=== PATIENT | male | born 1955 | race Caucasian/White ===

== ENCOUNTER 2016-04-23 16:37 | Emergency (ER) | payer OTHER ==
[~2016-04-23] VITALS: Ht 190.5 cm; Wt 95.0 kg
[~2016-04-23 16:37] MED LIST: ADVAI500I PO; ALPR0.5T3 PO; PRED5TAB PO
--- NOTE | 2016-04-23 17:34 | PD ---
HPI Chief Complaint: EtOH intoxication/Rodriguez act Time Seen by Provider: 17:34 Travel History International Travel<30 days: No Contact w/Intl Traveler<30days: No Traveled to known affect area: No History of Present Illness HPI 60-year-old male brought in under the Rodriguez with alcohol intoxication. Patient brought in via EMS. Patient states he drank a bottle of vodka today. Patient has no complaints of pain but is complaining that he is "having a panic attack". He has no known drug allergies. PFSH Past Medical History Medical History: Unable to Obtain Hx Anticoagulant Therapy: No Arthritis: No Asthma: Yes Autoimmune Disease: No Blood Disorders: No Anxiety: Yes Depression: No Heart Rhythm Problems: No Cancer: No Cardiovascular Problems: No High Cholesterol: No Chemotherapy: No Chest Pain: No Congestive Heart Failure: No COPD: No Cerebrovascular Accident: No Diabetes: No Diminished Hearing: No Endocrine: No Gastrointestinal Disorders: Yes (POSSIBLE HERNIA) GERD: No Glaucoma: No Genitourinary: Yes (ENLARGED PROSTATE CAUSING DELAYED BLADDER EMPTYING) Headaches: No Hepatitis: No Hiatal Hernia: Yes Hypertension: No Immune Disorder: No Implanted Vascular Access Dvce: Yes Kidney Stones: No Musculoskeletal: No Neurologic: No Psychiatric: Yes Reproductive: No Respiratory: Yes Immunizations Current: Yes Migraines: No Myocardial Infarction: No Radiation Therapy: No Renal Failure: No Seizures: No Sickle Cell Disease: No Sleep Apnea: No Thyroid Disease: No Past Surgical History Abdominal Surgery: Yes (HERNIA REPAIR) AICD: No Arteriovenous Shunt: No Body Medical Devices: DENTAL IMPLANT Cardiac Surgery: No Cholecystectomy: No Ear Surgery: No Endocrine Surgery: No Eye Surgery: No Genitourinary Surgery: Yes (TURP secondary to BPH) Gynecologic Surgery: No Insulin Pump: No Joint Replacement: No Oral Surgery: Yes (TOOTH PULLED UNDER ANESTHESIA) Pacemaker: No Thoracic Surgery: No Other Surgery: Yes Social History Alcohol Use: Yes (BINGE DRINKING DAILY) Tobacco Use: No Substance Use: Yes (ALCOHOL, BENZOS.) Allergies-Medications (Allergen,Severity, Reaction): Coded Allergies: No Known Allergies (Verified , 04/23/16) Reported Meds & Prescriptions Reported Meds & Active Scripts Active Reported Alprazolam 0.5 Mg Tab 0.5 Mg PO DAILY PRN Advair Diskus Inh (Fluticasone-Salmeterol Inh) 500-50 Mcg/Blist Aer 1 Puff INH DAILY Rinse mouth after use. Review of Systems ROS Limitations: Intoxication Except as stated in HPI: all other systems reviewed are Neg General / Constitutional: No: Fever Eyes: No: Visual changes HENT: No: Headaches Cardiovascular: No: Chest Pain or Discomfort Respiratory: No: Shortness of Breath Gastrointestinal: No: Abdominal Pain Genitourinary: No: Dysuria Musculoskeletal: No: Pain Skin: No Rash Neurologic: No: Weakness Psychiatric: No: Depression Endocrine: No: Polydipsia Hematologic/Lymphatic: No: Easy Bruising Physical Exam Exam Limitations: Intoxication Narrative GENERAL: Patient is intoxicated but in no acute distress. Airway is patent. SKIN: Warm and dry. Normal color. Normal turgor. HEAD: Atraumatic. Normocephalic. EYES: Pupils equal and round. No scleral icterus. No injection or drainage. ENT: No nasal bleeding or discharge. Mucous membranes pink and moist. Pharynx is clear. NECK: Trachea midline. No JVD. CARDIOVASCULAR: Regular rate and rhythm. RESPIRATORY: No accessory muscle use. Clear to auscultation. Breath sounds equal bilaterally. MUSCULOSKELETAL: Extremities without clubbing, cyanosis, or edema. No obvious deformities. NEUROLOGICAL: Intoxicated but arousable. No obvious cranial nerve deficits. Motor grossly within normal limits. Five out of 5 muscle strength in the arms and legs. Normal speech. PSYCHIATRIC: Patient is intoxicated but denies suicidal or homicidal ideation. He states he is having a panic attack. Data Data Last Documented VS Vital Signs Date Time Temp Pulse Resp B/P Pulse Ox O2 Delivery O2 Flow Rate FiO2 04/23/16 20:09 88 18 133/78 96 Room Air 04/23/16 18:32 98.9 Orders Complete Blood Count With Diff (04/23/16 17:11) Comprehensive Metabolic Panel (04/23/16 17:11) Drug Screen, Random Urine (04/23/16 17:11) Alcohol (Ethanol) (04/23/16 17:11) Lorazepam Inj (Ativan Inj) (04/23/16 18:00) Chlordiazepoxide (Librium) (04/23/16 18:00) Sodium Chlor 0.9% 1000 Ml Inj (Ns 1000 M (04/23/16 18:00) Calcium Gluconate Inj (Calcium Gluconate (04/23/16 19:45) Thiamine Inj (Thiamine Inj) (04/23/16 19:45) Labs Laboratory Tests Test 04/23/16 04/23/16 18:20 20:15 White Blood Count 13.5 TH/MM3 Red Blood Count 4.77 MIL/MM3 Hemoglobin 14.0 GM/DL Hematocrit 42.2 % Mean Corpuscular Volume 88.6 FL Mean Corpuscular Hemoglobin 29.4 PG Mean Corpuscular Hemoglobin 33.2 % Concent Red Cell Distribution Width 15.3 % Platelet Count 388 TH/MM3 Mean Platelet Volume 8.5 FL Neutrophils (%) (Auto) 87.8 % Lymphocytes (%) (Auto) 6.9 % Monocytes (%) (Auto) 5.1 % Eosinophils (%) (Auto) 0.0 % Basophils (%) (Auto) 0.2 % Neutrophils # (Auto) 11.8 TH/MM3 Lymphocytes # (Auto) 0.9 TH/MM3 Monocytes # (Auto) 0.7 TH/MM3 Eosinophils # (Auto) 0.0 TH/MM3 Basophils # (Auto) 0.0 TH/MM3 CBC Comment DIFF FINAL Differential Comment Sodium Level 139 MEQ/L Potassium Level 4.1 MEQ/L Chloride Level 100 MEQ/L Carbon Dioxide Level 21.4 MEQ/L Anion Gap 18 MEQ/L Blood Urea Nitrogen 18 MG/DL Creatinine 1.91 MG/DL Estimat Glomerular Filtration 36 ML/MIN Rate Random Glucose 226 MG/DL Calcium Level 7.4 MG/DL Protein Corrected Calcium 7.4 MG/DL Total Bilirubin 0.5 MG/DL Aspartate Amino Transf 47 U/L (AST/SGOT) Alanine Aminotransferase 43 U/L (ALT/SGPT) Alkaline Phosphatase 117 U/L Total Protein 7.3 GM/DL Albumin 2.9 GM/DL Ethyl Alcohol Level 327 MG/DL Urine Opiates Screen NEG Urine Barbiturates Screen NEG Urine Amphetamines Screen NEG Urine Benzodiazepines Screen NEG Urine Cocaine Screen NEG Urine Cannabinoids Screen NEG MDM Medical Decision Making Medical Screen Exam Complete: Yes Emergency Medical Condition: Yes Differential Diagnosis EtOH intoxication. Ramon's act. Polysubstance abuse. Mood disorder. Narrative Course Patient is medically stable at time of exam. CBC, CMP, serum alcohol, and urine tox screen is ordered. IV access is obtained patient is given 1 mg lorazepam IV, as well as 25 mg Librium by mouth. Patient is started on normal saline bolus of 1000 mL's normal saline. CBC is unremarkable. CMP shows a low calcium of 7.4 corrected. Serum alcohol is 374. Urine tox screen is pending. Patient is given 100 mg thiamine IV, as well as 1 g calcium gluconate IV. Patient is awaiting medical bed placement. Patient is medically stable. He is moved to [facility]. He is stable for discharge once sober. Patient is referred [facility]. Diagnosis Primary Impression: ETOH abuse Additional Impression: Hypocalcemia Referrals: [facility] Patient Instructions: General Instructions Additional Instructions: Patient is medically stable. Patient is referred to [facility] for [facility] detox. Med/Other Pt SpecificInfo: No Meds Exist/No RX given Disposition: DISCHARGE HOME Condition: Stable Philippe Garcia Apr 23, 2016 17:34
[2016-04-23] MEDS ORDERED: chlordiazePOXIDE 25 MG CAP PO PRN ×2 (18:00→23:00)
[2016-04-23] MEDS ORDERED: SODIUM CHLOR 0.9% 1000 ML INJ 1,000 ML IV ONE (18:00)
[2016-04-23] MEDS ORDERED: LORazepam 2 MG/ML VIAL IV PUSH ONE ×2 (18:00→23:00)
[2016-04-23 18:32] VITALS: BP 125/77; PULSE 91; RESP 16; TEMP 98.9; O2SAT 95
[2016-04-23 18:55] LABS: AUTOMATED NEUTROPHIL # 11.8 TH/MM3 (1.8-7.7); BASOPHIL % 0.2 % (0.0-2.0); HEMATOCRIT 42.2 % (39.0-51.0); HEMO FLAGS DIFF FINAL; LYMPH % 6.9 % (9.0-44.0); LYMPHOCYTE # 0.9 TH/MM3 (1.0-4.8); MEAN CELL VOLUME 88.6 FL (80.0-100.0); MEAN CORPUSCULAR HEMOGLOBIN 29.4 PG (27.0-34.0); MEAN CORPUSCULAR HGB CONC 33.2 % (32.0-36.0); MONO % 5.1 % (0.0-8.0); NEUT % 87.8 % (16.0-70.0); PLATELET COUNT 388 TH/MM3 (150-450); RED BLOOD COUNT 4.77 MIL/MM3 (4.50-5.90); RED CELL DISTRIBUTION WIDTH 15.3 % (11.6-17.2); WHITE BLOOD COUNT 13.5 TH/MM3 (4.0-11.0)
[2016-04-23 19:10] LABS: BICARBONATE 21.4 MEQ/L (21.0-32.0); POTASSIUM 4.1 MEQ/L (3.5-5.1); TOTAL BILIRUBIN ADULT 0.5 MG/DL (0.2-1.0)
[2016-04-23 19:23] LABS: CALCIUM-PROTEIN CORRECTED 7.4 MG/DL (8.5-10.1)
[2016-04-23] MEDS ORDERED: CALCIUM GLUCONATE INJ 1 GM in DEXTROSE 5% IN WATER 100ML INJ 100 ML IV ONE ×2 (19:45)
[2016-04-23] MEDS ORDERED: THIAMINE INJ 100 MG in SODIUM CHLORIDE 0.9% INJ 100 ML IV ONE (19:45)
[2016-04-23 20:09] VITALS: BP 133/78; PULSE 88; RESP 18; O2SAT 96
[2016-04-23] MEDS ORDERED: ALPR0.5T3 PO (20:11)
[2016-04-23] MEDS ORDERED: ADVA500A INH (20:11)
[2016-04-23 20:53] LABS: AMPHETAMINE, URINE NEG (NEG); BARBITURATES, URINE NEG (NEG); COCAINE, URINE NEG (NEG)
--- NOTE | 2016-04-23 21:03 | PD ---
Physical Exam Narrative Patient was seen and examined with my social services assistant. Data Data Last Documented VS Vital Signs Date Time Temp Pulse Resp B/P Pulse Ox O2 Delivery O2 Flow Rate FiO2 04/23/16 20:09 88 18 133/78 96 Room Air 04/23/16 18:32 98.9 Orders Complete Blood Count With Diff (04/23/16 17:11) Comprehensive Metabolic Panel (04/23/16 17:11) Drug Screen, Random Urine (04/23/16 17:11) Alcohol (Ethanol) (04/23/16 17:11) Lorazepam Inj (Ativan Inj) (04/23/16 18:00) Chlordiazepoxide (Librium) (04/23/16 18:00) Sodium Chlor 0.9% 1000 Ml Inj (Ns 1000 M (04/23/16 18:00) Calcium Gluconate Inj (Calcium Gluconate (04/23/16 19:45) Thiamine Inj (Thiamine Inj) (04/23/16 19:45) Labs Laboratory Tests Test 04/23/16 04/23/16 18:20 20:15 White Blood Count 13.5 TH/MM3 Red Blood Count 4.77 MIL/MM3 Hemoglobin 14.0 GM/DL Hematocrit 42.2 % Mean Corpuscular Volume 88.6 FL Mean Corpuscular Hemoglobin 29.4 PG Mean Corpuscular Hemoglobin 33.2 % Concent Red Cell Distribution Width 15.3 % Platelet Count 388 TH/MM3 Mean Platelet Volume 8.5 FL Neutrophils (%) (Auto) 87.8 % Lymphocytes (%) (Auto) 6.9 % Monocytes (%) (Auto) 5.1 % Eosinophils (%) (Auto) 0.0 % Basophils (%) (Auto) 0.2 % Neutrophils # (Auto) 11.8 TH/MM3 Lymphocytes # (Auto) 0.9 TH/MM3 Monocytes # (Auto) 0.7 TH/MM3 Eosinophils # (Auto) 0.0 TH/MM3 Basophils # (Auto) 0.0 TH/MM3 CBC Comment DIFF FINAL Differential Comment Sodium Level 139 MEQ/L Potassium Level 4.1 MEQ/L Chloride Level 100 MEQ/L Carbon Dioxide Level 21.4 MEQ/L Anion Gap 18 MEQ/L Blood Urea Nitrogen 18 MG/DL Creatinine 1.91 MG/DL Estimat Glomerular Filtration 36 ML/MIN Rate Random Glucose 226 MG/DL Calcium Level 7.4 MG/DL Protein Corrected Calcium 7.4 MG/DL Total Bilirubin 0.5 MG/DL Aspartate Amino Transf 47 U/L (AST/SGOT) Alanine Aminotransferase 43 U/L (ALT/SGPT) Alkaline Phosphatase 117 U/L Total Protein 7.3 GM/DL Albumin 2.9 GM/DL Ethyl Alcohol Level 327 MG/DL Urine Opiates Screen NEG Urine Barbiturates Screen NEG Urine Amphetamines Screen NEG Urine Benzodiazepines Screen NEG Urine Cocaine Screen NEG Urine Cannabinoids Screen NEG MDM Supervised Visit with MARLIN: Yes Condition: Stable Tucker Barillas MD Apr 23, 2016 21:03
[2016-04-23 22:00] VITALS: BP 121/74; PULSE 86; RESP 18; O2SAT 97
[2016-04-24 01:00] VITALS: BP 125/78; PULSE 84; RESP 18; O2SAT 97
[2016-04-24] MEDS ORDERED: PRED5TAB PO (03:43)
[2016-04-24 04:45] VITALS: BP 139/84; PULSE 102; RESP 22; O2SAT 97
--- NOTE | 2016-04-24 04:55 | PD ---
Physical Exam Time Seen by Provider: 04:48 Data Data Last Documented VS Vital Signs Date Time Temp Pulse Resp B/P Pulse Ox O2 Delivery O2 Flow Rate FiO2 04/24/16 05:49 97 Nasal Cannula 4.00 04/24/16 04:45 102 22 139/84 04/23/16 18:32 98.9 Orders Complete Blood Count With Diff (04/23/16 17:11) Comprehensive Metabolic Panel (04/23/16 17:11) Drug Screen, Random Urine (04/23/16 17:11) Alcohol (Ethanol) (04/23/16 17:11) Lorazepam Inj (Ativan Inj) (04/23/16 18:00) Chlordiazepoxide (Librium) (04/23/16 18:00) Sodium Chlor 0.9% 1000 Ml Inj (Ns 1000 M (04/23/16 18:00) Calcium Gluconate Inj (Calcium Gluconate (04/23/16 19:45) Thiamine Inj (Thiamine Inj) (04/23/16 19:45) Lorazepam Inj (Ativan Inj) (04/23/16 23:00) Chlordiazepoxide (Librium) (04/23/16 23:00) Chest, Single Ap (04/24/16 04:53) Methylprednisolone So Succ Inj (Solumedr (04/24/16 05:00) Albuterol-Ipratropium Neb (Duoneb Neb) (04/24/16 05:00) Labs Laboratory Tests Test 04/23/16 04/23/16 18:20 20:15 White Blood Count 13.5 TH/MM3 Red Blood Count 4.77 MIL/MM3 Hemoglobin 14.0 GM/DL Hematocrit 42.2 % Mean Corpuscular Volume 88.6 FL Mean Corpuscular Hemoglobin 29.4 PG Mean Corpuscular Hemoglobin 33.2 % Concent Red Cell Distribution Width 15.3 % Platelet Count 388 TH/MM3 Mean Platelet Volume 8.5 FL Neutrophils (%) (Auto) 87.8 % Lymphocytes (%) (Auto) 6.9 % Monocytes (%) (Auto) 5.1 % Eosinophils (%) (Auto) 0.0 % Basophils (%) (Auto) 0.2 % Neutrophils # (Auto) 11.8 TH/MM3 Lymphocytes # (Auto) 0.9 TH/MM3 Monocytes # (Auto) 0.7 TH/MM3 Eosinophils # (Auto) 0.0 TH/MM3 Basophils # (Auto) 0.0 TH/MM3 CBC Comment DIFF FINAL Differential Comment Sodium Level 139 MEQ/L Potassium Level 4.1 MEQ/L Chloride Level 100 MEQ/L Carbon Dioxide Level 21.4 MEQ/L Anion Gap 18 MEQ/L Blood Urea Nitrogen 18 MG/DL Creatinine 1.91 MG/DL Estimat Glomerular Filtration 36 ML/MIN Rate Random Glucose 226 MG/DL Calcium Level 7.4 MG/DL Protein Corrected Calcium 7.4 MG/DL Total Bilirubin 0.5 MG/DL Aspartate Amino Transf 47 U/L (AST/SGOT) Alanine Aminotransferase 43 U/L (ALT/SGPT) Alkaline Phosphatase 117 U/L Total Protein 7.3 GM/DL Albumin 2.9 GM/DL Ethyl Alcohol Level 327 MG/DL Urine Opiates Screen NEG Urine Barbiturates Screen NEG Urine Amphetamines Screen NEG Urine Benzodiazepines Screen NEG Urine Cocaine Screen NEG Urine Cannabinoids Screen NEG MDM Medical Record Reviewed: Yes Supervised Visit with MARLIN: No Narrative Course 0448: I have been asked to evaluate this patient by the nurse. The patient is complaining of wheezing and cough. This patient was previously seen by previous providers for evaluation of alcohol intoxication. He has been in this facility for over 12 hours. He recently began complaining of wheezing. He has a history of asthma. Uses prednisone 15 mg daily basis, Advair Diskus. He does endorse a cough which has been going on for a few days as well. The cough is productive with sputum production. On examination he has inspiratory wheezing, mild, bilaterally, as well as mild tachypnea. The patient be given DuoNeb therapy and Solu-Medrol. A chest x-ray has been ordered. 0605: Chest x-ray reveals no acute abnormalities. Upon recheck the patient feels significantly improved. He is medically cleared. I have been told that his mother is picking him up. Diagnosis Primary Impression: ETOH abuse Additional Impression: Hypocalcemia [facility]: [facility] Patient Instructions: General Instructions Additional Instruction: Patient is medically stable. [facility] is [facility]. Disposition: 01 DISCHARGE HOME Condition: Stable Bird Arnold Apr 24, 2016 04:55
[2016-04-24] MEDS ORDERED: methylPREDNISolone SOD SUCC 125 MG/2 ML VIAL IVP ONE (05:00)
[2016-04-24] MEDS: RESP: ALBUTEROL 2.5 MG/IPRATROPIUM 0.5 MG NEB (SCH) INH ×2 (05:48→05:49)
[2016-04-24 05:49] VITALS: O2SAT 97
--- NOTE | 2016-04-24 05:50 | RADRPT ---
EXAM DATE/TIME: 04/24/2016 04:53 [facility] COMPARISON: CHEST SINGLE AP, November 12, 2015, 22:00. INDICATIONS : Shortness of breath. MEDICAL HISTORY : Chronic obstructive pulmonary disease. SURGICAL HISTORY : None. ENCOUNTER: Initial ACUITY: 1 day PAIN SCORE: 110 LOCATION: Bilateral chest FINDINGS: A single view of the chest demonstrates the lungs to be symmetrically aerated without evidence of mas s, infiltrate or effusion. The cardiomediastinal contours are unremarkable. Osseous structures are intact. CONCLUSION: The lungs are clear. Joss Brand MD on April 24, 2016 at 5:48 Board Certified Radiologist. This report was verified electronically.
== END 2016-04-24 06:58 | disposition home or self-care (01) ==
LOC: NEPA 16:37
DX: F41.0 Panic disorder [episodic paroxysmal anxiety] (principal); F10.229 Alcohol dependence with intoxication, unspecified; Y90.8 Blood alcohol level of 240 mg/100 ml or more; F19.10 Other psychoactive substance abuse, uncomplicated
CPT/HCPCS: 71010; 80053; 80307; 80320; 85025; 94640; 94664; 96361; 96365; 96368; 96375; 96376; 99284; J0610; J2060; J2930; J3411; J7030

== ENCOUNTER 2016-06-11 05:12 | Inpatient (IN) | payer OTHER ==
[2016-06-11] VITALS (9 sets, daily range): BP systolic 133–166; BP diastolic 83–93; PULSE 94–115; RESP 15–22; TEMP 98.4–98.7; O2SAT 93–98
[~2016-06-11] VITALS: Ht 266.7 cm; Wt 96.0 kg
[~2016-06-11 05:12] MED LIST changes: +ADVA500A INH; -ADVAI500I PO
[2016-06-11] MEDS ORDERED: methylPREDNISolone SOD SUCC 125 MG/2 ML VIAL IVP ONE (05:30)
[2016-06-11] MEDS ORDERED: SODIUM CHLORIDE 0.9% FLUSH 5 ML FLUSH IVF PRN (05:30)
[2016-06-11] MEDS ORDERED: LORazepam 2 MG/ML VIAL IV PUSH ONE (05:30)
[2016-06-11] MEDS ORDERED: SODIUM CHLOR 0.9% 1000 ML INJ 1,000 ML IV ONE ×3 (05:30→06:30)
--- NOTE | 2016-06-11 05:30 | PD ---
HPI Chief Complaint: Alcohol/Drug Intoxication Time Seen by Provider: 05:17 Travel History International Travel<30 days: No Contact w/Intl Traveler<30days: No Traveled to known affect area: No History of Present Illness HPI 60-year-old male with history of asthma, alcohol abuse, brought in by ambulance stating that he feels anxious and he wants help to calm down. The patient reports that he has been drinking alcohol, and his strength about a pint of liquor in the past day. He has dried blood on his face and reports falling a couple of days ago. No chest pain or dyspnea. No abdominal pain. He denies illicit drug use. PFSH Past Medical History Hx Anticoagulant Therapy: No Arthritis: No Asthma: Yes Autoimmune Disease: No Blood Disorders: No Anxiety: Yes Depression: No Heart Rhythm Problems: No Cancer: No Cardiovascular Problems: No High Cholesterol: No Chemotherapy: No Chest Pain: No Congestive Heart Failure: No COPD: No Cerebrovascular Accident: No Diabetes: No Diminished Hearing: No Endocrine: No Gastrointestinal Disorders: Yes (POSSIBLE HERNIA) GERD: No Glaucoma: No Genitourinary: Yes (ENLARGED PROSTATE CAUSING DELAYED BLADDER EMPTYING) Headaches: No Hepatitis: No Hiatal Hernia: Yes Hypertension: No Immune Disorder: No Implanted Vascular Access Dvce: Yes Kidney Stones: No Medical other: Yes (INGUINAL HERNIA, VASCULITIS) Musculoskeletal: No Neurologic: No Psychiatric: Yes Reproductive: No Respiratory: Yes Immunizations Current: Yes Migraines: No Myocardial Infarction: No Radiation Therapy: No Renal Failure: No Seizures: No Sickle Cell Disease: No Sleep Apnea: No Thyroid Disease: No Tetanus Vaccination: Unknown Past Surgical History Abdominal Surgery: Yes (HERNIA REPAIR) AICD: No Arteriovenous Shunt: No Body Medical Devices: DENTAL IMPLANT Cardiac Surgery: No Cholecystectomy: No Ear Surgery: No Endocrine Surgery: No Eye Surgery: No Genitourinary Surgery: Yes (TURP secondary to BPH) Gynecologic Surgery: No Insulin Pump: No Joint Replacement: No Oral Surgery: Yes (TOOTH PULLED UNDER ANESTHESIA) Pacemaker: No Thoracic Surgery: No Other Surgery: Yes Social History Alcohol Use: Yes (BINGE DRINKING DAILY) Tobacco Use: No Substance Use: Yes (ALCOHOL, BENZOS.) Allergies-Medications (Allergen,Severity, Reaction): Coded Allergies: No Known Allergies (Verified , 04/23/16) Reported Meds & Prescriptions Reported Meds & Active Scripts Active Review of Systems Except as stated in HPI: all other systems reviewed are Neg Physical Exam Narrative GENERAL: Well-developed, well-nourished, appears anxious, awake, alert SKIN: Warm and dry. Dry blood on right anterior face. No obvious laceration. HEAD: Skin exam as above. Normocephalic. EYES: Pupils equal, round, 3 mm, reactive to light. No scleral icterus. No injection or drainage. ENT: No nasal bleeding or discharge. No nasal septal hematoma. Mucous membranes pink and dry. Ketotic odor on breath. NECK: Trachea midline. No JVD. CARDIOVASCULAR: Tachycardic, regular. RESPIRATORY: No accessory muscle use. Clear to auscultation. Breath sounds equal bilaterally. GASTROINTESTINAL: Abdomen soft, non-tender, nondistended. MUSCULOSKELETAL: No obvious deformities. No clubbing. No cyanosis. No edema. NEUROLOGICAL: Awake and alert. No obvious cranial nerve deficits. Motor grossly within normal limits. Normal speech. PSYCHIATRIC: Appropriate mood and affect; insight and judgment normal. Data Data Last Documented VS Vital Signs Date Time Temp Pulse Resp B/P Pulse Ox O2 Delivery O2 Flow Rate FiO2 06/11/16 05:54 94 Nasal Cannula 2.00 06/11/16 05:17 22 06/11/16 05:17 120 06/11/16 05:14 98.4 153/89 Orders Complete Blood Count With Diff (06/11/16 05:19) Comprehensive Metabolic Panel (06/11/16 05:19) Act Partial Throm Time (Ptt) (06/11/16 05:19) Prothrombin Time / Inr (Pt) (06/11/16 05:19) Ckmb (Isoenzyme) Profile (06/11/16 05:19) Troponin I (06/11/16 05:19) Influenzae A/B Antigen (06/11/16 05:19) Blood Culture (06/11/16 05:19) Iv Access Insert/Monitor (06/11/16 05:19) Electrocardiogram (06/11/16 05:19) Ecg Monitoring (06/11/16 05:19) Oximetry (06/11/16 05:19) Oxygen Administration (06/11/16 05:19) Chest, Single Ap (06/11/16 05:19) Sodium Chloride 0.9% Flush (Ns Flush) (06/11/16 05:30) Methylprednisolone So Succ Inj (Solumedr (06/11/16 05:30) Albuterol-Ipratropium Neb (Duoneb Neb) (06/11/16 05:30) Lactic Acid (06/11/16 05:19) Beta Hydroxybutyrate (Acetone) (06/11/16 05:19) Sodium Chlor 0.9% 1000 Ml Inj (Ns 1000 M (06/11/16 05:30) Blood Gas Venous (Vbg) (06/11/16 05:22) Lorazepam Inj (Ativan Inj) (06/11/16 05:30) Sodium Chlor 0.9% 1000 Ml Inj (Ns 1000 M (06/11/16 05:30) Ct Brain W/O Iv Contrast(Rout) (06/11/16 ) Ct Facial Bones W/O Iv Cont (06/11/16 ) Ct Cerv Spine W/O Contrast (06/11/16 ) CKMB (06/11/16 05:32) CKMB% (06/11/16 05:32) Sodium Chlor 0.9% 1000 Ml Inj (Ns 1000 M (06/11/16 06:30) Alcohol (Ethanol) (06/11/16 06:33) Ceftriaxone Inj (Rocephin Inj) (06/11/16 06:45) Azithromycin Inj (Zithromax Inj) (06/11/16 06:45) Admit Order (Ed Use Only) (06/11/16 06:46) Labs Laboratory Tests Test 06/11/16 05:32 White Blood Count 15.5 TH/MM3 Red Blood Count 4.72 MIL/MM3 Hemoglobin 14.1 GM/DL Hematocrit 41.6 % Mean Corpuscular Volume 88.2 FL Mean Corpuscular Hemoglobin 30.0 PG Mean Corpuscular Hemoglobin 34.0 % Concent Red Cell Distribution Width 15.7 % Platelet Count 241 TH/MM3 Mean Platelet Volume 8.9 FL Neutrophils (%) (Auto) 86.3 % Lymphocytes (%) (Auto) 7.1 % Monocytes (%) (Auto) 6.2 % Eosinophils (%) (Auto) 0.1 % Basophils (%) (Auto) 0.3 % Neutrophils # (Auto) 13.4 TH/MM3 Lymphocytes # (Auto) 1.1 TH/MM3 Monocytes # (Auto) 1.0 TH/MM3 Eosinophils # (Auto) 0.0 TH/MM3 Basophils # (Auto) 0.1 TH/MM3 CBC Comment DIFF FINAL Differential Comment Prothrombin Time 10.7 SEC Prothromb Time International 1.0 RATIO Ratio Activated Partial 26.6 SEC Thromboplast Time Sodium Level 139 MEQ/L Potassium Level 4.1 MEQ/L Chloride Level 96 MEQ/L Carbon Dioxide Level 22.3 MEQ/L Anion Gap 21 MEQ/L Blood Urea Nitrogen 34 MG/DL Creatinine 2.25 MG/DL Estimat Glomerular Filtration 30 ML/MIN Rate Random Glucose 181 MG/DL Lactic Acid Level 6.6 mmol/L Calcium Level 8.6 MG/DL Total Bilirubin 0.8 MG/DL Aspartate Amino Transf 225 U/L (AST/SGOT) Alanine Aminotransferase 69 U/L (ALT/SGPT) Alkaline Phosphatase 96 U/L Total Creatine Kinase 4597 U/L Creatine Kinase MB 32.7 NG/ML Creatine Kinase MB % 0.7 % Troponin I 0.05 NG/ML Total Protein 7.2 GM/DL Albumin 3.2 GM/DL B-Hydroxybutyrate 1.25 MMOL/L [facility] Medical Decision Making Medical Screen Exam Complete: Yes Emergency Medical Condition: Yes Interpretation(s) EKG: Sinus tachycardia, rate 101, normal axis, normal intervals, nonspecific T- wave abnormality, no acute ischemic abnormality Differential Diagnosis Alcohol intoxication, dehydration, anxiety, alcoholic ketoacidosis, asthma exacerbation, pneumonia, metabolic abnormality Narrative Course Initial vital signs show heart rate 115, blood pressure 153/89, pulse ox 93% on room air, temp of 98.4F. CBC is remarkable for WBC 15.5 with 86% neutrophils. CMP is remarkable for BUN 34, creatinine 2.25, GFR 30 which is slightly worse than his baseline renal function, random glucose 181, AST 225. Total CK is 4597. Troponin is 0.05. Lactic acid is 6.6. Beta hydroxybutyrate is 1.25. CT head: No acute findings. CT facial bones: No evidence of facial bone fracture. Pansinus disease. CT cervical spine: At the T1, there is a compression of the anterior superior endplate and approximately 20% loss of height. There is a lucency anteriorly between the compression and vertebral body suggesting this is an acute injury. 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 Patient was made aware of CT cervical spine. He is complaining of only mild pain in the area of T1. There is mild tenderness midline in this area. He has no upper extremity motor deficits. The patient was given 2 L of normal saline IV and is still tachycardic. Given lactic acidosis and rhabdomyolysis, he will be admitted for further treatment and evaluation. Chest x-ray: Nonconsolidated infiltrate in the medial right lower lung The patient was started on Rocephin and azithromycin. Blood cultures sent prior to antibiotic administration. Case discussed with hospitalist Dr. Hayes who will admit the patient to her service. Diagnosis Primary Impression: Pneumonia Qualified Code: J18.1 - Pneumonia of right lower lobe due to infectious organism Additional Impressions: Rhabdomyolysis Qualified Code: M62.82 - Non-traumatic rhabdomyolysis Lactic acidosis Renal insufficiency Sinus tachycardia Alcohol intoxication Qualified Code: F10.120 - Alcohol intoxication, uncomplicated T1 vertebral fracture Qualified Code: S22.010A - Closed wedge compression fracture of first thoracic vertebra, initial encounter Admitting Information Admitting Physician Requests: Admit Scripts No Active Prescriptions or Reported Meds Cristian Worley MD Jun 11, 2016 05:30
[2016-06-11 05:42] LABS: AUTOMATED NEUTROPHIL # 13.4 TH/MM3 (1.8-7.7); BASOPHIL # 0.1 TH/MM3 (0-0.2); BASOPHIL % 0.3 % (0.0-2.0); EOSINOPHIL % 0.1 % (0.0-4.0); HEMATOCRIT 41.6 % (39.0-51.0); HEMO FLAGS DIFF FINAL; LYMPH % 7.1 % (9.0-44.0); LYMPHOCYTE # 1.1 TH/MM3 (1.0-4.8); MEAN CELL VOLUME 88.2 FL (80.0-100.0); MONO % 6.2 % (0.0-8.0); NEUT % 86.3 % (16.0-70.0); PLATELET COUNT 241 TH/MM3 (150-450); RED BLOOD COUNT 4.72 MIL/MM3 (4.50-5.90); RED CELL DISTRIBUTION WIDTH 15.7 % (11.6-17.2); WHITE BLOOD COUNT 15.5 TH/MM3 (4.0-11.0)
[2016-06-11] MEDS: RESP: ALBUTEROL 2.5 MG/IPRATROPIUM 0.5 MG NEB (SCH) INH ×2 (05:47→05:48)
[2016-06-11 05:54] LABS: APTT (PATIENT) 26.6 SEC (24.3-30.1); PROTHROMBIN TIME - PATIENT 10.7 SEC (9.8-11.6)
[2016-06-11 06:13] LABS: ANION GAP 21 MEQ/L (5-15); AST (GOT) 225 U/L (15-37); BICARBONATE 22.3 MEQ/L (21.0-32.0); BLOOD UREA NITROGEN 34 MG/DL (7-18); CHLORIDE 96 MEQ/L (98-107); GLOMERULAR FILTRATION RATE 30 ML/MIN (>89); POTASSIUM 4.1 MEQ/L (3.5-5.1); SODIUM (NA) 139 MEQ/L (136-145)
--- NOTE | 2016-06-11 06:23 | RADRPT ---
EXAM DATE/TIME: 06/11/2016 05:27 [facility] COMPARISON: CT BRAIN W/O CONTRAST, November 09, 2015, 0:30. INDICATIONS : Trauma, unknown injury. RADIATION DOSE: 56.35 CTDIvol (mGy) MEDICAL HISTORY : None SURGICAL HISTORY : None. ENCOUNTER: Initial ACUITY: 1 day PAIN SCALE: Non-responsive LOCATION: cranial TECHNIQUE: Multiple contiguous axial images were obtained of the head. Using automated exposure control and adj ustment of the mA and/or kV according to patient size, radiation dose was kept as low as reasonably a chievable to obtain optimal diagnostic quality images. FINDINGS: CEREBRUM: The ventricles are normal for age. No evidence of midline shift, mass lesion, hemorrhage or acute in farction. No extra-axial fluid collections are seen. POSTERIOR FOSSA: The cerebellum and brainstem are intact. The 4th ventricle is midline. The cerebellopontine angle i s unremarkable. EXTRACRANIAL: The visualized portion of the orbits is intact. Bilateral maxillary and ethmoid sinus disease is les s severe than November 2015. SKULL: The calvaria is intact. No evidence of skull fracture. CONCLUSION: No acute findings. Joss Brand MD on June 11, 2016 at 6:20 Board Certified Radiologist. This report was verified electronically.
[2016-06-11 06:27] LABS: ALKALINE PHOSPHATASE 96 U/L (45-117); ALT (GPT) 69 U/L (12-78); BETA-HYDROXYBUTYRATE 1.25 MMOL/L (0.00-0.39); CREATINE KINASE 4597 U/L (39-308); TOTAL BILIRUBIN ADULT 0.8 MG/DL (0.2-1.0)
--- NOTE | 2016-06-11 06:29 | RADRPT ---
EXAM DATE/TIME: 06/11/2016 05:29 [facility] COMPARISON: No previous studies available for comparison. INDICATIONS : Trauma, unknown injury. RADIATION DOSE: 24.64 CTDIvol (mGy) MEDICAL HISTORY : None SURGICAL HISTORY : None. ENCOUNTER: Initial ACUITY: 1 day PAIN SCALE: Non-responsive LOCATION: neck TECHNIQUE: Volumetric scanning of the cervical spine was performed. Multiplanar reconstructions in the sagittal, coronal and oblique axial planes were performed. Using automated exposure control and adjustment o f the mA and/or kV according to patient size, radiation dose was kept as low as reasonably achievable to obtain optimal diagnostic quality images. FINDINGS: There is normal alignment of the vertebral bodies of the cervical spine and preservation of vertebral body height. The atlantoaxial articulation is intact. The facet joints are in normal alignment wit hout evidence of locked or perched facets. Moderate facet joint hypertrophy is present bilaterally a t C3-4. At the T1, there is a compression of the anterior superior endplate and approximately 20% loss of hei ght. There is a lucency anteriorly between the compression and vertebral body suggesting this is an acute injury. 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 C2-C3: No fracture seen C3-C4: No fracture seen C4-C5: No fracture seen C5-C6: Mild bilateral bony neural foraminal stenosis. No fracture seen. C6-C7: Mild bilateral bony neural foraminal stenosis. No fracture seen. C7-T1: No fracture seen CONCLUSION: 20% compression fracture anterior superior T1 vertebral body. No evidence of compression deformity i n the cervical vertebral bodies. Joss Brand MD on June 11, 2016 at 6:22 Board Certified Radiologist. This report was verified electronically.
--- NOTE | 2016-06-11 06:31 | RADRPT ---
EXAM DATE/TIME: 06/11/2016 05:29 [facility] COMPARISON: No previous studies available for comparison. INDICATIONS : Trauma, unknown injury. RADIATION DOSE: 21.96 CTDIvol (mGy) MEDICAL HISTORY : None SURGICAL HISTORY : None. ENCOUNTER: Initial ACUITY: 1 day PAIN SCORE: Non-responsive LOCATION: facial TECHNIQUE: Volumetric scanning of the facial bones was performed. Using automated exposure control and adjustme nt of the mA and/or kV according to patient size, radiation dose was kept as low as reasonably achiev able to obtain optimal diagnostic quality images. FINDINGS: The nasal bone, zygomatic arches, bony orbit, maxilla, and mandible are grossly intact without eviden ce of fracture. There is mucosal thickening in both maxillary sinuses, left greater than right and o pacified ethmoid air cells and presumed surgical resection of the middle turbinates bilaterally. The re is also mucosal thickening seen in the anterior/inferior frontal sinuses and in the left sphenoid sinus. CONCLUSION: 1. No evidence of facial bone fracture. 2. Pansinus disease. Joss Brand MD on June 11, 2016 at 6:27 Board Certified Radiologist. This report was verified electronically.
[2016-06-11 06:39] LABS: CKMB 32.7 NG/ML (0.5-3.6)
--- NOTE | 2016-06-11 06:39 | RADRPT ---
EXAM DATE/TIME: 06/11/2016 05:40 [facility] COMPARISON: CHEST SINGLE AP, April 24, 2016, 4:53. INDICATIONS : Shortness of breath. MEDICAL HISTORY : Asthma. SURGICAL HISTORY : None. ENCOUNTER: Initial ACUITY: 1 day PAIN SCORE: 0/10 LOCATION: Bilateral chest FINDINGS: There is a new opacity in the medial right lower lung causing indistinctness of the bronchopulmonary markings in infrahilar region. No focal consolidation however. The left lung is clear. Both hemidi aphragms are well delineated. The heart is normal size. CONCLUSION: Non-consolidative infiltrate in the medial right lower lung. Joss Brand MD on June 11, 2016 at 6:36 Board Certified Radiologist. This report was verified electronically.
[2016-06-11] MEDS ORDERED: LORazepam 2 MG/ML VIAL IV PUSH PRN ×3 (06:45)
[2016-06-11] MEDS ORDERED: AZITHROMYCIN INJ 500 MG in SODIUM CHLOR 0.9% 250 ML INJ 250 ML IV ONE (06:45)
[2016-06-11] MEDS ORDERED: cefTRIAXone INJ 1,000 MG in SODIUM CHLORIDE 0.9% INJ 100 ML IV ONE (06:45)
[2016-06-11] MEDS ORDERED: SODIUM CHLORIDE 0.9% FLUSH 5 ML FLUSH FLUSH PRN (06:45)
[2016-06-11] MEDS ORDERED: ACETAMINOPHEN 325 MG TAB PO PRN (06:45)
[2016-06-11] MEDS ORDERED: FLUMAZENIL 0.5 MG/5 ML VIAL IV PUSH PRN (06:45)
[2016-06-11] MEDS ORDERED: BISACODYL 10 MG SUPP PR PRN (06:45)
[2016-06-11] MEDS ORDERED: LORazepam 2 MG TAB PO PRN (06:45)
[2016-06-11] MEDS ORDERED: RESP: ALBUTEROL 2.5 MG/IPRATROPIUM 0.5 MG NEB (PRN) NEB (06:45)
[2016-06-11] MEDS ORDERED: HALOPERIDOL LACTATE 5 MG/ML AMP IM PRN (06:45)
[2016-06-11] MEDS: LORazepam 2 MG/ML VIAL IV PUSH PRN ×2 (07:35→10:36)
[2016-06-11] MEDS: SODIUM CHLORIDE 0.9% FLUSH 5 ML FLUSH FLUSH SCH ×2 (09:00→21:00)
--- NOTE | 2016-06-11 09:17 | HHI.HP ---
[facility] Barry Mccabe MD Admission Diagnosis pneumonia, rhabdomyolysis, lactic acidosis, renal insufficiency Diagnoses: Chief Complaint: anxiety and excessive alcohol use Travel History International Travel<30 Days: No Contact w/Intl Traveler <30 Da: No Traveled to Known Affected Are: No History of Present Illness This is a 60-year-old male with history of alcohol abuse who stated that he presented to the hospital due to drinking too much alcohol. Patient stated that since the age of 51 he started to drink a lot more alcohol due to his anxiety. Patient stated that he has been on Xanax for anxiety by his primary care physician but the past month he was not getting any more Xanax. Patient stated that his primary care about the medication was not good for him because his mom complain about it and through it in the toilet. He stated because of this he started to supplement with alcohol use. He said the past week he spent drinking a lot about 2 pints of vodka a day for the past week. Patient does admit blacking out at times, having tremors when he is not drinking. He denied any history of DTs. Patient stated that yesterday he was drinking excessively and fell down but did not lose any consciousness so went to the emergency department. He denies any headache, visual changes, focal neurological deficit , nausea vomiting or any pain. Patient stated that the Ambien is helping him a lot. Patient stated that yesterday that he did have suicidal ideations but he did not have a plan at all. He stated that he felt suicidal because of his anxiety but that went away quickly. At the moment he denies any suicidal ideations or homicidal ideation. He denies any depression. Patient stated that he felt that way for second because of anxiety but he never actually had a plan and does not feel that way anymore. Patient denies any cough, shortness of breathing, fevers or chills. Patient said that his only complaints anxiety and he feels a lot better. Review of Systems Constitutional: DENIES: Diaphoretic episodes, Fatigue, Fever, Weight gain, Weight loss, Chills, Dizziness, Change in appetite, Night Sweats Endocrine: DENIES: Heat/cold intolerance, Polydipsia, Polyuria, Polyphagia Eyes: DENIES: Blurred vision, Diplopia, Eye inflammation, Eye pain, Vision loss , Photosensitivity, Double Vision Respiratory: DENIES: Apneas, Cough, Snoring, Wheezing, Hemoptysis, Sputum production, Shortness of breath Cardiovascular: DENIES: Chest pain, Palpitations, Syncope, Dyspnea on Exertion , PND, Lower Extremity Edema, Orthopnea, Claudication Gastrointestinal: DENIES: Abdominal pain, Black stools, Bloody stools, Constipation, Diarrhea, Nausea, Vomiting, Difficulty Swallowing, Anorexia Genitourinary: DENIES: Sexual dysfunction, Urinary frequency, Urinary incontinence, Urgency, Hematuria, Dysuria, Nocturia, Penile Discharge, Testicular Pain, Testicular Swelling Musculoskeletal: DENIES: Joint pain, Muscle aches, Stiffness, Joint Swelling, Back pain, Neck pain Integumentary: DENIES: Abnormal pigmentation, Nail changes, Pruritus, Rash Hematologic/lymphatic: DENIES: Bruising, Lymphadenopathy Immunologic/allergic: DENIES: Eczema, Urticaria Neurologic: DENIES: Abnormal gait, Headache, Localized weakness, Paresthesias, Seizures, Speech Problems, Tremor, Poor Balance Psychiatric: COMPLAINS OF: Anxiety, DENIES: Confusion, Mood changes, Depression, Hallucinations, Agitation, Suicidal Ideation, Homicidal Ideation, Delusions Past Family Social History Past Medical History Alcohol abuse Anxiety Asthma Past Surgical History Hernia repair one year ago Reported Medications Patient is not on any home medication. He was on Xanax prior but his primary care physician discontinued that. Allergies: Coded Allergies: No Known Allergies (Verified , 04/23/16) Active Ordered Medications Current Medications IV Flush (NS Flush) 2 ml UNSCH PRN IVF FLUSH AFTER USING IV ACCESS; Start 06/11 at 05:30; Stop 06/11/16 at 07:10; Status DC Methylprednisolone Sodium Succinate (SoluMEDROL INJ) 125 mg ONCE ONCE IVP Last administered on 06/11/16 05:45; Start 06/11/16 at 05:30; Stop 06/11/16 at 05:31; Status DC Albuterol/ Ipratropium 1 ampule 1 ampule Q15M INH Last administered on 05:48; Start 06/11/16 at 05:30; Stop 06/11/16 at 06:01; Status DC Sodium Chloride (NS 1000 ml Inj) 1,000 ml @ 999 mls/hr BOLUS ONCE IV Last administered on 06/11/16 05:44; Start 06/11/16 at 05:30; Stop 06/11/16 at 06:30 ; Status DC Lorazepam 1 mg 1 mg ONCE ONCE IV PUSH Last administered on 06/11/16 05:45; Start 06/11/16 at 05:30; Stop 06/11/16 at 05:31; Status DC Sodium Chloride 1,000 ml @ 999 mls/hr BOLUS ONCE IV Last administered on 06/11 05:44; Start 06/11/16 at 05:30; Stop 06/11/16 at 06:30; Status DC Sodium Chloride 1,000 ml @ 999 mls/hr BOLUS ONCE IV Last administered on 06/11 07:08; Start 06/11/16 at 06:30; Stop 06/11/16 at 07:30; Status DC Ceftriaxone Sodium 1000 mg/ Sodium Chloride 100 ml @ 200 mls/hr ONCE ONCE IV Last administered on 06/11/16 07:08; Start 06/11/16 at 06:45; Stop 06/11/16 at 07:14; Status DC Azithromycin 500 mg/Sodium Chloride 250 ml @ 250 mls/hr ONCE ONCE IV Last administered on 06/11/16 07:34; Start 06/11/16 at 06:45; Stop 06/11/16 at 07:44 ; Status DC Multivitamins 10 ml/Folic Acid 1 mg/Sodium Chloride 510.2 ml @ 125 mls/hr Q24H IV ; Start 06/11/16 at 09:00; Stop 06/16/16 at 08:59 Thiamine HCl/ Sodium Chloride (Thiamine Inj/NS Inj) 101 ml @ 100 mls/hr Q24H IV ; Start 06/11/16 at 09:00; Stop 06/14/16 at 08:59 Thiamine HCl (Vitamin B1) 100 mg DAILY PO ; Start 06/14/16 at 09:00 Flumazenil (Romazicon Inj) 0.2 mg Q1M PRN IV PUSH SEE LABEL COMMENTS; Start 01/18 at 06:45 Lorazepam (Ativan) 1 mg Q4H PRN PO CIWA 8 - 10; Start 06/11/16 at 06:45 Lorazepam (Ativan Inj) 1 mg Q4H PRN IV PUSH CIWA 8 - 10 Last administered on t 07:35; Start 06/11/16 at 06:45 Lorazepam (Ativan) 2 mg Q2H PRN PO CIWA 11-14; Start 06/11/16 at 06:45 Lorazepam (Ativan Inj) 2 mg Q2H PRN IV PUSH CIWA 11-14; Start 06/11/16 at 06:45 Lorazepam (Ativan Inj) 2 mg Q1H PRN IV PUSH CIWA 15-20; Start 06/11/16 at 06:45 Lorazepam (Ativan Inj) 2 mg Q15M PRN IV PUSH CIWA > 20; Start 06/11/16 at 06:45 Haloperidol Lactate 2 mg 2 mg Q15M PRN IM SEE LABEL COMMENTS; Start 06/11/16 at 06:45 Ceftriaxone Sodium 1000 mg/ Sodium Chloride 100 ml @ 200 mls/hr Q24H IV ; Start 06/12/16 at 09:00 Azithromycin/ Sodium Chloride (Zithromax Inj/ NS 250 ml Inj) 250 ml @ 250 mls/ hr Q24H IV ; Start 06/12/16 at 08:00 Albuterol/ Ipratropium (Duoneb Neb) 1 ampule Q4HR NEB PRN NEB SOB/WHEEZING; Start 06/11/16 at 06:45 Guaifenesin (Mucinex Er) 600 mg BID PO ; Start 06/11/16 at 09:00 Budesonide/ Formoterol Fumarate (Symbicort 160-4.5 Inh) 2 puff Q12HR INH ; Start 06/11/16 at 09:00 Methylprednisolone Sodium Succinate (SoluMEDROL INJ) 40 mg Q6HR IV PUSH ; Start 06/11/16 at 12:00 IV Flush (NS Flush) 2 ml UNSCH PRN FLUSH FLUSH AFTER USING IV ACCESS; Start 01/18 at 06:45 IV Flush (NS Flush) 2 ml BID FLUSH ; Start 06/11/16 at 09:00 Ondansetron HCl (Zofran Inj) 4 mg Q6H PRN IVP NAUSEA OR VOMITING; Start at 06:45 Bisacodyl (Dulcolax Supp) 10 mg DAILY PRN OK CONSTIPATION; Start 06/11/16 at 06 :45 Acetaminophen (Tylenol) 650 mg Q6H PRN PO FEVER/PAIN SCALE 1 TO 2; Start at 06:45 Oxycodone HCl (Roxicodone) 10 mg Q4H PRN PO PAIN SCALE 6 TO 10; Start 06/11/16 at 06:45 Oxycodone HCl (Roxicodone) 5 mg Q4H PRN PO PAIN SCALE 3 TO 5; Start 06/11/16 at 06:45 Family History Patient stated that brother has history of alcohol abuse but otherwise family very healthy. Social History Patient was at home by himself in an apartment. Denies any recreational drug use or tobacco use. Positive for alcohol use as above. Physical Exam Vital Signs Vital Signs Date Time Temp Pulse Resp B/P Pulse Ox O2 Delivery O2 Flow Rate FiO2 06/11/16 07:00 105 15 147/85 96 Room Air 06/11/16 05:54 94 Nasal Cannula 2.00 06/11/16 05:21 95 Nasal Cannula 2 06/11/16 05:21 95 Nasal Cannula 2 06/11/16 05:17 22 93 Room Air 06/11/16 05:17 120 22 06/11/16 05:14 98.4 115 22 153/89 93 Physical Exam GENERAL: This is a well-nourished, well-developed patient, in no apparent distress. SKIN: No rashes, ecchymoses or lesions. Cool and dry. HEAD: Atraumatic. Normocephalic. Patient has an abrasion on the right frontal area. No area erythema or warmth noted. EYES: Pupils equal round and reactive. Extraocular motions intact. No scleral icterus. No injection or drainage. ENT: Nose without bleeding, purulent drainage or septal hematoma. Throat without erythema, tonsillar hypertrophy or exudate. Uvula midline. Airway patent. NECK: Trachea midline. No JVD or lymphadenopathy. Supple, nontender, no meningeal signs. CARDIOVASCULAR: Regular rate and rhythm without murmurs, gallops, or rubs. RESPIRATORY: Clear to auscultation. Breath sounds equal bilaterally. No wheezes , rales, or rhonchi. GASTROINTESTINAL: Abdomen soft, non-tender, nondistended. No hepato-splenomegaly , or palpable masses. No guarding. MUSCULOSKELETAL: Extremities without clubbing, cyanosis, or edema. No joint tenderness, effusion, or edema noted. No calf tenderness. Negative Homans sign bilaterally. NEUROLOGICAL: Awake and alert. Cranial nerves II through XII intact. Motor and sensory grossly within normal limits. Five out of 5 muscle strength in all muscle groups. Normal speech. Laboratory Laboratory Tests Test 06/11/16 05:32 White Blood Count 15.5 Red Blood Count 4.72 Hemoglobin 14.1 Hematocrit 41.6 Mean Corpuscular Volume 88.2 Mean Corpuscular Hemoglobin 30.0 Mean Corpuscular Hemoglobin 34.0 Concent Red Cell Distribution Width 15.7 Platelet Count 241 Mean Platelet Volume 8.9 Neutrophils (%) (Auto) 86.3 Lymphocytes (%) (Auto) 7.1 Monocytes (%) (Auto) 6.2 Eosinophils (%) (Auto) 0.1 Basophils (%) (Auto) 0.3 Neutrophils # (Auto) 13.4 Lymphocytes # (Auto) 1.1 Monocytes # (Auto) 1.0 Eosinophils # (Auto) 0.0 Basophils # (Auto) 0.1 CBC Comment DIFF FINAL Differential Comment Prothrombin Time 10.7 Prothromb Time International 1.0 Ratio Activated Partial 26.6 Thromboplast Time Sodium Level 139 Potassium Level 4.1 Chloride Level 96 Carbon Dioxide Level 22.3 Anion Gap 21 Blood Urea Nitrogen 34 Creatinine 2.25 Estimat Glomerular Filtration 30 Rate Random Glucose 181 Lactic Acid Level 6.6 Calcium Level 8.6 Total Bilirubin 0.8 Aspartate Amino Transf 225 (AST/SGOT) Alanine Aminotransferase 69 (ALT/SGPT) Alkaline Phosphatase 96 Total Creatine Kinase 4597 Creatine Kinase MB 32.7 Creatine Kinase MB % 0.7 Troponin I 0.05 Total Protein 7.2 Albumin 3.2 Ethyl Alcohol Level 242 B-Hydroxybutyrate 1.25 Date/Time Procedure Status Source Growth 06/11/16 05:30 Aerobic Blood Culture Received Blood Peripheral Pending 06/11/16 05:30 Anaerobic Blood Culture Received Blood Peripheral Pending Result Diagram: 06/11/1632 06/11/1632 Imaging Last Impressions Chest X-Ray 06/11/1619 Signed Impressions: Service Date/Time: Saturday, June 11, 2016 05:40 - CONCLUSION: Non-consolidative infiltrate in the medial right lower lung. Joss Brand MD Maxillofacial CT 06/11/16 Signed Impressions: Service Date/Time: Saturday, June 11, 2016 05:29 - CONCLUSION: 1. No evidence of facial bone fracture. 2. Pansinus disease. Joss Brand MD Head CT 06/11/16 Signed Impressions: Service Date/Time: Saturday, June 11, 2016 05:27 - CONCLUSION: No acute findings. Joss Brand MD Cervical Spine CT 06/11/16 Signed Impressions: Service Date/Time: Saturday, June 11, 2016 05:29 - CONCLUSION: 20%% compression fracture anterior superior T1 vertebral body. No evidence of compression deformity in the cervical vertebral bodies. Joss Brand MD Assessment and Plan Assessment and Plan 60-year-old male with alcohol abuse Acute on chronic renal failure -Compared to prior creatinine creatinine is mildly elevated. Baseline has been around 1.9. At the moment creatinine is 2.25. -Most likely due to combination of dehydration from excessive alcohol use and rhabdomyolysis. -Patient a radial receive multiple boluses while in the emergency department. -We'll continue with aggressive hydration with IV fluids and supportive care. Strict ins and outs. Continue to monitor creatinine and avoid nephrotoxins. Pneumonia -Right middle lobe, chest x-ray. -Asymptomatic. May be secondary to aspiration. -Patient was put on Rocephin and azithromycin. -Will discontinue these antibiotics and cover with Augmentin and Flagyl to cover for community acquired pneumonia an aspiration. -Continued to monitor clinically. Alcohol abuse -No signs of alcohol withdrawal at the moment. -Continue with CIWA protocol. -Continue with IV fluids along with supplemental multivitamin, folate, and thiamine. Rhabdomyolysis -Most likely secondary to his fall from his alcohol use. -Continue with aggressive hydration as above. -Will can take to monitor. Right frontal abrasion -Secondary to fall. -No signs of infection. -Continue monitor. Anxiety -Will consult psychiatry since patient also had a questionable suicidal ideation. Although he denies any suicidal ideations or homicidal ideations at the moment. At the moment suicidal precautions are necessary. -She need a follow-up with a psychiatrist or her primary care physician as outpatient. DVT prophylaxis Code Status Full code Discussed Condition With Patient Physician Certification 2 Midnight Certification Type: Admission for Inpatient Services Order for Inpatient Services The services are ordered in accordance with Medicare regulations or non- Medicare payer requirements, as applicable. In the case of services not specified as inpatient-only, they are appropriately provided as inpatient services in accordance with the 2-midnight benchmark. Estimated LOS (days): 2 2 days is the estimated time the patient will need to remain in the hospital, assuming treatment plan goals are met and no additional complications. Post-Hospital Plan: Mis Reyes MD Jun 11, 2016 09:17
[2016-06-11] MEDS: MULTIVITAMIN INJ 10 ML, FOLIC ACID INJ 1 MG in SODIUM CHLORID 0.9% 500 ML INJ 500 ML IV SCH (09:54)
[2016-06-11] MEDS: guaiFENesin E.R. 600 MG TAB PO SCH ×2 (10:03→21:59)
[2016-06-11] MEDS: BUDESONIDE-FORMOTEROL 160/4.5 MCG INHALER INH SCH ×2 (10:03→21:59)
[2016-06-11] MEDS: THIAMINE INJ 100 MG in SODIUM CHLORIDE 0.9% INJ 100 ML IV SCH (10:35)
[2016-06-11] MEDS: metroNIDAZOLE 500 MG TAB PO SCH ×3 (10:36→21:59)
[2016-06-11] MEDS: SODIUM CHLOR 0.9% 1000 ML INJ 1,000 ML IV SCH ×3 (10:36→22:19)
[2016-06-11] MEDS: AMOXICILLIN/CLAVULANATE K 875 MG TAB PO SCH ×2 (10:36→21:59)
--- NOTE | 2016-06-11 12:39 | PD.CONS ---
Provisional Diagnosis Admission Date Jun 11, 2016 at 06:47 [place] I. Alcohol-induced mood disorder, alcohol use disorder [place] II. Deferred [place] III. Asthma [place] IV. Long history of alcohol use disorder [place] V. 55 History of Present Illness Service Psychiatry Consult Requested By Primary Care Physician Barry Mccabe MD HPI The patient is a 60-year-old man, domiciled alone, single, unemployed , with psychiatric history of of alcohol abuse, alcohol related problems, alcohol-induced mood disorder, frequent ER visits sometimes with SI in the context of alcohol intoxication, medical history of asthma, who stated that he presented to the hospital due to drinking too much alcohol. Patient was consulted to psychiatry to assess suicidal ideation and depression. On psychiatric evaluation patient was calm and cooperative, he explains that he feels much better now that he was giving Ativan for his withdrawal symptoms. Patient stated that since the age of 51 he started to drink a lot more alcohol due to his anxiety, he says that he stopped taking alcohol about a month ago and he was sober for about 3 weeks, but due to his anxiety and the fat that is not doctor prescribing him Xanax he had relapsed in alcohol and since then, for a week now, he has been taking 2 pints of vodka per day. Patient stated that he has been on Xanax for anxiety by his primary care physician but the past month he was not getting any more Xanax. He denies the use of other illicit drug as marijuana, cocaine, heroine, PCP or pills. At this moment the patient denies depressive symptoms, he denies anxiety, he denies psychosis, he denies marilyn, he denies suicidal and homicidal ideation. Patient says that he is motivated to be discharged to a rehabilitation program, once his detox of alcohol. Patient is now oriented 3, no gross cognitive impairment observed. Review of Systems Constitutional: DENIES: Diaphoretic episodes, Fatigue, Fever, Weight gain, Weight loss, Chills, Dizziness, Change in appetite, Night Sweats Endocrine: DENIES: Heat/cold intolerance, Polydipsia, Polyuria, Polyphagia Ears, nose, mouth, throat: DENIES: Tinnitus, Hearing loss, Vertigo, Nasal discharge, Oral lesions, Throat pain, Hoarseness, Ear Pain, Running Nose, Epistaxis, Sinus Pain, Toothache, Odynophagia Cardiovascular: DENIES: Chest pain, Palpitations, Syncope, Dyspnea on Exertion , PND, Lower Extremity Edema, Orthopnea, Claudication Gastrointestinal: DENIES: Abdominal pain, Black stools, Bloody stools, Constipation, Diarrhea, Nausea, Vomiting, Difficulty Swallowing, Anorexia Genitourinary: DENIES: Sexual dysfunction, Urinary frequency, Urinary incontinence, Urgency, Hematuria, Dysuria, Nocturia, Penile Discharge, Testicular Pain, Testicular Swelling Musculoskeletal: DENIES: Joint pain, Muscle aches, Stiffness, Joint Swelling, Back pain, Neck pain Hematologic/lymphatic: DENIES: Bruising, Lymphadenopathy Neurologic: DENIES: Abnormal gait, Headache, Localized weakness, Paresthesias, Seizures, Speech Problems, Tremor, Poor Balance Psychiatric: DENIES: Anxiety, Confusion, Mood changes, Depression, Hallucinations, Agitation, Suicidal Ideation, Homicidal Ideation, Delusions Past Family Social History Coded Allergies: No Known Allergies (Verified , 04/23/16) Discontinued Reported Medications Prednisone 5 Mg Tab15 Mg PO DAILY Ref 0 04/24/16 Alprazolam 0.5 Mg Tab0.5 Mg PO DAILY PRN (ANXIETY) Ref 0 04/23/16 Fluticasone-Salmeterol Inh (Advair Diskus Inh)500-50 Mcg/Blist Aer1 Puff INH DAILY #1 INHALER Ref 0 Rinse mouth after use. 04/23/16 Current Medications Medications (Trade) Dose Ordered Sig/Mesha Route Start Time Stop Time Status Last Admin Multivitamins 10 ml/Folic Acid 1 mg/Sodium Chloride 510.2 ml @ 125 mls/hr Q24H IV 06/11/16 09:00 06/16/16 08:59 06/11/16 09:54 (Thiamine Inj/NS Inj) 101 ml @ 100 mls/hr Q24H IV 06/11/16 09:00 06/14/16 08:59 06/11/16 10:35 (Vitamin B1) 100 mg DAILY PO 06/14/16 09:00 (Romazicon Inj) 0.2 mg Q1M PRN IV PUSH 06/11/16 06:45 (Ativan) 1 mg Q4H PRN PO 06/11/16 06:45 (Ativan Inj) 1 mg Q4H PRN IV PUSH 06/11/16 06:45 06/11/16 10:36 (Ativan) 2 mg Q2H PRN PO 06/11/16 06:45 (Ativan Inj) 2 mg Q2H PRN IV PUSH 06/11/16 06:45 (Ativan Inj) 2 mg Q1H PRN IV PUSH 06/11/16 06:45 (Ativan Inj) 2 mg Q15M PRN IV PUSH 06/11/16 06:45 (Haldol Inj) 2 mg Q15M PRN IM 06/11/16 06:45 (Mucinex Er) 600 mg BID PO 06/11/16 09:00 06/11/16 10:03 (Symbicort 160-4.5 Inh) 2 puff Q12HR INH 06/11/16 09:00 06/11/16 10:03 (SoluMEDROL INJ) 40 mg Q6HR IV PUSH 06/11/16 12:00 (NS Flush) 2 ml UNSCH PRN FLUSH 06/11/16 06:45 (NS Flush) 2 ml BID FLUSH 06/11/16 09:00 (Zofran Inj) 4 mg Q6H PRN IVP 06/11/16 06:45 (Dulcolax Supp) 10 mg DAILY PRN HI 06/11/16 06:45 (Tylenol) 650 mg Q6H PRN PO 06/11/16 06:45 (Roxicodone) 10 mg Q4H PRN PO 06/11/16 06:45 Oxycodone HCl 5 mg 5 mg Q4H PRN PO 06/11/16 06:45 (NS 1000 ml Inj) 1,000 ml @ 150 mls/hr Q6H40M IV 06/11/16 09:45 06/11/16 10:36 (Augmentin) 875 mg Q12HR PO 06/11/16 10:00 06/11/16 10:36 (Flagyl) 500 mg Q8HR PO 06/11/16 10:00 06/11/16 10:36 (Pneumovax-23 Inj) 25 mcg ONCE ONCE IM 06/12/16 10:00 06/12/16 10:01 Family History Denies Social History Patient was born and raised in [facility], he is alone in [place], his divorce, unemployed, highest level of education is high school Physical Exam Vital Signs Vital Signs Date Time Temp Pulse Resp B/P Pulse Ox O2 Delivery O2 Flow Rate FiO2 06/11/16 10:00 108 15 144/91 97 Room Air 06/11/16 05:54 2.00 06/11/16 05:14 98.4 Mental Status Examination Appearance man, disheveled, malodorous, poor hygiene, he is calm and cooperative Speech: Unremarkable Orientation: x3 Memory: Unremarkable Thought Process: Logical Thought Content: Unremarkable Hallucination Type: None Suicidal Ideation: No Homicidal Ideation: No Previous Homicide Attempts: No Insight: Good Judgement: WNL Affect: Good Affect if Inappropriate: Flat Mood: Appropriate Motor Activity: Normal gait Assessment & Plan Problem List: (1) Alcohol abuse with alcohol-induced mood disorder Assessment & Plan: At the moment of this evaluation the patient does not present any acute, significant or concerning objective or subjective symptomatology of depression, anxiety, marilyn, psychosis. He denies suicidal or homicidal ideation. He denies visual and auditory hallucinations. Patient endorses his motivation to be discharged to detox/rehabilitation program. He does not benefit of a psychiatric admission at this moment. Continue CIWA protocol. Extensive support, motivation, psycho education provided. ICD Code: F10.14 Assessment & Plan Estimated LOS: Zechariah Gomez MD Jun 11, 2016 12:39
[2016-06-11] MEDS: methylPREDNISolone SOD SUCC 40 MG/1 ML VIAL IV PUSH SCH ×3 (13:09→23:09)
--- NOTE | 2016-06-11 14:31 | RADRPT ---
EXAM DATE/TIME: 06/11/2016 14:23 [facility] COMPARISON: No previous studies available for comparison. INDICATIONS : Patient fell two days ago. MEDICAL HISTORY : Chronic obstructive pulmonary disease. SURGICAL HISTORY : None. ENCOUNTER: Initial ACUITY: 2 days PAIN SCORE: 5/10 LOCATION: Right Posterior aspect of wrist. FINDINGS: Three view examination of the right wrist demonstrates no soft tissue swelling, dislocation, or fract ure. The carpal bones are in normal alignment. The joint spaces are maintained. Bony mineralizatio n is normal. CONCLUSION: No fracture or subluxation of the right wrist. Arian Vicente MD on June 11, 2016 at 14:29 Board Certified Radiologist. This report was verified electronically.
[2016-06-11] MEDS: LORazepam 1 MG TAB PO PRN ×2 (14:34→23:09)
--- NOTE | 2016-06-11 19:13 | EKG ---
Date Performed: 06/11/2016 Time Performed: 06:45:35 PTAGE: 60 years EKG: PROBABLY SINUS TACHYCARDIA NONSPECIFIC T-WAVE ABNORMALITY ABNORMAL RHYTHM ECG PREVIOUS TRACING : 11/12/2015 21.52 Compared to prior tracing no significant change DOCTOR: Uri Carrasquillo Interpretating Date/Time 06/11/2016 19:11:49
[2016-06-11 23:08] LABS: CKMB 12.6 NG/ML (0.5-3.6)
[2016-06-12] VITALS (9 sets, daily range): BP systolic 126–138; BP diastolic 74–81; PULSE 70–89; RESP 18–20; TEMP 97.3–98.8; O2SAT 94–97
[2016-06-12] MEDS ORDERED: ALUMINUM/MAGNESIUM/SIMETH 30 ML CUP PO ONE (01:30)
[2016-06-12] MEDS: metroNIDAZOLE 500 MG TAB PO SCH ×3 (05:09→20:21)
[2016-06-12] MEDS: methylPREDNISolone SOD SUCC 40 MG/1 ML VIAL IV PUSH SCH ×3 (05:10→16:35)
[2016-06-12] MEDS: SODIUM CHLOR 0.9% 1000 ML INJ 1,000 ML IV SCH ×3 (05:11→16:36)
[2016-06-12] MEDS: LORazepam 1 MG TAB PO PRN ×4 (06:57→20:48)
[2016-06-12 07:03] LABS: AUTOMATED NEUTROPHIL # 14.2 TH/MM3 (1.8-7.7); HEMATOCRIT 32.1 % (39.0-51.0); HEMO FLAGS DIFF FINAL; LYMPH % 1.4 % (9.0-44.0); LYMPHOCYTE # 0.2 TH/MM3 (1.0-4.8); MEAN CELL VOLUME 89.3 FL (80.0-100.0); MEAN CORPUSCULAR HEMOGLOBIN 29.4 PG (27.0-34.0); MEAN CORPUSCULAR HGB CONC 32.9 % (32.0-36.0); MONO % 3.1 % (0.0-8.0); NEUT % 95.5 % (16.0-70.0); PLATELET COUNT 146 TH/MM3 (150-450); RED BLOOD COUNT 3.59 MIL/MM3 (4.50-5.90); RED CELL DISTRIBUTION WIDTH 15.5 % (11.6-17.2); WHITE BLOOD COUNT 14.9 TH/MM3 (4.0-11.0)
[2016-06-12 07:42] LABS: ALKALINE PHOSPHATASE 68 U/L (45-117); ALT (GPT) 50 U/L (12-78); ANION GAP 8 MEQ/L (5-15); AST (GOT) 153 U/L (15-37); BICARBONATE 28.9 MEQ/L (21.0-32.0); BLOOD UREA NITROGEN 23 MG/DL (7-18); CHLORIDE 105 MEQ/L (98-107); CREATINE KINASE 2625 U/L (39-308); GLOMERULAR FILTRATION RATE 47 ML/MIN (>89); SODIUM (NA) 142 MEQ/L (136-145); TOTAL BILIRUBIN ADULT 1.1 MG/DL (0.2-1.0)
[2016-06-12] MEDS: AMOXICILLIN/CLAVULANATE K 875 MG TAB PO SCH ×2 (08:00→20:21)
[2016-06-12] MEDS ORDERED: AZITHROMYCIN INJ 500 MG in SODIUM CHLOR 0.9% 250 ML INJ 250 ML IV SCH (08:00)
[2016-06-12] MEDS: guaiFENesin E.R. 600 MG TAB PO SCH ×2 (08:00→20:21)
[2016-06-12] MEDS: SODIUM CHLORIDE 0.9% FLUSH 5 ML FLUSH FLUSH SCH ×2 (08:01→20:22)
[2016-06-12] MEDS: MULTIVITAMIN INJ 10 ML, FOLIC ACID INJ 1 MG in SODIUM CHLORID 0.9% 500 ML INJ 500 ML IV SCH (08:01)
[2016-06-12] MEDS: THIAMINE INJ 100 MG in SODIUM CHLORIDE 0.9% INJ 100 ML IV SCH (08:01)
[2016-06-12] MEDS: BUDESONIDE-FORMOTEROL 160/4.5 MCG INHALER INH SCH ×2 (08:02→20:22)
[2016-06-12] MEDS: ONDANSETRON HCL 4 MG/2 ML VIAL IVP PRN (08:03)
[2016-06-12 08:16] LABS: CKMB 6.8 NG/ML (0.5-3.6)
[2016-06-12] MEDS ORDERED: cefTRIAXone INJ 1,000 MG in SODIUM CHLORIDE 0.9% INJ 100 ML IV SCH (09:00)
[2016-06-12] MEDS ORDERED: PNEUMOCOCCAL POLYVALENT INJ 25 MCG/0.5 ML SYR IM ONE (10:00)
--- NOTE | 2016-06-12 14:27 | HHI.PR ---
Subjective Remarks f/u for alcoholism, renal failure, and rhabdomyolysis patient denied any N/V. He was asking more ativan. Tolerating PO intake. denied any pain. No other complaints. Objective Vitals Vital Signs Date Time Temp Pulse Resp B/P Pulse Ox O2 Delivery O2 Flow Rate FiO2 06/12/16 10:04 97 Nasal Cannula 2.00 06/12/16 08:00 98.3 75 20 135/79 96 06/12/16 04:00 98.8 73 20 138/74 96 06/12/16 01:34 89 06/12/16 00:17 98.7 84 20 131/81 94 06/11/16 22:19 98 Nasal Cannula 2.00 06/11/16 20:45 98.7 94 20 148/83 95 06/11/16 17:06 104 20 166/88 94 Nasal Cannula 2 I/O 06/11/16 06/11/16 06/11/16 06/12/16 06/12/16 06/12/16 07:00 15:00 23:00 07:00 15:00 23:00 Intake Total 240 ml Balance 240 ml Intake Oral 240 ml Result Diagram: 06/12/1663506/12/1636 Objective Remarks GENERAL: in NAD CARDIOVASCULAR: Regular rate and rhythm without murmurs, gallops, or rubs. RESPIRATORY: Breath sounds equal bilaterally. No accessory muscle use. GASTROINTESTINAL: Abdomen soft, non-tender, nondistended. Medications and IVs Current Medications IV Flush (NS Flush) 2 ml UNSCH PRN IVF FLUSH AFTER USING IV ACCESS; Start 06/11 at 05:30; Stop 06/11/16 at 07:10; Status DC Methylprednisolone Sodium Succinate (SoluMEDROL INJ) 125 mg ONCE ONCE IVP Last administered on 06/11/16 05:45; Start 06/11/16 at 05:30; Stop 06/11/16 at 05:31; Status DC Albuterol/ Ipratropium 1 ampule 1 ampule Q15M INH Last administered on 05:48; Start 06/11/16 at 05:30; Stop 06/11/16 at 06:01; Status DC Sodium Chloride (NS 1000 ml Inj) 1,000 ml @ 999 mls/hr BOLUS ONCE IV Last administered on 06/11/16 05:44; Start 06/11/16 at 05:30; Stop 06/11/16 at 06:30 ; Status DC Lorazepam 1 mg 1 mg ONCE ONCE IV PUSH Last administered on 06/11/16 05:45; Start 06/11/16 at 05:30; Stop 06/11/16 at 05:31; Status DC Sodium Chloride 1,000 ml @ 999 mls/hr BOLUS ONCE IV Last administered on 06/11 05:44; Start 06/11/16 at 05:30; Stop 06/11/16 at 06:30; Status DC Sodium Chloride 1,000 ml @ 999 mls/hr BOLUS ONCE IV Last administered on 06/11 07:08; Start 06/11/16 at 06:30; Stop 06/11/16 at 07:30; Status DC Ceftriaxone Sodium 1000 mg/ Sodium Chloride 100 ml @ 200 mls/hr ONCE ONCE IV Last administered on 06/11/16 07:08; Start 06/11/16 at 06:45; Stop 06/11/16 at 07:14; Status DC Azithromycin 500 mg/Sodium Chloride 250 ml @ 250 mls/hr ONCE ONCE IV Last administered on 06/11/16 07:34; Start 06/11/16 at 06:45; Stop 06/11/16 at 07:44 ; Status DC Multivitamins 10 ml/Folic Acid 1 mg/Sodium Chloride 510.2 ml @ 125 mls/hr Q24H IV Last administered on 06/12/16 08:01; Start 06/11/16 at 09:00; Stop at 08:59 Thiamine HCl/ Sodium Chloride (Thiamine Inj/NS Inj) 101 ml @ 100 mls/hr Q24H IV Last administered on 06/12/16 08:01; Start 06/11/16 at 09:00; Stop at 08:59 Thiamine HCl (Vitamin B1) 100 mg DAILY PO ; Start 06/14/16 at 09:00 Flumazenil (Romazicon Inj) 0.2 mg Q1M PRN IV PUSH SEE LABEL COMMENTS; Start 01/18 at 06:45 Lorazepam (Ativan) 1 mg Q4H PRN PO CIWA 8 - 10 Last administered on 06/12/16 12:57; Start 06/11/16 at 06:45 Lorazepam (Ativan Inj) 1 mg Q4H PRN IV PUSH CIWA 8 - 10 Last administered on 10:36; Start 06/11/16 at 06:45 Lorazepam (Ativan) 2 mg Q2H PRN PO CIWA 11-14 Last administered on 06/11/16 18 :27; Start 06/11/16 at 06:45 Lorazepam (Ativan Inj) 2 mg Q2H PRN IV PUSH CIWA 11-14; Start 06/11/16 at 06:45 Lorazepam (Ativan Inj) 2 mg Q1H PRN IV PUSH CIWA 15-20; Start 06/11/16 at 06:45 Lorazepam (Ativan Inj) 2 mg Q15M PRN IV PUSH CIWA > 20; Start 06/11/16 at 06:45 Haloperidol Lactate 2 mg 2 mg Q15M PRN IM SEE LABEL COMMENTS; Start 06/11/16 at 06:45 Ceftriaxone Sodium 1000 mg/ Sodium Chloride 100 ml @ 200 mls/hr Q24H IV ; Start 06/12/16 at 09:00; Stop 06/12/16 at 09:00; Status DC Azithromycin/ Sodium Chloride (Zithromax Inj/ NS 250 ml Inj) 250 ml @ 250 mls/ hr Q24H IV ; Start 06/12/16 at 08:00; Stop 06/12/16 at 08:00; Status DC Albuterol/ Ipratropium (Duoneb Neb) 1 ampule Q4HR NEB PRN NEB SOB/WHEEZING Last administered on 06/11/16 22:15; Start 06/11/16 at 06:45 Guaifenesin (Mucinex Er) 600 mg BID PO Last administered on 06/12/16 08:00; Start 06/11/16 at 09:00 Budesonide/ Formoterol Fumarate (Symbicort 160-4.5 Inh) 2 puff Q12HR INH Last administered on 06/12/16 08:02; Start 06/11/16 at 09:00 Methylprednisolone Sodium Succinate (SoluMEDROL INJ) 40 mg Q6HR IV PUSH Last administered on 06/12/16 11:08; Start 06/11/16 at 12:00 IV Flush (NS Flush) 2 ml UNSCH PRN FLUSH FLUSH AFTER USING IV ACCESS; Start 01/18 at 06:45 IV Flush (NS Flush) 2 ml BID FLUSH Last administered on 06/12/16 08:01; Start 06/11/16 at 09:00 Ondansetron HCl (Zofran Inj) 4 mg Q6H PRN IVP NAUSEA OR VOMITING Last administered on 06/12/16 08:03; Start 06/11/16 at 06:45 Bisacodyl (Dulcolax Supp) 10 mg DAILY PRN [place] CONSTIPATION; Start 06/11/16 at 06 :45 Acetaminophen (Tylenol) 650 mg Q6H PRN PO FEVER/PAIN SCALE 1 TO 2; Start at 06:45 Oxycodone HCl (Roxicodone) 10 mg Q4H PRN PO PAIN SCALE 6 TO 10 Last administered on 06/12/16 08:10; Start 06/11/16 at 06:45; Stop 06/12/16 at 13:33 ; Status DC Oxycodone HCl 5 mg 5 mg Q4H PRN PO PAIN SCALE 3 TO 5; Start 06/11/16 at 06:45; Stop 06/12/16 at 13:33; Status DC Sodium Chloride (NS 1000 ml Inj) 1,000 ml @ 150 mls/hr Q6H40M IV Last administered on 06/12/16 11:10; Start 06/11/16 at 09:45 Amoxicillin/ Clavulanate Potassium (Augmentin) 875 mg Q12HR PO Last administered on 06/12/16 08:00; Start 06/11/16 at 10:00 Metronidazole (Flagyl) 500 mg Q8HR PO Last administered on 06/12/16 12:57; Start 06/11/16 at 10:00 Pneumococcal Polyvalent Vaccine (Pneumovax-23 Inj) 25 mcg ONCE ONCE IM Last administered on 06/12/16 10:22; Start 06/12/16 at 10:00; Stop 06/12/16 at 10:01 ; Status DC Al Hydrox/Mg Hydrox/Simethicone (Mag-Al Plus Susp Liq) 30 ml ONCE ONCE PO Last administered on 06/12/16 01:29; Start 06/12/16 at 01:30; Stop 06/12/16 at 01:31; Status DC A/P Assessment and Plan 60-year-old male with alcohol abuse Acute on chronic renal failure -Compared to prior creatinine creatinine is mildly elevated. Baseline has been around 1.9. On admission creatinine is 2.25 now 1.45. -Most likely due to combination of dehydration from excessive alcohol use and rhabdomyolysis. -continue with IVFs and stircts I/O. - Continue to monitor creatinine and avoid nephrotoxins. Pneumonia -Right middle lobe, chest x-ray. -Asymptomatic. May be secondary to aspiration. -Patient was put on Rocephin and azithromycin d/c on 06/11. -on Augmentin and Flagyl to cover for community acquired pneumonia an aspiration and doing well. -Continued to monitor clinically. Alcohol abuse -No signs of alcohol withdrawal at the moment. -Continue with CIWA protocol. -Continue with IV fluids along with supplemental multivitamin, folate, and thiamine. Rhabdomyolysis -Most likely secondary to his fall from his alcohol use. -improving. -Continue with aggressive hydration as above. Right frontal abrasion -Secondary to fall. -No signs of infection. -Continue monitor. Anxiety -psychiatrist cleared patient and stated no active issues. DVT prophylaxis -lovenox Discharge Planning ARF is improving but will need to continues wit IVF and supportive care since patient has rhabdo. Mis Flanagan MD Jun 12, 2016 14:27
[2016-06-13] VITALS (9 sets, daily range): BP systolic 105–156; BP diastolic 68–86; PULSE 69–88; RESP 18–20; TEMP 97.5–98.8; O2SAT 94–99
[2016-06-13] MEDS: ONDANSETRON HCL 4 MG/2 ML VIAL IVP PRN (01:09)
[2016-06-13] MEDS: methylPREDNISolone SOD SUCC 40 MG/1 ML VIAL IV PUSH SCH ×3 (01:09→11:38)
[2016-06-13] MEDS: SODIUM CHLOR 0.9% 1000 ML INJ 1,000 ML IV SCH (01:09)
[2016-06-13] MEDS: LORazepam 1 MG TAB PO PRN ×3 (01:15→23:18)
[2016-06-13] MEDS: metroNIDAZOLE 500 MG TAB PO SCH ×3 (06:01→20:08)
[2016-06-13 08:24] LABS: HEMATOCRIT 31.5 % (39.0-51.0); MEAN CORPUSCULAR HEMOGLOBIN 29.8 PG (27.0-34.0); MEAN CORPUSCULAR HGB CONC 32.8 % (32.0-36.0); PLATELET COUNT 138 TH/MM3 (150-450); RED BLOOD COUNT 3.46 MIL/MM3 (4.50-5.90); RED CELL DISTRIBUTION WIDTH 15.6 % (11.6-17.2); REVIEW FLAG FINAL; WHITE BLOOD COUNT 13.7 TH/MM3 (4.0-11.0)
[2016-06-13] MEDS: guaiFENesin E.R. 600 MG TAB PO SCH ×2 (08:42→20:08)
[2016-06-13 08:54] LABS: BICARBONATE 27.2 MEQ/L (21.0-32.0); POTASSIUM 3.9 MEQ/L (3.5-5.1)
[2016-06-13] MEDS: AMOXICILLIN/CLAVULANATE K 875 MG TAB PO SCH ×2 (09:12→20:08)
[2016-06-13] MEDS: THIAMINE INJ 100 MG in SODIUM CHLORIDE 0.9% INJ 100 ML IV SCH (11:38)
[2016-06-13] MEDS: MULTIVITAMIN INJ 10 ML, FOLIC ACID INJ 1 MG in SODIUM CHLORID 0.9% 500 ML INJ 500 ML IV SCH (11:38)
[2016-06-13] MEDS: BUDESONIDE-FORMOTEROL 160/4.5 MCG INHALER INH SCH ×2 (14:14→20:08)
[2016-06-13] MEDS ORDERED: ALUMINUM/MAGNESIUM/SIMETH 30 ML CUP PO PRN (15:00)
[2016-06-13 15:31] LABS: CKMB 2.5 NG/ML (0.5-3.6)
--- NOTE | 2016-06-13 15:56 | HHI.PR ---
Subjective Remarks f/u for ARF, dehydration, and alcoholism patient asking for mylanta for upset stomach he was requesting that. denied any abdominal pain. Denied any N/V. Objective Vitals Vital Signs Date Time Temp Pulse Resp B/P Pulse Ox O2 Delivery O2 Flow Rate FiO2 06/13/16 12:39 88 06/13/16 12:30 98.8 77 20 136/80 95 06/13/16 09:35 94 Nasal Cannula 2.00 06/13/16 08:44 98.8 73 20 131/83 95 06/13/16 04:00 97.5 70 18 131/80 98 06/13/16 00:00 97.8 78 18 105/68 99 06/12/16 20:00 97.3 78 18 137/75 97 06/12/16 19:06 70 06/12/16 16:00 98.1 82 20 126/80 97 I/O 06/12/16 06/12/16 06/12/16 06/13/16 06/13/16 06/13/16 07:00 15:00 23:00 07:00 15:00 23:00 Intake Total 240 ml 480 ml 360 ml 1150 ml Balance 240 ml 480 ml 360 ml 1150 ml Intake Oral 240 ml 480 ml 360 ml IV Total 1150 ml # Voids 3 1 3 2 # Bowel Movements 1 1 Result Diagram: 06/13/1616 06/13/16 0716 Objective Remarks GENERAL: in NAD CARDIOVASCULAR: Regular rate and rhythm without murmurs, gallops, or rubs. RESPIRATORY: Breath sounds equal bilaterally. No accessory muscle use. GASTROINTESTINAL: Abdomen soft, non-tender, nondistended. Medications and IVs Current Medications IV Flush (NS Flush) 2 ml UNSCH PRN IVF FLUSH AFTER USING IV ACCESS; Start 06/11 at 05:30; Stop 06/11/16 at 07:10; Status DC Methylprednisolone Sodium Succinate (SoluMEDROL INJ) 125 mg ONCE ONCE IVP Last administered on 06/11/16 05:45; Start 06/11/16 at 05:30; Stop 06/11/16 at 05:31; Status DC Albuterol/ Ipratropium 1 ampule 1 ampule Q15M INH Last administered on 05:48; Start 06/11/16 at 05:30; Stop 06/11/16 at 06:01; Status DC Sodium Chloride (NS 1000 ml Inj) 1,000 ml @ 999 mls/hr BOLUS ONCE IV Last administered on 06/11/16 05:44; Start 06/11/16 at 05:30; Stop 06/11/16 at 06:30 ; Status DC Lorazepam 1 mg 1 mg ONCE ONCE IV PUSH Last administered on 06/11/16 05:45; Start 06/11/16 at 05:30; Stop 06/11/16 at 05:31; Status DC Sodium Chloride 1,000 ml @ 999 mls/hr BOLUS ONCE IV Last administered on 06/11 05:44; Start 06/11/16 at 05:30; Stop 06/11/16 at 06:30; Status DC Sodium Chloride 1,000 ml @ 999 mls/hr BOLUS ONCE IV Last administered on 06/11 07:08; Start 06/11/16 at 06:30; Stop 06/11/16 at 07:30; Status DC Ceftriaxone Sodium 1000 mg/ Sodium Chloride 100 ml @ 200 mls/hr ONCE ONCE IV Last administered on 06/11/16 07:08; Start 06/11/16 at 06:45; Stop 06/11/16 at 07:14; Status DC Azithromycin 500 mg/Sodium Chloride 250 ml @ 250 mls/hr ONCE ONCE IV Last administered on 06/11/16 07:34; Start 06/11/16 at 06:45; Stop 06/11/16 at 07:44 ; Status DC Multivitamins 10 ml/Folic Acid 1 mg/Sodium Chloride 510.2 ml @ 125 mls/hr Q24H IV Last administered on 06/13/16 11:38; Start 06/11/16 at 09:00; Stop at 08:59 Thiamine HCl/ Sodium Chloride (Thiamine Inj/NS Inj) 101 ml @ 100 mls/hr Q24H IV Last administered on 06/13/16 11:38; Start 06/11/16 at 09:00; Stop at 08:59 Thiamine HCl (Vitamin B1) 100 mg DAILY PO ; Start 06/14/16 at 09:00 Flumazenil (Romazicon Inj) 0.2 mg Q1M PRN IV PUSH SEE LABEL COMMENTS; Start 01/18 at 06:45 Lorazepam (Ativan) 1 mg Q4H PRN PO CIWA 8 - 10 Last administered on 06/13/16 11:52; Start 06/11/16 at 06:45; Stop 06/13/16 at 14:48; Status DC Lorazepam (Ativan Inj) 1 mg Q4H PRN IV PUSH CIWA 8 - 10 Last administered on 10:36; Start 06/11/16 at 06:45; Stop 06/13/16 at 14:48; Status DC Lorazepam (Ativan) 2 mg Q2H PRN PO CIWA 11-14 Last administered on 06/11/16 18 :27; Start 06/11/16 at 06:45; Stop 06/13/16 at 14:48; Status DC Lorazepam (Ativan Inj) 2 mg Q2H PRN IV PUSH CIWA 11-14; Start 06/11/16 at 06:45 ; Status Cancel Lorazepam (Ativan Inj) 2 mg Q1H PRN IV PUSH CIWA 15-20; Start 06/11/16 at 06:45 ; Status Cancel Lorazepam (Ativan Inj) 2 mg Q15M PRN IV PUSH CIWA > 20; Start 06/11/16 at 06:45 ; Status Cancel Haloperidol Lactate 2 mg 2 mg Q15M PRN IM SEE LABEL COMMENTS; Start 06/11/16 at 06:45 Ceftriaxone Sodium 1000 mg/ Sodium Chloride 100 ml @ 200 mls/hr Q24H IV ; Start 06/12/16 at 09:00; Stop 06/12/16 at 09:00; Status DC Azithromycin/ Sodium Chloride (Zithromax Inj/ NS 250 ml Inj) 250 ml @ 250 mls/ hr Q24H IV ; Start 06/12/16 at 08:00; Stop 06/12/16 at 08:00; Status DC Albuterol/ Ipratropium (Duoneb Neb) 1 ampule Q4HR NEB PRN NEB SOB/WHEEZING Last administered on 06/11/16 22:15; Start 06/11/16 at 06:45 Guaifenesin (Mucinex Er) 600 mg BID PO Last administered on 06/13/16 08:42; Start 06/11/16 at 09:00 Budesonide/ Formoterol Fumarate (Symbicort 160-4.5 Inh) 2 puff Q12HR INH Last administered on 06/13/16 14:14; Start 06/11/16 at 09:00 Methylprednisolone Sodium Succinate (SoluMEDROL INJ) 40 mg Q6HR IV PUSH Last administered on 06/13/16 11:38; Start 06/11/16 at 12:00; Stop 06/13/16 at 14:48 ; Status DC IV Flush (NS Flush) 2 ml UNSCH PRN FLUSH FLUSH AFTER USING IV ACCESS; Start 01/18 at 06:45 IV Flush (NS Flush) 2 ml BID FLUSH Last administered on 06/12/16 08:01; Start 06/11/16 at 09:00 Ondansetron HCl (Zofran Inj) 4 mg Q6H PRN IVP NAUSEA OR VOMITING Last administered on 06/13/16 01:09; Start 06/11/16 at 06:45 Bisacodyl (Dulcolax Supp) 10 mg DAILY PRN [place] CONSTIPATION; Start 06/11/16 at 06 :45 Acetaminophen (Tylenol) 650 mg Q6H PRN PO FEVER/PAIN SCALE 1 TO 2; Start at 06:45 Oxycodone HCl (Roxicodone) 10 mg Q4H PRN PO PAIN SCALE 6 TO 10 Last administered on 06/12/16 08:10; Start 06/11/16 at 06:45; Stop 06/12/16 at 13:33 ; Status DC Oxycodone HCl 5 mg 5 mg Q4H PRN PO PAIN SCALE 3 TO 5; Start 06/11/16 at 06:45; Stop 06/12/16 at 13:33; Status DC Sodium Chloride (NS 1000 ml Inj) 1,000 ml @ 150 mls/hr Q6H40M IV Last administered on 06/13/16 01:09; Start 06/11/16 at 09:45; Stop 06/13/16 at 14:48 ; Status DC Amoxicillin/ Clavulanate Potassium (Augmentin) 875 mg Q12HR PO Last administered on 06/13/16 09:12; Start 06/11/16 at 10:00 Metronidazole (Flagyl) 500 mg Q8HR PO Last administered on 3/12/17at 14:06; Start 06/11/16 at 10:00 Pneumococcal Polyvalent Vaccine (Pneumovax-23 Inj) 25 mcg ONCE ONCE IM Last administered on 06/12/16t 10:22; Start 06/12/16 at 10:00; Stop 06/12/16 at 10:01 ; Status DC Al Hydrox/Mg Hydrox/Simethicone (Mag-Al Plus Susp Liq) 30 ml ONCE ONCE PO Last administered on 06/12/16t 01:29; Start 06/12/16 at 01:30; Stop 06/12/16 at 01:31; Status DC Al Hydrox/Mg Hydrox/Simethicone (Mag-Al Plus Susp Liq) 30 ml Q6H PRN PO UPSET STOMACH; Start 06/13/16 at 15:00 Prednisone (Deltasone) 40 mg DAILY PO ; Start 06/13/16 at 15:00 Lorazepam (Ativan) 1 mg Q12H PRN PO agitation; Start 06/13/16 at 15:00 A/P Assessment and Plan 60-year-old male with alcohol abuse Acute on chronic renal failure -Compared to prior creatinine creatinine is mildly elevated. Baseline has been around 1.9. On admission creatinine is 2.25 now 1.45 and continues to improving. -Most likely due to combination of dehydration from excessive alcohol use and rhabdomyolysis. -continue with IVFs and stircts I/O. -Continue to monitor creatinine and avoid nephrotoxins. Pneumonia -Right middle lobe, chest x-ray. -Asymptomatic. May be secondary to aspiration. -Patient was put on Rocephin and azithromycin d/c on 06/11. -on Augmentin and Flagyl to cover for community acquired pneumonia an aspiration and doing well. -Continued to monitor clinically. Alcohol abuse -No signs of alcohol withdrawal at the moment. -d/c CIWA of protocol. -will put Ativan 1 mg PO BID PRN. Rhabdomyolysis -Most likely secondary to his fall from his alcohol use. -improving. -d//c IVFs since patient is tolerating PO. Right frontal abrasion -Secondary to fall. -No signs of infection. -Continue monitor. Anxiety -psychiatrist cleared patient and stated no active issues. DVT prophylaxis -lovenox Discharge Planning if patient continues to do well can be d/c to home. Mis Flanagan MD Jun 13, 2016 15:55
[2016-06-13] MEDS: predniSONE 20 MG TAB PO SCH (16:36)
[2016-06-13] MEDS: SODIUM CHLORIDE 0.9% FLUSH 5 ML FLUSH FLUSH SCH (20:08)
[2016-06-14] VITALS: BP 144/80; PULSE 80; RESP 18; TEMP 97; O2SAT 96
[2016-06-14 04:00] VITALS: BP 133/82; PULSE 70; RESP 16; TEMP 99; O2SAT 94
[2016-06-14] MEDS: metroNIDAZOLE 500 MG TAB PO SCH (05:59)
[2016-06-14 07:25] LABS: HEMATOCRIT 29.8 % (39.0-51.0); MEAN CELL VOLUME 89.6 FL (80.0-100.0); MEAN CORPUSCULAR HEMOGLOBIN 29.9 PG (27.0-34.0); MEAN CORPUSCULAR HGB CONC 33.3 % (32.0-36.0); PLATELET COUNT 134 TH/MM3 (150-450); RED BLOOD COUNT 3.32 MIL/MM3 (4.50-5.90); RED CELL DISTRIBUTION WIDTH 15.6 % (11.6-17.2); REVIEW FLAG FINAL; WHITE BLOOD COUNT 11.7 TH/MM3 (4.0-11.0)
[2016-06-14 07:50] LABS: POTASSIUM 4.1 MEQ/L (3.5-5.1)
[2016-06-14 08:00] VITALS: BP 141/91; PULSE 77; PULSE 87; RESP 18; TEMP 98.6; O2SAT 95
[2016-06-14] MEDS ORDERED: THIAMINE HCL 100 MG TAB PO SCH (09:00)
[2016-06-14] MEDS: guaiFENesin E.R. 600 MG TAB PO SCH (09:21)
[2016-06-14] MEDS: predniSONE 20 MG TAB PO SCH (09:21)
[2016-06-14] MEDS: AMOXICILLIN/CLAVULANATE K 875 MG TAB PO SCH (09:21)
[2016-06-14] MEDS: BUDESONIDE-FORMOTEROL 160/4.5 MCG INHALER INH SCH (09:22)
[2016-06-14] MEDS: SODIUM CHLORIDE 0.9% FLUSH 5 ML FLUSH FLUSH SCH (09:23)
[2016-06-14 12:00] VITALS: BP 172/89; PULSE 76; RESP 22; TEMP 98.2; O2SAT 95
[2016-06-14] MEDS: LORazepam 1 MG TAB PO PRN (12:06)
[2016-06-14] MEDS ORDERED: METR-1 PO (12:17)
[2016-06-14] MEDS ORDERED: PRED20 PO (12:17)
[2016-06-14] MEDS ORDERED: SYMB160A INH (12:17)
[2016-06-14] MEDS ORDERED: VENTAER INH (12:17)
[2016-06-14] MEDS ORDERED: AMOX875T2 PO (12:17)
--- NOTE | 2016-06-14 12:20 | HHI.DCPOC ---
Discharge Care Plan Diagnosis: (1) MOHSEN (acute kidney injury) (2) Alcohol intoxication (3) Renal insufficiency (4) Rhabdomyolysis (5) Pneumonia (6) Asthma (7) Anxiety Goals to Promote Your Health * To prevent worsening of your condition and complications * To maintain your health at the optimal level Directions to Meet Your Goals Take your medications as prescribed Follow your dietary instruction Follow activity as directed Keep your appointments as scheduled Take your immunizations and boosters as scheduled If your symptoms worsen call your PCP, if no PCP go to Urgent Care Center or Emergency Room Smoking is Dangerous to Your Health. Avoid second hand smoke Call the 24-hour hour crisis hotline for domestic abuse at Mis Flanagan MD Jun 14, 2016 12:20
--- NOTE | 2016-06-14 12:20 | HHI.DS ---
Discharge Summary Admission Date Jun 11, 2016 at 06:47 Discharge Date: Jun 14, 2016 Admitting Diagnosis pneumonia, rhabdomyolysis, lactic acidosis, renal insufficiency (1) Alcohol intoxication ICD Code: F10.129 Diagnosis: Principal (2) Anxiety ICD Code: F41.9 Diagnosis: Secondary (3) Rhabdomyolysis ICD Code: M62.82 Diagnosis: Principal (4) Acute on chronic kidney failure ICD Code: N17.9 Diagnosis: Principal Procedures none Brief History - From Admission This is a 60-year-old male with history of alcohol abuse who stated that he presented to the hospital due to drinking too much alcohol. Patient stated that since the age of 51 he started to drink a lot more alcohol due to his anxiety. Patient stated that he has been on Xanax for anxiety by his primary care physician but the past month he was not getting any more Xanax. Patient stated that his primary care about the medication was not good for him because his mom complain about it and through it in the toilet. He stated because of this he started to supplement with alcohol use. He said the past week he spent drinking a lot about 2 pints of vodka a day for the past week. Patient does admit blacking out at times, having tremors when he is not drinking. He denied any history of DTs. Patient stated that yesterday he was drinking excessively and fell down but did not lose any consciousness so went to the emergency department. He denies any headache, visual changes, focal neurological deficit , nausea vomiting or any pain. Patient stated that the Ambien is helping him a lot. Patient stated that yesterday that he did have suicidal ideations but he did not have a plan at all. He stated that he felt suicidal because of his anxiety but that went away quickly. At the moment he denies any suicidal ideations or homicidal ideation. He denies any depression. Patient stated that he felt that way for second because of anxiety but he never actually had a plan and does not feel that way anymore. Patient denies any cough, shortness of breathing, fevers or chills. Patient said that his only complaints anxiety and he feels a lot better. CBC/BMP: 06/14/16 0642 06/14/16 0642 Significant Findings Laboratory Tests Test 06/11/16 06/11/16 06/11/16 06/11/16 13:03 13:16 21:48 21:49 Total Creatine Kinase 3504 U/L 3418 U/L (39-308) (39-308) Creatine Kinase MB 20.0 NG/ML 12.6 NG/ML (0.5-3.6) (0.5-3.6) Lactic Acid Level 5.5 mmol/L 4.2 mmol/L (0.4-2.0) (0.4-2.0) Test 06/12/16 06/13/16 06/14/16 06:36 07:16 06:42 White Blood Count 14.9 TH/MM3 13.7 TH/MM3 11.7 TH/MM3 (4.0-11.0) (4.0-11.0) (4.0-11.0) Red Blood Count 3.59 MIL/MM3 3.46 MIL/MM3 3.32 MIL/MM3 (4.50-5.90) (4.50-5.90) (4.50-5.90) Hemoglobin 10.5 GM/DL 10.3 GM/DL 9.9 GM/DL (13.0-17.0) (13.0-17.0) (13.0-17.0) Hematocrit 32.1 % 31.5 % 29.8 % (39.0-51.0) (39.0-51.0) (39.0-51.0) Platelet Count 146 TH/MM3 138 TH/MM3 134 TH/MM3 (150-450) (150-450) (150-450) Neutrophils (%) (Auto) 95.5 % (16.0-70.0) Lymphocytes (%) (Auto) 1.4 % (9.0-44.0) Neutrophils # (Auto) 14.2 TH/MM3 (1.8-7.7) Lymphocytes # (Auto) 0.2 TH/MM3 (1.0-4.8) Blood Urea Nitrogen 23 MG/DL (7-18) 22 MG/DL (7-18) 31 MG/DL (7-18) Creatinine 1.52 MG/DL 1.36 MG/DL 1.39 MG/DL (0.60-1.30) (0.60-1.30) (0.60-1.30) Estimat Glomerular Filtration 47 ML/MIN (>89) 54 ML/MIN (>89) 52 ML/MIN (>89) Rate Random Glucose 126 MG/DL 157 MG/DL 113 MG/DL (74-106) (74-106) (74-106) Calcium Level 7.7 MG/DL 7.6 MG/DL (8.5-10.1) (8.5-10.1) Total Bilirubin 1.1 MG/DL (0.2-1.0) Aspartate Amino Transf 153 U/L (15-37) (AST/SGOT) Total Creatine Kinase 2625 U/L 1058 U/L (39-308) (39-308) Creatine Kinase MB 6.8 NG/ML (0.5-3.6) Total Protein 5.8 GM/DL (6.4-8.2) Albumin 2.5 GM/DL (3.4-5.0) Chloride Level 108 MEQ/L (98-107) Imaging Last Impressions Chest X-Ray 06/11/16518 Signed Impressions: Service Date/Time: Saturday, June 11, 2016 05:40 - CONCLUSION: Non-consolidative infiltrate in the medial right lower lung. Joss Brand MD Wrist X-Ray 06/11/16 Signed Impressions: Service Date/Time: Saturday, June 11, 2016 14:23 - CONCLUSION: No fracture or subluxation of the right wrist. Arian Vicente MD Maxillofacial CT 06/11/16 Signed Impressions: Service Date/Time: Saturday, June 11, 2016 05:29 - CONCLUSION: 1. No evidence of facial bone fracture. 2. Pansinus disease. Joss Brand MD Head CT 06/11/16 Signed Impressions: Service Date/Time: Saturday, June 11, 2016 05:27 - CONCLUSION: No acute findings. Joss Brand MD Cervical Spine CT 06/11/16 Signed Impressions: Service Date/Time: Saturday, June 11, 2016 05:29 - CONCLUSION: 20%% compression fracture anterior superior T1 vertebral body. No evidence of compression deformity in the cervical vertebral bodies. Joss Brand MD PE at Discharge GENERAL: in NAD CARDIOVASCULAR: Regular rate and rhythm without murmurs, gallops, or rubs. RESPIRATORY: Breath sounds equal bilaterally. No accessory muscle use. GASTROINTESTINAL: Abdomen soft, non-tender, nondistended. Pt update on day of discharge patient denied any N/V or abdominal pain. He does have anxiety and feels he needs benzos. no tremors and he is very comfortable in bed. Hospital Course 60-year-old male with alcohol abuse Acute on chronic renal failure -Compared to prior creatinine creatinine is mildly elevated. Baseline has been around 1.9. On admission creatinine is 2.25 now 1.45 and continues to improving. -Most likely due to combination of dehydration from excessive alcohol use and rhabdomyolysis. -he was given IVFs with improvement and continue to improve throughout hospital course and while off of IVFs. -Continue to monitor creatinine and avoid nephrotoxins. Pneumonia -Right middle lobe, chest x-ray. -Asymptomatic. May be secondary to aspiration. -Patient was put on Rocephin and azithromycin d/c on 06/11. -on Augmentin and Flagyl to cover for community acquired pneumonia an aspiration and doing well. Alcohol abuse -No signs of alcohol withdrawal. - But put on CIWA of protocol empirically. did well so that was d/c on 06/13 and he continued to do well. Most of his symptoms seemed to be more from anxiety. -patient stated he is marchman acted. -case management was involved and stated patient wants to go home. Rhabdomyolysis -Most likely secondary to his fall from his alcohol use. -patient put on IVFs. -improving with IVFs -d//c IVFs since patient is tolerating PO. Right frontal abrasion -Secondary to fall. -No signs of infection. -Continue monitor. Anxiety -psychiatrist cleared patient and stated no active issues. -most of his issue it seems to be due to his anxiety. -he stated he was on xanax but his PCP took him off of this because he was told "it was not good for him" -patient told to f/u with his PCP or outpatient psychiatrist. Pt Condition on Discharge: Stable Discharge Disposition: Discharge Home Discharge Time: <= 30 minutes Discharge Instructions DIET: Follow Instructions for: Heart Healthy Diet Activities you can perform: Regular-No Restrictions Follow up Referrals: PCP Follow-up - 3-5 Days New Medications: Albuterol 18 GM Inh (Ventolin Hfa 18 GM Inh) 90 Mcg/Act Aer 2 PUFF INH Q4-6H PRN SHORTNESS OF BREATH #1 Ref 0 INHALER Amoxicillin-Clavulanate (Amoxicillin-Clavulanate) 875-125 mg Tab 875 MG PO Q12HR pneumonia #20 Ref 0 TAB Budesonide-Formoterol Inh (Symbicort Inh) 160-4.5 Mcg/Act Aero 2 PUFF INH Q12HR COPD #1 Ref 0 INHALER Metronidazole (Flagyl) 500 Mg Tab 500 MG PO Q8HR pneumonia #30 Ref 0 TAB Prednisone (Prednisone) 20 Mg Tab 40 MG PO DAILY wheezing #4 Ref 0 TAB Mis Flanagan MD Jun 14, 2016 12:20
== END 2016-06-14 13:15 | disposition home or self-care (01) | DRG 178 ==
LOC: NEPE 05:12 → NEDA 06:47 → N04B 20:10
PROVIDERS: ADMIT Family Medicine; ATTEND Family Medicine
DX: J69.0 Pneumonitis due to inhalation of food and vomit (principal); N17.9 Acute kidney failure, unspecified; E87.2 Acidosis; M62.82 Rhabdomyolysis; F10.24 Alcohol dependence with alcohol-induced mood disorder; R00.0 Tachycardia, unspecified; N18.9 Chronic kidney disease, unspecified; J45.909 Unspecified asthma, uncomplicated; F41.9 Anxiety disorder, unspecified; N40.0 Benign prostatic hyperplasia without lower urinary tract symptoms; K44.9 Diaphragmatic hernia without obstruction or gangrene; E86.0 Dehydration; T14.8 Other injury of unspecified body region; W19.XXXA Unspecified fall, initial encounter; Y93.9 Activity, unspecified; Y92.9 Unspecified place or not applicable; Z23 Encounter for immunization
CPT/HCPCS: 70450; 70486; 71010; 72125; 73110; 80048; 80053; 80307; 82010; 82550; 82552; 83605; 84484; 85025; 85027; 85610; 85730; 87040; 90732; 93005; 94640; 94664; 96361; 96374; 96375; J0456; J0696; J2060; J2405; J2920; J2930; J3411; J7030; J7040; J7050; J7512

== ENCOUNTER 2016-08-23 15:03 | Emergency (ER) | payer OTHER ==
[~2016-08-23] VITALS: Ht 190.5 cm; Wt 85.0 kg
[~2016-08-23 15:03] MED LIST changes: -ADVA500A INH; -ALPR0.5T3 PO; +AMOX875T2 PO; +METR-1 PO; +PRED20 PO; -PRED5TAB PO; +SYMB160A INH; +VENTAER INH
[2016-08-23 15:05] VITALS: BP 122/86; PULSE 124; RESP 16; TEMP 98.2; O2SAT 98
[2016-08-23 16:18] VITALS: BP 136/93; PULSE 98; RESP 18; O2SAT 93
[2016-08-23] MEDS ORDERED: TAMS0.4C4 PO (16:18)
[2016-08-23] MEDS ORDERED: SODIUM CHLOR 0.9% 1000 ML INJ 1,000 ML IV SCH (16:22)
[2016-08-23] MEDS ORDERED: SODIUM CHLORIDE 0.9% FLUSH 10 ML FLUSH IV FLUSH PRN (16:30)
[2016-08-23 16:54] LABS: AUTOMATED NEUTROPHIL # 13.5 TH/MM3 (1.8-7.7); BASOPHIL # 0.1 TH/MM3 (0-0.2); BASOPHIL % 0.5 % (0.0-2.0); EOSINOPHIL # 0.2 TH/MM3 (0-0.4); EOSINOPHIL % 0.9 % (0.0-4.0); HEMATOCRIT 47.6 % (39.0-51.0); HEMO FLAGS DIFF FINAL; LYMPH % 9.1 % (9.0-44.0); LYMPHOCYTE # 1.5 TH/MM3 (1.0-4.8); MEAN CORPUSCULAR HEMOGLOBIN 29.3 PG (27.0-34.0); MEAN CORPUSCULAR HGB CONC 31.8 % (32.0-36.0); MONO % 7.9 % (0.0-8.0); NEUT % 81.6 % (16.0-70.0); PLATELET COUNT 289 TH/MM3 (150-450); RED BLOOD COUNT 5.17 MIL/MM3 (4.50-5.90); RED CELL DISTRIBUTION WIDTH 15.9 % (11.6-17.2); WHITE BLOOD COUNT 16.6 TH/MM3 (4.0-11.0)
--- NOTE | 2016-08-23 17:00 | PD ---
HPI Chief Complaint: GI Complaint Time Seen by Provider: 16:19 Travel History International Travel<30 days: No Contact w/Intl Traveler<30days: No Traveled to known affect area: No History of Present Illness HPI 60-year-old male came to the emergency room with history of abdominal bloating and tension since yesterday. Patient says that he has an indwelling Gasca catheter with a leg bag currently that was put in 3 days ago. This was done at his urologist's office. He went to see the nurse in the office and let them know that he has not been making too much urine. He thinks that he is obstructed. However they did a bladder scan and admit him know that there wasn' t much urine in the bladder. Upon asking he said that he was probably not drinking fluid too much. No history of abdominal pain. No history of vomiting or diarrhea. His last bowel movement was yesterday. Patient was tachycardic in triage but his heart rate in the room was within normal limits. Patient is a chronic alcoholic. Patient says he has drank alcohol last night. PFSH Past Medical History Narrative Medical List of his past medical, surgical, social and family history was reviewed from the nursing note. Hx Anticoagulant Therapy: No Arthritis: No Asthma: Yes Autoimmune Disease: No Blood Disorders: No Anxiety: Yes Depression: No Heart Rhythm Problems: No Cancer: No Cardiovascular Problems: No High Cholesterol: No Chemotherapy: No Chest Pain: No Congestive Heart Failure: No COPD: No Cerebrovascular Accident: No Diabetes: No Diminished Hearing: No Endocrine: No Gastrointestinal Disorders: Yes (POSSIBLE HERNIA) GERD: No Glaucoma: No Genitourinary: Yes (ENLARGED PROSTATE CAUSING DELAYED BLADDER EMPTYING) Headaches: No Hepatitis: No Hiatal Hernia: Yes Hypertension: No Immune Disorder: No Implanted Vascular Access Dvce: Yes Kidney Stones: No Medical other: Yes (INGUINAL HERNIA, VASCULITIS) Musculoskeletal: No Neurologic: No Psychiatric: Yes Reproductive: No Respiratory: Yes Immunizations Current: Yes Migraines: No Myocardial Infarction: No Radiation Therapy: No Renal Failure: No Seizures: No Sickle Cell Disease: No Sleep Apnea: No Thyroid Disease: No Tetanus Vaccination: Unknown Influenza Vaccination: No Past Surgical History Abdominal Surgery: Yes (HERNIA REPAIR) AICD: No Arteriovenous Shunt: No Body Medical Devices: DENTAL IMPLANT Cardiac Surgery: No Cholecystectomy: No Ear Surgery: No Endocrine Surgery: No Eye Surgery: No Genitourinary Surgery: Yes (TURP secondary to BPH) Gynecologic Surgery: No Insulin Pump: No Joint Replacement: No Oral Surgery: Yes (TOOTH PULLED UNDER ANESTHESIA) Pacemaker: No Thoracic Surgery: No Other Surgery: Yes Social History Alcohol Use: Yes (BINGE DRINKING DAILY) Tobacco Use: No Substance Use: Yes (ALCOHOL, BENZOS.) Allergies-Medications (Allergen,Severity, Reaction): Coded Allergies: No Known Allergies (Verified , 08/23/16) Comments No known drug allergies. Reported Meds & Prescriptions Reported Meds & Active Scripts Active Macrobid (Nitrofurantoin Monoh/Nitrofur Macro) 100 Mg Cap 100 Mg PO BID 10 Days Ventolin Hfa 18 GM Inh (Albuterol Sulfate) 90 Mcg/Act Aer 2 Puff INH Q4-6H PRN Prednisone 20 Mg Tab 40 Mg PO DAILY Symbicort Inh (Budesonide/Formoterol Fumarate) 160-4.5 Mcg/Act Aero 2 Puff INH Q12HR Reported Tamsulosin (Tamsulosin HCl) 0.4 Mg Cap 0.4 Mg PO HS Narrative Medication List of his home medications reviewed from the nursing note. Review of Systems Except as stated in HPI: all other systems reviewed are Neg Physical Exam Narrative GENERAL: Awake, alert, no obvious distress SKIN: Focused skin assessment warm/dry. HEAD: Atraumatic. Normocephalic. EYES: Pupils equal and round. No scleral icterus. No injection or drainage. ENT: No nasal bleeding or discharge. Mucous membranes pink and moist. NECK: Trachea midline. No JVD. CARDIOVASCULAR: Regular rate and rhythm. No murmur appreciated. RESPIRATORY: No accessory muscle use. Clear to auscultation. Breath sounds equal bilaterally. GASTROINTESTINAL: Abdomen soft, non-tender, distended but soft. Hepatic and splenic margins not palpable. MUSCULOSKELETAL: No obvious deformities. No clubbing. No cyanosis. No edema. NEUROLOGICAL: Awake and alert. No obvious cranial nerve deficits. Motor grossly within normal limits. Normal speech. PSYCHIATRIC: Appropriate mood and affect; insight and judgment normal. Data Data Last Documented VS Vital Signs Date Time Temp Pulse Resp B/P Pulse Ox O2 Delivery O2 Flow Rate FiO2 08/23/16 18:29 85 18 138/83 95 08/23/16 16:18 Room Air 08/23/16 15:05 98.2 Orders Complete Blood Count With Diff (08/23/16 16:22) Comprehensive Metabolic Panel (08/23/16 16:22) Urinalysis - C+S If Indicated (08/23/16 16:22) Ct Abd/Pel W/O Iv Contrast (08/23/16 16:22) Iv Access Insert/Monitor (08/23/16 16:22) Ecg Monitoring (08/23/16 16:22) Oximetry (08/23/16 16:22) Sodium Chlor 0.9% 1000 Ml Inj (Ns 1000 M (08/23/16 16:22) Sodium Chloride 0.9% Flush (Ns Flush) (08/23/16 16:30) Urine Culture (08/23/16 16:25) Sodium Chlor 0.9% 1000 Ml Inj (Ns 1000 M (08/23/16 17:15) Ceftriaxone Inj (Rocephin Inj) (08/23/16 17:15) Labs Laboratory Tests Test 08/23/16 16:25 Sodium Level 144 MEQ/L Potassium Level 4.1 MEQ/L Chloride Level 105 MEQ/L Carbon Dioxide Level 28.4 MEQ/L Anion Gap 11 MEQ/L Blood Urea Nitrogen 14 MG/DL Creatinine 2.12 MG/DL Estimat Glomerular Filtration 32 ML/MIN Rate Random Glucose 86 MG/DL Calcium Level 9.3 MG/DL Total Bilirubin 0.5 MG/DL Aspartate Amino Transf 20 U/L (AST/SGOT) Alanine Aminotransferase 26 U/L (ALT/SGPT) Alkaline Phosphatase 92 U/L Total Protein 7.7 GM/DL Albumin 3.3 GM/DL White Blood Count 16.6 TH/MM3 Red Blood Count 5.17 MIL/MM3 Hemoglobin 15.1 GM/DL Hematocrit 47.6 % Mean Corpuscular Volume 92.0 FL Mean Corpuscular Hemoglobin 29.3 PG Mean Corpuscular Hemoglobin 31.8 % Concent Red Cell Distribution Width 15.9 % Platelet Count 289 TH/MM3 Mean Platelet Volume 9.2 FL Neutrophils (%) (Auto) 81.6 % Lymphocytes (%) (Auto) 9.1 % Monocytes (%) (Auto) 7.9 % Eosinophils (%) (Auto) 0.9 % Basophils (%) (Auto) 0.5 % Neutrophils # (Auto) 13.5 TH/MM3 Lymphocytes # (Auto) 1.5 TH/MM3 Monocytes # (Auto) 1.3 TH/MM3 Eosinophils # (Auto) 0.2 TH/MM3 Basophils # (Auto) 0.1 TH/MM3 CBC Comment DIFF FINAL Differential Comment Urine Color RED Urine Turbidity CLOUDY Urine pH 6.5 Urine Specific [place] 1.020 Urine Protein 300 mg/dL Urine Glucose (UA) TRACE mg/dL Urine Ketones NEG mg/dL Urine Occult Blood LARGE Urine Nitrite NEG Urine Bilirubin NEG Urine Urobilinogen LESS THAN 2.0 MG/DL Urine Leukocyte Esterase TRACE Urine RBC /hpf Urine WBC /hpf Urine Bacteria FEW /hpf Urine Hyaline Casts 30 /lpf Microscopic Urinalysis Comment CULTURE INDICATED MDM Medical Decision Making Medical Screen Exam Complete: Yes Emergency Medical Condition: Yes Medical Record Reviewed: Yes Differential Diagnosis Dehydration, small bowel obstruction Narrative Course 4:58 PM awaiting for the blood test results. Patient is getting a liter IV fluid bolus. I have ordered a CAT scan of his abdomen. Awaiting for the report. CBC result came back with leukocytosis. 5:16 PM blood test results of back and patient has renal insufficiency. Compared to his previous creatinine this level is not new. I have ordered a second liter of IV fluid bolus. CAT scan report came back and does not show any significant anomaly. UA shows some rbc's and symptoms of UTI. I have ordered IV Rocephin 1 g. Patient will be discharged home after these IV treatments. Procedures EKG Prior to Arrival: No Diagnosis Primary Impression: Dehydration Additional Impression: Renal insufficiency Ruled Out: UTI (urinary tract infection) Referrals: Primary Care Physician 2 days Additional Instructions: Please follow-up with your PMD and your urologist Dr. New in couple days. Take the antibiotic as per the prescription direction. Drink lots of fluid to keep yourself hydrated. Return to the ER if the condition worsens or any other new concerns. Your primary care should repeat the blood test for your kidney function in 1-2 weeks. Med/Other Pt SpecificInfo: Prescription(s) given Scripts Nitrofurantoin Monohydrate Macrocrystals (Macrobid)100 Mg [id number] Mg PO BID 10 Days Ref 0 Prov:Andre Cobos MD 08/23/16 Disposition: 01 DISCHARGE HOME Condition: Stable Andre Cobos MD August 23, 2016 17:00
--- NOTE | 2016-08-23 17:00 | RADRPT ---
EXAM DATE/TIME: 08/23/2016 16:38 [facility] COMPARISON: No previous studies available for comparison. INDICATIONS : Abdominal distention/fullness. ORAL CONTRAST: No oral contrast ingested. RADIATION DOSE: 9.96 CTDIvol (mGy) MEDICAL HISTORY : Hernia, hiatal. Hernia, inguinal. SURGICAL HISTORY : None. ENCOUNTER: Initial ACUITY: 1 day PAIN SCALE: 0/10 LOCATION: abdomen TECHNIQUE: Volumetric scanning of the abdomen and pelvis was performed. Using automated exposure control and ad justment of the mA and/or kV according to patient size, radiation dose was kept as low as reasonably achievable to obtain optimal diagnostic quality images. FINDINGS: LOWER LUNGS: The visualized lower lungs are clear. LIVER: Homogeneous density without lesion. There is no dilation of the biliary tree. No calcified gallston es. The gallbladder is unremarkable. SPLEEN: Normal size without lesion. PANCREAS: Within normal limits. KIDNEYS: Normal in size and shape. There is no mass, stone, or hydronephrosis. ADRENAL GLANDS: Within normal limits. VASCULAR: There is no aortic aneurysm. BOWEL/MESENTERY: The stomach, small bowel, and colon demonstrate no acute abnormality. There is no free intraperitone al air or fluid. Scattered diverticuli are present greatest in the sigmoid colon. ABDOMINAL WALL: Within normal limits. RETROPERITONEUM: There is no lymphadenopathy. BLADDER: A Gasca catheter is in place in the bladder which is decompressed. REPRODUCTIVE: Within normal limits. INGUINAL: There is no lymphadenopathy or hernia. MUSCULOSKELETAL: Within normal limits for patient age. CONCLUSION: 1. Mild to moderate diverticulosis with no definite inflammatory change. There is a normal appendix. 2. Unremarkable gallbladder. 3. Gasca catheter in place. Luis Acosta MD on August 23, 2016 at 16:53 Board Certified Radiologist. This report was verified electronically.
[2016-08-23 17:06] LABS: BACTERIA, URINE FEW /hpf; BLOOD, URINE LARGE (NEG); COMMENT (UR) CULTURE INDICATED; CULTURE IF INDICATED CULTURE INDICATED; GLUCOSE,URINE TRACE mg/dL (NEG); HYALINE CAST, URINE 30 /lpf (RARE); KETONE, URINE NEG (NEG); NITRITE,URINE NEG (NEG); PH, URINE 6.5 (5.0-8.5)
[2016-08-23 17:10] LABS: URINE COLOR RED (YELLW/STRAW)
[2016-08-23 17:12] LABS: ALT (GPT) 26 U/L (12-78); ANION GAP 11 MEQ/L (5-15); AST (GOT) 20 U/L (15-37); BICARBONATE 28.4 MEQ/L (21.0-32.0); BLOOD UREA NITROGEN 14 MG/DL (7-18); CHLORIDE 105 MEQ/L (98-107); GLOMERULAR FILTRATION RATE 32 ML/MIN (>89); POTASSIUM 4.1 MEQ/L (3.5-5.1); SODIUM (NA) 144 MEQ/L (136-145)
[2016-08-23 17:14] LABS: ALKALINE PHOSPHATASE 92 U/L (45-117); TOTAL BILIRUBIN ADULT 0.5 MG/DL (0.2-1.0)
[2016-08-23] MEDS ORDERED: SODIUM CHLOR 0.9% 1000 ML INJ 1,000 ML IV ONE (17:15)
[2016-08-23] MEDS ORDERED: cefTRIAXone INJ 1,000 MG in SODIUM CHLORIDE 0.9% INJ 100 ML IV ONE (17:15)
[2016-08-23] MEDS ORDERED: MACR100C2 PO ×2 (17:18→18:51)
[2016-08-23 18:29] VITALS: BP 138/83
== END 2016-08-23 19:34 | disposition home or self-care (01) ==
LOC: NEPC 15:03
DX: E86.0 Dehydration (principal); N28.9 Disorder of kidney and ureter, unspecified
CPT/HCPCS: 74176; 80053; 81001; 85025; 86403; 87086; 96361; 96374; 99285; J0696; J7030

== ENCOUNTER 2016-08-27 09:32 | Emergency (ER) | payer OTHER ==
[~2016-08-27] VITALS: Ht 182.9 cm; Wt 87.0 kg
[~2016-08-27 09:32] MED LIST changes: -AMOX875T2 PO; +MACR100C2 PO; -METR-1 PO; +TAMS0.4C4 PO
[2016-08-27 09:34] VITALS: BP 143/93; PULSE 92; RESP 24; TEMP 98.6; O2SAT 96
[2016-08-27] MEDS ORDERED: PRED20 PO (09:45)
[2016-08-27] MEDS ORDERED: CIPR250T52 PO ×2 (09:46→09:47)
[2016-08-27] MEDS ORDERED: METR-1 PO (09:47)
[2016-08-27] MEDS ORDERED: ALPR.5 PO (09:52)
--- NOTE | 2016-08-27 10:12 | PD ---
HPI Chief Complaint: Abdominal Pain Time Seen by Provider: 10:03 Travel History International Travel<30 days: No Contact w/Intl Traveler<30days: No Traveled to known affect area: No History of Present Illness HPI 60 year-old gentleman with history of asthma, urinary retention, who presents here today with complaints of abdominal pain and swelling. The patient states he was also seen on Tuesday for the same thing and was told there was nothing wrong. He presents today after visiting the urologist to have his catheter removed. He states that they told him that there is something worse or different going on other than urinary retention. He denies any fevers, chills. He reports the pain is worse with deep breaths. He states it's worse in his middle abdominal area. There is no reported nausea vomiting diarrhea. There is no other reported symptoms at the time my examination. PFSH Past Medical History Hx Anticoagulant Therapy: No Arthritis: No Asthma: Yes Autoimmune Disease: No Blood Disorders: No Anxiety: Yes Depression: No Heart Rhythm Problems: No Cancer: No Cardiovascular Problems: No High Cholesterol: No Chemotherapy: No Chest Pain: No Congestive Heart Failure: No COPD: No Cerebrovascular Accident: No Diabetes: No Diminished Hearing: No Endocrine: No Gastrointestinal Disorders: Yes (POSSIBLE HERNIA) GERD: No Glaucoma: No Genitourinary: Yes (ENLARGED PROSTATE CAUSING DELAYED BLADDER EMPTYING/UTI) Headaches: No Hepatitis: No Hiatal Hernia: Yes Hypertension: No Immune Disorder: No Implanted Vascular Access Dvce: Yes Kidney Stones: No Medical other: Yes (INGUINAL HERNIA, VASCULITIS) Musculoskeletal: No Neurologic: No Psychiatric: Yes Reproductive: No Respiratory: Yes Immunizations Current: Yes Migraines: No Myocardial Infarction: No Radiation Therapy: No Renal Failure: No Seizures: No Sickle Cell Disease: No Sleep Apnea: No Thyroid Disease: No Tetanus Vaccination: > 5 Years Influenza Vaccination: No Past Surgical History Abdominal Surgery: Yes (HERNIA REPAIR) AICD: No Arteriovenous Shunt: No Body Medical Devices: DENTAL IMPLANT Cardiac Surgery: No Cholecystectomy: No Ear Surgery: No Endocrine Surgery: No Eye Surgery: No Genitourinary Surgery: Yes (TURP secondary to BPH) Gynecologic Surgery: No Insulin Pump: No Joint Replacement: No Oral Surgery: Yes (TOOTH PULLED UNDER ANESTHESIA) Pacemaker: No Thoracic Surgery: No Other Surgery: Yes Social History Alcohol Use: Yes (BINGE DRINKING DAILY) Tobacco Use: No Substance Use: Yes (ALCOHOL, BENZOS.) Allergies-Medications (Allergen,Severity, Reaction): Coded Allergies: No Known Allergies (Verified , 08/27/16) Reported Meds & Prescriptions Reported Meds & Active Scripts Active Ventolin Hfa 18 GM Inh (Albuterol Sulfate) 90 Mcg/Act Aer 2 Puff INH Q4-6H PRN Symbicort Inh (Budesonide/Formoterol Fumarate) 160-4.5 Mcg/Act Aero 2 Puff INH Q12HR Reported Xanax (Alprazolam) 0.5 Mg Tab 0.5 Mg PO DAILY PRN Flagyl (Metronidazole) 500 Mg Tab 500 Mg PO TID Cipro (Ciprofloxacin HCl) 250 Mg Tab 500 Mg PO BID Prednisone 20 Mg Tab 10 Mg PO BID Tamsulosin (Tamsulosin HCl) 0.4 Mg Cap 0.4 Mg PO DAILY Review of Systems Except as stated in HPI: all other systems reviewed are Neg General / Constitutional: No: Fever, Chills HENT: No: Headaches, Lightheadedness Cardiovascular: No: Chest Pain or Discomfort, Irregular Rhythm Respiratory: No: Cough, Shortness of Breath Gastrointestinal: Positive: Abdominal Pain, No: Nausea, Vomiting, Diarrhea Genitourinary: Positive: Decreased Urinary Output (had catheter removed today at urologists office.), No: Dysuria Musculoskeletal: No: Weakness, Pain Neurologic: No: Weakness, Dizziness Psychiatric: No: Anxiety (denies), Substance Abuse (denies) Physical Exam Narrative GENERAL: Well-developed well-nourished male in no acute respiratory distress. SKIN: Focused skin assessment warm/dry. HEAD: Atraumatic. Normocephalic. EYES: No scleral icterus. No injection or drainage. ENT: No nasal bleeding or discharge. Mucous membranes pink and moist. NECK: Trachea midline. No JVD. CARDIOVASCULAR: Regular rate and rhythm. No murmur appreciated. RESPIRATORY: No accessory muscle use. Clear to auscultation. Breath sounds equal bilaterally. GASTROINTESTINAL: Abdomen soft, nondistended. The patient appears to have a rotund abdomen. There is tenderness to palpation in the left periumbilical area. There is no rebound but mild guarding. MUSCULOSKELETAL: No obvious deformities. No clubbing. No cyanosis. No edema. NEUROLOGICAL: Awake and alert. No obvious cranial nerve deficits. Motor grossly within normal limits. Normal speech. Data Data Last Documented VS Vital Signs Date Time Temp Pulse Resp B/P Pulse Ox O2 Delivery O2 Flow Rate FiO2 08/27/16 14:00 70 16 156/96 98 Room Air 08/27/16 11:37 98.0 Orders Complete Blood Count With Diff (08/27/16 10:04) Comprehensive Metabolic Panel (08/27/16 10:04) Lipase (08/27/16 10:04) Urinalysis - C+S If Indicated (08/27/16 10:04) Iv Access Insert/Monitor (08/27/16 10:04) Ecg Monitoring (08/27/16 10:04) Oximetry (08/27/16 10:04) Sodium Chloride 0.9% Flush (Ns Flush) (08/27/16 10:15) Alprazolam (Xanax) (08/27/16 11:45) Ct Abd/Pel W/O Iv Contrast (08/27/16 12:12) Oral Contrast - Adult (08/27/16 12:17) Diatrizoate Liq ( Gastroview Liq) (08/27/16 12:55) Labs Laboratory Tests Test 08/27/16 08/27/16 10:05 14:10 White Blood Count 11.5 TH/MM3 Red Blood Count 4.94 MIL/MM3 Hemoglobin 15.3 GM/DL Hematocrit 44.8 % Mean Corpuscular Volume 90.9 FL Mean Corpuscular Hemoglobin 31.0 PG Mean Corpuscular Hemoglobin 34.1 % Concent Red Cell Distribution Width 15.5 % Platelet Count 308 TH/MM3 Mean Platelet Volume 9.2 FL Neutrophils (%) (Auto) 86.8 % Lymphocytes (%) (Auto) 5.0 % Monocytes (%) (Auto) 7.4 % Eosinophils (%) (Auto) 0.2 % Basophils (%) (Auto) 0.6 % Neutrophils # (Auto) 10.0 TH/MM3 Lymphocytes # (Auto) 0.6 TH/MM3 Monocytes # (Auto) 0.8 TH/MM3 Eosinophils # (Auto) 0.0 TH/MM3 Basophils # (Auto) 0.1 TH/MM3 CBC Comment AUTO DIFF Differential Total Cells 100 Counted Neutrophils % (Manual) 83 % Band Neutrophils % 2 % Lymphocytes % 3 % Monocytes % 10 % Basophils % 1 % Neutrophils # (Manual) 9.9 TH/MM3 Myelocytes 1 % Differential Comment FINAL DIFF MANUAL Platelet Estimate NORMAL Platelet Morphology Comment ENLARGED Sodium Level 139 MEQ/L Potassium Level 3.9 MEQ/L Chloride Level 104 MEQ/L Carbon Dioxide Level 25.5 MEQ/L Anion Gap 10 MEQ/L Blood Urea Nitrogen 12 MG/DL Creatinine 1.82 MG/DL Estimat Glomerular Filtration 38 ML/MIN Rate Random Glucose 95 MG/DL Calcium Level 8.7 MG/DL Total Bilirubin 0.6 MG/DL Aspartate Amino Transf 31 U/L (AST/SGOT) Alanine Aminotransferase 25 U/L (ALT/SGPT) Alkaline Phosphatase 74 U/L Total Protein 7.6 GM/DL Albumin 3.4 GM/DL Lipase 354 U/L Urine Color YELLOW Urine Turbidity CLEAR Urine pH 5.5 Urine Specific [place] 1.008 Urine Protein TRACE mg/dL Urine Glucose (UA) NEG mg/dL Urine Ketones 10 mg/dL Urine Occult Blood TRACE Urine Nitrite NEG Urine Bilirubin NEG Urine Urobilinogen LESS THAN 2.0 MG/DL Urine Leukocyte Esterase TRACE Urine RBC 5 /hpf Urine WBC 4 /hpf Urine Bacteria RARE /hpf Microscopic Urinalysis Comment CULT NOT INDICATED MDM Medical Decision Making Medical Screen Exam Complete: Yes Emergency Medical Condition: Yes Differential Diagnosis Diverticulitis versus obesity versus urinary retention versus cirrhosis Narrative Course 60-year-old male his chemistry urinary retention, renal sufficiency, and presents here with complaints of abdominal swelling and pain. The patient has a also a history of diverticulosis. His white count was slightly elevated 11 5. I did rescan him with oral contrast only as he has a creatinine of 1.8. CT scan shows urinary retention with bilateral hydronephrosis. The patient was urinating however he was not acting his bladder. We placed another catheter in his bladder immediately after he urinated. We get 500 cc of urine out. The catheter will be kept in place. He is focused on his abdominal swelling and stating that he thinks there is something else that swollen in his belly. Quite frankly, I feel as though he has a middle aged man's belly. There appears nothing else on CT scan that would account for anything else. He'll be discharged with his catheter in place. He'll be instructed to follow up with his urologist on Tuesday. He is instructed return of he develops any worsening pain, fevers chills, or any other reason. Diagnosis Primary Impression: Bladder outlet obstruction Additional Impressions: Abdominal distention Anxiety Renal insufficiency Additional Instructions: Keep catheter in until seen by urologist on Tuesday. Return if worse. I am placing a mandatory consult with a GI physician for your abdominal swelling. At this point, there is no obvious cause for your abdominal swelling. Disposition: 01 DISCHARGE HOME Condition: Stable Musa Cazares MD August 27, 2016 10:12
[2016-08-27 10:13] VITALS: RESP 18; O2SAT 98
[2016-08-27 10:15] LABS: BASOPHIL # 0.1 TH/MM3 (0-0.2); BASOPHIL % 0.6 % (0.0-2.0); EOSINOPHIL % 0.2 % (0.0-4.0); HEMATOCRIT 44.8 % (39.0-51.0); LYMPHOCYTE # 0.6 TH/MM3 (1.0-4.8); MEAN CELL VOLUME 90.9 FL (80.0-100.0); MEAN CORPUSCULAR HGB CONC 34.1 % (32.0-36.0); MONO % 7.4 % (0.0-8.0); NEUT % 86.8 % (16.0-70.0); PLATELET COUNT 308 TH/MM3 (150-450); RED BLOOD COUNT 4.94 MIL/MM3 (4.50-5.90); RED CELL DISTRIBUTION WIDTH 15.5 % (11.6-17.2); WHITE BLOOD COUNT 11.5 TH/MM3 (4.0-11.0)
[2016-08-27] MEDS ORDERED: SODIUM CHLORIDE 0.9% FLUSH 10 ML FLUSH IV FLUSH PRN (10:15)
[2016-08-27 10:16] LABS: HEMO FLAGS AUTO DIFF
[2016-08-27 10:38] LABS: ALKALINE PHOSPHATASE 74 U/L (45-117); TOTAL BILIRUBIN ADULT 0.6 MG/DL (0.2-1.0)
[2016-08-27 10:41] LABS: ALT (GPT) 25 U/L (12-78); ANION GAP 10 MEQ/L (5-15); AST (GOT) 31 U/L (15-37); BICARBONATE 25.5 MEQ/L (21.0-32.0); BLOOD UREA NITROGEN 12 MG/DL (7-18); CHLORIDE 104 MEQ/L (98-107); GLOMERULAR FILTRATION RATE 38 ML/MIN (>89); POTASSIUM 3.9 MEQ/L (3.5-5.1); SODIUM (NA) 139 MEQ/L (136-145)
[2016-08-27 10:52] LABS: BANDS 2 % (0-6); BASOPHILS 1 % (0-2); MYELOCYTES 1 % (0-0); NEUTROPHIL # MANUAL DIFF 9.9 TH/MM3 (1.8-7.7); POLYS (SEG NEUTROPHILS) 83 % (16-70); WBC DIFF SAMPLE 100
[2016-08-27 10:53] LABS: PLATELET ESTIMATE SMEAR NORMAL (NORMAL); PLATELET MORPHOLOGY ENLARGED (NORMAL); SCAN/DIFF FINAL DIFF MANUAL
[2016-08-27 11:37] VITALS: BP 130/78; PULSE 96; RESP 18; TEMP 98; O2SAT 98
[2016-08-27] MEDS ORDERED: ALPRAZolam 1 MG TAB PO ONE (11:45)
[2016-08-27] MEDS ORDERED: DIATRIZOATE MEGLUM/DIATRIZOATE SOD 9 ML CUP ONE (12:55)
[2016-08-27 13:00] VITALS: BP 164/99; PULSE 94; RESP 16; O2SAT 98
[2016-08-27 14:00] VITALS: BP 156/96; PULSE 70; RESP 16; O2SAT 98
--- NOTE | 2016-08-27 15:31 | RADRPT ---
EXAM DATE/TIME: 08/27/2016 14:47 [facility] COMPARISON: No previous studies available for comparison. INDICATIONS : Evaluate for diverticulitis. ORAL CONTRAST: Prescribed oral contrast ingested. RADIATION DOSE: 9.96 CTDIvol (mGy) MEDICAL HISTORY : None SURGICAL HISTORY : Inguinal hernia repair. ENCOUNTER: Subsequent ACUITY: 1 month PAIN SCALE: 5/10 LOCATION: Bilateral upper quadrant TECHNIQUE: Volumetric scanning of the abdomen and pelvis was performed. Using automated exposure control and ad justment of the mA and/or kV according to patient size, radiation dose was kept as low as reasonably achievable to obtain optimal diagnostic quality images. FINDINGS: LOWER LUNGS: The visualized lower lungs are clear. Minimal bronchiectasis. LIVER: Homogeneous density without lesion. There is no dilation of the biliary tree. No calcified gallston es. SPLEEN: Normal size without lesion. PANCREAS: Within normal limits. KIDNEYS: Normal in size and shape. There is no mass or calculus. Moderate bilateral hydronephrosis. Bilateral hydroureter. ADRENAL GLANDS: Within normal limits. VASCULAR: There is no aortic aneurysm. BOWEL/MESENTERY: The stomach, small bowel, and colon demonstrate no acute abnormality. Diverticulosis without divertic ulitis. There is no free intraperitoneal air or fluid. ABDOMINAL WALL: Within normal limits. RETROPERITONEUM: There is no lymphadenopathy. BLADDER: Mild wall thickening. Bladder wall distention. REPRODUCTIVE: Within normal limits. INGUINAL: There is no lymphadenopathy or hernia on the right. Fat containing left inguinal hernia. MUSCULOSKELETAL: Within normal limits for patient age. CONCLUSION: 1. Bladder distention with bilateral hydronephrosis and hydroureter, likely bladder outlet obstructio n. 2. Diverticulosis. 3. Mild bladder wall thickening. Raza Lugo MD on August 27, 2016 at 15:23 Board Certified Radiologist. This report was verified electronically.
[2016-08-27 16:27] LABS: BACTERIA, URINE RARE /hpf; BLOOD, URINE TRACE (NEG); GLUCOSE,URINE NEG (NEG); KETONE, URINE 10 mg/dL (NEG); NITRITE,URINE NEG (NEG); PH, URINE 5.5 (5.0-8.5); URINE COLOR YELLOW (YELLW/STRAW)
[2016-08-27 16:36] LABS: COMMENT (UR) CULT NOT INDICATED; CULTURE IF INDICATED CULT NOT INDICATED
[2016-08-27 17:55] VITALS: BP 145/95; PULSE 85; RESP 16; O2SAT 97
[2016-08-27] MEDS ORDERED: LORA-474 PO (17:56)
== END 2016-08-27 18:04 | disposition home or self-care (01) ==
LOC: NEPC 09:32
DX: N32.0 Bladder-neck obstruction (principal); R14.0 Abdominal distension (gaseous); F41.9 Anxiety disorder, unspecified; N28.9 Disorder of kidney and ureter, unspecified; J45.909 Unspecified asthma, uncomplicated; N40.0 Benign prostatic hyperplasia without lower urinary tract symptoms
CPT/HCPCS: 74176; 80053; 81001; 83690; 85007; 85027; 99284; Q9963

== ENCOUNTER 2016-08-29 20:42 | Inpatient (IN) | payer OTHER ==
[~2016-08-29] VITALS: Ht 180.3 cm; Wt 96.3 kg
[~2016-08-29 20:42] MED LIST changes: +ALPR.5 PO; +CIPR250T52 PO; +LORA-474 PO; -MACR100C2 PO; +METR-1 PO
[2016-08-29 20:45] VITALS: BP 132/74; PULSE 118; RESP 16; TEMP 98.5; O2SAT 92
[2016-08-29 22:14] LABS: AUTOMATED NEUTROPHIL # 7.2 TH/MM3 (1.8-7.7); BASOPHIL # 0.1 TH/MM3 (0-0.2); BASOPHIL % 0.9 % (0.0-2.0); EOSINOPHIL # 0.4 TH/MM3 (0-0.4); EOSINOPHIL % 4.2 % (0.0-4.0); HEMATOCRIT 41.8 % (39.0-51.0); HEMO FLAGS DIFF FINAL; LYMPH % 9.9 % (9.0-44.0); MEAN CELL VOLUME 91.1 FL (80.0-100.0); MEAN CORPUSCULAR HEMOGLOBIN 30.3 PG (27.0-34.0); MEAN CORPUSCULAR HGB CONC 33.3 % (32.0-36.0); MONO % 13.3 % (0.0-8.0); NEUT % 71.7 % (16.0-70.0); PLATELET COUNT 278 TH/MM3 (150-450); RED BLOOD COUNT 4.59 MIL/MM3 (4.50-5.90); RED CELL DISTRIBUTION WIDTH 15.4 % (11.6-17.2)
--- NOTE | 2016-08-29 22:41 | PD ---
HPI Chief Complaint: Abdominal Pain Time Seen by Provider: 21:44 Travel History International Travel<30 days: No Contact w/Intl Traveler<30days: No Traveled to known affect area: No History of Present Illness HPI The patient is a 60 year old male who presents to the [facility] emergency department with a history of abdominal pain and reported swelling that he reports has been much worse over the last month. The patient has been to the emergency department 2 times prior to this for evaluation. Initially, the patient had a CT scan of the abdomen and pelvis done that was unremarkable, however on repeat evaluation 2 days ago he had another CT scan of the abdomen and pelvis that revealed bilateral hydronephrosis with urinary bladder distention thought to be related to bladder out obstruction. The patient does have a history of prostate hypertrophy status post TURP. The patient had a Gasca catheter placed to gravity at that time and was noted to have urinary retention. The patient was placed to a leg bag and instructed to follow-up with his urologist. The patient reports that he has an appointment scheduled with his urologist for Tuesday. The patient reports that throughout the day his urine appears to be dark and he has decreased urine output in spite of drinking a significant amount of with, however at night he feels his back multiple times in his urine appears to be geriatric nurse. I review of systems, the patient denies any recent fevers, cough, congestion, neck pain, chest pain, vomiting, diarrhea, or neurologic symptoms. The patient reports that he has been experiencing shortness of breath. The abdominal distention seems to be pressing up on his diaphragm causing him to be short of breath. He reports that he does have a history of asthma and has been using his inhaler more frequently. PENDING SALE TO [facility] Past Medical History Narrative Medical The patient's past medical history is significant for anxiety, history of vasculitis, history of an inguinal hernia, history of prostate enlargement status post TURP, history of recurrent urinary retention, crit prior history of rhabdomyolysis on review of the electronic medical record. The patient has a history of renal insufficiency. He denies any prior history of ascites, hepatitis. Hx Anticoagulant Therapy: No Arthritis: No Asthma: Yes Autoimmune Disease: No Blood Disorders: No Anxiety: Yes Depression: No Heart Rhythm Problems: No Cancer: No Cardiovascular Problems: No High Cholesterol: No Chemotherapy: No Chest Pain: No Congestive Heart Failure: No COPD: No Cerebrovascular Accident: No Diabetes: No Diminished Hearing: No Endocrine: No Gastrointestinal Disorders: Yes (POSSIBLE HERNIA) GERD: No Glaucoma: No Genitourinary: Yes (ENLARGED PROSTATE CAUSING DELAYED BLADDER EMPTYING/UTI) Headaches: No Hepatitis: No Hiatal Hernia: Yes Hypertension: No Immune Disorder: No Implanted Vascular Access Dvce: Yes Kidney Stones: No Medical other: Yes (INGUINAL HERNIA, VASCULITIS) Musculoskeletal: No Neurologic: No Psychiatric: Yes Reproductive: No Respiratory: Yes Immunizations Current: Yes Migraines: No Myocardial Infarction: No Radiation Therapy: No Renal Failure: No Seizures: No Sickle Cell Disease: No Sleep Apnea: No Thyroid Disease: No Past Surgical History Narrative Surgical The patient's past surgical history is significant for hernia repair, dental extraction, TURP Abdominal Surgery: Yes (HERNIA REPAIR) AICD: No Arteriovenous Shunt: No Body Medical Devices: DENTAL IMPLANT Cardiac Surgery: No Cholecystectomy: No Ear Surgery: No Endocrine Surgery: No Eye Surgery: No Genitourinary Surgery: Yes (TURP secondary to BPH) Gynecologic Surgery: No Insulin Pump: No Joint Replacement: No Oral Surgery: Yes (TOOTH PULLED UNDER ANESTHESIA) Pacemaker: No Thoracic Surgery: No Other Surgery: Yes Social History Alcohol Use: Yes (BINGE DRINKING DAILY) Tobacco Use: No Substance Use: Yes (ALCOHOL, BENZOS.) Allergies-Medications (Allergen,Severity, Reaction): Coded Allergies: No Known Allergies (Verified , 08/29/16) Reported Meds & Prescriptions Reported Meds & Active Scripts Active Ventolin Hfa 18 GM Inh (Albuterol Sulfate) 90 Mcg/Act Aer 2 Puff INH Q4-6H PRN Reported Xanax (Alprazolam) 0.5 Mg Tab 0.5 Mg PO DAILY PRN Flagyl (Metronidazole) 500 Mg Tab 500 Mg PO TID Cipro (Ciprofloxacin HCl) 250 Mg Tab 500 Mg PO BID Prednisone 20 Mg Tab 10 Mg PO BID Tamsulosin (Tamsulosin HCl) 0.4 Mg Cap 0.4 Mg PO DAILY Review of Systems Except as stated in HPI: all other systems reviewed are Neg General / Constitutional: No: Fever Eyes: No: Visual changes HENT: No: Headaches Cardiovascular: Positive: Dyspnea on exertion, No: Chest Pain or Discomfort Respiratory: Positive: Cough, Shortness of Breath, Wheezing Gastrointestinal: Positive: Nausea, Abdominal Pain, Indigestion, No: Vomiting , Changes in Bowel Habits, Loss of Appetite Genitourinary: No: Dysuria Musculoskeletal: No: Pain Skin: No Rash Neurologic: No: Weakness, Change in Mentation, Slurred Speech, Sensory Disturbance Psychiatric: No: Depression Endocrine: No: Polydipsia Hematologic/Lymphatic: No: Easy Bruising Physical Exam Narrative General: The patient is a well-developed well-nourished male in no acute distress. Head and Neck exam: Head is normocephalic atraumatic. Eyes: EOMI, pupils are equal round and reactive to light. Nose: Midline septum with pink mucous membranes Mouth: Dentition unremarkable. Moist mucus membranes. Posterior oropharynx is not erythematous. No tonsillar hypertrophy. Uvula midline. Airway patent. Neck: No palpable lymphadenopathy. No nuchal rigidity. No thyromegaly. Cardiovascular: Regular rate and rhythm without murmurs, gallops, or rubs. Lungs: Soft expiratory wheezes audible bilaterally. No rhonchi, no crackles. No accessory muscle use. No paroxysmal abdominal breathing, tripoding, or conversational dyspnea. Abdomen: Soft, with palpable abdominal distention related to central obesity, no fluid wave noted. With minimal discomfort on palpation of the midepigastric area, no other tenderness on palpation of the other quadrants of the abdomen, except in the suprapubic area. No prominent suprapubic distention. No guarding, rebound , or rigidity. Negative Keller sign. I will bowel sounds are audible. No tenderness on palpation of McBurney's point. Extremities: No clubbing, cyanosis, or edema. 2+ pulses in all 4 extremities. No calf tenderness on palpation. Back: No spinous process tenderness to palpation. No costovertebral angle tenderness to palpation. Neurologic Exam: Grossly nonfocal. Skin Exam: No rash noted. Intact skin that is warm and dry. Data Data Last Documented VS Vital Signs Date Time Temp Pulse Resp B/P Pulse Ox O2 Delivery O2 Flow Rate FiO2 08/30/16 01:00 81 16 131/71 99 Room Air 08/29/16 20:45 98.5 Orders Complete Blood Count With Diff (08/29/16 21:48) Comprehensive Metabolic Panel (08/29/16 21:48) Lipase (08/29/16 21:48) Urinalysis - C+S If Indicated (08/29/16 21:48) Iv Access Insert/Monitor (08/29/16 21:48) Ecg Monitoring (08/29/16 21:48) Oximetry (08/29/16 21:48) Electrocardiogram (08/29/16 22:06) B-Type Natriuretic Peptide (08/29/16 22:06) Chest, Single Ap (08/29/16 22:41) Bladder/Catheter Irrigation (08/29/16 22:56) Ckmb (Isoenzyme) Profile (08/29/16 22:00) Troponin I (08/29/16 22:00) Methylprednisolone So Succ Inj (Solumedr (08/30/16 00:15) Albuterol-Ipratropium Neb (Duoneb Neb) (08/30/16 00:15) Urine Culture (08/29/16 23:40) Ceftriaxone Inj (Rocephin Inj) (08/30/16 01:15) Sodium Chlor 0.9% 1000 Ml Inj (Ns 1000 M (08/30/16 01:15) Alprazolam (Xanax) (08/30/16 01:45) Admit Order (Ed Use Only) (08/30/16 01:41) Labs Laboratory Tests Test 08/29/16 08/29/16 08/29/16 21:00 22:00 23:40 B-Type Natriuretic Peptide 47 PG/ML Sodium Level 143 MEQ/L Potassium Level 3.5 MEQ/L Chloride Level 105 MEQ/L Carbon Dioxide Level 29.2 MEQ/L Blood Urea Nitrogen 20 MG/DL Creatinine 2.14 MG/DL Random Glucose 77 MG/DL Calcium Level 8.7 MG/DL Total Bilirubin 0.3 MG/DL Aspartate Amino Transf 25 U/L (AST/SGOT) Alanine Aminotransferase 27 U/L (ALT/SGPT) Alkaline Phosphatase 58 U/L Total Protein 7.1 GM/DL Albumin 3.1 GM/DL White Blood Count 10.0 TH/MM3 Red Blood Count 4.59 MIL/MM3 Hemoglobin 13.9 GM/DL Hematocrit 41.8 % Mean Corpuscular Volume 91.1 FL Mean Corpuscular Hemoglobin 30.3 PG Mean Corpuscular Hemoglobin 33.3 % Concent Red Cell Distribution Width 15.4 % Platelet Count 278 TH/MM3 Mean Platelet Volume 8.8 FL Neutrophils (%) (Auto) 71.7 % Lymphocytes (%) (Auto) 9.9 % Monocytes (%) (Auto) 13.3 % Eosinophils (%) (Auto) 4.2 % Basophils (%) (Auto) 0.9 % Neutrophils # (Auto) 7.2 TH/MM3 Lymphocytes # (Auto) 1.0 TH/MM3 Monocytes # (Auto) 1.3 TH/MM3 Eosinophils # (Auto) 0.4 TH/MM3 Basophils # (Auto) 0.1 TH/MM3 CBC Comment DIFF FINAL Differential Comment Anion Gap 9 MEQ/L Estimat Glomerular Filtration 32 ML/MIN Rate Total Creatine Kinase 67 U/L Troponin I LESS THAN 0.02 NG/ML Lipase 457 U/L Urine Color YELLOW Urine Turbidity HAZY Urine pH 5.5 Urine Specific [place] 1.021 Urine Protein 30 mg/dL Urine Glucose (UA) NEG mg/dL Urine Ketones TRACE mg/dL Urine Occult Blood LARGE Urine Nitrite NEG Urine Bilirubin NEG Urine Urobilinogen LESS THAN 2.0 MG/DL Urine Leukocyte Esterase MOD Urine RBC /hpf Urine WBC 75 /hpf Urine Squamous Epithelial <1 /hpf Cells Urine Calcium Oxalate Crystals MOD /hpf Urine Bacteria OCC /hpf Urine Hyaline Casts 5 /lpf Urine Mucus FEW /lpf Microscopic Urinalysis Comment CULTURE INDICATED MDM Medical Decision Making Medical Screen Exam Complete: Yes Emergency Medical Condition: Yes Medical Record Reviewed: Yes Interpretation(s) Last Impressions Chest X-Ray 08/29/16 2241 Signed Impressions: Service Date/Time: Monday, August 29, 2016 22:58 - CONCLUSION: Mild patchy bronchitic changes. Arian Ramirez MD Differential Diagnosis Ascites, versus weight gain with central obesity, versus recurrent urinary retention with suprapubic distention, versus pancreatitis, versus rhabdomyolysis Narrative Course During the course of the patients emergency department visit, the patients history, examination, and differential diagnosis were reviewed with the patient. The patient had IV access obtained and blood work sent for analysis. An EKG was done on arrival. The patient's EKG shows a sinus rhythm heart rate of 78, no acute ST segment elevation or depression. The patient was initially provided a DuoNeb 1, Solu-Medrol 125 mg IV for COPD exacerbation. A normal saline 1 L IV fluid bolus when ketones were noted to be in the urine and kidney function was noted to be slightly worsened. The patient 's catheter was irrigated and seemed to be working well. The patients laboratory studies were reviewed and remarkable for a white count of 10, hemoglobin 13.9, platelets 278, with neutrophils 71.7, monocytes 13.3, CMP is remarkable for a BUN of 20, creatinine 2.14 which is slightly worse compared to previously, CPK 67, troponin I less than 0.02, BNP 47, lipase is elevated at 457, urinalysis shows moderate leukocyte esterase, innumerable rbc's , 75 WBCs, moderate calcium oxalate crystals, occasional bacteria. Culture indicated. The patient is currently on Cipro and Flagyl. Radiology studies were reviewed and remarkable for peribronchial cuffing, mild patchy bronchitic changes. The patient's results were discussed with him, his questions were answered. The patient is agreeable with the plan to proceed with observation, IV hydration , repeat lipase and kidney function in the morning. The patients results were discussed with the patient, including the plan of care. I explained that further testing and/ or monitoring is indicated based on the patients history, examination, and/ or laboratory findings. Therefore, I recommended admission for additional evaluation. The patient expressed understanding and was agreeable with this plan. The patient was admitted to the hospital in stable condition and sent to a bed under the care of the [facility]. Physician Communication Physician Communication The patient's case was discussed with Arian Oakley. He did agree to admit the patient to the [facility] service. Diagnosis Primary Impression: Dehydration Additional Impressions: Renal insufficiency Urinary retention Pancreatitis Qualified Code: K85.90 - Acute pancreatitis, unspecified complication status, unspecified pancreatitis type Admitting Information Admitting Physician Requests: Observation Keli Ding MD August 29, 2016 22:41
[2016-08-29 22:44] LABS: ANION GAP 9 MEQ/L (5-15); AST (GOT) 25 U/L (15-37); BICARBONATE 29.2 MEQ/L (21.0-32.0); BLOOD UREA NITROGEN 20 MG/DL (7-18); CHLORIDE 105 MEQ/L (98-107); GLOMERULAR FILTRATION RATE 32 ML/MIN (>89); POTASSIUM 3.5 MEQ/L (3.5-5.1); SODIUM (NA) 143 MEQ/L (136-145)
[2016-08-29 22:48] LABS: ALKALINE PHOSPHATASE 58 U/L (45-117); ALT (GPT) 27 U/L (12-78); TOTAL BILIRUBIN ADULT 0.3 MG/DL (0.2-1.0)
--- NOTE | 2016-08-29 23:21 | RADRPT ---
EXAM DATE/TIME: 08/29/2016 22:58 [facility] COMPARISON: CHEST SINGLE AP, April 24, 2016, 4:53. CHEST SINGLE AP, June 11, 2016, 5:40. INDICATIONS : Cough. MEDICAL HISTORY : None. SURGICAL HISTORY : Inguinal hernia repair. ENCOUNTER: Initial ACUITY: 1 day PAIN SCORE: 0/10 LOCATION: Bilateral chest FINDINGS: There is mild perihilar interstitial thickening and slight streaky perihilar parenchymal opacity in t he right, likely indicative of mild bronchitic changes. No evidence of alveolar consolidation or pleu ral effusion. Cardiomediastinal contours are satisfactory. CONCLUSION: Mild patchy bronchitic changes. Arian Ramirez MD on August 29, 2016 at 23:16 Board Certified Radiologist. This report was verified electronically.
[2016-08-30] VITALS (8 sets, daily range): BP systolic 119–144; BP diastolic 71–86; PULSE 64–81; RESP 16–20; TEMP 97.6–98.4; O2SAT 94–99
[2016-08-30 00:12] LABS: CREATINE KINASE 67 U/L (39-308)
[2016-08-30 00:15] LABS: BACTERIA, URINE OCC /hpf; BLOOD, URINE LARGE (NEG); CALCIUM OXALATE CRYSTALS,URINE MOD /hpf; COMMENT (UR) CULTURE INDICATED; CULTURE IF INDICATED CULTURE INDICATED; GLUCOSE,URINE NEG (NEG); HYALINE CAST, URINE 5 /lpf (RARE); KETONE, URINE TRACE mg/dL (NEG); MUCUS URINE FEW /lpf (OCC); NITRITE,URINE NEG (NEG); PH, URINE 5.5 (5.0-8.5); SQUAMOUS EPITHELIAL CELL URINE <1 /hpf (0-5); URINE COLOR YELLOW (YELLW/STRAW)
[2016-08-30] MEDS ORDERED: methylPREDNISolone SOD SUCC 125 MG/2 ML VIAL IV PUSH ONE (00:15)
[2016-08-30] MEDS ORDERED: RESP: ALBUTEROL 2.5 MG/IPRATROPIUM 0.5 MG NEB (SCH) NEB ONE (00:15)
[2016-08-30] MEDS ORDERED: cefTRIAXone INJ 1,000 MG in SODIUM CHLORIDE 0.9% INJ 100 ML IV ONE (01:15)
[2016-08-30] MEDS ORDERED: SODIUM CHLOR 0.9% 1000 ML INJ 1,000 ML IV ONE (01:15)
[2016-08-30] MEDS ORDERED: ALPRAZolam 1 MG TAB PO ONE (01:45)
[2016-08-30] MEDS ORDERED: SENNOSIDES 8.6 MG TAB PO PRN (02:15)
[2016-08-30] MEDS ORDERED: BISACODYL 10 MG SUPP RECTAL PRN (02:15)
[2016-08-30] MEDS ORDERED: RESP: ALBUTEROL 2.5 MG/IPRATROPIUM 0.5 MG NEB (PRN) NEB (02:15)
[2016-08-30] MEDS ORDERED: SODIUM CHLORIDE 0.9% FLUSH 10 ML FLUSH IV FLUSH PRN (02:15)
[2016-08-30] MEDS ORDERED: ACETAMINOPHEN 325 MG TAB PO PRN (02:15)
[2016-08-30] MEDS ORDERED: ONDANSETRON HCL 4 MG/2 ML VIAL IVP PRN (02:15)
[2016-08-30] MEDS ORDERED: NALOXONE HCL 0.4 MG/ML AMP IV PRN (02:15)
[2016-08-30] MEDS: SODIUM CHLOR 0.9% 1000 ML INJ 1,000 ML IV SCH ×3 (03:54→21:25)
[2016-08-30] MEDS: methylPREDNISolone SOD SUCC 40 MG/1 ML VIAL IV PUSH SCH ×4 (06:10→23:22)
[2016-08-30] MEDS: HEPARIN SODIUM - SQ 10,000 UNITS/ML VIAL SQ SCH ×2 (06:10→17:00)
--- NOTE | 2016-08-30 08:18 | EKG ---
Date Performed: 08/29/2016 Time Performed: 23:34:51 PTAGE: 60 years EKG: Baseline artifact is present. Sinus rhythm NORMAL ECG Unfortunately, prior EKG has marked artifact and I cannot accurately compare. PREVIOUS TRACING : 06/11/2016 06.45 DOCTOR: Sven Rangel Interpretating Date/Time 08/30/2016 08:17:39
[2016-08-30] MEDS: SODIUM CHLORIDE 0.9% FLUSH 10 ML FLUSH IV FLUSH SCH ×2 (08:56→21:00)
[2016-08-30] MEDS: ALPRAZolam 0.5 MG TAB PO PRN ×3 (10:32→23:22)
[2016-08-30] MEDS ORDERED: ACETAMINOPHEN/HYDROcodone 325 MG/5 MG TAB PO PRN (11:45)
[2016-08-30] MEDS ORDERED: ALPRAZolam 0.5 MG TAB PO PRN (11:45)
[2016-08-30] MEDS ORDERED: ALBUTEROL SULFATE 90 MCG/ACT HFA 18 GM INHALER INH PRN (11:45)
--- NOTE | 2016-08-30 12:14 | MH ---
cc: ARPIT ESTRADA MD DATE OF ADMISSION 08/30/2016 DATE OF ADMISSION 08/29/2016 CHIEF COMPLAINT Abdominal distension and pain. HISTORY OF PRESENT ILLNESS This 60-year-old male with a past medical-surgical history significant for enlarged prostate causing delayed bladder emptying, history of inguinal hernia, vasculitis, history of hernia repair, dental implants, transurethral resection of prostate, tooth extraction who has a history of binge drinking daily, came to the ER at [facility] complaining of abdominal pain and has abdominal distention and reports it has gotten much worse. Over the last month the patient has been in the emergency department . On this evaluation initially the patient had a CT scan of the abdomen and pelvis done which was unremarkable, however, report of evaluation two days ago, had another CT scan of the abdomen and pelvis that revealed bilateral hydronephrosis with urinary bladder distension thought to be related to bladder outlet obstruction. The patient does have a history of prostate hypertrophy, is status post transurethral resection of the prostate. The patient has a Gasca catheter placed to gravity at the time and was noted to have a urinary retention. The patient was placed to leg bag and instructed to follow up with his urologist. The patient said he had appointment scheduled with his urologist for Tuesday. The patient reports that throughout the day his urine appeared to be dark and has decreased urine output in spite of drinking a significant amount of water. However, at night time he feels that his urine appears chief digital officer. He denies any chest pain, any shortness of breath, any nausea, vomiting, any diarrhea, constipation, any fever or chills. He has abdominal distension seems to be pressing upon his diaphragm causing shortness of breath. He does have a history of asthma and uses inhaler more frequently. Other than that nothing significant. PAST MEDICAL AND SURGICAL HISTORY As dictated above. SOCIAL HISTORY Drinks alcohol, binge drinking. Denies any smoking, denies any drug abuse. Lives at home. FAMILY HISTORY Nothing significant. ALLERGIES NO KNOWN DRUG ALLERGIES. MEDICATIONS Include: 1. Xanax 0.5 mg p.o. daily. 2. Flagyl 500 mg p.o. daily. 3. Cipro 500 milligrams p.o. twice a day. 4. Prednisone 20 mg p.o. b.i.d. 5. Flomax 0.4 mg p.o. daily. REVIEW OF SYSTEMS Positive for abdominal distension. All other review of systems negative. PHYSICAL EXAMINATION GENERAL: This is a 60-year-old male laying on the bed not in acute distress. VITAL SIGNS: Temperature 97.8, heart rate 81, respiratory rate 20, blood pressure 144/85, O2 saturation 95% on room air. HEENT: Normocephalic, atraumatic. EOMI. Pupils equal, round, reactive to light and accommodation. Oral mucosa moist. NECK: Supple. No visible thyromegaly or neck mass. Trachea central. CARDIOVASCULAR: Regular rate and rhythm. LUNGS: Respirations clear to auscultation bilaterally. ABDOMEN: Soft, distended. Bowel sounds. EXTREMITIES: No cyanosis or clubbing. Full range of motion of all extremities. NEUROLOGIC: Awake, alert, oriented x4. No focal deficits. SKIN: Warm and dry. PSYCHIATRIC: The patient is cooperative. Mood and affect are normal. LABORATORY DATA Include CBC is totally unremarkable except for neutrophils 71.7% that is high. Monos 13.3% it is high. BMP totally unremarkable except for BUN 20 high. Creatinine 2.14 high. Troponin I less than 0.02 x1. Albumin 3.1 low. lipase is 457 high. Urine examination showed moderate leukocyte esterase, 75 wbc's in the urine, moderate, large occult blood and trace of ketones. Urine culture done, report still pending. IMAGING Chest x-ray was done shows mild patchy bronchiectatic changes. ASSESSMENT/PLAN 1. This is a 60-year-old male came to the emergency department diagnosed with abdominal pain and distension most likely secondary to acute pancreatitis. Keep the patient n.p.o. I will start the patient on pain medication, Lortab 5/325 n.p.o. q.6h p.r.n. pain. Consulted GI. Further recommendation per GI. 2. Urinary retention status post Gasca catheter placement. Consulted urology for further recommendations. 3. Renal failure. Consulted nephrology. Check renal ultrasound. 4. Urinary tract infection. The patient on Rocephin 1 gram IV daily. 5. History of COPD, asthma. Continue home medication / asthma continue home medications. 6. History of anxiety. Continue Xanax 0.5 mg p.o. q.6 h. 7. We are going to manage the patient on a daily basis and make recommendations on a daily basis. DVT prophylaxis with heparin 5000 units twice a day. And GI prophylaxis with Protonix 40 mg p.o. daily. Arpit Estrada MD EA/LUCRETIA /11:33 AM /11:47 AM
[2016-08-30] MEDS: TAMSULOSIN HCL 0.4 MG CAP PO SCH (12:30)
[2016-08-30] MEDS: metroNIDAZOLE 500 MG TAB PO SCH ×2 (12:30→17:00)
[2016-08-30] MEDS: PANTOPRAZOLE SOD 40 MG DELAYED RELEASE TAB PO SCH (12:30)
[2016-08-30] MEDS: predniSONE 10 MG TAB PO SCH ×2 (12:30→21:25)
[2016-08-30] MEDS: CIPROFLOXACIN 250 MG TAB PO SCH ×2 (12:43→21:25)
--- NOTE | 2016-08-30 14:03 | PD.CONS ---
HPI Service Urology Consult Requested By Reason for Consult Urinary retention Primary Care Physician Arpit Peterson MD Diagnosis: History of Present Illness 60-year-old gentleman with history of chronic urinary retention who recently presented to the emergency room with complaints of abdominal pain and distention and is presently being worked up to rule out acute pancreatitis. Patient actually presented to the emergency room 3 days ago in urinary retention and had a Gasca catheter placed. A CT scan study was performed at that time which demonstrated mild bilateral hydronephrosis as well as diverticulosis. Patient is status post a TURP procedure back in 2014 and despite this form of management has had ongoing problems with urinary retention. Cystoscopic evaluation was performed in 2016 that failed to demonstrate any significant bladder outlet obstruction with a patent prostatic urethra consistent with the TURP. Patient's insurance had changed and he is presently under the care of Dr. Jet New with a follow up appointment scheduled for tomorrow. Patient reports that since the Gasca catheter was placed urine has been draining clear yellow without hematuria or clots. Patient also reports low urinary volumes during the day but increased urine production at night. Review of Systems Constitutional: DENIES: Fever, Night Sweats Respiratory: COMPLAINS OF: Shortness of breath Gastrointestinal: COMPLAINS OF: Abdominal pain Genitourinary: DENIES: Hematuria Except as stated in HPI: all other systems reviewed are Neg Past Family Social History Past Medical History BPH Voiding dysfunction Asthma Vasculitis Past Surgical History TURP 2015 Herniorrhaphy Reported Medications Refer to EMR Allergies: Coded Allergies: No Known Allergies (Verified , 08/29/16) Active Ordered Medications Refer to EMR Family History Reviewed and noncontributory Social History History binge drinking, denies tobacco or intravenous drug abuse Physical Exam Vital Signs Date Time Temp Pulse Resp B/P Pulse Ox O2 Delivery O2 Flow Rate FiO2 08/30/16 12:38 98.2 65 20 137/84 96 08/30/16 08:14 81 20 144/85 95 08/30/16 05:08 97.8 64 18 129/86 94 08/30/16 02:46 96 08/30/16 01:00 81 16 131/71 99 Room Air 08/29/16 20:45 98.5 118 16 132/74 92 Room Air Physical Exam GENERAL: This is a well-nourished, well-developed patient, in no apparent distress. SKIN: No rashes, ecchymoses or lesions. Cool and dry. HEAD: Atraumatic. Normocephalic. No temporal or scalp tenderness. EYES: Pupils equal round and reactive. Extraocular motions intact. No scleral icterus. No injection or drainage. ENT: Nose without bleeding, purulent drainage or septal hematoma. Throat without erythema, tonsillar hypertrophy or exudate. Uvula midline. Airway patent. NECK: Trachea midline. No JVD or lymphadenopathy. Supple, nontender, no meningeal signs. CARDIOVASCULAR: Regular rate and rhythm without murmurs, gallops, or rubs. RESPIRATORY: Clear to auscultation. Breath sounds equal bilaterally. No wheezes , rales, or rhonchi. GASTROINTESTINAL: Abdomen distended No guarding or rebound tenderness. GENITOURINARY: Gasca catheter in place draining clear yellow urine MUSCULOSKELETAL: Extremities without clubbing, cyanosis, or edema. No joint tenderness, effusion, or edema noted. No calf tenderness. Negative Homans sign bilaterally. NEUROLOGICAL: Awake and alert. Cranial nerves II through XII intact. Motor and sensory grossly within normal limits. Five out of 5 muscle strength in all muscle groups. Normal speech. Laboratory Tests Test 08/29/16 08/29/16 08/29/16 21:00 22:00 23:40 B-Type Natriuretic Peptide 47 Sodium Level 143 Potassium Level 3.5 Chloride Level 105 Carbon Dioxide Level 29.2 Blood Urea Nitrogen 20 Creatinine 2.14 Random Glucose 77 Calcium Level 8.7 Total Bilirubin 0.3 Aspartate Amino Transf 25 (AST/SGOT) Alanine Aminotransferase 27 (ALT/SGPT) Alkaline Phosphatase 58 Total Protein 7.1 Albumin 3.1 White Blood Count 10.0 Red Blood Count 4.59 Hemoglobin 13.9 Hematocrit 41.8 Mean Corpuscular Volume 91.1 Mean Corpuscular Hemoglobin 30.3 Mean Corpuscular Hemoglobin 33.3 Concent Red Cell Distribution Width 15.4 Platelet Count 278 Mean Platelet Volume 8.8 Neutrophils (%) (Auto) 71.7 Lymphocytes (%) (Auto) 9.9 Monocytes (%) (Auto) 13.3 Eosinophils (%) (Auto) 4.2 Basophils (%) (Auto) 0.9 Neutrophils # (Auto) 7.2 Lymphocytes # (Auto) 1.0 Monocytes # (Auto) 1.3 Eosinophils # (Auto) 0.4 Basophils # (Auto) 0.1 CBC Comment DIFF FINAL Differential Comment Anion Gap 9 Estimat Glomerular Filtration 32 Rate Total Creatine Kinase 67 Troponin I LESS THAN 0.02 Lipase 457 Urine Color YELLOW Urine Turbidity HAZY Urine pH 5.5 Urine Specific [place] 1.021 Urine Protein 30 Urine Glucose (UA) NEG Urine Ketones TRACE Urine Occult Blood LARGE Urine Nitrite NEG Urine Bilirubin NEG Urine Urobilinogen LESS THAN 2.0 Urine Leukocyte Esterase MOD Urine RBC Urine WBC 75 Urine Squamous Epithelial <1 Cells Urine Calcium Oxalate Crystals MOD Urine Bacteria OCC Urine Hyaline Casts 5 Urine Mucus FEW Microscopic Urinalysis Comment CULTURE INDICATED Date/Time Procedure Status Source Growth 08/29/16 23:40 Urine Culture Received Urine Random Urine Pending Result Diagram: 08/29/16219908/29/162199 Imaging Last Impressions Chest X-Ray 08/29/162240 Signed Impressions: Service Date/Time: Monday, August 29, 2016 22:58 - CONCLUSION: Mild patchy bronchitic changes. Arian Ramirez MD Recent CT scan of the abdomen and pelvis with findings as outlined above. Assessment and Plan Assessment and Plan Urologic impression: #1 history obstructing BPH treated with TURP in 2014 #2 urinary retention related to bladder dysfunction Recommendations: #1 maintain Gasca catheter to gravity drainage #2 patient to follow up with his established urologist after hospital discharge. Luis Fernando Roberts MD August 30, 2016 14:03
--- NOTE | 2016-08-30 16:01 | PD.CONS ---
HPI History of Present Illness This is a 60 year old [gentleman] presented to the ER last night for abdominal bloating. He first noticed this a year ago, it comes and goes and is worse when he eats. He says it does cause some SOB. It has gotten worse in the last month. He was here twice in the last week and a half for the same problem and nothing was found on imaging other than stone in left kidney. His PCP gave him flagyl and cipro, He says he is having some diarrhea and dark stool since he started taking the antibiotics. Last colonoscopy was 5-4 years ago, polyps were found, EGD at that time as well, he cant' recall findings but says he was told he might get Stewart's. NO hx pancreatitis, n/v, blood in stool, black tarry stool. (Brooke Russell) PFSH Past Medical History asthma anxiety diverticulosis vasculitis Past Surgical History hernia repair TURP (Brooke Russell) Coded Allergies: No Known Allergies (Verified , 08/29/16) Family History father - kidney failure Social History ETOH - none in 1 week , prior intermittently heavy drinker tobacco - none illicit drugs- none (Brooke Russell) Review of Systems Constitutional: DENIES: Fever Eyes: DENIES: Blurred vision Ears, nose, mouth, throat: DENIES: Hearing loss Respiratory: COMPLAINS OF: Cough (asthma) Cardiovascular: DENIES: Chest pain Gastrointestinal: COMPLAINS OF: Diarrhea, Swelling of Abdomen, DENIES: Abdominal pain, Black stools, Bloody stools, Nausea, Vomiting Genitourinary: DENIES: Hematuria Musculoskeletal: DENIES: Muscle aches Integumentary: DENIES: Jaundice Hematologic/lymphatic: DENIES: Bruising Neurologic: COMPLAINS OF: Paresthesias (tingling in feet) Psychiatric: DENIES: Confusion (Brooke Russell) GI Exam Vitals I&O Vital Signs Date Time Temp Pulse Resp B/P Pulse Ox O2 Delivery O2 Flow Rate FiO2 08/30/16 15:32 97.6 69 16 128/78 95 08/30/16 12:38 98.2 65 20 137/84 96 08/30/16 08:14 81 20 144/85 95 08/30/16 05:08 97.8 64 18 129/86 94 08/30/16 02:46 96 08/30/16 01:00 81 16 131/71 99 Room Air 08/29/16 20:45 98.5 118 16 132/74 92 Room Air Imaging Last Impressions Chest X-Ray 08/29/16 2241 Signed Impressions: Service Date/Time: Monday, August 29, 2016 22:58 - CONCLUSION: Mild patchy bronchitic changes. Arian Ramirez MD Laboratory Test 08/29/16 08/29/16 08/29/16 21:00 22:00 23:40 B-Type Natriuretic Peptide 47 PG/ML Sodium Level 143 MEQ/L Potassium Level 3.5 MEQ/L Chloride Level 105 MEQ/L Carbon Dioxide Level 29.2 MEQ/L Blood Urea Nitrogen 20 MG/DL Creatinine 2.14 MG/DL Random Glucose 77 MG/DL Calcium Level 8.7 MG/DL Total Bilirubin 0.3 MG/DL Aspartate Amino Transf 25 U/L (AST/SGOT) Alanine Aminotransferase 27 U/L (ALT/SGPT) Alkaline Phosphatase 58 U/L Total Protein 7.1 GM/DL Albumin 3.1 GM/DL White Blood Count 10.0 TH/MM3 Red Blood Count 4.59 MIL/MM3 Hemoglobin 13.9 GM/DL Hematocrit 41.8 % Mean Corpuscular Volume 91.1 FL Mean Corpuscular Hemoglobin 30.3 PG Mean Corpuscular Hemoglobin 33.3 % Concent Red Cell Distribution Width 15.4 % Platelet Count 278 TH/MM3 Mean Platelet Volume 8.8 FL Neutrophils (%) (Auto) 71.7 % Lymphocytes (%) (Auto) 9.9 % Monocytes (%) (Auto) 13.3 % Eosinophils (%) (Auto) 4.2 % Basophils (%) (Auto) 0.9 % Neutrophils # (Auto) 7.2 TH/MM3 Lymphocytes # (Auto) 1.0 TH/MM3 Monocytes # (Auto) 1.3 TH/MM3 Eosinophils # (Auto) 0.4 TH/MM3 Basophils # (Auto) 0.1 TH/MM3 CBC Comment DIFF FINAL Differential Comment Anion Gap 9 MEQ/L Estimat Glomerular Filtration 32 ML/MIN Rate Total Creatine Kinase 67 U/L Troponin I LESS THAN 0.02 NG/ML Lipase 457 U/L Urine Color YELLOW Urine Turbidity HAZY Urine pH 5.5 Urine Specific [place] 1.021 Urine Protein 30 mg/dL Urine Glucose (UA) NEG mg/dL Urine Ketones TRACE mg/dL Urine Occult Blood LARGE Urine Nitrite NEG Urine Bilirubin NEG Urine Urobilinogen LESS THAN 2.0 MG/DL Urine Leukocyte Esterase MOD Urine RBC /hpf Urine WBC 75 /hpf Urine Squamous Epithelial <1 /hpf Cells Urine Calcium Oxalate Crystals MOD /hpf Urine Bacteria OCC /hpf Urine Hyaline Casts 5 /lpf Urine Mucus FEW /lpf Microscopic Urinalysis Comment CULTURE INDICATED Date/Time Procedure Status Source Growth 08/29/16 23:40 Urine Culture - Preliminary Resulted Urine Random Urine RESULTS PENDING Physical Examination HEENT: EOMI; normocephalic; atraumatic; no jaundice. CHEST: CTA CARDIAC: RRR ABDOMEN: Soft, distended, dull, diffuse tenderness on deep palpation; no hepatosplenomegaly; bowel sounds are present in all four quadrants. EXTREMITIES: No clubbing, cyanosis, or edema. SKIN: Normal; no rash; no jaundice. PEOPLESOFT: No focal deficits; alert and oriented times three. (Brooke Russell) Assessment and Plan Plan ASSESSMENT - abdominal bloating, discomfort - onset 1 year ago, intermittent, worse after eating, worse in last month. Seen here last week for same. Has been on cipro, flagyl given by PCP and says his bloating is still worsening. CT 08-17 --> bladder distention w/ bilat hydronephrosis and hydroureteer, likely bladder outlet obstruction, diverticulosis, mild bladder wall thickening. Had colonoscopy/EGD 4-5 y ago and says polyps were found, and he was told he might get Stewart's. Will do repeat CT. Consider EGD. - elevated lipase - 457 no hx pancreatitis. pt denies ETOH in the last week but indicated that he drinks heavily at times. Elevation could be r/t ETOH, metronidazole PLAN - CT abd - NPO - further recommendatiosn based on results above. This pt seen by myself and DR Fisher and this note is written on his behalf ( Brooke Russell) Physician Comments Seen and examined, agree with the assessment and plan as above. Further recommendations to follow. (Kassandra Fisher MD) Brooke Russell August 30, 2016 16:01 Kassandra Fisher MD August 30, 2016 23:16
--- NOTE | 2016-08-30 16:36 | MB ---
cc: XIOMY RAMOS MD DATE OF CONSULTATION: 08/30/2016. REASON FOR CONSULTATION: Elevated BUN and creatinine for evaluation. HISTORY OF PRESENT ILLNESS: This is a 60-year-old male with past medical history of chronic kidney disease, history of benign prostatic hypertrophy with urinary retention and recent history of urinary tract infection who has been on ciprofloxacin at home who came with abdominal distension and pain. I was called to see the patient because of elevated BUN and creatinine. The patient has a known history of chronic kidney disease and on looking back, it seems like his creatinine has been in the range of 1.3 to 1.5. He had acute kidney injury in January of 2015 and again in June of this year. Both times the creatinine was around 2.2 to 2.5. Now he came with a creatinine of 2.1. The patient has a Gasca catheter which was done by his urologist three or four days ago and he had urinary retention at that time. He was given ciprofloxacin which he was taking twice a day. He noticed that he has more abdominal distension for the last two or three days associated with abdominal pain. He denies any nausea or vomiting. His appetite is slightly decreased. There is no history of frequent diarrhea. He denies taking any nonsteroidal anti-inflammatory drugs. PAST MEDICAL HISTORY: 1. Chronic kidney disease. 2. Benign prostatic hypertrophy. 3. Bronchial asthma. 4. Anxiety. PAST SURGICAL HISTORY: 1. Inguinal hernia surgery. 2. Dental implant. 3. TURP. REVIEW OF SYSTEMS: Denies any history of fever. No sore throat. He has generalized weakness. No shortness of breath. No chest pain. No palpitations. He does have nausea but there is no vomiting. His appetite is slightly decreased. He has abdominal distension and pain. He has had loose bowel movements a few times. There is no history of hematuria. He currently has a Gasca catheter and has been following with urology. SOCIAL HISTORY: The patient is single. He has no history of smoking and occasionally has alcoholic beverages. FAMILY HISTORY: Family history is noncontributory. ALLERGIES: He has NO KNOWN DRUG ALLERGIES. MEDICATIONS: Currently he is on the following medications: 1. Normal saline 100 mL/hour. 2. Ciprofloxacin 500 milligrams twice a day. 3. Prednisone 10 milligrams twice a day. 4. Protonix 40 milligrams once a day. 5. Flomax 0.4 milligrams daily. 6. Ceftriaxone 1 gram q. 24 hours. 7. Methylprednisolone 40 milligrams q. 6 hours. 8. Zofran as needed. 9. Tylenol as needed. 10. Xanax as needed. PHYSICAL EXAMINATION: GENERAL: On examination, the patient is awake and alert and he is not in acute distress. VITAL SIGNS: His last blood pressure was 137/84, temperature 98.2, oxygen saturation is 95% to 96% on room air. There is no significant hypotensive episode during this admission. HEAD, EYES, EARS, NOSE, THROAT: The pupils are equal and reacting to light. Nonicteric sclerae. Conjunctivae are normal. NECK: The neck is supple. JVD is not elevated. LUNGS: The patient has bilateral good air entry with occasional wheezing. HEART: S1 and S2 regular rhythm. ABDOMEN: Abdomen is distended, soft and lax. There is mild tenderness around the epigastric area. There is no rebound. Bowel sounds positive. EXTREMITIES: There is no pedal edema. INVESTIGATIONS: White blood cell count is 10.0, hemoglobin 13.9, platelet count 278,000. Eosinophils 4.2%, neutrophils 71.7%. Sodium 143, potassium 3.5, chloride 105, bicarbonate 29.2, BUN 20, creatinine 2.1. Troponin I is less than 0.02. Total protein is 7.1. Albumin of 3.1. Urinalysis showing large ketones, large occult blood, WBCs 75, RBCs innumerable. IMAGING STUDIES: The patient had a chest x-ray done which shows mild patchy bronchiectatic changes. CT scan of the abdomen and pelvis was done without IV contrast and showed that the patient has normal sized kidneys, moderate bilateral hydronephrosis and hydroureter, bladder wall thickening with bladder distension and diverticulosis. ASSESSMENT AND PLAN: 1. Chronic kidney disease with acute kidney injury 2. Urinary tract infection. 3. Urinary retention and obstructive uropathy. 4. Abdominal distension. 5. History of anxiety. 6. Bronchial asthma. The patient has some increasing creatinine from his baseline and he has a urinary tract infection. He is on ciprofloxacin and ceftriaxone. the cultures are pending. Most likely he has acute kidney injury because of either urinary tract infection or the possibility of prerenal azotemia. Blood pressure is stable. The patient is nonoliguric. Continue the IV fluids and the antibiotics. Awaiting urology evaluation for the hydronephrosis. Avoid any nephrotoxins. Thank you for the consultation, and I will follow the patient while he is in the hospital MD LEIGH ANN Sanchez/CARRIE /1:25 PM /4:27 PM
[2016-08-30] MEDS ORDERED: DIATRIZOATE MEGLUM/DIATRIZOATE SOD 9 ML CUP PO ONE (17:00)
--- NOTE | 2016-08-30 23:23 | RADRPT ---
EXAM DATE/TIME: 08/30/2016 23:05 [facility] COMPARISON: CT ABDOMEN & PELVIS W/O CONTRAST, August 27, 2016, 14:47. INDICATIONS : Abdomen pain distention. ORAL CONTRAST: Prescribed oral contrast ingested. RADIATION DOSE: 9.96 CTDIvol (mGy) MEDICAL HISTORY : None SURGICAL HISTORY : Hernia repair. ENCOUNTER: Subsequent ACUITY: 3 days PAIN SCALE: 4/10 LOCATION: Bilateral abdomen TECHNIQUE: Volumetric scanning of the abdomen and pelvis was performed. Using automated exposure control and ad justment of the mA and/or kV according to patient size, radiation dose was kept as low as reasonably achievable to obtain optimal diagnostic quality images. FINDINGS: LOWER LUNGS: The visualized lower lungs are clear. LIVER: Homogeneous density without lesion. There is no dilation of the biliary tree. No calcified gallston es. SPLEEN: Normal size without lesion. PANCREAS: Within normal limits. KIDNEYS: Interval decrease in collecting system dilatation. No evidence of renal mass or kidney stones. ADRENAL GLANDS: Within normal limits. VASCULAR: There is no aortic aneurysm. BOWEL/MESENTERY: Distal colonic diverticula. No evidence of abnormal dilatation, wall thickening or focal inflammatory change. ABDOMINAL WALL: Within normal limits. RETROPERITONEUM: There is no lymphadenopathy. BLADDER: Decompressed with Gasca catheter present. REPRODUCTIVE: Within normal limits. INGUINAL: There is no lymphadenopathy or hernia. MUSCULOSKELETAL: Within normal limits for patient age. CONCLUSION: Interval decrease in collecting system dilatation following Gasca catheter placement. No new acute no ncontrast CT findings in the abdomen or pelvis. Arian Ramirez MD on August 30, 2016 at 23:18 Board Certified Radiologist. This report was verified electronically.
[2016-08-31] VITALS (8 sets, daily range): BP systolic 112–122; BP diastolic 69–78; PULSE 65–73; RESP 18–20; TEMP 97.7–98.2; O2SAT 93–96
[2016-08-31] MEDS ORDERED: TEMAZEPAM 15 MG CAP PO PRN (00:15)
[2016-08-31] MEDS: cefTRIAXone INJ 1,000 MG in SODIUM CHLORIDE 0.9% INJ 100 ML IV SCH (01:23)
[2016-08-31] MEDS: methylPREDNISolone SOD SUCC 40 MG/1 ML VIAL IV PUSH SCH ×3 (05:11→18:20)
[2016-08-31] MEDS: HEPARIN SODIUM - SQ 10,000 UNITS/ML VIAL SQ SCH ×2 (05:12→18:20)
[2016-08-31 05:48] LABS: AUTOMATED NEUTROPHIL # 10.1 TH/MM3 (1.8-7.7); BASOPHIL % 0.1 % (0.0-2.0); HEMATOCRIT 38.5 % (39.0-51.0); HEMO FLAGS DIFF FINAL; LYMPH % 2.3 % (9.0-44.0); LYMPHOCYTE # 0.3 TH/MM3 (1.0-4.8); MEAN CELL VOLUME 92.1 FL (80.0-100.0); MEAN CORPUSCULAR HEMOGLOBIN 30.2 PG (27.0-34.0); MEAN CORPUSCULAR HGB CONC 32.8 % (32.0-36.0); NEUT % 93.6 % (16.0-70.0); PLATELET COUNT 242 TH/MM3 (150-450); RED BLOOD COUNT 4.18 MIL/MM3 (4.50-5.90); RED CELL DISTRIBUTION WIDTH 15.4 % (11.6-17.2); WHITE BLOOD COUNT 10.8 TH/MM3 (4.0-11.0)
[2016-08-31 06:05] LABS: POTASSIUM 3.7 MEQ/L (3.5-5.1)
[2016-08-31] MEDS: ALPRAZolam 0.5 MG TAB PO PRN ×3 (06:31→18:20)
[2016-08-31] MEDS: predniSONE 10 MG TAB PO SCH ×2 (08:09→21:38)
[2016-08-31] MEDS: metroNIDAZOLE 500 MG TAB PO SCH ×3 (08:09→18:19)
[2016-08-31] MEDS: PANTOPRAZOLE SOD 40 MG DELAYED RELEASE TAB PO SCH (08:09)
[2016-08-31] MEDS: TAMSULOSIN HCL 0.4 MG CAP PO SCH (08:09)
[2016-08-31] MEDS: CIPROFLOXACIN 250 MG TAB PO SCH ×2 (08:09→21:38)
[2016-08-31] MEDS: SODIUM CHLORIDE 0.9% FLUSH 10 ML FLUSH IV FLUSH SCH ×2 (08:10→21:38)
[2016-08-31] MEDS: SODIUM CHLOR 0.9% 1000 ML INJ 1,000 ML IV SCH ×2 (08:11→18:20)
--- NOTE | 2016-08-31 08:28 | HHI.PR ---
Subjective History of Present Illness Patient still c/o abdominal distension have lipase normal today d/w BAYRON Phan at bed side no acute issue. Creatinine improved Nephrology/ Urology/ GI Input noted. started on clear liquid diet. Review of Systems Constitutional Constitutional: Fatigue, Weakness GI/Abdomen GI/Abdomen Remarks Abdominal distension. Vitals/Results Intake & Output 08/30/16 08/30/16 08/31/16 15:00 23:00 07:00 Intake Total 360 ml Output Total 375 ml 1650 ml Balance -15 ml -1650 ml Intake Oral 360 ml Output Urine Total 375 ml 1650 ml Vital Signs Vital Signs Date Time Temp Pulse Resp B/P Pulse Ox O2 Delivery O2 Flow Rate FiO2 08/31/16 07:11 97.9 65 18 122/73 95 08/31/16 07:04 95 21 08/31/16 05:21 98.2 72 20 112/69 94 08/30/16 23:26 98.4 78 20 122/74 94 08/30/16 19:47 98.1 72 20 119/79 96 08/30/16 15:32 97.6 69 16 128/78 95 08/30/16 12:38 98.2 65 20 137/84 96 CBC/BMP: 08/31/16 0518 08/31/16 0518 Lab Results Laboratory Tests Test 08/31/16 05:18 White Blood Count 10.8 TH/MM3 Red Blood Count 4.18 MIL/MM3 Hemoglobin 12.6 GM/DL Hematocrit 38.5 % Mean Corpuscular Volume 92.1 FL Mean Corpuscular Hemoglobin 30.2 PG Mean Corpuscular Hemoglobin 32.8 % Concent Red Cell Distribution Width 15.4 % Platelet Count 242 TH/MM3 Mean Platelet Volume 8.7 FL Neutrophils (%) (Auto) 93.6 % Lymphocytes (%) (Auto) 2.3 % Monocytes (%) (Auto) 4.0 % Eosinophils (%) (Auto) 0.0 % Basophils (%) (Auto) 0.1 % Neutrophils # (Auto) 10.1 TH/MM3 Lymphocytes # (Auto) 0.3 TH/MM3 Monocytes # (Auto) 0.4 TH/MM3 Eosinophils # (Auto) 0.0 TH/MM3 Basophils # (Auto) 0.0 TH/MM3 CBC Comment DIFF FINAL Differential Comment Sodium Level 142 MEQ/L Potassium Level 3.7 MEQ/L Chloride Level 108 MEQ/L Carbon Dioxide Level 25.0 MEQ/L Anion Gap 9 MEQ/L Blood Urea Nitrogen 16 MG/DL Creatinine 1.39 MG/DL Estimat Glomerular Filtration 52 ML/MIN Rate Random Glucose 120 MG/DL Calcium Level 8.0 MG/DL Lipase 265 U/L Physical Exam General General Appearance: Well Developed, Well Nourished, No Acute Distress, Comfortable Eyes Eye Exam: Pupils Equal, Pupils Reactive, Sclera White, Extraocular Movement Intact Throat Throat Exam: Oral Mucosa [place] & Moist, Oral Pharynx Normal Neck Neck Exam: Neck Supple, Trachea Midline Pulmonary Resp Exam: Clear Bilaterally, Breath Sounds Equal, No Distress Cardiology CV Exam: Regular, Normal Sinus Rhythm Gastrointestinal/Abdomen GI Exam: Soft, Non-Tender, Bowel Sounds Present, Distended Musculoskeletal MS Exam: Normal Tone Integumentary Skin Exam: Clear, Warm, Dry, Intact Extremeties Extremities Exam: No Edema Neurologic Neuro Exam: Alert, Awake, Oriented, Speech Clear, Moving All Extremities, No Focal Deficits Psychiatric Psych Exam: Appropriate Responses VTE Prophylaxis VTE Prophylaxis Meds: Heparin PUD Prophylasis PUD Prophylaxis: Protonix Assessment/Plan Assessment/Plan ASSESSMENT/PLAN This is a 60-year-old male came to the emergency department diagnosed with 1. Abdominal pain and distension most likely secondary to acute pancreatitis. started on clear liquid diet patient on pain medication, Lortab 5/325 n.p.o. q.6h p.r.n. pain. GI. Input noted for Further recommendation. 2. Urinary retention status post Gasca catheter placement. urology input noted for further recommendations. 3. Renal failure. nephrology input noted . renal function improving. 4. Urinary tract infection. The patient on Rocephin 1 gram IV daily. 5. History of COPD, asthma. Continue home medication / asthma continue home medications. 6. History of anxiety. Continue Xanax 0.5 mg p.o. q.6 h. 7. DVT prophylaxis with heparin 5000 units twice a day. And 8. GI prophylaxis with Protonix 40 mg p.o. daily. Check CBC with diff CMP in AM. We are going to manage the patient on a daily basis and make recommendations on a daily basis. Discussed Condition with: Patient Arpit Peterson MD August 31, 2016 08:28
[2016-08-31] MEDS ORDERED: PNEUMOCOCCAL POLYVALENT INJ 25 MCG/0.5 ML SYR IM ONE (09:00)
--- NOTE | 2016-08-31 13:49 | HHI.GIFU ---
Subjective Remarks Pt sitting up in bed, eating lunch. Says he still has bloating but it is somewhat better. No abdominal pain, n/v, diarrhea, blood in stool. (Brooke Russell) Objective Vitals I&O Vital Signs Date Time Temp Pulse Resp B/P Pulse Ox O2 Delivery O2 Flow Rate FiO2 08/31/16 12:09 97.7 73 18 117/76 95 08/31/16 11:20 97.7 73 18 117/76 95 08/31/16 08:00 97.9 65 18 122/73 95 08/31/16 07:11 97.9 65 18 122/73 95 08/31/16 07:04 95 21 08/31/16 05:21 98.2 72 20 112/69 94 08/30/16 23:26 98.4 78 20 122/74 94 08/30/16 19:47 98.1 72 20 119/79 96 08/30/16 15:32 97.6 69 16 128/78 95 I/O 08/30/16 08/30/16 08/30/16 08/31/16 08/31/16 08/31/16 07:00 15:00 23:00 07:00 15:00 23:00 Intake Total 360 ml Output Total 375 ml 1650 ml 850 ml Balance -15 ml -1650 ml -850 ml Intake Oral 360 ml Output Urine Total 375 ml 1650 ml 850 ml Laboratory Laboratory Tests Test 08/31/16 05:18 White Blood Count 10.8 Red Blood Count 4.18 Hemoglobin 12.6 Hematocrit 38.5 Mean Corpuscular Volume 92.1 Mean Corpuscular Hemoglobin 30.2 Mean Corpuscular Hemoglobin 32.8 Concent Red Cell Distribution Width 15.4 Platelet Count 242 Mean Platelet Volume 8.7 Neutrophils (%) (Auto) 93.6 Lymphocytes (%) (Auto) 2.3 Monocytes (%) (Auto) 4.0 Eosinophils (%) (Auto) 0.0 Basophils (%) (Auto) 0.1 Neutrophils # (Auto) 10.1 Lymphocytes # (Auto) 0.3 Monocytes # (Auto) 0.4 Eosinophils # (Auto) 0.0 Basophils # (Auto) 0.0 CBC Comment DIFF FINAL Differential Comment Sodium Level 142 Potassium Level 3.7 Chloride Level 108 Carbon Dioxide Level 25.0 Anion Gap 9 Blood Urea Nitrogen 16 Creatinine 1.39 Estimat Glomerular Filtration 52 Rate Random Glucose 120 Calcium Level 8.0 Lipase 265 Date/Time Procedure Status Source Growth 08/29/16 23:40 Urine Culture - Preliminary Resulted Urine Random Urine <10,000 CFU/ML GRAM POSITIVE CARLOS Imaging Last Impressions Abdomen/Pelvis CT 08/30/16 0000 Signed Impressions: Service Date/Time: Tuesday, August 30, 2016 23:05 - CONCLUSION: Interval decrease in collecting system dilatation following Gasca catheter placement. No new acute noncontrast CT findings in the abdomen or pelvis. Arian Ramirez MD Chest X-Ray 08/29/16 2241 Signed Impressions: Service Date/Time: Monday, August 29, 2016 22:58 - CONCLUSION: Mild patchy bronchitic changes. Arian Ramirez MD Physical Exam HEENT: EOMI; normocephalic; atraumatic; no jaundice. CHEST: CTA CARDIAC: RRR ABDOMEN: Soft, distended, nontender; no hepatosplenomegaly; bowel sounds are present in all four quadrants. EXTREMITIES: No clubbing, cyanosis, or edema. SKIN: Normal; no rash; no jaundice. AIR VALVE MECHANIC: No focal deficits; alert and oriented times three. (Brooke Russell [facility]) Assessment and Plan Plan ASSESSMENT - abdominal bloating, discomfort - onset 1 year ago, intermittent, worse after eating, worse in last month. Seen here last week for same. Has been on cipro, flagyl given by PCP and says his bloating is still worsening. CT 08-30 --> CONCLUSION: Interval decrease in collecting system dilatation following Gasca catheter placement. No new acute noncontrast CT findings in the abdomen or pelvis. CT 08-17-16 --> bladder distention w/ bilat hydronephrosis and hydroureteer, likely bladder outlet obstruction, diverticulosis, mild bladder wall thickening. Had colonoscopy/EGD 4-5 y ago and says polyps were found, and he was told he might get Brar's. Consider EGD/colonoscopy as outpatient. - elevated lipase - 265 today down from 457, pt tolerating clears no hx pancreatitis. pt denies ETOH in the last week but indicated that he drinks heavily at times. Elevation could be r/t ETOH, metronidazole PLAN - rck lipase in am - consider EGD/colonoscopy as outpatient to further evaluate bloating - ok to advance diet if tolerating clears This pt seen by myself and DR Fisher and this note is written on his behalf ( Brooke Russell) Physician Comments Seen and examined, plan as above. Further recommendations to follow. (Kassandra Fisher MD) Brooke Russell August 31, 2016 13:49 Kassandra Fisher MD August 31, 2016 14:14
--- NOTE | 2016-08-31 17:09 | HHI.NPPN ---
Subjective History of Present Illness 60-year-old male with past medical history of chronic kidney disease, history of benign prostatic hypertrophy with urinary retention and recent history of urinary tract infection who has been on ciprofloxacin at home who came with abdominal distension and pain. I was called to see the patient because of elevated BUN and creatinine. The patient has a known history of chronic kidney disease and on looking back, it seems like his creatinine has been in the range of 1.3 to 1.5. Additional Remarks Patient is alert, no SOB, still has abd. distension and nausea. Review of Systems General Constitutional: Fatigue Gastrointestinal Gastrointestinal: Abdominal Pain, Constipation Objective Data Data 08/30/16 08/31/16 18:59 06:59 Intake Total 360 ml Output Total 375 ml 1650 ml Balance -15 ml -1650 ml Intake Oral 360 ml Output Urine Total 375 ml 1650 ml Vital Signs Date Time Temp Pulse Resp B/P Pulse Ox O2 Delivery O2 Flow Rate FiO2 08/31/16 15:45 98.0 70 19 112/78 96 08/31/16 12:09 97.7 73 18 117/76 95 08/31/16 11:20 97.7 73 18 117/76 95 08/31/16 08:00 97.9 65 18 122/73 95 08/31/16 07:11 97.9 65 18 122/73 95 08/31/16 07:04 95 21 08/31/16 05:21 98.2 72 20 112/69 94 08/30/16 23:26 98.4 78 20 122/74 94 08/30/16 19:47 98.1 72 20 119/79 96 -: 08/31/16 0518 08/31/16 0518 Physical Exam General Appearance: Well Nourished, No Acute Distress, Comfortable Eyes Eye Exam: Pupils Equal, Pupils Reactive, Sclera White, Extraocular Movement Intact Throat Throat Exam: Oral Mucosa [place] & Moist, Oral Pharynx Normal Neck Neck Exam: Neck Supple, Trachea Midline Pulmonary Resp Exam: Clear Bilaterally, Breath Sounds Equal, No Distress Cardiology CV Exam: Regular, Normal Sinus Rhythm Gastrointestinal/Abdomen GI Exam: Soft, Non-Tender, Bowel Sounds Present, Distended Musculoskeletal MS Exam: Normal Tone Integumentary Skin Exam: Clear, Warm, Dry, Intact Extremeties Extremities Exam: No Edema Neurologic Neuro Exam: Alert, Awake, Oriented, Speech Clear Psychiatric Psych Exam: Appropriate Responses PUD Prophylasis PUD Prophylaxis: Protonix Assessment/Plan Assessment Summary: MOHSEN/Acute Renal Failure, CKD Stage III Problem List: (1) Dehydration (2) Pancreatitis (3) Abdominal distention (4) UTI (urinary tract infection) (5) MOHSEN (acute kidney injury) (6) Acute on chronic kidney failure Plan Patient has improvement in the Creatinine. Urology follow up noted, to keep Gasca's catheter. Creatinine is close to his baseline. GI consulted, Lipase is better. Continue IVF and Ceftriaxone. Problem Qualifiers (1) Pancreatitis: Qualified Code: K85.90 - Acute pancreatitis, unspecified complication status, unspecified pancreatitis type Romulo Gaffney MD August 31, 2016 17:09
[2016-09-01] VITALS (10 sets, daily range): BP systolic 118–158; BP diastolic 76–83; PULSE 53–79; RESP 16–19; TEMP 97.9–98.8; O2SAT 92–99
[2016-09-01] MEDS: ALPRAZolam 0.5 MG TAB PO PRN ×4 (01:03→20:57)
[2016-09-01] MEDS: methylPREDNISolone SOD SUCC 40 MG/1 ML VIAL IV PUSH SCH ×5 (01:03→23:52)
[2016-09-01] MEDS: cefTRIAXone INJ 1,000 MG in SODIUM CHLORIDE 0.9% INJ 100 ML IV SCH (03:39)
[2016-09-01] MEDS: HEPARIN SODIUM - SQ 10,000 UNITS/ML VIAL SQ SCH ×2 (05:45→17:31)
[2016-09-01] MEDS: SODIUM CHLOR 0.9% 1000 ML INJ 1,000 ML IV SCH ×3 (05:46→23:52)
--- NOTE | 2016-09-01 08:33 | HHI.PR ---
Subjective History of Present Illness Patient abdominal distension getting better d/w BAYRON Phan no acute issue. Creatinine improved Nephrology/ Urology/ GI Input noted. started on healthy heart diet. recheck UA. Review of Systems Constitutional Constitutional: Fatigue, Weakness GI/Abdomen GI/Abdomen Remarks Abdominal distension. Vitals/Results Intake & Output 08/31/16 08/31/16 09/01/16 15:00 23:00 07:00 Intake Total 800 ml 450 ml Output Total 850 ml 350 ml Balance -50 ml -350 ml 450 ml Intake Oral 450 ml IV Total 800 ml Output Urine Total 850 ml 350 ml Vital Signs Vital Signs Date Time Temp Pulse Resp B/P Pulse Ox O2 Delivery O2 Flow Rate FiO2 09/01/16 08:19 98.0 75 19 133/77 92 09/01/16 08:05 09/01/16 07:18 98.0 75 19 133/77 92 09/01/16 04:30 98.6 64 18 118/79 94 09/01/16 00:50 98.0 53 18 123/76 94 09/01/16 00:11 93 08/31/16 19:50 98.0 70 18 113/70 93 08/31/16 15:45 98.0 70 19 112/78 96 08/31/16 12:09 97.7 73 18 117/76 95 08/31/16 11:20 97.7 73 18 117/76 95 CBC/BMP: 08/31/16 0518 08/31/16 0518 Lab Results Laboratory Tests Test 09/01/16 05:58 Lipase 239 U/L Physical Exam General General Appearance: Well Developed, Well Nourished, No Acute Distress, Comfortable Eyes Eye Exam: Pupils Equal, Pupils Reactive, Sclera White, Extraocular Movement Intact Throat Throat Exam: Oral Mucosa [place] & Moist, Oral Pharynx Normal Neck Neck Exam: Neck Supple, Trachea Midline Pulmonary Resp Exam: Clear Bilaterally, Breath Sounds Equal, No Distress Cardiology CV Exam: Regular, Normal Sinus Rhythm Gastrointestinal/Abdomen GI Exam: Soft, Non-Tender, Bowel Sounds Present, Distended Musculoskeletal MS Exam: Normal Tone Integumentary Skin Exam: Clear, Warm, Dry, Intact Extremeties Extremities Exam: No Edema Neurologic Neuro Exam: Alert, Awake, Oriented, Speech Clear, Moving All Extremities, No Focal Deficits Psychiatric Psych Exam: Appropriate Responses VTE Prophylaxis VTE Prophylaxis Meds: Heparin PUD Prophylasis PUD Prophylaxis: Protonix Assessment/Plan Assessment/Plan ASSESSMENT/PLAN This is a 60-year-old male came to the emergency department diagnosed with 1. Abdominal pain and distension most likely secondary to acute pancreatitis. started on clear liquid diet patient on pain medication, Lortab 5/325 n.p.o. q.6h p.r.n. pain. GI. Input noted for Further recommendation. need endoscopy as out patient. 2. Urinary retention status post Gasca catheter placement. urology input noted for further recommendations. 3. Renal failure. nephrology input noted . renal function improving. 4. Urinary tract infection. The patient on Rocephin 1 gram IV daily.recheck UA. 5. History of COPD, asthma. Continue home medication / asthma continue home medications. 6. History of anxiety. Continue Xanax 0.5 mg p.o. q.6 h. 7. DVT prophylaxis with heparin 5000 units twice a day. And 8. GI prophylaxis with Protonix 40 mg p.o. daily. Check CBC with diff CMP in AM. We are going to manage the patient on a daily basis and make recommendations on a daily basis. Discussed Condition with: Patient Arpit Peterson MD September 01, 2016 08:33
[2016-09-01] MEDS: TAMSULOSIN HCL 0.4 MG CAP PO SCH (08:41)
[2016-09-01] MEDS: PANTOPRAZOLE SOD 40 MG DELAYED RELEASE TAB PO SCH (08:41)
[2016-09-01] MEDS: metroNIDAZOLE 500 MG TAB PO SCH ×3 (08:41→17:30)
[2016-09-01] MEDS: predniSONE 10 MG TAB PO SCH ×2 (08:41→20:56)
[2016-09-01] MEDS: SODIUM CHLORIDE 0.9% FLUSH 10 ML FLUSH IV FLUSH SCH ×2 (08:42→20:56)
[2016-09-01] MEDS: CIPROFLOXACIN 250 MG TAB PO SCH ×2 (08:42→20:56)
--- NOTE | 2016-09-01 11:44 | HHI.NPPN ---
Subjective History of Present Illness 60-year-old male with past medical history of chronic kidney disease, history of benign prostatic hypertrophy with urinary retention and recent history of urinary tract infection who has been on ciprofloxacin at home who came with abdominal distension and pain. I was called to see the patient because of elevated BUN and creatinine. The patient has a known history of chronic kidney disease and on looking back, it seems like his creatinine has been in the range of 1.3 to 1.5. Additional Remarks Patient is alert, no SOB, abd. distension is better and had BM. Review of Systems General Constitutional: Fatigue Gastrointestinal Gastrointestinal: Abdominal Pain, Constipation Objective Data Data 08/31/16 09/01/16 19:00 07:00 Intake Total 800 ml 450 ml Output Total 1200 ml Balance -400 ml 450 ml Intake Oral 450 ml IV Total 800 ml Output Urine Total 1200 ml Vital Signs Date Time Temp Pulse Resp B/P Pulse Ox O2 Delivery O2 Flow Rate FiO2 09/01/16 08:19 98.0 75 19 133/77 92 09/01/16 08:05 09/01/16 07:18 98.0 75 19 133/77 92 09/01/16 04:30 98.6 64 18 118/79 94 09/01/16 00:50 98.0 53 18 123/76 94 09/01/16 00:11 93 08/31/16 19:50 98.0 70 18 113/70 93 08/31/16 15:45 98.0 70 19 112/78 96 08/31/16 12:09 97.7 73 18 117/76 95 -: 08/31/16 0518 08/31/16 0518 Physical Exam General Appearance: Well Nourished, No Acute Distress, Comfortable Eyes Eye Exam: Pupils Equal, Pupils Reactive, Sclera White, Extraocular Movement Intact Throat Throat Exam: Oral Mucosa [place] & Moist, Oral Pharynx Normal Neck Neck Exam: Neck Supple, Trachea Midline Pulmonary Resp Exam: Clear Bilaterally, Breath Sounds Equal, No Distress Cardiology CV Exam: Regular, Normal Sinus Rhythm Gastrointestinal/Abdomen GI Exam: Soft, Non-Tender, Bowel Sounds Present, Distended Musculoskeletal MS Exam: Normal Tone Integumentary Skin Exam: Clear, Warm, Dry, Intact Extremeties Extremities Exam: No Edema Neurologic Neuro Exam: Alert, Awake, Oriented, Speech Clear Psychiatric Psych Exam: Appropriate Responses PUD Prophylasis PUD Prophylaxis: Protonix Assessment/Plan Assessment Summary: MOHSEN/Acute Renal Failure, CKD Stage III Problem List: (1) Dehydration (2) Pancreatitis (3) Abdominal distention (4) UTI (urinary tract infection) (5) MOHSEN (acute kidney injury) (6) Acute on chronic kidney failure Plan Patient has improvement in the Creatinine yesterday, now new BMP today. Urology follow up noted, to keep Gasca's catheter. Creatinine is close to his baseline. GI consulted, Lipase is better. Continue IVF and Ceftriaxone. Possible EGD/Colonoscopy. Problem Qualifiers (1) Pancreatitis: Qualified Code: K85.90 - Acute pancreatitis, unspecified complication status, unspecified pancreatitis type Romulo Gaffney MD September 01, 2016 11:44
[2016-09-01 13:56] LABS: BACTERIA, URINE RARE /hpf; BLOOD, URINE MOD (NEG); COMMENT (UR) CULTURE INDICATED; CULTURE IF INDICATED CULTURE INDICATED; GLUCOSE,URINE 300 mg/dL (NEG); KETONE, URINE NEG (NEG); MUCUS URINE FEW /lpf (OCC); NITRITE,URINE NEG (NEG); TRANSITIONAL EPI CELLS, URINE 5 /hpf; URINE COLOR YELLOW (YELLW/STRAW)
--- NOTE | 2016-09-01 16:14 | HHI.GIFU ---
Subjective Remarks Pt resting comfortably in bed. Still has diarrhea which he has had since starting antibiotics. Still has bloating but is tolerating solid food. (Brooke Russell) Objective Vitals I&O Vital Signs Date Time Temp Pulse Resp B/P Pulse Ox O2 Delivery O2 Flow Rate FiO2 09/01/16 15:34 97.9 58 18 131/79 95 09/01/16 12:00 98.2 79 18 158/83 99 09/01/16 11:39 98.2 79 18 158/83 99 09/01/16 08:19 98.0 75 19 133/77 92 09/01/16 08:05 09/01/16 07:18 98.0 75 19 133/77 92 09/01/16 04:30 98.6 64 18 118/79 94 09/01/16 00:50 98.0 53 18 123/76 94 09/01/16 00:11 93 08/31/16 19:50 98.0 70 18 113/70 93 I/O 08/31/16 08/31/16 08/31/16 09/01/16 09/01/16 09/01/16 07:00 15:00 23:00 07:00 15:00 23:00 Intake Total 800 ml 450 ml 800 ml Output Total 1650 ml 850 ml 350 ml Balance -1650 ml -50 ml -350 ml 450 ml 800 ml Intake Oral 450 ml IV Total 800 ml 800 ml Output Urine Total 1650 ml 850 ml 350 ml Laboratory Laboratory Tests Test 09/01/16 09/01/16 05:58 13:40 Lipase 239 Urine Color YELLOW Urine Turbidity HAZY Urine pH 6.0 Urine Specific [place] 1.019 Urine Protein 30 Urine Glucose (UA) 300 Urine Ketones NEG Urine Occult Blood MOD Urine Nitrite NEG Urine Bilirubin NEG Urine Urobilinogen LESS THAN 2.0 Urine Leukocyte Esterase MOD Urine RBC Urine WBC Urine Transitional Epithelial 5 Cells Urine Bacteria RARE Urine Mucus FEW Microscopic Urinalysis Comment CULTURE INDICATED Date/Time Procedure Status Source Growth 09/01/16 13:40 Urine Culture Received Urine Clean Catch Pending 08/29/16 23:40 Urine Culture - Final Complete Urine Random Urine <10,000 CFU/ML GRAM POSITIVE CARLOS Imaging Last Impressions Abdomen/Pelvis CT 08/30/16 0000 Signed Impressions: Service Date/Time: Tuesday, August 30, 2016 23:05 - CONCLUSION: Interval decrease in collecting system dilatation following Gasca catheter placement. No new acute noncontrast CT findings in the abdomen or pelvis. Arian Ramirez MD Chest X-Ray 08/29/16 3344 Signed Impressions: Service Date/Time: Monday, August 29, 2016 22:58 - CONCLUSION: Mild patchy bronchitic changes. Arian Ramirez MD Physical Exam HEENT: EOMI; normocephalic; atraumatic; no jaundice. CHEST: CTA CARDIAC: RRR ABDOMEN: Soft, distended, mild TTP; no hepatosplenomegaly; bowel sounds are present in all four quadrants. EXTREMITIES: No clubbing, cyanosis, or edema. SKIN: Normal; no rash; no jaundice. GEOPHYSICAL ENGINEER: No focal deficits; alert and oriented times three. (Brooke Russell) Assessment and Plan Plan ASSESSMENT - abdominal bloating, discomfort - onset 1 year ago, intermittent, worse after eating, worse in last month. Seen here last week for same. Has been on cipro, flagyl given by PCP and says his bloating is still worsening. CT 08-30 --> CONCLUSION: Interval decrease in collecting system dilatation following Gasca catheter placement. No new acute noncontrast CT findings in the abdomen or pelvis. CT 08-17-16 --> bladder distention w/ bilat hydronephrosis and hydroureteer, likely bladder outlet obstruction, diverticulosis, mild bladder wall thickening. Had colonoscopy/EGD 4-5 y ago and says polyps were found, and he was told he might get Brar's. Consider EGD/colonoscopy as outpatient. - diarrhea since starting cipro and flagyl given by PCP - elevated lipase - 265 today down from 457, pt tolerating clears no hx pancreatitis. pt denies ETOH in the last week but indicated that he drinks heavily at times. Elevation could be r/t ETOH, metronidazole PLAN - consider EGD/colonoscopy as outpatient to further evaluate bloating - LAQUITA This pt seen by myself and DR Fisher and this note is written on his behalf ( Brooke Russell) Physician Comments Seen with Brooke, plan as above, further recommendations to follow. (Kassandra Fisher MD) Brooke Russell September 01, 2016 16:14 Kassandra Fisher MD Sep 02, 2016 06:59
[2016-09-02] MEDS: cefTRIAXone INJ 1,000 MG in SODIUM CHLORIDE 0.9% INJ 100 ML IV SCH (01:15)
[2016-09-02 05:04] VITALS: BP 132/86; PULSE 54; RESP 18; TEMP 98.8; O2SAT 97
[2016-09-02] MEDS: HEPARIN SODIUM - SQ 10,000 UNITS/ML VIAL SQ SCH ×2 (05:19→17:34)
[2016-09-02] MEDS: methylPREDNISolone SOD SUCC 40 MG/1 ML VIAL IV PUSH SCH ×4 (05:19→23:49)
[2016-09-02] MEDS: ALPRAZolam 0.5 MG TAB PO PRN ×4 (05:22→23:49)
[2016-09-02 07:39] LABS: AUTOMATED NEUTROPHIL # 7.5 TH/MM3 (1.8-7.7); BASOPHIL % 0.4 % (0.0-2.0); HEMATOCRIT 37.2 % (39.0-51.0); HEMO FLAGS DIFF FINAL; LYMPH % 2.8 % (9.0-44.0); LYMPHOCYTE # 0.2 TH/MM3 (1.0-4.8); MEAN CELL VOLUME 91.7 FL (80.0-100.0); MEAN CORPUSCULAR HEMOGLOBIN 30.4 PG (27.0-34.0); MEAN CORPUSCULAR HGB CONC 33.1 % (32.0-36.0); MONO % 3.6 % (0.0-8.0); NEUT % 93.2 % (16.0-70.0); PLATELET COUNT 260 TH/MM3 (150-450); RED BLOOD COUNT 4.06 MIL/MM3 (4.50-5.90); RED CELL DISTRIBUTION WIDTH 15.2 % (11.6-17.2)
[2016-09-02 08:28] VITALS: BP 152/87; PULSE 63; RESP 20; TEMP 98; O2SAT 95
[2016-09-02 08:40] LABS: ALKALINE PHOSPHATASE 36 U/L (45-117); ALT (GPT) 17 U/L (12-78); ANION GAP 9 MEQ/L (5-15); AST (GOT) 12 U/L (15-37); BLOOD UREA NITROGEN 26 MG/DL (7-18); CHLORIDE 109 MEQ/L (98-107); GLOMERULAR FILTRATION RATE 53 ML/MIN (>89); POTASSIUM 4.2 MEQ/L (3.5-5.1); SODIUM (NA) 143 MEQ/L (136-145); TOTAL BILIRUBIN ADULT 0.2 MG/DL (0.2-1.0)
[2016-09-02] MEDS: CIPROFLOXACIN 250 MG TAB PO SCH ×2 (08:59→20:44)
[2016-09-02] MEDS: metroNIDAZOLE 500 MG TAB PO SCH ×3 (08:59→17:33)
[2016-09-02] MEDS: predniSONE 10 MG TAB PO SCH ×2 (08:59→20:45)
[2016-09-02] MEDS: PANTOPRAZOLE SOD 40 MG DELAYED RELEASE TAB PO SCH (08:59)
[2016-09-02] MEDS: TAMSULOSIN HCL 0.4 MG CAP PO SCH (08:59)
[2016-09-02] MEDS: SODIUM CHLORIDE 0.9% FLUSH 10 ML FLUSH IV FLUSH SCH ×2 (09:00→20:45)
--- NOTE | 2016-09-02 09:01 | HHI.PR ---
Subjective History of Present Illness Patient abdominal distension getting better d/w RN and director of casework department, no acute issue. Creatinine at base line Nephrology/ Urology/ GI Input noted. tolerating healthy heart diet. recheck UA. still shows UTI. Consult ID. DC Plan when ok with all. Review of Systems Constitutional Constitutional: Fatigue, Weakness GI/Abdomen GI/Abdomen Remarks Abdominal distension. Vitals/Results Intake & Output 09/01/16 09/01/16 09/02/16 14:59 22:59 06:59 Intake Total 800 ml Output Total 900 ml 450 ml Balance 800 ml -900 ml -450 ml IV Total 800 ml Output Urine Total 900 ml 450 ml Vital Signs Vital Signs Date Time Temp Pulse Resp B/P Pulse Ox O2 Delivery O2 Flow Rate FiO2 09/02/16 08:28 98.0 63 20 152/87 95 09/02/16 05:04 98.8 54 18 132/86 97 09/01/16 23:44 98.8 58 18 123/76 96 09/01/16 19:43 98.6 64 16 137/79 94 09/01/16 15:34 97.9 58 18 131/79 95 09/01/16 12:00 98.2 79 18 158/83 99 09/01/16 11:39 98.2 79 18 158/83 99 CBC/BMP: 09/02/16 0650 09/02/16 0650 Lab Results Laboratory Tests Test 09/01/16 09/02/16 13:40 06:50 Urine Color YELLOW Urine Turbidity HAZY Urine pH 6.0 Urine Specific [place] 1.019 Urine Protein 30 mg/dL Urine Glucose (UA) 300 mg/dL Urine Ketones NEG mg/dL Urine Occult Blood MOD Urine Nitrite NEG Urine Bilirubin NEG Urine Urobilinogen LESS THAN 2.0 MG/DL Urine Leukocyte Esterase MOD Urine RBC /hpf Urine WBC /hpf Urine Transitional Epithelial 5 /hpf Cells Urine Bacteria RARE /hpf Urine Mucus FEW /lpf Microscopic Urinalysis Comment CULTURE INDICATED White Blood Count 8.0 TH/MM3 Red Blood Count 4.06 MIL/MM3 Hemoglobin 12.3 GM/DL Hematocrit 37.2 % Mean Corpuscular Volume 91.7 FL Mean Corpuscular Hemoglobin 30.4 PG Mean Corpuscular Hemoglobin 33.1 % Concent Red Cell Distribution Width 15.2 % Platelet Count 260 TH/MM3 Mean Platelet Volume 9.4 FL Neutrophils (%) (Auto) 93.2 % Lymphocytes (%) (Auto) 2.8 % Monocytes (%) (Auto) 3.6 % Eosinophils (%) (Auto) 0.0 % Basophils (%) (Auto) 0.4 % Neutrophils # (Auto) 7.5 TH/MM3 Lymphocytes # (Auto) 0.2 TH/MM3 Monocytes # (Auto) 0.3 TH/MM3 Eosinophils # (Auto) 0.0 TH/MM3 Basophils # (Auto) 0.0 TH/MM3 CBC Comment DIFF FINAL Differential Comment Sodium Level 143 MEQ/L Potassium Level 4.2 MEQ/L Chloride Level 109 MEQ/L Carbon Dioxide Level 25.0 MEQ/L Anion Gap 9 MEQ/L Blood Urea Nitrogen 26 MG/DL Creatinine 1.37 MG/DL Estimat Glomerular Filtration 53 ML/MIN Rate Random Glucose 119 MG/DL Calcium Level 7.6 MG/DL Total Bilirubin 0.2 MG/DL Aspartate Amino Transf 12 U/L (AST/SGOT) Alanine Aminotransferase 17 U/L (ALT/SGPT) Alkaline Phosphatase 36 U/L Total Protein 5.6 GM/DL Albumin 2.3 GM/DL Microbiology Microbiology 09/01/16 Urine Culture, Received Pending Physical Exam General General Appearance: Well Nourished, No Acute Distress, Comfortable Eyes Eye Exam: Pupils Equal, Pupils Reactive, Sclera White, Extraocular Movement Intact Throat Throat Exam: Oral Mucosa [place] & Moist, Oral Pharynx Normal Neck Neck Exam: Neck Supple, Trachea Midline Pulmonary Resp Exam: Clear Bilaterally, Breath Sounds Equal, No Distress Cardiology CV Exam: Regular, Normal Sinus Rhythm Gastrointestinal/Abdomen GI Exam: Soft, Non-Tender, Bowel Sounds Present, Distended Musculoskeletal MS Exam: Normal Tone Integumentary Skin Exam: Clear, Warm, Dry, Intact Extremeties Extremities Exam: No Edema Neurologic Neuro Exam: Alert, Awake, Oriented, Speech Clear Psychiatric Psych Exam: Appropriate Responses VTE Prophylaxis VTE Prophylaxis Meds: Heparin PUD Prophylasis PUD Prophylaxis: Protonix Assessment/Plan Assessment/Plan ASSESSMENT/PLAN This is a 60-year-old male came to the emergency department diagnosed with 1. Abdominal pain and distension most likely secondary to acute pancreatitis. started on clear liquid diet patient on pain medication, Lortab 5/325 n.p.o. q.6h p.r.n. pain. GI. Input noted for Further recommendation. need endoscopy as out patient. 2. Urinary retention status post Gasca catheter placement. urology input noted for further recommendations. 3. Renal failure. nephrology input noted . renal function at base line. 4. Urinary tract infection. The patient on Rocephin 1 gram IV daily.recheck UA... still shows UTI.. Consult ID. 5. History of COPD, asthma. Continue home medication / asthma continue home medications. 6. History of anxiety. Continue Xanax 0.5 mg p.o. q.6 h. 7. DVT prophylaxis with heparin 5000 units twice a day. And 8. GI prophylaxis with Protonix 40 mg p.o. daily. Check CBC with diff CMP in AM. We are going to manage the patient on a daily basis and make recommendations on a daily basis. Discussed Condition with: Patient Arpit Peterson MD Sep 02, 2016 09:01
[2016-09-02 11:48] VITALS: BP 131/86; PULSE 66; RESP 20; TEMP 97.7; O2SAT 95
--- NOTE | 2016-09-02 12:19 | HHI.NPPN ---
Subjective History of Present Illness 60-year-old male with past medical history of chronic kidney disease, history of benign prostatic hypertrophy with urinary retention and recent history of urinary tract infection who has been on ciprofloxacin at home who came with abdominal distension and pain. I was called to see the patient because of elevated BUN and creatinine. The patient has a known history of chronic kidney disease and on looking back, it seems like his creatinine has been in the range of 1.3 to 1.5. Additional Remarks Patient is alert, no SOB, still has abd. distension, no nausea, no SOB. Review of Systems General Constitutional: Fatigue Gastrointestinal Gastrointestinal: Abdominal Pain, Constipation Objective Data Data 09/01/16 09/02/16 19:00 07:00 Intake Total 800 ml Output Total 1350 ml Balance 800 ml -1350 ml IV Total 800 ml Output Urine Total 1350 ml Vital Signs Date Time Temp Pulse Resp B/P Pulse Ox O2 Delivery O2 Flow Rate FiO2 09/02/16 11:48 97.7 66 20 131/86 95 09/02/16 08:28 98.0 63 20 152/87 95 09/02/16 05:04 98.8 54 18 132/86 97 09/01/16 23:44 98.8 58 18 123/76 96 09/01/16 19:43 98.6 64 16 137/79 94 09/01/16 15:34 97.9 58 18 131/79 95 -: 09/02/16 0650 09/02/16 0650 Microbiology 09/01/16 Urine Culture, Received Pending Physical Exam General Appearance: Well Nourished, No Acute Distress, Comfortable Eyes Eye Exam: Pupils Equal, Pupils Reactive, Sclera White, Extraocular Movement Intact Throat Throat Exam: Oral Mucosa [place] & Moist, Oral Pharynx Normal Neck Neck Exam: Neck Supple, Trachea Midline Pulmonary Resp Exam: Clear Bilaterally, Breath Sounds Equal, No Distress Cardiology CV Exam: Regular, Normal Sinus Rhythm Gastrointestinal/Abdomen GI Exam: Soft, Non-Tender, Bowel Sounds Present, Distended Musculoskeletal MS Exam: Normal Tone Integumentary Skin Exam: Clear, Warm, Dry, Intact Extremeties Extremities Exam: No Edema Neurologic Neuro Exam: Alert, Awake, Oriented, Speech Clear Psychiatric Psych Exam: Appropriate Responses PUD Prophylasis PUD Prophylaxis: Protonix Assessment/Plan Assessment Summary: MOHSEN/Acute Renal Failure, CKD Stage III Problem List: (1) Dehydration (2) Pancreatitis (3) Abdominal distention (4) UTI (urinary tract infection) (5) MOHSEN (acute kidney injury) (6) Acute on chronic kidney failure Plan Patient has improvement in the Creatinine yesterday, now new BMP today. Urology follow up noted, to keep Gasca's catheter. Creatinine is close to his baseline. GI consulted, Lipase is better. Continue Ceftriaxone. Avoid Nephrotoxins. Problem Qualifiers (1) Pancreatitis: Qualified Code: K85.90 - Acute pancreatitis, unspecified complication status, unspecified pancreatitis type Romulo Gaffney MD Sep 02, 2016 12:19
[2016-09-02 15:26] VITALS: BP 143/83; PULSE 62; RESP 18; TEMP 97.6; O2SAT 97
--- NOTE | 2016-09-02 16:37 | HHI.GIFU ---
Subjective Remarks Pt resting in bed. Says bloating and distension a bit better. + BM. (Brooke Russell) Objective Vitals I&O Vital Signs Date Time Temp Pulse Resp B/P Pulse Ox O2 Delivery O2 Flow Rate FiO2 09/02/16 15:26 97.6 62 18 143/83 97 09/02/16 11:48 97.7 66 20 131/86 95 09/02/16 08:28 98.0 63 20 152/87 95 09/02/16 05:04 98.8 54 18 132/86 97 09/01/16 23:44 98.8 58 18 123/76 96 09/01/16 19:43 98.6 64 16 137/79 94 I/O 09/01/16 09/01/16 09/01/16 09/02/16 09/02/16 09/02/16 07:00 15:00 23:00 07:00 15:00 23:00 Intake Total 450 ml 800 ml 500 ml Output Total 900 ml 450 ml 750 ml Balance 450 ml 800 ml -900 ml -450 ml -250 ml Intake Oral 450 ml 500 ml IV Total 800 ml Output Urine Total 900 ml 450 ml 750 ml Laboratory Laboratory Tests Test 09/02/16 06:50 White Blood Count 8.0 Red Blood Count 4.06 Hemoglobin 12.3 Hematocrit 37.2 Mean Corpuscular Volume 91.7 Mean Corpuscular Hemoglobin 30.4 Mean Corpuscular Hemoglobin 33.1 Concent Red Cell Distribution Width 15.2 Platelet Count 260 Mean Platelet Volume 9.4 Neutrophils (%) (Auto) 93.2 Lymphocytes (%) (Auto) 2.8 Monocytes (%) (Auto) 3.6 Eosinophils (%) (Auto) 0.0 Basophils (%) (Auto) 0.4 Neutrophils # (Auto) 7.5 Lymphocytes # (Auto) 0.2 Monocytes # (Auto) 0.3 Eosinophils # (Auto) 0.0 Basophils # (Auto) 0.0 CBC Comment DIFF FINAL Differential Comment Sodium Level 143 Potassium Level 4.2 Chloride Level 109 Carbon Dioxide Level 25.0 Anion Gap 9 Blood Urea Nitrogen 26 Creatinine 1.37 Estimat Glomerular Filtration 53 Rate Random Glucose 119 Calcium Level 7.6 Total Bilirubin 0.2 Aspartate Amino Transf 12 (AST/SGOT) Alanine Aminotransferase 17 (ALT/SGPT) Alkaline Phosphatase 36 Total Protein 5.6 Albumin 2.3 Date/Time Procedure Status Source Growth 09/01/16 13:40 Urine Culture - Preliminary Resulted Urine Clean Catch NO GROWTH IN 24 HOURS. 08/29/16 23:40 Urine Culture - Final Complete Urine Random Urine <10,000 CFU/ML GRAM POSITIVE CARLOS Imaging Last Impressions Abdomen/Pelvis CT 08/30/16 0000 Signed Impressions: Service Date/Time: Tuesday, August 30, 2016 23:05 - CONCLUSION: Interval decrease in collecting system dilatation following Gasca catheter placement. No new acute noncontrast CT findings in the abdomen or pelvis. Arian Ramirez MD Chest X-Ray 08/29/16 2241 Signed Impressions: Service Date/Time: Monday, August 29, 2016 22:58 - CONCLUSION: Mild patchy bronchitic changes. Arian Ramirez MD Physical Exam HEENT: EOMI; normocephalic; atraumatic; no jaundice. CHEST: CTA CARDIAC: RRR ABDOMEN: Soft, distended, nontender; no hepatosplenomegaly; bowel sounds are present in all four quadrants. EXTREMITIES: No clubbing, cyanosis, or edema. SKIN: Normal; no rash; no jaundice. KNITTER HELPER: No focal deficits; alert and oriented times three. (Brooke Russell [facility]) Assessment and Plan Plan ASSESSMENT - abdominal bloating, discomfort - improving. onset 1 year ago, intermittent, worse after eating, worse in last month. Seen here last week for same. Has been on cipro, flagyl given by PCP and says his bloating is still worsening. CT 08-30 --> CONCLUSION: Interval decrease in collecting system dilatation following Gasca catheter placement. No new acute noncontrast CT findings in the abdomen or pelvis. CT 08-17-16 --> bladder distention w/ bilat hydronephrosis and hydroureteer, likely bladder outlet obstruction, diverticulosis, mild bladder wall thickening. Had colonoscopy/EGD 4-5 y ago and says polyps were found, and he was told he might get Brar's. Consider EGD/colonoscopy as outpatient. - diarrhea since starting cipro and flagyl given by PCP - elevated lipase - 265 today down from 457, pt tolerating clears no hx pancreatitis. pt denies ETOH in the last week but indicated that he drinks heavily at times. Elevation could be r/t ETOH, metronidazole PLAN - f/u with GI in 2 weeks for EGD/colonoscopy if bloating persists - [facility] - GI will sign off. please reconsult if needed This pt seen by myself and DR Fisher and this note is written on his behalf ( Brooke Russell) Physician Comments Stable from GI point of view for the time being, please notify us if needed. ( Kassandra Fisher MD) Brooke Russell Sep 02, 2016 16:37 Kassandra Fisher MD Sep 02, 2016 22:44
[2016-09-02 21:04] VITALS: BP 149/75; PULSE 58; RESP 18; TEMP 98.9; O2SAT 94
[2016-09-03 00:50] VITALS: BP 142/84; PULSE 52; RESP 18; TEMP 98.1; O2SAT 94
[2016-09-03] MEDS: cefTRIAXone INJ 1,000 MG in SODIUM CHLORIDE 0.9% INJ 100 ML IV SCH (02:13)
[2016-09-03 04:16] VITALS: BP 120/70; PULSE 53; RESP 18; TEMP 97.4; O2SAT 97
[2016-09-03] MEDS: ALPRAZolam 0.5 MG TAB PO PRN ×4 (05:49→23:31)
[2016-09-03] MEDS: HEPARIN SODIUM - SQ 10,000 UNITS/ML VIAL SQ SCH ×2 (05:49→17:15)
[2016-09-03] MEDS: methylPREDNISolone SOD SUCC 40 MG/1 ML VIAL IV PUSH SCH ×4 (05:49→23:32)
--- NOTE | 2016-09-03 07:11 | HHI.PR ---
Subjective History of Present Illness Patient abdominal distension still present no acute issue. Creatinine at base line Nephrology/ Urology/ GI Input noted. Tolerating healthy heart diet. recheck UA. still shows UTI. Consult ID. DC Plan when ok with all. Review of Systems Constitutional Constitutional: Fatigue, Weakness GI/Abdomen GI/Abdomen Remarks Abdominal distension. Vitals/Results Intake & Output 09/02/16 09/02/16 09/03/16 15:00 23:00 07:00 Intake Total 500 ml 120 ml Output Total 750 ml 900 ml 700 ml Balance -250 ml -900 ml -580 ml Intake Oral 500 ml 120 ml Output Urine Total 750 ml 900 ml 700 ml # Bowel Movements 0 Vital Signs Vital Signs Date Time Temp Pulse Resp B/P Pulse Ox O2 Delivery O2 Flow Rate FiO2 09/03/16 04:16 97.4 53 18 120/70 97 09/03/16 00:50 98.1 52 18 142/84 94 09/02/16 21:04 98.9 58 18 149/75 94 09/02/16 15:26 97.6 62 18 143/83 97 09/02/16 11:48 97.7 66 20 131/86 95 09/02/16 08:28 98.0 63 20 152/87 95 CBC/BMP: 09/02/16 0650 09/02/16 0650 Physical Exam General General Appearance: Well Nourished, No Acute Distress, Comfortable Eyes Eye Exam: Pupils Equal, Pupils Reactive, Sclera White, Extraocular Movement Intact Throat Throat Exam: Oral Mucosa [place] & Moist, Oral Pharynx Normal Neck Neck Exam: Neck Supple, Trachea Midline Pulmonary Resp Exam: Clear Bilaterally, Breath Sounds Equal, No Distress Cardiology CV Exam: Regular, Normal Sinus Rhythm Gastrointestinal/Abdomen GI Exam: Soft, Non-Tender, Bowel Sounds Present, Distended Musculoskeletal MS Exam: Normal Tone Integumentary Skin Exam: Clear, Warm, Dry, Intact Extremeties Extremities Exam: No Edema Neurologic Neuro Exam: Alert, Awake, Oriented, Speech Clear Psychiatric Psych Exam: Appropriate Responses VTE Prophylaxis VTE Prophylaxis Meds: Heparin PUD Prophylasis PUD Prophylaxis: Protonix Assessment/Plan Assessment/Plan ASSESSMENT/PLAN This is a 60-year-old male came to the emergency department diagnosed with 1. Abdominal pain and distension most likely secondary to acute pancreatitis. started on clear liquid diet patient on pain medication, Lortab 5/325 n.p.o. q.6h p.r.n. pain. GI. Input noted for Further recommendation. need endoscopy as out patient. 2. Urinary retention status post Gasca catheter placement. urology input noted for further recommendations. 3. Renal failure. nephrology input noted . renal function at base line. 4. Urinary tract infection. The patient on Rocephin 1 gram IV daily.recheck UA... still shows UTI.. Consult ID. 5. History of COPD, asthma. Continue home medication / asthma continue home medications. 6. History of anxiety. Continue Xanax 0.5 mg p.o. q.6 h. 7. DVT prophylaxis with heparin 5000 units twice a day. And 8. GI prophylaxis with Protonix 40 mg p.o. daily. Check CBC with diff CMP in AM. We are going to manage the patient on a daily basis and make recommendations on a daily basis. Discussed Condition with: Patient Arpit Peterson MD Sep 03, 2016 07:11
[2016-09-03 07:17] LABS: AUTOMATED NEUTROPHIL # 9.7 TH/MM3 (1.8-7.7); BASOPHIL % 0.1 % (0.0-2.0); HEMATOCRIT 38.7 % (39.0-51.0); HEMO FLAGS DIFF FINAL; LYMPH % 2.1 % (9.0-44.0); LYMPHOCYTE # 0.2 TH/MM3 (1.0-4.8); MEAN CELL VOLUME 91.1 FL (80.0-100.0); MEAN CORPUSCULAR HEMOGLOBIN 29.6 PG (27.0-34.0); MEAN CORPUSCULAR HGB CONC 32.5 % (32.0-36.0); MONO % 5.4 % (0.0-8.0); NEUT % 92.4 % (16.0-70.0); PLATELET COUNT 253 TH/MM3 (150-450); RED BLOOD COUNT 4.24 MIL/MM3 (4.50-5.90); RED CELL DISTRIBUTION WIDTH 15.1 % (11.6-17.2); WHITE BLOOD COUNT 10.5 TH/MM3 (4.0-11.0)
[2016-09-03 08:00] VITALS: BP 161/97; PULSE 69; RESP 18; TEMP 98; O2SAT 92
[2016-09-03 08:10] LABS: ALKALINE PHOSPHATASE 41 U/L (45-117); ALT (GPT) 19 U/L (12-78); ANION GAP 8 MEQ/L (5-15); AST (GOT) 15 U/L (15-37); BICARBONATE 26.5 MEQ/L (21.0-32.0); BLOOD UREA NITROGEN 27 MG/DL (7-18); CHLORIDE 106 MEQ/L (98-107); GLOMERULAR FILTRATION RATE 53 ML/MIN (>89); POTASSIUM 3.8 MEQ/L (3.5-5.1); SODIUM (NA) 140 MEQ/L (136-145); TOTAL BILIRUBIN ADULT 0.1 MG/DL (0.2-1.0)
[2016-09-03] MEDS: metroNIDAZOLE 500 MG TAB PO SCH ×3 (11:21→17:14)
[2016-09-03] MEDS: TAMSULOSIN HCL 0.4 MG CAP PO SCH (11:21)
[2016-09-03] MEDS: CIPROFLOXACIN 250 MG TAB PO SCH ×2 (11:22→21:47)
[2016-09-03] MEDS: predniSONE 10 MG TAB PO SCH ×2 (11:22→21:47)
[2016-09-03] MEDS: PANTOPRAZOLE SOD 40 MG DELAYED RELEASE TAB PO SCH (11:22)
[2016-09-03] MEDS: SODIUM CHLORIDE 0.9% FLUSH 10 ML FLUSH IV FLUSH SCH ×2 (11:23→21:51)
[2016-09-03 12:00] VITALS: BP 154/88; PULSE 55; RESP 18; TEMP 97.3; O2SAT 93
--- NOTE | 2016-09-03 14:39 | PD.ID.CON ---
History of Present Illness Service ID Consult Requested By Reason for Consult Evaluation and Mment of possible UTI in patient with retention of urine. Primary Care Physician Arpit Peterson MD Diagnoses: History of Present Illness is a 60 y/o CM with PMHx of chronic urinary retention, BPH s/p TURP. Patient presents to the hospital for complaints of abdominal pain and distention and is presently being worked up to rule out acute pancreatitis. Patient actually presented to the emergency room 3 days ago in urinary retention and had a Vázquez catheter placed. A CT scan study was performed at that time which demonstrated mild bilateral hydronephrosis as well as diverticulosis. Patient is status post a TURP procedure back in 2014 and despite this form of management has had ongoing problems with urinary retention. Cystoscopic evaluation was performed in 2015 that failed to demonstrate any significant bladder outlet obstruction with a patent prostatic urethra consistent with the TURP. Patient's insurance had changed and he is presently under the care of Dr. Jet New with a follow up appointment scheduled for tomorrow. Patient reports that since the Vázquez catheter was placed urine has been draining clear yellow without hematuria or clots. Patient also reports low urinary volumes during the day but increased urine production at night. 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 He complains of abdominal discomfort mostly bloating. He says since vázquez was placed urine clearer, and abdomen feels better. Denies any N/V/Diarrhea. ID consulted for possible UTI/cystitis in pt with retention of urine. Review of Systems ROS Limitations: Poor Historian Past Family Social History Allergies: Coded Allergies: No Known Allergies (Verified , 08/29/16) Past Medical History BPH Voiding dysfunction Asthma Vasculitis Past Surgical History TURP 2015 Herniorrhaphy Reported Medications Reported Meds & Active Scripts Active Ventolin Hfa 18 GM Inh (Albuterol Sulfate) 90 Mcg/Act Aer 2 Puff INH Q4-6H PRN Reported Xanax (Alprazolam) 0.5 Mg Tab 0.5 Mg PO DAILY PRN Flagyl (Metronidazole) 500 Mg Tab 500 Mg PO TID Cipro (Ciprofloxacin HCl) 250 Mg Tab 500 Mg PO BID Prednisone 20 Mg Tab 10 Mg PO BID Tamsulosin (Tamsulosin HCl) 0.4 Mg Cap 0.4 Mg PO DAILY Active Ordered Medications Current Medications Medications (Trade) Dose Ordered Sig/Mesha Route Start Time Stop Time Status Last Admin (NS Flush) 2 ml UNSCH PRN IV FLUSH 08/30/16 02:15 08/30/16 06:10 (NS Flush) 2 ml BID IV FLUSH 08/30/16 09:00 09/03/16 11:23 (Tylenol) 650 mg Q4H PRN PO 08/30/16 02:15 (Zofran Inj) 4 mg Q6H PRN IVP 08/30/16 02:15 (Heparin Inj) 5,000 units Q12H SQ 08/30/16 06:00 09/03/16 05:49 (Narcan Inj) 0.4 mg UNSCH PRN IV 08/30/16 02:15 (Senokot) 17.2 mg Q12H PRN PO 08/30/16 02:15 09/03/16 06:00 Bisacodyl 10 mg 10 mg DAILY PRN RECTAL 08/30/16 02:15 (Rocephin Inj/NS Inj) 100 ml @ 200 mls/hr Q24H IV 08/31/16 02:00 09/03/16 02:13 (Xanax) 0.5 mg Q6H PRN PO 08/30/16 02:15 09/03/16 11:22 (SoluMEDROL INJ) 40 mg Q6HR IV PUSH 08/30/16 06:00 09/03/16 11:22 (Protonix) 40 mg DAILY PO 08/30/16 11:45 09/03/16 11:22 ([place] 5-325 Mg) 1 tab Q6H PRN PO 08/30/16 11:45 (Ventolin Hfa Inh) 2 puff Q6HR PRN INH 08/30/16 11:45 (Xanax) 0.5 mg DAILY PRN PO 08/30/16 11:45 (Cipro) 500 mg BID PO 08/30/16 11:45 09/03/16 11:22 (Flagyl) 500 mg TID PO 08/30/16 13:00 09/03/16 13:20 (Deltasone) 10 mg BID PO 08/30/16 11:45 09/03/16 11:22 (Flomax) 0.4 mg DAILY PO 08/30/16 11:45 09/03/16 11:21 Family History Non contributory. Social History History binge drinking, denies tobacco or intravenous drug abuse Physical Exam Vital Signs Vital Signs Date Time Temp Pulse Resp B/P Pulse Ox O2 Delivery O2 Flow Rate FiO2 09/03/16 04:16 97.4 53 18 120/70 97 09/03/16 00:50 98.1 52 18 142/84 94 09/02/16 21:04 98.9 58 18 149/75 94 09/02/16 15:26 97.6 62 18 143/83 97 Physical Exam GENERAL: Obese, well-developed patient, in no apparent distress. SKIN: No rashes, ecchymoses or lesions. Cool and dry. HEAD: Atraumatic. Normocephalic. No temporal or scalp tenderness. EYES: Pupils equal round and reactive. Extraocular motions intact. No scleral icterus. No injection or drainage. ENT: Nose without bleeding, purulent drainage or septal hematoma. Throat without erythema, tonsillar hypertrophy or exudate. Uvula midline. Airway patent. NECK: Trachea midline. No JVD or lymphadenopathy. Supple, nontender, no meningeal signs. CARDIOVASCULAR: Regular rate and rhythm without murmurs, gallops, or rubs. RESPIRATORY: Clear to auscultation. Breath sounds equal bilaterally. No wheezes , rales, or rhonchi. GASTROINTESTINAL: Abdomen soft, non-tender, nondistended. MUSCULOSKELETAL: Extremities without clubbing, cyanosis, or edema. No joint tenderness, effusion, or edema noted. No calf tenderness. Negative Homans sign bilaterally. NEUROLOGICAL: Awake and alert. Grossly non focal Psych: cooperative IV line sites with no e/o infection. Laboratory Laboratory Tests Test 09/03/16 09/03/16 06:40 06:52 White Blood Count 10.5 Red Blood Count 4.24 Hemoglobin 12.6 Hematocrit 38.7 Mean Corpuscular Volume 91.1 Mean Corpuscular Hemoglobin 29.6 Mean Corpuscular Hemoglobin 32.5 Concent Red Cell Distribution Width 15.1 Platelet Count 253 Mean Platelet Volume 9.4 Neutrophils (%) (Auto) 92.4 Lymphocytes (%) (Auto) 2.1 Monocytes (%) (Auto) 5.4 Eosinophils (%) (Auto) 0.0 Basophils (%) (Auto) 0.1 Neutrophils # (Auto) 9.7 Lymphocytes # (Auto) 0.2 Monocytes # (Auto) 0.6 Eosinophils # (Auto) 0.0 Basophils # (Auto) 0.0 CBC Comment DIFF FINAL Differential Comment Sodium Level 140 Potassium Level 3.8 Chloride Level 106 Carbon Dioxide Level 26.5 Anion Gap 8 Blood Urea Nitrogen 27 Creatinine 1.37 Estimat Glomerular Filtration 53 Rate Random Glucose 126 Calcium Level 7.7 Total Bilirubin 0.1 Aspartate Amino Transf 15 (AST/SGOT) Alanine Aminotransferase 19 (ALT/SGPT) Alkaline Phosphatase 41 Total Protein 5.5 Albumin 2.3 Date/Time Procedure Status Source Growth 09/01/16 13:40 Urine Culture - Final Complete Urine Clean Catch NO GROWTH IN 48 HOURS. Result Diagram: 09/03/16 0640 09/03/16 0652 Imaging Last Impressions Abdomen/Pelvis CT 08/30/16 0000 Signed Impressions: Service Date/Time: Tuesday, August 30, 2016 23:05 - CONCLUSION: Interval decrease in collecting system dilatation following Vázquez catheter placement. No new acute noncontrast CT findings in the abdomen or pelvis. Arian Ramirez MD Chest X-Ray 08/29/16 2241 Signed Impressions: Service Date/Time: Monday, August 29, 2016 22:58 - CONCLUSION: Mild patchy bronchitic changes. Arian Ramirez MD Assessment and Plan Assessment and Plan Possible UTI/cystitis in pt with retention of urine. Diverticulitis BPH Recs DC Ceftriaxone IV Recommend continuing Cipro and Flagyl for additional 10 days which covers for both UTI and Diverticulitis. Will sign off please call back if any change in clinical condition or questions. Myriam Hernandez MD Sep 03, 2016 14:39
[2016-09-03 16:00] VITALS: BP 146/90; PULSE 53; RESP 18; TEMP 97.6; O2SAT 92
--- NOTE | 2016-09-03 16:26 | HHI.NPPN ---
Subjective History of Present Illness 60-year-old male with past medical history of chronic kidney disease, history of benign prostatic hypertrophy with urinary retention and recent history of urinary tract infection who has been on ciprofloxacin at home who came with abdominal distension and pain. I was called to see the patient because of elevated BUN and creatinine. The patient has a known history of chronic kidney disease and on looking back, it seems like his creatinine has been in the range of 1.3 to 1.5. Additional Remarks Patient is alert, no SOB, still has abd. distension is improving, eating better. Review of Systems General Constitutional: Fatigue Gastrointestinal Gastrointestinal: Abdominal Pain, Constipation Objective Data Data 09/02/16 09/03/16 19:00 07:00 Intake Total 500 ml 120 ml Output Total 750 ml 1600 ml Balance -250 ml -1480 ml Intake Oral 500 ml 120 ml Output Urine Total 750 ml 1600 ml # Bowel Movements 0 Vital Signs Date Time Temp Pulse Resp B/P Pulse Ox O2 Delivery O2 Flow Rate FiO2 09/03/16 12:00 97.3 55 18 154/88 93 09/03/16 08:00 98.0 69 18 161/97 92 09/03/16 04:16 97.4 53 18 120/70 97 09/03/16 00:50 98.1 52 18 142/84 94 09/02/16 21:04 98.9 58 18 149/75 94 -: 09/03/16 0640 09/03/16 0652 Physical Exam General Appearance: Well Nourished, No Acute Distress, Comfortable Eyes Eye Exam: Pupils Equal, Pupils Reactive, Sclera White, Extraocular Movement Intact Throat Throat Exam: Oral Mucosa [place] & Moist, Oral Pharynx Normal Neck Neck Exam: Neck Supple, Trachea Midline Pulmonary Resp Exam: Clear Bilaterally, Breath Sounds Equal, No Distress Cardiology CV Exam: Regular, Normal Sinus Rhythm Gastrointestinal/Abdomen GI Exam: Soft, Non-Tender, Bowel Sounds Present, Distended Musculoskeletal MS Exam: Normal Tone Integumentary Skin Exam: Clear, Warm, Dry, Intact Extremeties Extremities Exam: No Edema Neurologic Neuro Exam: Alert, Awake, Oriented, Speech Clear Psychiatric Psych Exam: Appropriate Responses PUD Prophylasis PUD Prophylaxis: Protonix Assessment/Plan Assessment Summary: MOHSEN/Acute Renal Failure, CKD Stage III Problem List: (1) Dehydration (2) Pancreatitis (3) Abdominal distention (4) UTI (urinary tract infection) (5) MOHSEN (acute kidney injury) (6) Acute on chronic kidney failure Plan Urology follow up noted, to keep Gasca's catheter. Creatinine is stable at 1.37, close to his baseline. GI consulted, Lipase is better. Continue Ceftriaxone. Avoid Nephrotoxins. Follow the urine out put and BMP. Problem Qualifiers (1) Pancreatitis: Qualified Code: K85.90 - Acute pancreatitis, unspecified complication status, unspecified pancreatitis type Romulo Gaffney MD Sep 03, 2016 16:26
[2016-09-03 20:25] VITALS: BP 152/90; PULSE 53; RESP 18; TEMP 98; O2SAT 96
[2016-09-04 00:25] VITALS: BP 137/89; PULSE 58; RESP 18; TEMP 96.9; O2SAT 95
[2016-09-04] MEDS: cefTRIAXone INJ 1,000 MG in SODIUM CHLORIDE 0.9% INJ 100 ML IV SCH (02:23)
[2016-09-04 04:26] VITALS: BP 131/81; PULSE 59; RESP 17; TEMP 97.9; O2SAT 95
[2016-09-04] MEDS: methylPREDNISolone SOD SUCC 40 MG/1 ML VIAL IV PUSH SCH ×4 (05:32→23:17)
[2016-09-04] MEDS: HEPARIN SODIUM - SQ 10,000 UNITS/ML VIAL SQ SCH ×2 (05:33→17:33)
[2016-09-04] MEDS: ALPRAZolam 0.5 MG TAB PO PRN ×3 (05:39→17:33)
[2016-09-04 06:40] LABS: AUTOMATED NEUTROPHIL # 11.5 TH/MM3 (1.8-7.7); BASOPHIL % 0.1 % (0.0-2.0); EOSINOPHIL % 0.1 % (0.0-4.0); HEMATOCRIT 40.9 % (39.0-51.0); LYMPH % 2.9 % (9.0-44.0); LYMPHOCYTE # 0.4 TH/MM3 (1.0-4.8); MEAN CORPUSCULAR HEMOGLOBIN 30.5 PG (27.0-34.0); MEAN CORPUSCULAR HGB CONC 33.1 % (32.0-36.0); MONO % 4.5 % (0.0-8.0); NEUT % 92.4 % (16.0-70.0); PLATELET COUNT 260 TH/MM3 (150-450); RED BLOOD COUNT 4.45 MIL/MM3 (4.50-5.90); RED CELL DISTRIBUTION WIDTH 15.3 % (11.6-17.2); WHITE BLOOD COUNT 12.4 TH/MM3 (4.0-11.0)
[2016-09-04 06:42] LABS: HEMO FLAGS AUTO DIFF
[2016-09-04 07:02] LABS: ANION GAP 10 MEQ/L (5-15); AST (GOT) 18 U/L (15-37); BICARBONATE 25.1 MEQ/L (21.0-32.0); BLOOD UREA NITROGEN 28 MG/DL (7-18); CHLORIDE 104 MEQ/L (98-107); GLOMERULAR FILTRATION RATE 48 ML/MIN (>89); POTASSIUM 3.8 MEQ/L (3.5-5.1); SODIUM (NA) 139 MEQ/L (136-145)
[2016-09-04 07:07] LABS: ALKALINE PHOSPHATASE 40 U/L (45-117); ALT (GPT) 23 U/L (12-78); TOTAL BILIRUBIN ADULT 0.2 MG/DL (0.2-1.0)
[2016-09-04 08:00] VITALS: BP 147/90; PULSE 67; RESP 17; TEMP 97.2; O2SAT 95
[2016-09-04 08:22] LABS: BANDS 4 % (0-6); NEUTROPHIL # MANUAL DIFF 11.5 TH/MM3 (1.8-7.7); POLYS (SEG NEUTROPHILS) 89 % (16-70); WBC DIFF SAMPLE 100
[2016-09-04 08:23] LABS: PLATELET ESTIMATE SMEAR NORMAL (NORMAL); PLATELET MORPHOLOGY NORMAL (NORMAL); SCAN/DIFF FINAL DIFF MANUAL
[2016-09-04] MEDS: SODIUM CHLORIDE 0.9% FLUSH 10 ML FLUSH IV FLUSH SCH ×2 (09:00→23:18)
[2016-09-04] MEDS: metroNIDAZOLE 500 MG TAB PO SCH ×3 (09:16→17:33)
[2016-09-04] MEDS: CIPROFLOXACIN 250 MG TAB PO SCH ×2 (09:16→23:18)
[2016-09-04] MEDS: PANTOPRAZOLE SOD 40 MG DELAYED RELEASE TAB PO SCH (09:16)
[2016-09-04] MEDS: TAMSULOSIN HCL 0.4 MG CAP PO SCH (09:16)
[2016-09-04] MEDS: predniSONE 10 MG TAB PO SCH ×2 (09:17→23:18)
--- NOTE | 2016-09-04 09:21 | HHI.NPPN ---
Subjective History of Present Illness 60-year-old male with past medical history of chronic kidney disease, history of benign prostatic hypertrophy with urinary retention and recent history of urinary tract infection who has been on ciprofloxacin at home who came with abdominal distension and pain. I was called to see the patient because of elevated BUN and creatinine. The patient has a known history of chronic kidney disease and on looking back, it seems like his creatinine has been in the range of 1.3 to 1.5. Additional Remarks Tolerating oral intake. Creatinine is slightly worse. ID note reviewed. On Cipro and Flagyl. Review of Systems General Constitutional: Fatigue Gastrointestinal Gastrointestinal: Abdominal Pain, Constipation Objective Data Data 09/03/16 09/04/16 19:00 07:00 Intake Total 600 ml 480 ml Output Total 1450 ml 1500 ml Balance -850 ml -1020 ml Intake Oral 600 ml 480 ml Output Urine Total 1450 ml 1500 ml # Bowel Movements 0 1 Vital Signs Date Time Temp Pulse Resp B/P Pulse Ox O2 Delivery O2 Flow Rate FiO2 09/04/16 04:26 97.9 59 17 131/81 95 09/04/16 00:25 96.9 58 18 137/89 95 09/03/16 20:25 98.0 53 18 152/90 96 09/03/16 16:00 97.6 53 18 146/90 92 09/03/16 12:00 97.3 55 18 154/88 93 -: 09/04/16 0539 09/04/16 0539 Physical Exam General Appearance: Well Nourished, No Acute Distress, Comfortable Eyes Eye Exam: Pupils Equal, Pupils Reactive, Sclera White, Extraocular Movement Intact Throat Throat Exam: Oral Mucosa [place] & Moist, Oral Pharynx Normal Neck Neck Exam: Neck Supple, Trachea Midline Pulmonary Resp Exam: Clear Bilaterally, Breath Sounds Equal, No Distress Cardiology CV Exam: Regular, Normal Sinus Rhythm Gastrointestinal/Abdomen GI Exam: Soft, Non-Tender, Bowel Sounds Present, Distended Musculoskeletal MS Exam: Normal Tone Integumentary Skin Exam: Clear, Warm, Dry, Intact Extremeties Extremities Exam: No Edema Neurologic Neuro Exam: Alert, Awake, Oriented, Speech Clear Psychiatric Psych Exam: Appropriate Responses PUD Prophylasis PUD Prophylaxis: Protonix Assessment/Plan Assessment Summary: MOHSEN/Acute Renal Failure, CKD Stage III Problem List: (1) Dehydration (2) Pancreatitis (3) Abdominal distention (4) UTI (urinary tract infection) (5) MOHSEN (acute kidney injury) (6) Acute on chronic kidney failure Plan Urology follow up noted, to keep Gasca's catheter. Overall stable renal function. close to his baseline. Pancreatitis appears to have resolved. On Cipro and Flagyl. Patient can be discharged from renal standpoint. Problem Qualifiers (1) Pancreatitis: Qualified Code: K85.90 - Acute pancreatitis, unspecified complication status, unspecified pancreatitis type Lalo Curiel MD Sep 04, 2016 09:21
--- NOTE | 2016-09-04 10:16 | HHI.PR ---
Subjective History of Present Illness Patient abdominal distension still present no acute issue. have leukocytosis Creatinine at base line Nephrology/ Urology/ GI Input noted. Tolerating healthy heart diet. recheck UA. still shows UTI. ID. input noted Rocephin discontinued. Patient refused discharge wants to go after weekend. Review of Systems Constitutional Constitutional: Fatigue, Weakness GI/Abdomen GI/Abdomen Remarks Abdominal distension. Vitals/Results Intake & Output 09/03/16 09/03/16 09/04/16 15:00 23:00 07:00 Intake Total 600 ml 240 ml 240 ml Output Total 1450 ml 600 ml 900 ml Balance -850 ml -360 ml -660 ml Intake Oral 600 ml 240 ml 240 ml Output Urine Total 1450 ml 600 ml 900 ml # Bowel Movements 0 0 1 Vital Signs Vital Signs Date Time Temp Pulse Resp B/P Pulse Ox O2 Delivery O2 Flow Rate FiO2 09/04/16 08:00 97.2 67 17 147/90 95 09/04/16 04:26 97.9 59 17 131/81 95 09/04/16 00:25 96.9 58 18 137/89 95 09/03/16 20:25 98.0 53 18 152/90 96 09/03/16 16:00 97.6 53 18 146/90 92 09/03/16 12:00 97.3 55 18 154/88 93 CBC/BMP: 09/04/16 0539 09/04/16 0539 Lab Results Laboratory Tests Test 09/04/16 05:39 White Blood Count 12.4 TH/MM3 Red Blood Count 4.45 MIL/MM3 Hemoglobin 13.5 GM/DL Hematocrit 40.9 % Mean Corpuscular Volume 92.0 FL Mean Corpuscular Hemoglobin 30.5 PG Mean Corpuscular Hemoglobin 33.1 % Concent Red Cell Distribution Width 15.3 % Platelet Count 260 TH/MM3 Mean Platelet Volume 9.4 FL Neutrophils (%) (Auto) 92.4 % Lymphocytes (%) (Auto) 2.9 % Monocytes (%) (Auto) 4.5 % Eosinophils (%) (Auto) 0.1 % Basophils (%) (Auto) 0.1 % Neutrophils # (Auto) 11.5 TH/MM3 Lymphocytes # (Auto) 0.4 TH/MM3 Monocytes # (Auto) 0.6 TH/MM3 Eosinophils # (Auto) 0.0 TH/MM3 Basophils # (Auto) 0.0 TH/MM3 CBC Comment AUTO DIFF Differential Total Cells 100 Counted Neutrophils % (Manual) 89 % Band Neutrophils % 4 % Lymphocytes % 7 % Neutrophils # (Manual) 11.5 TH/MM3 Differential Comment FINAL DIFF MANUAL Platelet Estimate NORMAL Platelet Morphology Comment NORMAL Red Cell Morphology Comment NORMAL Sodium Level 139 MEQ/L Potassium Level 3.8 MEQ/L Chloride Level 104 MEQ/L Carbon Dioxide Level 25.1 MEQ/L Anion Gap 10 MEQ/L Blood Urea Nitrogen 28 MG/DL Creatinine 1.49 MG/DL Estimat Glomerular Filtration 48 ML/MIN Rate Random Glucose 140 MG/DL Calcium Level 7.8 MG/DL Total Bilirubin 0.2 MG/DL Aspartate Amino Transf 18 U/L (AST/SGOT) Alanine Aminotransferase 23 U/L (ALT/SGPT) Alkaline Phosphatase 40 U/L Total Protein 5.8 GM/DL Albumin 2.4 GM/DL Physical Exam General General Appearance: Well Nourished, No Acute Distress, Comfortable Eyes Eye Exam: Pupils Equal, Pupils Reactive, Sclera White, Extraocular Movement Intact Throat Throat Exam: Oral Mucosa [place] & Moist, Oral Pharynx Normal Neck Neck Exam: Neck Supple, Trachea Midline Pulmonary Resp Exam: Clear Bilaterally, Breath Sounds Equal, No Distress Cardiology CV Exam: Regular, Normal Sinus Rhythm Gastrointestinal/Abdomen GI Exam: Soft, Non-Tender, Bowel Sounds Present, Distended Musculoskeletal MS Exam: Normal Tone Integumentary Skin Exam: Clear, Warm, Dry, Intact Extremeties Extremities Exam: No Edema Neurologic Neuro Exam: Alert, Awake, Oriented, Speech Clear Psychiatric Psych Exam: Appropriate Responses VTE Prophylaxis VTE Prophylaxis Meds: Heparin PUD Prophylasis PUD Prophylaxis: Protonix Assessment/Plan Assessment/Plan ASSESSMENT/PLAN This is a 60-year-old male came to the emergency department diagnosed with 1. Abdominal pain and distension most likely secondary to acute pancreatitis. started on clear liquid diet patient on pain medication, Lortab 5/325 n.p.o. q.6h p.r.n. pain. GI. Input noted for Further recommendation. need endoscopy as out patient. 2. Urinary retention status post Gasca catheter placement. urology input noted for further recommendations. 3. Renal failure. nephrology input noted . renal function at base line. 4. Urinary tract infection. The patient on Rocephin 1 gram IV daily.recheck UA... still shows UTI.. ID. input noted Rocephin discontinued. 5. History of COPD, asthma. Continue home medication / asthma continue home medications. 6. History of anxiety. Continue Xanax 0.5 mg p.o. q.6 h. 7. DVT prophylaxis with heparin 5000 units twice a day. And 8. GI prophylaxis with Protonix 40 mg p.o. daily. Check CBC with diff CMP in AM. We are going to manage the patient on a daily basis and make recommendations on a daily basis. Patient refused discharge wants to go after weekend. Discussed Condition with: Patient Arpit Peterson MD Sep 04, 2016 10:16
[2016-09-04] MEDS ORDERED: ALPR.5 PO (10:25)
[2016-09-04] MEDS ORDERED: HYDR-3516 PO (10:25)
[2016-09-04] MEDS ORDERED: CIPR250T52 PO (10:25)
[2016-09-04] MEDS ORDERED: METR-1 PO (10:25)
[2016-09-04 12:00] VITALS: BP 141/86; PULSE 58; RESP 17; TEMP 97.3; O2SAT 93
[2016-09-04 16:00] VITALS: BP 140/85; PULSE 51; RESP 17; TEMP 97.6; O2SAT 95
[2016-09-04 20:50] VITALS: BP 142/79; PULSE 54; RESP 18; TEMP 97.1; O2SAT 95
[2016-09-05] VITALS: BP 146/80; PULSE 52; RESP 17; TEMP 97; O2SAT 94
[2016-09-05] MEDS: metroNIDAZOLE 500 MG TAB PO SCH ×3 (01:00→17:42)
[2016-09-05] MEDS: ALPRAZolam 0.5 MG TAB PO PRN ×4 (02:10→20:14)
[2016-09-05 03:50] VITALS: BP 127/81; PULSE 61; RESP 17; TEMP 97.6; O2SAT 94
[2016-09-05 07:21] LABS: AUTOMATED NEUTROPHIL # 12.1 TH/MM3 (1.8-7.7); BASOPHIL # 0.1 TH/MM3 (0-0.2); BASOPHIL % 0.7 % (0.0-2.0); HEMATOCRIT 40.5 % (39.0-51.0); HEMO FLAGS DIFF FINAL; LYMPH % 2.4 % (9.0-44.0); LYMPHOCYTE # 0.3 TH/MM3 (1.0-4.8); MEAN CELL VOLUME 90.6 FL (80.0-100.0); MEAN CORPUSCULAR HEMOGLOBIN 29.4 PG (27.0-34.0); MEAN CORPUSCULAR HGB CONC 32.5 % (32.0-36.0); MONO % 6.7 % (0.0-8.0); NEUT % 90.2 % (16.0-70.0); PLATELET COUNT 270 TH/MM3 (150-450); RED BLOOD COUNT 4.47 MIL/MM3 (4.50-5.90); RED CELL DISTRIBUTION WIDTH 15.2 % (11.6-17.2); WHITE BLOOD COUNT 13.5 TH/MM3 (4.0-11.0)
[2016-09-05 07:46] LABS: ALT (GPT) 22 U/L (12-78); ANION GAP 7 MEQ/L (5-15); AST (GOT) 15 U/L (15-37); BICARBONATE 29.2 MEQ/L (21.0-32.0); BLOOD UREA NITROGEN 27 MG/DL (7-18); CHLORIDE 104 MEQ/L (98-107); GLOMERULAR FILTRATION RATE 60 ML/MIN (>89); POTASSIUM 3.3 MEQ/L (3.5-5.1); SODIUM (NA) 140 MEQ/L (136-145)
[2016-09-05 07:48] LABS: ALKALINE PHOSPHATASE 38 U/L (45-117); TOTAL BILIRUBIN ADULT 0.2 MG/DL (0.2-1.0)
[2016-09-05 08:00] VITALS: BP 139/82; PULSE 51; RESP 18; TEMP 96.5; O2SAT 94
[2016-09-05] MEDS: TAMSULOSIN HCL 0.4 MG CAP PO SCH (08:06)
[2016-09-05] MEDS: CIPROFLOXACIN 250 MG TAB PO SCH ×2 (08:07→20:14)
[2016-09-05] MEDS: PANTOPRAZOLE SOD 40 MG DELAYED RELEASE TAB PO SCH (08:07)
[2016-09-05] MEDS: predniSONE 10 MG TAB PO SCH ×2 (08:07→20:14)
[2016-09-05] MEDS: SODIUM CHLORIDE 0.9% FLUSH 10 ML FLUSH IV FLUSH SCH ×2 (08:07→20:15)
[2016-09-05] MEDS: HEPARIN SODIUM - SQ 10,000 UNITS/ML VIAL SQ SCH ×2 (08:18→17:43)
[2016-09-05] MEDS: methylPREDNISolone SOD SUCC 40 MG/1 ML VIAL IV PUSH SCH ×3 (08:18→17:43)
--- NOTE | 2016-09-05 10:59 | HHI.PR ---
Subjective History of Present Illness Patient abdominal distension still present no acute issue. have leukocytosis Creatinine at base line Nephrology/ Urology/ GI Input noted. Tolerating healthy heart diet. recheck UA. still shows UTI. ID. input noted Rocephin discontinued. Patient refused discharge wants to go after weekend. Review of Systems Constitutional Constitutional: Fatigue, Weakness GI/Abdomen GI/Abdomen Remarks Abdominal distension. Vitals/Results Intake & Output 09/04/16 09/04/16 09/05/16 15:00 23:00 07:00 Intake Total 960 ml 600 ml 480 ml Output Total 1450 ml 500 ml 1675 ml Balance -490 ml 100 ml -1195 ml Intake Oral 960 ml 600 ml 480 ml Output Urine Total 1450 ml 500 ml 1675 ml # Bowel Movements 2 0 0 Vital Signs Vital Signs Date Time Temp Pulse Resp B/P Pulse Ox O2 Delivery O2 Flow Rate FiO2 09/05/16 08:00 96.5 51 18 139/82 94 09/05/16 03:50 97.6 61 17 127/81 94 09/05/16 00:00 97.0 52 17 146/80 94 09/04/16 20:50 97.1 54 18 142/79 95 09/04/16 16:00 97.6 51 17 140/85 95 09/04/16 12:00 97.3 58 17 141/86 93 CBC/BMP: 09/05/16 0615 09/05/16 0605 Lab Results Laboratory Tests Test 09/05/16 09/05/16 06:05 06:15 Sodium Level 140 MEQ/L Potassium Level 3.3 MEQ/L Chloride Level 104 MEQ/L Carbon Dioxide Level 29.2 MEQ/L Anion Gap 7 MEQ/L Blood Urea Nitrogen 27 MG/DL Creatinine 1.23 MG/DL Estimat Glomerular Filtration 60 ML/MIN Rate Random Glucose 101 MG/DL Calcium Level 7.8 MG/DL Total Bilirubin 0.2 MG/DL Aspartate Amino Transf 15 U/L (AST/SGOT) Alanine Aminotransferase 22 U/L (ALT/SGPT) Alkaline Phosphatase 38 U/L Total Protein 5.3 GM/DL Albumin 2.1 GM/DL White Blood Count 13.5 TH/MM3 Red Blood Count 4.47 MIL/MM3 Hemoglobin 13.1 GM/DL Hematocrit 40.5 % Mean Corpuscular Volume 90.6 FL Mean Corpuscular Hemoglobin 29.4 PG Mean Corpuscular Hemoglobin 32.5 % Concent Red Cell Distribution Width 15.2 % Platelet Count 270 TH/MM3 Mean Platelet Volume 9.6 FL Neutrophils (%) (Auto) 90.2 % Lymphocytes (%) (Auto) 2.4 % Monocytes (%) (Auto) 6.7 % Eosinophils (%) (Auto) 0.0 % Basophils (%) (Auto) 0.7 % Neutrophils # (Auto) 12.1 TH/MM3 Lymphocytes # (Auto) 0.3 TH/MM3 Monocytes # (Auto) 0.9 TH/MM3 Eosinophils # (Auto) 0.0 TH/MM3 Basophils # (Auto) 0.1 TH/MM3 CBC Comment DIFF FINAL Differential Comment Physical Exam General General Appearance: Well Nourished, No Acute Distress, Comfortable Eyes Eye Exam: Pupils Equal, Pupils Reactive, Sclera White, Extraocular Movement Intact Throat Throat Exam: Oral Mucosa [place] & Moist, Oral Pharynx Normal Neck Neck Exam: Neck Supple, Trachea Midline Pulmonary Resp Exam: Clear Bilaterally, Breath Sounds Equal, No Distress Cardiology CV Exam: Regular, Normal Sinus Rhythm Gastrointestinal/Abdomen GI Exam: Soft, Non-Tender, Bowel Sounds Present, Distended Musculoskeletal MS Exam: Normal Tone Integumentary Skin Exam: Clear, Warm, Dry, Intact Extremeties Extremities Exam: No Edema Neurologic Neuro Exam: Alert, Awake, Oriented, Speech Clear Psychiatric Psych Exam: Appropriate Responses VTE Prophylaxis VTE Prophylaxis Meds: Heparin PUD Prophylasis PUD Prophylaxis: Protonix Assessment/Plan Assessment/Plan ASSESSMENT/PLAN This is a 60-year-old male came to the emergency department diagnosed with 1. Abdominal pain and distension most likely secondary to acute pancreatitis. started on clear liquid diet patient on pain medication, Lortab 5/325 n.p.o. q.6h p.r.n. pain. GI. Input noted for Further recommendation. need endoscopy as out patient. 2. Urinary retention status post Gasca catheter placement. urology input noted for further recommendations. 3. Renal failure. nephrology input noted . renal function at base line. 4. Urinary tract infection. The patient on Rocephin 1 gram IV daily.recheck UA... still shows UTI.. ID. input noted Rocephin discontinued. 5. History of COPD, asthma. Continue home medication / asthma continue home medications. 6. History of anxiety. Continue Xanax 0.5 mg p.o. q.6 h. 7. DVT prophylaxis with heparin 5000 units twice a day. And 8. GI prophylaxis with Protonix 40 mg p.o. daily. Check CBC with diff CMP in AM. We are going to manage the patient on a daily basis and make recommendations on a daily basis. Patient refused discharge wants to go after weekend. Arpit Peterson MD Sep 05, 2016 10:59
[2016-09-05 12:03] VITALS: BP 130/81; PULSE 76; RESP 18; TEMP 96.9; O2SAT 95
[2016-09-05 16:00] VITALS: BP 138/87; PULSE 57; RESP 18; TEMP 97.7; O2SAT 94
[2016-09-05 19:30] VITALS: BP 156/88; PULSE 60; RESP 17; TEMP 97.7; O2SAT 95
[2016-09-06 01:10] VITALS: BP 147/83; PULSE 60; RESP 17; TEMP 97.2; O2SAT 94
[2016-09-06] MEDS: metroNIDAZOLE 500 MG TAB PO SCH ×2 (01:30→09:53)
[2016-09-06] MEDS: ALPRAZolam 0.5 MG TAB PO PRN ×2 (02:20→09:53)
[2016-09-06] MEDS: methylPREDNISolone SOD SUCC 40 MG/1 ML VIAL IV PUSH SCH ×2 (06:00)
[2016-09-06] MEDS: HEPARIN SODIUM - SQ 10,000 UNITS/ML VIAL SQ SCH (06:00)
[2016-09-06 06:09] LABS: BASOPHIL % 0.2 % (0.0-2.0); HEMATOCRIT 40.6 % (39.0-51.0); LYMPH % 2.4 % (9.0-44.0); LYMPHOCYTE # 0.3 TH/MM3 (1.0-4.8); MEAN CELL VOLUME 89.7 FL (80.0-100.0); MEAN CORPUSCULAR HEMOGLOBIN 30.2 PG (27.0-34.0); MEAN CORPUSCULAR HGB CONC 33.6 % (32.0-36.0); MONO % 6.7 % (0.0-8.0); NEUT % 90.7 % (16.0-70.0); PLATELET COUNT 292 TH/MM3 (150-450); RED BLOOD COUNT 4.52 MIL/MM3 (4.50-5.90); RED CELL DISTRIBUTION WIDTH 15.1 % (11.6-17.2); WHITE BLOOD COUNT 13.2 TH/MM3 (4.0-11.0)
[2016-09-06 06:14] LABS: HEMO FLAGS AUTO DIFF
[2016-09-06 06:39] LABS: ANION GAP 9 MEQ/L (5-15); AST (GOT) 14 U/L (15-37); BICARBONATE 29.2 MEQ/L (21.0-32.0); BLOOD UREA NITROGEN 27 MG/DL (7-18); CHLORIDE 102 MEQ/L (98-107); GLOMERULAR FILTRATION RATE 47 ML/MIN (>89); POTASSIUM 3.6 MEQ/L (3.5-5.1); SODIUM (NA) 140 MEQ/L (136-145)
[2016-09-06 06:40] LABS: ALT (GPT) 27 U/L (12-78)
[2016-09-06 06:42] LABS: ALKALINE PHOSPHATASE 39 U/L (45-117); TOTAL BILIRUBIN ADULT 0.2 MG/DL (0.2-1.0)
[2016-09-06 07:24] VITALS: BP 164/89; PULSE 65; RESP 17; TEMP 96.9; O2SAT 94
[2016-09-06 08:27] LABS: BANDS 4 % (0-6); MYELOCYTES 2 % (0-0); NEUTROPHIL # MANUAL DIFF 11.6 TH/MM3 (1.8-7.7); PLATELET ESTIMATE SMEAR NORMAL (NORMAL); PLATELET MORPHOLOGY NORMAL (NORMAL); POLYS (SEG NEUTROPHILS) 82 % (16-70); SCAN/DIFF FINAL DIFF MANUAL; WBC DIFF SAMPLE 100
[2016-09-06] MEDS: PANTOPRAZOLE SOD 40 MG DELAYED RELEASE TAB PO SCH (09:53)
[2016-09-06] MEDS: TAMSULOSIN HCL 0.4 MG CAP PO SCH (09:53)
[2016-09-06] MEDS: SODIUM CHLORIDE 0.9% FLUSH 10 ML FLUSH IV FLUSH SCH (09:53)
[2016-09-06] MEDS: CIPROFLOXACIN 250 MG TAB PO SCH (09:54)
[2016-09-06] MEDS: predniSONE 10 MG TAB PO SCH (09:54)
--- NOTE | 2016-09-06 10:36 | HHI.PR ---
Subjective History of Present Illness Patient abdominal distension still present no acute issue. have leukocytosis Creatinine at base line Nephrology/ Urology/ GI Input noted. Tolerating healthy heart diet. recheck UA. still shows UTI. ID. input noted Rocephin discontinued. ok to dc home today. Review of Systems Constitutional Constitutional: Fatigue, Weakness GI/Abdomen GI/Abdomen Remarks Abdominal distension. Vitals/Results Intake & Output 09/05/16 09/05/16 09/06/16 15:00 23:00 07:00 Intake Total 960 ml 600 ml 720 ml Output Total 775 ml 350 ml 950 ml Balance 185 ml 250 ml -230 ml Intake Oral 960 ml 600 ml 720 ml Output Urine Total 775 ml 350 ml 950 ml # Bowel Movements 2 0 0 Vital Signs Vital Signs Date Time Temp Pulse Resp B/P Pulse Ox O2 Delivery O2 Flow Rate FiO2 09/06/16 07:24 96.9 65 17 164/89 94 09/06/16 01:10 97.2 60 17 147/83 94 09/05/16 19:30 97.7 60 17 156/88 95 09/05/16 16:00 97.7 57 18 138/87 94 09/05/16 12:03 96.9 76 18 130/81 95 CBC/BMP: 09/06/16 0520 09/06/16 0520 Lab Results Laboratory Tests Test 09/06/16 05:20 White Blood Count 13.2 TH/MM3 Red Blood Count 4.52 MIL/MM3 Hemoglobin 13.6 GM/DL Hematocrit 40.6 % Mean Corpuscular Volume 89.7 FL Mean Corpuscular Hemoglobin 30.2 PG Mean Corpuscular Hemoglobin 33.6 % Concent Red Cell Distribution Width 15.1 % Platelet Count 292 TH/MM3 Mean Platelet Volume 9.4 FL Neutrophils (%) (Auto) 90.7 % Lymphocytes (%) (Auto) 2.4 % Monocytes (%) (Auto) 6.7 % Eosinophils (%) (Auto) 0.0 % Basophils (%) (Auto) 0.2 % Neutrophils # (Auto) 12.0 TH/MM3 Lymphocytes # (Auto) 0.3 TH/MM3 Monocytes # (Auto) 0.9 TH/MM3 Eosinophils # (Auto) 0.0 TH/MM3 Basophils # (Auto) 0.0 TH/MM3 CBC Comment AUTO DIFF Differential Total Cells 100 Counted Neutrophils % (Manual) 82 % Band Neutrophils % 4 % Lymphocytes % 4 % Monocytes % 8 % Neutrophils # (Manual) 11.6 TH/MM3 Myelocytes 2 % Differential Comment FINAL DIFF MANUAL Platelet Estimate NORMAL Platelet Morphology Comment NORMAL Red Cell Morphology Comment NORMAL Sodium Level 140 MEQ/L Potassium Level 3.6 MEQ/L Chloride Level 102 MEQ/L Carbon Dioxide Level 29.2 MEQ/L Anion Gap 9 MEQ/L Blood Urea Nitrogen 27 MG/DL Creatinine 1.52 MG/DL Estimat Glomerular Filtration 47 ML/MIN Rate Random Glucose 151 MG/DL Calcium Level 7.5 MG/DL Total Bilirubin 0.2 MG/DL Aspartate Amino Transf 14 U/L (AST/SGOT) Alanine Aminotransferase 27 U/L (ALT/SGPT) Alkaline Phosphatase 39 U/L Total Protein 5.3 GM/DL Albumin 2.1 GM/DL Physical Exam General General Appearance: Well Nourished, No Acute Distress, Comfortable Eyes Eye Exam: Pupils Equal, Pupils Reactive, Sclera White, Extraocular Movement Intact Throat Throat Exam: Oral Mucosa [place] & Moist, Oral Pharynx Normal Neck Neck Exam: Neck Supple, Trachea Midline Pulmonary Resp Exam: Clear Bilaterally, Breath Sounds Equal, No Distress Cardiology CV Exam: Regular, Normal Sinus Rhythm Gastrointestinal/Abdomen GI Exam: Soft, Non-Tender, Bowel Sounds Present, Distended Musculoskeletal MS Exam: Normal Tone Integumentary Skin Exam: Clear, Warm, Dry, Intact Extremeties Extremities Exam: No Edema Neurologic Neuro Exam: Alert, Awake, Oriented, Speech Clear Psychiatric Psych Exam: Appropriate Responses VTE Prophylaxis VTE Prophylaxis Meds: Heparin PUD Prophylasis PUD Prophylaxis: Protonix Assessment/Plan Assessment/Plan ASSESSMENT/PLAN This is a 60-year-old male came to the emergency department diagnosed with 1. Abdominal pain and distension most likely secondary to acute pancreatitis. started on clear liquid diet patient on pain medication, Lortab 5/325 n.p.o. q.6h p.r.n. pain. GI. Input noted for Further recommendation. need endoscopy as out patient. 2. Urinary retention status post Gasca catheter placement. urology input noted for further recommendations. 3. Renal failure. nephrology input noted . renal function at base line. 4. Urinary tract infection. The patient on Rocephin 1 gram IV daily.recheck UA... still shows UTI.. ID. input noted Rocephin discontinued. 5. History of COPD, asthma. Continue home medication / asthma continue home medications. 6. History of anxiety. Continue Xanax 0.5 mg p.o. q.6 h. 7. DVT prophylaxis with heparin 5000 units twice a day. And 8. GI prophylaxis with Protonix 40 mg p.o. daily. ok to dc home today. f/u with pcp/ urology/ nephrology/ GI 1 week. Discussed Condition with: Patient Arpit Peterson MD Sep 06, 2016 10:36
--- NOTE | 2016-09-10 14:58 | MD ---
cc: KEATON ESTRADA MD ADMISSION DATE: 09/02/2016 DISCHARGE DATE: 09/06/2016 okay to discharge patient, condition at the time of discharge satisfactory activity as tolerated. Diet cardiac diet ALLERGIES NO KNOWN DRUG ALLERGIES. DISCHARGE MEDICATIONS Include 1. Xanax 0.5 mg p.o. q. 6-hour. 2. Ciprofloxacin 250 mg twice a day. 3. Hydrocodone/Acetaminophen one p.o. q.6 h p.r.n. pain 4. Metronidazole 500 mg t.i.d. 5. Albuterol inhaler 2 puffs inhalation q. 4-hour. 6. Prednisone 10 mg p.o. daily. 7. Flomax 0.4 mg p.o. daily, DISCHARGE INSTRUCTIONS: The patient was advised to follow with [facility] and primary care doctor in 1 week. ADMISSION DIAGNOSIS 1. Abdominal pain and distension, likely distended due to acute pancreatitis. The patient was given regular diet and tolerating a regular diet and needs an endoscopy as outpatient per GI and the patient needs to follow up with gastrointestinal. The patient was advised, the patient verbalized understanding. 2. Urinary retention; status post Gasca catheter placement. Neurology has seen the patient, wants to see the patient as an outpatient. The patient advised to see Urology as an outpatient. Renal failure, stage 3. 3. Nephrology has seen the patient. The patients renal function came back to baseline and needs to see follow up with the nephrology as an outpatient. 4. Urinary tract infection. The patient was given Rocephin and infectious disease is seeing the patient, wants to continue with Cipro and the patient advised to continue Cipro for next ten days. 5. History of chronic obstructive pulmonary disease and asthma. 6. Chronic obstructive pulmonary disease and asthma. 7. History of anxiety. HOSPITAL COURSE This is a 60-year male admitted with abdominal distension diagnosed with acute pancreatitis and most likely colitis. The patient was seen by GI and also had urinary retention seen by urology and also had renal failure which is he has acute on chronic renal failure with 18, came back to the baseline. The patient had a urinary tract infection was given Rocephin and Cipro and discontinued the Rocephin and continued on Cipro at home for 10 more days per infectious disease recommendations. The patient remains stable. The patient was discharged in satisfactory condition. The patient had leukocytosis which is improved. The patient had hypokalemia during hospital stay which resolved. The patient creatinine was 1.52 at the time of discharge. The patients repeat urinalysis was normal. The patients urine cultures grew nothing on 09/01/2016 and on 08/29 shows less than 10,000 CFU ML gram-positive darío. The patients CT abdomen and pelvis was done shows interval decrease in collecting system dilatation following Gasca catheter placement. No acute finding. The patient remained stable. Discharged in satisfactory condition. Further details in the medical record. Keaton Estrada MD EA/daniel /10:41 AM /2:53 PM
== END 2016-09-06 12:25 | disposition home or self-care (01) | DRG 439 ==
LOC: NEPE 20:42 → NEDA 08-30 01:43 → NEPGCP 08-30 04:02 → OBSVTOIN 09-02 09:04 → N06B 09-02 22:28
PROVIDERS: ADMIT Family Medicine; ATTEND Family Medicine
DX: K85.90 Acute pancreatitis without necrosis or infection, unspecified (principal); N39.0 Urinary tract infection, site not specified; N17.9 Acute kidney failure, unspecified; N13.30 Unspecified hydronephrosis; N18.3 Chronic kidney disease, stage 3 (moderate); R33.9 Retention of urine, unspecified; N40.1 Benign prostatic hyperplasia with lower urinary tract symptoms; N31.9 Neuromuscular dysfunction of bladder, unspecified; Z72.89 Other problems related to lifestyle; E86.0 Dehydration; F41.9 Anxiety disorder, unspecified; J44.9 Chronic obstructive pulmonary disease, unspecified; J45.909 Unspecified asthma, uncomplicated
CPT/HCPCS: 51700; 71010; 74176; 80048; 80053; 81001; 82550; 83690; 83880; 84484; 85007; 85025; 85027; 87086; 93005; 94664; 96374; 96375; G0378; J0696; J1644; J2920; J2930; J7030; J7512; Q9963

== ENCOUNTER 2016-10-24 07:13 | Emergency (ER) | payer OTHER ==
[~2016-10-24] VITALS: Ht 190.5 cm; Wt 81.0 kg
[~2016-10-24 07:13] MED LIST changes: +HYDR-3516 PO; -LORA-474 PO; -SYMB160A INH
[2016-10-24 07:24] VITALS: BP 127/84; PULSE 92; RESP 16; TEMP 98.6; O2SAT 92
[2016-10-24] MEDS ORDERED: LORazepam 2 MG/ML VIAL IV ONE (07:45)
[2016-10-24] MEDS ORDERED: methylPREDNISolone SOD SUCC 125 MG/2 ML VIAL IVP ONE (07:45)
[2016-10-24] MEDS: RESP: ALBUTEROL 2.5 MG/IPRATROPIUM 0.5 MG NEB (SCH) INH (07:48)
[2016-10-24 07:49] VITALS: O2SAT 93
[2016-10-24 07:53] VITALS: BP 127/84; PULSE 83; RESP 18; O2SAT 94
--- NOTE | 2016-10-24 07:59 | PD ---
HPI Chief Complaint: Psychiatric Symptoms Time Seen by Provider: 07:31 Travel History International Travel<30 days: No Contact w/Intl Traveler<30days: No Traveled to known affect area: No History of Present Illness HPI Patient is a 61 year old male who is brought in by police under a [place] Act after stating he wanted to kill himself because he lost his Xanax. He says that he has not had Xanax for 4 days and he feels like he's "losing it." He cannot describe to me what he is feeling. He admits to drinking last night. He denies any medical complaints. PFSH Past Medical History Hx Anticoagulant Therapy: No Arthritis: No Asthma: Yes Autoimmune Disease: No Blood Disorders: No Anxiety: Yes Depression: No Heart Rhythm Problems: No Cancer: No Cardiovascular Problems: No High Cholesterol: No Chemotherapy: No Chest Pain: No Congestive Heart Failure: No COPD: No Cerebrovascular Accident: No Diabetes: No Diminished Hearing: No Endocrine: No Gastrointestinal Disorders: Yes (POSSIBLE HERNIA) GERD: No Glaucoma: No Genitourinary: Yes (ENLARGED PROSTATE CAUSING DELAYED BLADDER EMPTYING/UTI) Headaches: No Hepatitis: No Hiatal Hernia: Yes Hypertension: No Immune Disorder: No Implanted Vascular Access Dvce: Yes Kidney Stones: No Musculoskeletal: No Neurologic: No Psychiatric: Yes Reproductive: No Respiratory: Yes Immunizations Current: Yes Migraines: No Myocardial Infarction: No Radiation Therapy: No Renal Failure: No Seizures: No Sickle Cell Disease: No Sleep Apnea: No Thyroid Disease: No Past Surgical History Abdominal Surgery: Yes (HERNIA REPAIR) AICD: No Arteriovenous Shunt: No Body Medical Devices: DENTAL IMPLANT Cardiac Surgery: No Cholecystectomy: No Ear Surgery: No Endocrine Surgery: No Eye Surgery: No Genitourinary Surgery: Yes (TURP secondary to BPH) Gynecologic Surgery: No Insulin Pump: No Joint Replacement: No Oral Surgery: Yes (TOOTH PULLED UNDER ANESTHESIA) Pacemaker: No Thoracic Surgery: No Other Surgery: Yes Social History Alcohol Use: Yes Tobacco Use: No Substance Use: No Allergies-Medications (Allergen,Severity, Reaction): Coded Allergies: No Known Allergies (Verified , 08/29/16) Reported Meds & Prescriptions Reported Meds & Active Scripts Active Xanax (Alprazolam) 0.5 Mg Tab 0.5 Mg PO Q6H PRN Flagyl (Metronidazole) 500 Mg Tab 500 Mg PO TID Hydrocodone-Acetaminophen 5-325 mg Tab 1 Tab PO Q6H PRN Cipro (Ciprofloxacin HCl) 250 Mg Tab 500 Mg PO BID Ventolin Hfa 18 GM Inh (Albuterol Sulfate) 90 Mcg/Act Aer 2 Puff INH Q4-6H PRN Reported Xanax (Alprazolam) 0.5 Mg Tab 0.5 Mg PO DAILY PRN Prednisone 20 Mg Tab 10 Mg PO BID Tamsulosin (Tamsulosin HCl) 0.4 Mg Cap 0.4 Mg PO DAILY Review of Systems ROS Limitations: Intoxication Physical Exam Narrative GENERAL: Awake and alert, in no acute distress. Moaning, with his arm over his head. SKIN: Focused skin assessment warm/dry. HEAD: Atraumatic. Normocephalic. EYES: Pupils equal and round. No scleral icterus. No injection or drainage. ENT: Mucous membranes pink and moist. No tongue fasciculations. NECK: Trachea midline. No JVD. CARDIOVASCULAR: Regular rate and rhythm. No murmur appreciated. RESPIRATORY: No accessory muscle use. Diffuse wheezing. Breath sounds equal bilaterally. GASTROINTESTINAL: Abdomen soft, non-tender, nondistended. MUSCULOSKELETAL: No obvious deformities. No clubbing. No cyanosis. No edema. NEUROLOGICAL: Awake and alert. No obvious cranial nerve deficits. Motor grossly within normal limits. Normal speech. No tremors. PSYCHIATRIC: Appropriate mood and affect; insight and judgment normal. Data Data Last Documented VS Vital Signs Date Time Temp Pulse Resp B/P Pulse Ox O2 Delivery O2 Flow Rate FiO2 10/24/16 17:30 112 18 134/97 95 Room Air 10/24/16 12:30 97.5 10/24/16 07:49 2.00 Orders Complete Blood Count With Diff (10/24/16 07:39) Comprehensive Metabolic Panel (10/24/16 07:39) Oximetry (10/24/16 07:39) Iv Access Insert/Monitor (10/24/16 07:39) Ecg Monitoring (10/24/16 07:39) Oxygen Administration (10/24/16 07:39) Psych Screen (10/24/16 07:39) Lorazepam Inj (Ativan Inj) (10/24/16 07:45) Drug Screen, Random Urine (10/24/16 07:39) Alcohol (Ethanol) (10/24/16 07:39) Methylprednisolone So Succ Inj (Solumedr (10/24/16 07:45) Albuterol-Ipratropium Neb (Duoneb Neb) (10/24/16 07:45) Chest, Single Ap (10/24/16 ) Basic Metabolic Panel (Bmp) (10/24/16 08:53) Diet Regular Basic (10/24/16 Dinner) Quetiapine (Seroquel) (10/24/16 17:15) Labs Laboratory Tests Test 10/24/16 10/24/16 07:50 09:20 White Blood Count 11.9 TH/MM3 Red Blood Count 5.27 MIL/MM3 Hemoglobin 15.4 GM/DL Hematocrit 48.0 % Mean Corpuscular Volume 91.2 FL Mean Corpuscular Hemoglobin 29.3 PG Mean Corpuscular Hemoglobin 32.2 % Concent Red Cell Distribution Width 15.3 % Platelet Count 437 TH/MM3 Mean Platelet Volume 8.2 FL Neutrophils (%) (Auto) 75.7 % Lymphocytes (%) (Auto) 10.4 % Monocytes (%) (Auto) 8.1 % Eosinophils (%) (Auto) 4.6 % Basophils (%) (Auto) 1.2 % Neutrophils # (Auto) 9.1 TH/MM3 Lymphocytes # (Auto) 1.2 TH/MM3 Monocytes # (Auto) 1.0 TH/MM3 Eosinophils # (Auto) 0.5 TH/MM3 Basophils # (Auto) 0.1 TH/MM3 CBC Comment DIFF FINAL Differential Comment Sodium Level 138 MEQ/L 135 MEQ/L Potassium Level 5.6 MEQ/L 4.1 MEQ/L Chloride Level 99 MEQ/L 99 MEQ/L Carbon Dioxide Level 26.2 MEQ/L 22.7 MEQ/L Anion Gap 13 MEQ/L 13 MEQ/L Blood Urea Nitrogen 13 MG/DL 14 MG/DL Creatinine 1.64 MG/DL 1.44 MG/DL Estimat Glomerular Filtration 43 ML/MIN 50 ML/MIN Rate Random Glucose 76 MG/DL 85 MG/DL Calcium Level 8.2 MG/DL 8.1 MG/DL Total Bilirubin 0.6 MG/DL Aspartate Amino Transf 43 U/L (AST/SGOT) Alanine Aminotransferase 32 U/L (ALT/SGPT) Alkaline Phosphatase 97 U/L Total Protein 7.7 GM/DL Albumin 2.7 GM/DL Ethyl Alcohol Level 250 MG/DL [facility] Medical Decision Making Medical Screen Exam Complete: Yes Emergency Medical Condition: Yes Medical Record Reviewed: Yes Differential Diagnosis malingering vs psychosis vs intoxication vs drug seeking vs suicidality Narrative Course Patient is a 61-year-old male who comes in because he has not had his Xanax. Exam shows wheezing throughout both lungs. IV established, labs sent. Labs show no acute abnormalities. Patient given 3 duo nebs as well as Solu-Medrol. Given a small dose of Ativan as well as fluids. He'll be medically cleared for psychiatric evaluation. Disposition per psychiatry. Diagnosis Primary Impression: Benzodiazepine withdrawal Qualified Code: F13.230 - Benzodiazepine withdrawal, uncomplicated Condition: Stable Merlene Vogel MD Oct 24, 2016 07:59
[2016-10-24 08:12] LABS: AUTOMATED NEUTROPHIL # 9.1 TH/MM3 (1.8-7.7); BASOPHIL # 0.1 TH/MM3 (0-0.2); BASOPHIL % 1.2 % (0.0-2.0); EOSINOPHIL # 0.5 TH/MM3 (0-0.4); EOSINOPHIL % 4.6 % (0.0-4.0); HEMO FLAGS DIFF FINAL; LYMPH % 10.4 % (9.0-44.0); LYMPHOCYTE # 1.2 TH/MM3 (1.0-4.8); MEAN CELL VOLUME 91.2 FL (80.0-100.0); MEAN CORPUSCULAR HEMOGLOBIN 29.3 PG (27.0-34.0); MEAN CORPUSCULAR HGB CONC 32.2 % (32.0-36.0); MONO % 8.1 % (0.0-8.0); NEUT % 75.7 % (16.0-70.0); PLATELET COUNT 437 TH/MM3 (150-450); RED BLOOD COUNT 5.27 MIL/MM3 (4.50-5.90); RED CELL DISTRIBUTION WIDTH 15.3 % (11.6-17.2); WHITE BLOOD COUNT 11.9 TH/MM3 (4.0-11.0)
--- NOTE | 2016-10-24 08:16 | RADRPT ---
EXAM DATE/TIME: 10/24/2016 07:36 [facility] COMPARISON: CHEST SINGLE AP, August 29, 2016, 22:58. INDICATIONS : Short of breath MEDICAL HISTORY : None. SURGICAL HISTORY : Inguinal hernia repair. ENCOUNTER: Initial ACUITY: 4 - 6 days PAIN SCORE: 0/10 LOCATION: chest FINDINGS: The lungs are clear without infiltrate, nodule, or mass. There is no appreciable pleural effusion fo r technique. Heart and mediastinum are unremarkable. CONCLUSION: No acute cardiopulmonary disease. Ly Wellington MD on October 24, 2016 at 8:14 Board Certified Radiologist. This report was verified electronically.
[2016-10-24 08:28] LABS: ALKALINE PHOSPHATASE 97 U/L (45-117); TOTAL BILIRUBIN ADULT 0.6 MG/DL (0.2-1.0)
[2016-10-24 08:48] LABS: ALT (GPT) 32 U/L (12-78); ANION GAP 13 MEQ/L (5-15); BICARBONATE 26.2 MEQ/L (21.0-32.0); BLOOD UREA NITROGEN 13 MG/DL (7-18); CHLORIDE 99 MEQ/L (98-107); GLOMERULAR FILTRATION RATE 43 ML/MIN (>89); SODIUM (NA) 138 MEQ/L (136-145)
[2016-10-24 08:49] LABS: AST (GOT) 43 U/L (15-37); POTASSIUM 5.6 MEQ/L (3.5-5.1)
[2016-10-24 10:02] LABS: BICARBONATE 22.7 MEQ/L (21.0-32.0); POTASSIUM 4.1 MEQ/L (3.5-5.1)
[2016-10-24 11:36] VITALS: BP 141/75; PULSE 75; RESP 16; O2SAT 100
[2016-10-24 12:30] VITALS: BP 118/77; PULSE 97; RESP 18; TEMP 97.5; O2SAT 92
[2016-10-24] MEDS ORDERED: QUEtiapine FUMARATE 25 MG TAB PO ONE (17:15)
[2016-10-24 17:30] VITALS: BP 134/97; PULSE 112; RESP 18; O2SAT 95
--- NOTE | 2016-10-24 18:02 | PD ---
History of Present Illness Chief Complaint: Psychiatric Symptoms Time Seen by Provider: 17:00 Travel History International Travel<30 Days: No Contact w/Intl Traveler<30days: No Known affected area: No Legal Status Legal Status: [place] Signed By: Yael Riley History of Present Illness: History of Present Illness HPI Patient is a 61 year old male who is brought in by police under a [place] Act after stating he wanted to kill himself because he lost his Xanax. He says that he has not had Xanax for 4 days and he feels like he's "losing it." He cannot describe to me what he is feeling. He admits to drinking last night. He denies any medical complaints PFSH Past Medical History Hx Anticoagulant Therapy: No Arthritis: No Asthma: Yes Autoimmune Disease: No Blood Disorders: No Anxiety: Yes Depression: No Heart Rhythm Problems: No Cancer: No Cardiovascular Problems: No High Cholesterol: No Chemotherapy: No Chest Pain: No Congestive Heart Failure: No COPD: No Cerebrovascular Accident: No Diabetes: No Diminished Hearing: No Endocrine: No Gastrointestinal Disorders: Yes (POSSIBLE HERNIA) GERD: No Glaucoma: No Genitourinary: Yes (ENLARGED PROSTATE CAUSING DELAYED BLADDER EMPTYING/UTI) Headaches: No Hepatitis: No Hiatal Hernia: Yes Hypertension: No Immune Disorder: No Implanted Vascular Access Dvce: Yes Kidney Stones: No Musculoskeletal: No Neurologic: No Psychiatric: Yes Reproductive: No Respiratory: Yes Immunizations Current: Yes Migraines: No Myocardial Infarction: No Radiation Therapy: No Renal Failure: No Seizures: No Sickle Cell Disease: No Sleep Apnea: No Thyroid Disease: No Past Surgical History Abdominal Surgery: Yes (HERNIA REPAIR) AICD: No Arteriovenous Shunt: No Body Medical Devices: DENTAL IMPLANT Cardiac Surgery: No Cholecystectomy: No Ear Surgery: No Endocrine Surgery: No Eye Surgery: No Genitourinary Surgery: Yes (TURP secondary to BPH) Gynecologic Surgery: No Insulin Pump: No Joint Replacement: No Oral Surgery: Yes (TOOTH PULLED UNDER ANESTHESIA) Pacemaker: No Thoracic Surgery: No Other Surgery: Yes Psychiatric History Psychiatric History Hx Psychiatric Treatment: PATIENT STATED THAT HE HAS A HISTORY OF ANXIETY. History of Inpatient Treatment: No Social History Hx Alcohol Use: Yes Hx Tobacco Use: No Hx Substance Use: Yes Substance Use Type: Alcohol Hx of Substance Use Treatment: No Allergies-Medications (Allergen,Severity, Reaction): Coded Allergies: No Known Allergies (Verified , 11/08/16) Reported Meds & Prescriptions Reported Meds & Active Scripts Active Xanax (Alprazolam) 0.5 Mg Tab 0.5 Mg PO Q6H PRN Flagyl (Metronidazole) 500 Mg Tab 500 Mg PO TID Hydrocodone-Acetaminophen 5-325 mg Tab 1 Tab PO Q6H PRN Cipro (Ciprofloxacin HCl) 250 Mg Tab 500 Mg PO BID Ventolin Hfa 18 GM Inh (Albuterol Sulfate) 90 Mcg/Act Aer 2 Puff INH Q4-6H PRN Reported Xanax (Alprazolam) 0.5 Mg Tab 0.5 Mg PO DAILY PRN Prednisone 20 Mg Tab 10 Mg PO BID Tamsulosin (Tamsulosin HCl) 0.4 Mg Cap 0.4 Mg PO DAILY MDM Medical Decision Making Medical Record Reviewed: Yes Orders Complete Blood Count With Diff (10/24/16 07:39) Comprehensive Metabolic Panel (10/24/16 07:39) Oximetry (10/24/16 07:39) Iv Access Insert/Monitor (10/24/16 07:39) Ecg Monitoring (10/24/16 07:39) Oxygen Administration (10/24/16 07:39) Psych Screen (10/24/16 07:39) Lorazepam Inj (Ativan Inj) (10/24/16 07:45) Drug Screen, Random Urine (10/24/16 07:39) Alcohol (Ethanol) (10/24/16 07:39) Methylprednisolone So Succ Inj (Solumedr (10/24/16 07:45) Albuterol-Ipratropium Neb (Duoneb Neb) (10/24/16 07:45) Chest, Single Ap (10/24/16 ) Basic Metabolic Panel (Bmp) (10/24/16 08:53) Diet Regular Basic (10/24/16 Dinner) Quetiapine (Seroquel) (10/24/16 17:15) Results Vital Signs Date Time Temp Pulse Resp B/P Pulse Ox O2 Delivery O2 Flow Rate FiO2 10/24/16 17:30 112 18 134/97 95 Room Air 10/24/16 12:30 97.5 97 18 118/77 92 10/24/16 11:36 75 16 141/75 100 10/24/16 07:53 94 Room Air 10/24/16 07:53 83 18 127/84 94 Room Air 10/24/16 07:49 93 Nasal Cannula 2.00 10/24/16 07:24 98.6 92 16 127/84 92 Laboratory Tests Test 10/24/16 10/24/16 07:50 09:20 White Blood Count 11.9 Red Blood Count 5.27 Hemoglobin 15.4 Hematocrit 48.0 Mean Corpuscular Volume 91.2 Mean Corpuscular Hemoglobin 29.3 Mean Corpuscular Hemoglobin 32.2 Concent Red Cell Distribution Width 15.3 Platelet Count 437 Mean Platelet Volume 8.2 Neutrophils (%) (Auto) 75.7 Lymphocytes (%) (Auto) 10.4 Monocytes (%) (Auto) 8.1 Eosinophils (%) (Auto) 4.6 Basophils (%) (Auto) 1.2 Neutrophils # (Auto) 9.1 Lymphocytes # (Auto) 1.2 Monocytes # (Auto) 1.0 Eosinophils # (Auto) 0.5 Basophils # (Auto) 0.1 CBC Comment DIFF FINAL Differential Comment Sodium Level 138 135 Potassium Level 5.6 4.1 Chloride Level 99 99 Carbon Dioxide Level 26.2 22.7 Anion Gap 13 13 Blood Urea Nitrogen 13 14 Creatinine 1.64 1.44 Estimat Glomerular Filtration 43 50 Rate Random Glucose 76 85 Calcium Level 8.2 8.1 Total Bilirubin 0.6 Aspartate Amino Transf 43 (AST/SGOT) Alanine Aminotransferase 32 (ALT/SGPT) Alkaline Phosphatase 97 Total Protein 7.7 Albumin 2.7 Ethyl Alcohol Level 250 Diagnosis Primary Impression: Alcohol abuse with alcohol-induced mood disorder Psychiatrically Cleared: Yes Disposition: 01 DISCHARGE HOME Condition: Stable Deanna Swanson Benjamin GARCIA Oct 24, 2016 18:01
[2016-10-24] MEDS ORDERED: SERO25TA PO (18:32)
[2016-10-25] MEDS ORDERED: MACR100C2 PO (06:18)
== END 2016-10-24 19:07 | disposition home or self-care (01) ==
LOC: NEPE 07:13 → NEPJ 19:07
DX: F10.14 Alcohol abuse with alcohol-induced mood disorder (principal); J45.909 Unspecified asthma, uncomplicated; F41.9 Anxiety disorder, unspecified; N40.0 Benign prostatic hyperplasia without lower urinary tract symptoms; Z79.899 Other long term (current) drug therapy
CPT/HCPCS: 71010; 80048; 80053; 80307; 85025; 94640; 94664; 96374; 96375; 99285; J2060; J2930

== ENCOUNTER 2016-10-25 01:30 | Emergency (ER) | payer OTHER ==
[~2016-10-25] VITALS: Ht 190.5 cm; Wt 85.0 kg
[2016-10-25] VITALS (7 sets, daily range): BP systolic 111–128; BP diastolic 66–84; PULSE 87–103; RESP 18; TEMP 98.9; O2SAT 93–97
[~2016-10-25 01:30] MED LIST changes: +SERO25TA PO
[2016-10-25 03:55] LABS: HEMATOCRIT 43.4 % (39.0-51.0); MEAN CELL VOLUME 89.3 FL (80.0-100.0); MEAN CORPUSCULAR HEMOGLOBIN 30.1 PG (27.0-34.0); MEAN CORPUSCULAR HGB CONC 33.7 % (32.0-36.0); PLATELET COUNT 396 TH/MM3 (150-450); RED BLOOD COUNT 4.87 MIL/MM3 (4.50-5.90); RED CELL DISTRIBUTION WIDTH 15.1 % (11.6-17.2); WHITE BLOOD COUNT 17.2 TH/MM3 (4.0-11.0)
[2016-10-25 03:56] LABS: HEMO FLAGS AUTO DIFF
[2016-10-25 04:11] LABS: BICARBONATE 24.1 MEQ/L (21.0-32.0); POTASSIUM 4.6 MEQ/L (3.5-5.1)
[2016-10-25 04:24] LABS: BANDS 8 % (0-6); POLYS (SEG NEUTROPHILS) 91 % (16-70); WBC DIFF SAMPLE 100
[2016-10-25 04:25] LABS: PLATELET ESTIMATE SMEAR NORMAL (NORMAL); PLATELET MORPHOLOGY NORMAL (NORMAL); SCAN/DIFF FINAL DIFF MANUAL
--- NOTE | 2016-10-25 04:52 | PD ---
HPI Chief Complaint: Complaint Time Seen by Provider: 02:14 Travel History International Travel<30 days: No Contact w/Intl Traveler<30days: No Traveled to known affect area: No History of Present Illness HPI 61yo M with PMH of anxiety, COPD, prostate enlargement presents to the ED with c /o difficulty emptying his bladder and abdominal pain for a few days. Denies any fever, chest pain, sob, nausea, or vomiting. Pt states he needs something for his anxiety and usually takes 2mg of xanax. Feels very anxious. PFSH Past Medical History Hx Anticoagulant Therapy: No Arthritis: No Asthma: Yes Autoimmune Disease: No Blood Disorders: No Anxiety: Yes Depression: No Heart Rhythm Problems: No Cancer: No Cardiovascular Problems: No High Cholesterol: No Chemotherapy: No Chest Pain: No Congestive Heart Failure: No COPD: No Cerebrovascular Accident: No Diabetes: No Diminished Hearing: No Endocrine: No Gastrointestinal Disorders: Yes (POSSIBLE HERNIA) GERD: No Glaucoma: No Genitourinary: Yes (ENLARGED PROSTATE CAUSING DELAYED BLADDER EMPTYING/UTI) Headaches: No Hepatitis: No Hiatal Hernia: Yes Hypertension: No Immune Disorder: No Implanted Vascular Access Dvce: Yes Kidney Stones: No Medical other: Yes (INGUINAL HERNIA, VASCULITIS) Musculoskeletal: No Neurologic: No Psychiatric: Yes Reproductive: No Respiratory: Yes Immunizations Current: Yes Migraines: No Myocardial Infarction: No Radiation Therapy: No Renal Failure: No Seizures: No Sickle Cell Disease: No Sleep Apnea: No Thyroid Disease: No Tetanus Vaccination: Unknown Past Surgical History Abdominal Surgery: Yes (HERNIA REPAIR) AICD: No Arteriovenous Shunt: No Body Medical Devices: DENTAL IMPLANT Cardiac Surgery: No Cholecystectomy: No Ear Surgery: No Endocrine Surgery: No Eye Surgery: No Genitourinary Surgery: Yes (TURP secondary to BPH) Gynecologic Surgery: No Insulin Pump: No Joint Replacement: No Oral Surgery: Yes (TOOTH PULLED UNDER ANESTHESIA) Pacemaker: No Thoracic Surgery: No Other Surgery: Yes Social History Alcohol Use: Yes Tobacco Use: No Substance Use: Yes Allergies-Medications (Allergen,Severity, Reaction): Coded Allergies: No Known Allergies (Verified , 08/29/16) Reported Meds & Prescriptions Reported Meds & Active Scripts Active Seroquel (Quetiapine Fumarate) 25 Mg Tab 25 Mg PO DAILY PRN Ventolin Hfa 18 GM Inh (Albuterol Sulfate) 90 Mcg/Act Aer 2 Puff INH Q4-6H PRN Reported Xanax (Alprazolam) 0.5 Mg Tab 0.5 Mg PO DAILY PRN Prednisone 20 Mg Tab 10 Mg PO BID Tamsulosin (Tamsulosin HCl) 0.4 Mg Cap 0.4 Mg PO DAILY Review of Systems Except as stated in HPI: all other systems reviewed are Neg Physical Exam Narrative GENERAL: 61yo M in mild distress. SKIN: Focused skin assessment warm/dry. HEAD: Atraumatic. Normocephalic. EYES: Pupils equal and round. No scleral icterus. No injection or drainage. ENT: No nasal bleeding or discharge. Mucous membranes pink and moist. NECK: Trachea midline. No JVD. CARDIOVASCULAR: Regular rate and rhythm. No murmur appreciated. RESPIRATORY: No accessory muscle use. Clear to auscultation. Breath sounds equal bilaterally. GASTROINTESTINAL: Abdomen soft, +Suprapubic ttp. No rebound tenderness or guarding. MUSCULOSKELETAL: No obvious deformities. No clubbing. No cyanosis. No edema. NEUROLOGICAL: Awake and alert. No obvious cranial nerve deficits. Motor grossly within normal limits. Normal speech. PSYCHIATRIC: Anxious appearing. Data Data Last Documented VS Vital Signs Date Time Temp Pulse Resp B/P Pulse Ox O2 Delivery O2 Flow Rate FiO2 10/25/16 05:27 88 18 121/80 93 Room Air 10/25/16 01:35 98.9 Orders Urinary Catheter Insert/Apply (10/25/16 02:31) Urinalysis - C+S If Indicated (10/25/16 02:31) Basic Metabolic Panel (Bmp) (10/25/16 02:31) Complete Blood Count With Diff (10/25/16 02:32) Ct Abd/Pel W Iv Contrast(Rout) (10/25/16 ) Urine Culture (10/25/16 03:00) Iohexol 350 Inj (Omnipaque 350 Inj) (10/25/16 05:05) Labs Laboratory Tests Test 10/25/16 03:00 White Blood Count 17.2 TH/MM3 Red Blood Count 4.87 MIL/MM3 Hemoglobin 14.7 GM/DL Hematocrit 43.4 % Mean Corpuscular Volume 89.3 FL Mean Corpuscular Hemoglobin 30.1 PG Mean Corpuscular Hemoglobin 33.7 % Concent Red Cell Distribution Width 15.1 % Platelet Count 396 TH/MM3 Mean Platelet Volume 9.0 FL Neutrophils (%) (Auto) % Lymphocytes (%) (Auto) % Monocytes (%) (Auto) % Eosinophils (%) (Auto) % Basophils (%) (Auto) % Neutrophils # (Auto) TH/MM3 Lymphocytes # (Auto) TH/MM3 Monocytes # (Auto) TH/MM3 Eosinophils # (Auto) TH/MM3 Basophils # (Auto) TH/MM3 CBC Comment AUTO DIFF Differential Total Cells 100 Counted Neutrophils % (Manual) 91 % Band Neutrophils % 8 % Lymphocytes % 1 % Neutrophils # (Manual) 17.0 TH/MM3 Differential Comment FINAL DIFF MANUAL Platelet Estimate NORMAL Platelet Morphology Comment NORMAL Urine Color LIGHT-YELLOW Urine Turbidity HAZY Urine pH 5.5 Urine Specific [place] 1.007 Urine Protein TRACE mg/dL Urine Glucose (UA) 70 mg/dL Urine Ketones 10 mg/dL Urine Occult Blood TRACE Urine Nitrite NEG Urine Bilirubin NEG Urine Urobilinogen LESS THAN 2.0 MG/DL Urine Leukocyte Esterase MOD Urine RBC 2 /hpf Urine WBC 2 /hpf Urine Bacteria RARE /hpf Microscopic Urinalysis Comment CATH-CULTURE IND Sodium Level 135 MEQ/L Potassium Level 4.6 MEQ/L Chloride Level 96 MEQ/L Carbon Dioxide Level 24.1 MEQ/L Anion Gap 15 MEQ/L Blood Urea Nitrogen 17 MG/DL Creatinine 1.56 MG/DL Estimat Glomerular Filtration 46 ML/MIN Rate Random Glucose 126 MG/DL Calcium Level 8.8 MG/DL [facility] Medical Decision Making Medical Screen Exam Complete: Yes Emergency Medical Condition: Yes Differential Diagnosis UTI vs. nephrolithiasis vs. urinary retention vs. anxiety Narrative Course 61yo M with c/o of urinary retention. Vázquez catheter placed. Labs reviewed, leukocytosis at 17.2. Creatinine elevated at 1.56 but is at baseline. UA showed moderate leukocyte. Rare bacteria. Culture indicated. Will give 1gm of ceftriaxone IV. CT a/p showed vázquez catheter in decompressed urinary bladder. No significant hydronephrosis. Pt reevaluated at bedside and states his abdomen feels better but still very anxious. Will give ativan 1mg IV. Instructed pt to follow up with urology as outpatient. Will discharge with vázquez catheter and leg bag. Diagnosis Primary Impression: UTI (urinary tract infection) Qualified Code: N39.0 - Urinary tract infection with hematuria, site unspecified Patient Instructions: General Instructions Departure Forms: Tests/Procedures Additional Instructions: Please follow up with urology clinic in 1-2 days. Return to the ED if symptoms worsen. Med/Other Pt SpecificInfo: Prescription(s) given Scripts Nitrofurantoin Monohydrate Macrocrystals (Macrobid)100 Mg [id number] Mg PO BID 7 Days Ref 0 Prov:Marzena Yu DO 10/25/16 Disposition: 01 DISCHARGE HOME Condition: Stable Marzena Yu DO Oct 25, 2016 04:52
[2016-10-25 04:53] LABS: BACTERIA, URINE RARE /hpf; BLOOD, URINE TRACE (NEG); GLUCOSE,URINE 70 mg/dL (NEG); KETONE, URINE 10 mg/dL (NEG); NITRITE,URINE NEG (NEG); PH, URINE 5.5 (5.0-8.5); URINE COLOR LIGHT-YELLOW (YELLW/STRAW)
[2016-10-25 04:56] LABS: COMMENT (UR) CATH-CULTURE IND; CULTURE IF INDICATED CATH CULTURE IND
[2016-10-25] MEDS ORDERED: IOHEXOL 350 MG/ML 10 ML VIAL (for RAD DIAG) IV ONE (05:05)
--- NOTE | 2016-10-25 05:38 | RADRPT ---
EXAM DATE/TIME: 10/25/2016 05:03 [facility] COMPARISON: CT ABDOMEN & PELVIS W/O CONTRAST, August 30, 2016, 23:05. INDICATIONS : Abdominal pain and unable to urinate. IV CONTRAST: 70 cc Omnipaque 350 (iohexol) IV ORAL CONTRAST: No oral contrast ingested. RADIATION DOSE: 6.69 CTDIvol (mGy) MEDICAL HISTORY : Hernia, hiatal. Benign prostatic hyperplasia (BPH). SURGICAL HISTORY : Hernia repair. TURP. ENCOUNTER: Initial ACUITY: 2 days PAIN SCALE: 8/10 LOCATION: Bilateral lower quadrant abdomen TECHNIQUE: Volumetric scanning of the abdomen and pelvis was performed. Using automated exposure control and ad justment of the mA and/or kV according to patient size, radiation dose was kept as low as reasonably achievable to obtain optimal diagnostic quality images. DICOM format image data is available electro nically for review and comparison. FINDINGS: LOWER LUNGS: The visualized lower lungs are clear. LIVER: Homogeneous density without lesion. There is focal fat adjacent to falciform ligament. There is no d ilation of the biliary tree. No calcified gallstones. SPLEEN: Normal size without lesion. PANCREAS: Within normal limits. KIDNEYS: Both kidneys have a stable lobulated contour. The extrarenal pelves and ureters have a stable appeara nce. There is no mass, stone or hydronephrosis. ADRENAL GLANDS: Within normal limits. VASCULAR: There is no aortic aneurysm. There is mild atherosclerotic disease. BOWEL/MESENTERY: The distal esophagus demonstrates circumferential wall thickening. A small hiatal hernia is present. Small bowel demonstrates no abnormality. Appendix is normal. There is sigmoid diverticulosis. There is no free intraperitoneal air or fluid. ABDOMINAL WALL: There is mesh along the left lower quadrant anterior abdominal wall. RETROPERITONEUM: There is no lymphadenopathy. BLADDER: Decompressed with a Gasca catheter present. Air is present in the bladder lumen. REPRODUCTIVE: Within normal limits. INGUINAL: There is no lymphadenopathy. There is a small fat containing left inguinal hernia. MUSCULOSKELETAL: There degenerative changes of the lumbar spine with old rib fractures bilaterally. CONCLUSION: 1. Gasca catheter is present within a decompressed urinary bladder. The collecting systems and ureter s have a stable appearance. There is no significant hydronephrosis. 2. There is thickening of the distal esophagus along with a small hiatal hernia. Arian Palmer MD on October 25, 2016 at 5:32 Board Certified Radiologist. This report was verified electronically.
[2016-10-25] MEDS ORDERED: cefTRIAXone INJ 1,000 MG in SODIUM CHLORIDE 0.9% INJ 100 ML IV ONE (06:15)
[2016-10-25] MEDS ORDERED: LORazepam 2 MG/ML VIAL IV PUSH ONE (06:15)
[2016-10-25] MEDS ORDERED: MACR100C2 PO (06:18)
== END 2016-10-25 08:59 | disposition home or self-care (01) ==
LOC: NEPC 01:30
DX: N39.0 Urinary tract infection, site not specified (principal); B95.7 Other staphylococcus as the cause of diseases classified elsewhere; F41.9 Anxiety disorder, unspecified; N40.0 Benign prostatic hyperplasia without lower urinary tract symptoms; I77.6 Arteritis, unspecified; Z79.899 Other long term (current) drug therapy
CPT/HCPCS: 51703; 74177; 80048; 81001; 85007; 85027; 86403; 87077; 87086; 87186; 96361; 96374; 99285; J0696; J2060; Q9967

== ENCOUNTER 2016-11-02 18:33 | Observation (INO) | payer OTHER ==
[~2016-11-02 18:33] MED LIST changes: -CIPR250T52 PO; -HYDR-3516 PO; +MACR100C2 PO; -METR-1 PO
--- NOTE | 2016-11-02 18:36 | PD ---
HPI Chief Complaint: altered mental status Time Seen by Provider: 18:36 Travel History International Travel<30 days: No Contact w/Intl Traveler<30days: No Traveled to known affect area: No History of Present Illness HPI 61-year-old male was brought in emergently as altered mental status. As per EMS he was found intoxicated with a head injury. Initially patient could not remember what happened and then he said that he probably tripped and fell and hit his head. As per the paramedics he walked well to the ambulance. However on route his mental status changed. By that time patient arrived he was somewhat coherent and following commands. He did have a slur speech secondary to his intoxicated state. His head was bandaged because of the injury. He was not a reliable historian at this point. [facility] Past Medical History Narrative Medical List of his past medical, surgical, social and family history is reviewed from the nursing note. Hx Anticoagulant Therapy: No Arthritis: No Asthma: Yes Autoimmune Disease: No Blood Disorders: No Anxiety: Yes Depression: No Heart Rhythm Problems: No Cancer: No Cardiovascular Problems: No High Cholesterol: No Chemotherapy: No Chest Pain: No Congestive Heart Failure: No COPD: No Cerebrovascular Accident: No Diabetes: No Diminished Hearing: No Endocrine: No Gastrointestinal Disorders: Yes (POSSIBLE HERNIA) GERD: No Glaucoma: No Genitourinary: Yes (ENLARGED PROSTATE CAUSING DELAYED BLADDER EMPTYING/UTI) Headaches: No Hepatitis: No Hiatal Hernia: Yes Hypertension: No Immune Disorder: No Implanted Vascular Access Dvce: Yes Kidney Stones: No Musculoskeletal: No Neurologic: No Psychiatric: Yes Reproductive: No Respiratory: Yes Immunizations Current: Yes Migraines: No Myocardial Infarction: No Radiation Therapy: No Renal Failure: No Seizures: No Sickle Cell Disease: No Sleep Apnea: No Thyroid Disease: No Past Surgical History Abdominal Surgery: Yes (HERNIA REPAIR) AICD: No Arteriovenous Shunt: No Body Medical Devices: DENTAL IMPLANT Cardiac Surgery: No Cholecystectomy: No Ear Surgery: No Endocrine Surgery: No Eye Surgery: No Genitourinary Surgery: Yes (TURP secondary to BPH) Gynecologic Surgery: No Insulin Pump: No Joint Replacement: No Oral Surgery: Yes (TOOTH PULLED UNDER ANESTHESIA) Pacemaker: No Thoracic Surgery: No Other Surgery: Yes Social History Alcohol Use: Yes Tobacco Use: No Substance Use: Yes Allergies-Medications (Allergen,Severity, Reaction): Coded Allergies: No Known Allergies (Verified , 08/29/16) Comments List of his allergies reviewed from the nursing note. Reported Meds & Prescriptions Reported Meds & Active Scripts Active Seroquel (Quetiapine Fumarate) 25 Mg Tab 25 Mg PO DAILY PRN Ventolin Hfa 18 GM Inh (Albuterol Sulfate) 90 Mcg/Act Aer 2 Puff INH Q4-6H PRN Reported Xanax (Alprazolam) 0.5 Mg Tab 0.5 Mg PO DAILY PRN Prednisone 20 Mg Tab 10 Mg PO BID Tamsulosin (Tamsulosin HCl) 0.4 Mg Cap 0.4 Mg PO DAILY Narrative Medication List of his home medications reviewed from the nursing note Review of Systems Except as stated in HPI: all other systems reviewed are Neg Physical Exam Narrative GENERAL: Intoxicated, semi-following commands, slurred speech SKIN: Focused skin assessment warm/dry. HEAD: Left parietal laceration EYES: Pupils equal and round. No scleral icterus. No injection or drainage. ENT: No nasal bleeding or discharge. Mucous membranes pink and moist. NECK: Trachea midline. No JVD. CARDIOVASCULAR: Regular rate and rhythm. No murmur appreciated. RESPIRATORY: No accessory muscle use. Clear to auscultation. Breath sounds equal bilaterally. GASTROINTESTINAL: Abdomen soft, non-tender, nondistended. Hepatic and splenic margins not palpable. MUSCULOSKELETAL: No obvious deformities. No clubbing. No cyanosis. No edema. NEUROLOGICAL: Intoxicated, no unilateral motor deficit, slurred speech, GCS of 13 PSYCHIATRIC: Appropriate mood and affect; insight and judgment normal. Data Data Last Documented VS Vital Signs Date Time Temp Pulse Resp B/P Pulse Ox O2 Delivery O2 Flow Rate FiO2 11/02/16 19:02 65 18 98 Nasal Cannula 2 11/02/16 19:02 99/[address] Brain W/O Iv Contrast(Rout) (11/02/16 ) Electrocardiogram (11/02/16 18:37) Ammonia (11/02/16 18:37) Complete Blood Count With Diff (11/02/16 18:37) Comprehensive Metabolic Panel (11/02/16 18:37) Creatine Kinase (Cpk) (11/02/16 18:37) Prothrombin Time / Inr (Pt) (11/02/16 18:37) Troponin I (11/02/16 18:37) Thyroid Stimulating Hormone (11/02/16 18:37) Urinalysis - C+S If Indicated (11/02/16 18:37) Chest, Single Ap (11/02/16 18:37) Blood Glucose (11/02/16 18:37) Ecg Monitoring (11/02/16 18:37) Iv Access Insert/Monitor (11/02/16 18:37) Oximetry (11/02/16 18:37) Sodium Chloride 0.9% Flush (Ns Flush) (11/02/16 18:45) Sodium Chlor 0.9% 1000 Ml Inj (Ns 1000 M (11/02/16 18:37) Drug Screen, Random Urine (11/02/16 18:37) Alcohol (Ethanol) (11/02/16 18:37) Cefazolin 2 Gm Premix (Ancef 2 Gm Premix (11/02/16 18:45) Tetanus/Diphtheria Tox Adult (Tetanus/Di (11/02/16 18:45) Urine Culture (11/02/16 18:52) Potassium Chlor 20 Meq Premix (Kcl 20 Me (11/02/16 21:00) Potassium Chloride (Kcl) (11/02/16 21:00) Sodium Chlorid 0.9% 500 Ml Inj (Ns 500 M (11/02/16 21:15) Sodium Chlor 0.9% 1000 Ml Inj (Ns 1000 M (11/02/16 21:15) Thiamine Inj (Thiamine Inj) (11/02/16 21:15) Levofloxacin 750 Mg Premix Inj (Levaquin (11/02/16 21:15) Admit Order (Ed Use Only) (11/02/16 21:35) Labs Laboratory Tests Test 11/02/16 11/02/16 18:50 18:52 White Blood Count 9.0 TH/MM3 Red Blood Count 4.00 MIL/MM3 Hemoglobin 12.4 GM/DL Hematocrit 35.3 % Mean Corpuscular Volume 88.2 FL Mean Corpuscular Hemoglobin 31.1 PG Mean Corpuscular Hemoglobin 35.2 % Concent Red Cell Distribution Width 15.2 % Platelet Count 284 TH/MM3 Mean Platelet Volume 7.7 FL Neutrophils (%) (Auto) 77.1 % Lymphocytes (%) (Auto) 12.5 % Monocytes (%) (Auto) 9.6 % Eosinophils (%) (Auto) 0.4 % Basophils (%) (Auto) 0.4 % Neutrophils # (Auto) 6.9 TH/MM3 Lymphocytes # (Auto) 1.1 TH/MM3 Monocytes # (Auto) 0.9 TH/MM3 Eosinophils # (Auto) 0.0 TH/MM3 Basophils # (Auto) 0.0 TH/MM3 CBC Comment DIFF FINAL Differential Comment Prothrombin Time 10.9 SEC Prothromb Time International 1.0 RATIO Ratio Sodium Level 128 MEQ/L Potassium Level 2.8 MEQ/L Chloride Level 91 MEQ/L Carbon Dioxide Level 19.9 MEQ/L Anion Gap 17 MEQ/L Blood Urea Nitrogen 14 MG/DL Creatinine 1.35 MG/DL Estimat Glomerular Filtration 54 ML/MIN Rate Random Glucose 89 MG/DL Calcium Level 7.5 MG/DL Total Bilirubin 0.7 MG/DL Aspartate Amino Transf 19 U/L (AST/SGOT) Alanine Aminotransferase 23 U/L (ALT/SGPT) Alkaline Phosphatase 60 U/L Ammonia 24 MCMOL/L Total Creatine Kinase 47 U/L Troponin I LESS THAN 0.02 NG/ML Total Protein 6.0 GM/DL Albumin 2.7 GM/DL Thyroid Stimulating Hormone 1.070 uIU/ML 3rd Gen Ethyl Alcohol Level 294 MG/DL Urine Color LIGHT-YELLOW Urine Turbidity HAZY Urine pH 5.5 Urine Specific [place] 1.006 Urine Protein NEG mg/dL Urine Glucose (UA) NEG mg/dL Urine Ketones NEG mg/dL Urine Occult Blood NEG Urine Nitrite NEG Urine Bilirubin NEG Urine Urobilinogen LESS THAN 2.0 MG/DL Urine Leukocyte Esterase LARGE Urine RBC 2 /hpf Urine WBC 9 /hpf Urine Bacteria OCC /hpf Urine Mucus FEW /lpf Urine Yeast (Budding) MANY Microscopic Urinalysis Comment CATH-CULTURE IND Urine Opiates Screen NEG Urine Barbiturates Screen NEG Urine Amphetamines Screen NEG Urine Benzodiazepines Screen NEG Urine Cocaine Screen NEG Urine Cannabinoids Screen NEG MDM Medical Decision Making Medical Screen Exam Complete: Yes Emergency Medical Condition: Yes Medical Record Reviewed: Yes Interpretation(s) Twelve-lead EKG was reviewed by me. Normal sinus rhythm, normal axis, nonspecific ST-T wave changes. Heart rate of 68 bpm. Differential Diagnosis Intracranial bleed, alcohol intoxication, metabolic encephalopathy Narrative Course 7:21 PM I asked the patient to be taken to CT scan immediately. Case will be signed over to the oncoming ER physician. I did not find him to be a stroke patient at this point given his intense intoxication along with the head injury history. Procedures EKG Prior to Arrival: No Scripts Levofloxacin (Levaquin)500 Mg [id number] Mg PO DAILY #5 TAB Ref 0 Prov:Lili Epperson 11/04/16 Fluconazole (Diflucan)100 Mg [id number] Mg PO DAILY #5 TAB Ref 0 Prov:Lili Epperson 11/04/16 Andre Cobos MD Nov 02, 2016 18:36
[2016-11-02] MEDS ORDERED: SODIUM CHLOR 0.9% 1000 ML INJ 1,000 ML IV SCH ×2 (18:37→21:15)
[2016-11-02] MEDS ORDERED: TETANUS/DIPHTHERIA TOXOID ADULT 0.5 ML VIAL IM ONE (18:45)
[2016-11-02] MEDS ORDERED: ceFAZolin 2 GM PREMIX 50 ML IV ONE (18:45)
[2016-11-02] MEDS ORDERED: SODIUM CHLORIDE 0.9% FLUSH 5 ML FLUSH IV FLUSH PRN (18:45)
[2016-11-02 19:00] VITALS: RESP 18; O2SAT 97
[2016-11-02 19:02] VITALS: BP 99/61; PULSE 66; RESP 17; O2SAT 99
--- NOTE | 2016-11-02 19:07 | RADRPT ---
EXAM DATE/TIME: 11/02/2016 18:40 [facility] COMPARISON: CT BRAIN W/O CONTRAST, June 11, 2016, 5:27. INDICATIONS : Found unresponsive with head laceration. RADIATION DOSE: 35.54 CTDIvol (mGy) MEDICAL HISTORY : hernia SURGICAL HISTORY : hernia repair ENCOUNTER: Initial ACUITY: 1 day PAIN SCALE: Non-responsive LOCATION: cranial TECHNIQUE: Multiple contiguous axial images were obtained of the head. Using automated exposure control and adj ustment of the mA and/or kV according to patient size, radiation dose was kept as low as reasonably a chievable to obtain optimal diagnostic quality images. DICOM format image data is available electro nically for review and comparison. FINDINGS: CEREBRUM: The ventricles are normal for age. No evidence of midline shift, mass lesion, hemorrhage or acute in farction. No extra-axial fluid collections are seen. POSTERIOR FOSSA: The cerebellum and brainstem are intact. The 4th ventricle is midline. The cerebellopontine angle i s unremarkable. EXTRACRANIAL: The visualized portion of the orbits is intact. Symmetric mucosal thickening in the maxillary sinuse s and several opacified ethmoid air cells, similar to prior. SKULL: The calvaria is intact. No evidence of skull fracture. CONCLUSION: 1. No acute findings in the brain. 2. Chronic maxillary and ethmoid sinus disease. Joss Brand MD on November 02, 2016 at 19:03 Board Certified Radiologist. This report was verified electronically.
[2016-11-02 19:08] LABS: AUTOMATED NEUTROPHIL # 6.9 TH/MM3 (1.8-7.7); BASOPHIL % 0.4 % (0.0-2.0); EOSINOPHIL % 0.4 % (0.0-4.0); HEMATOCRIT 35.3 % (39.0-51.0); HEMO FLAGS DIFF FINAL; LYMPH % 12.5 % (9.0-44.0); LYMPHOCYTE # 1.1 TH/MM3 (1.0-4.8); MEAN CELL VOLUME 88.2 FL (80.0-100.0); MEAN CORPUSCULAR HEMOGLOBIN 31.1 PG (27.0-34.0); MEAN CORPUSCULAR HGB CONC 35.2 % (32.0-36.0); MONO % 9.6 % (0.0-8.0); NEUT % 77.1 % (16.0-70.0); PLATELET COUNT 284 TH/MM3 (150-450); RED CELL DISTRIBUTION WIDTH 15.2 % (11.6-17.2)
[2016-11-02 19:18] LABS: AMPHETAMINE, URINE NEG (NEG); BACTERIA, URINE OCC /hpf; BARBITURATES, URINE NEG (NEG); BLOOD, URINE NEG (NEG); COCAINE, URINE NEG (NEG); COMMENT (UR) CATH-CULTURE IND; CULTURE IF INDICATED CATH CULTURE IND; GLUCOSE,URINE NEG (NEG); KETONE, URINE NEG (NEG); MUCUS URINE FEW /lpf (OCC); NITRITE,URINE NEG (NEG); PH, URINE 5.5 (5.0-8.5); URINE COLOR LIGHT-YELLOW (YELLW/STRAW)
[2016-11-02 19:18] LABS: PROTHROMBIN TIME - PATIENT 10.9 SEC (9.8-11.6)
--- NOTE | 2016-11-02 19:20 | PD ---
Physical Exam Narrative General: The patient is a well-developed well-nourished male, intoxicated on initial examination, however he is following all commands. His speech is slightly slurred. Head and Neck exam: Head is normocephalic, evidence of trauma with a laceration over the left eyebrow that is approximately 4 cm in greatest dimension. Eyes: Extra ocular motion is intact. Pupils are equal round and reactive to light. Nose: Midline septum with pink mucous membranes Mouth: Dentition unremarkable. Moist mucus membranes. Posterior oropharynx is not erythematous. No tonsillar hypertrophy. Uvula midline. Airway patent. Neck: No palpable lymphadenopathy. No nuchal rigidity. No thyromegaly. Cardiovascular: Regular rate and rhythm without murmurs, gallops, or rubs. Lungs: Clear to auscultation bilaterally. No wheezes, rhonchi, or rales. Abdomen: Soft, without tenderness to palpation in all 4 quadrants of the abdomen. No guarding, rebound, or rigidity. Normal bowel sounds are audible. No tenderness on palpation of McBurney's point. Negative [place] sign. The patient has a Gasca catheter in place with a leg bag. Extremities: No clubbing, cyanosis, or edema. 2+ pulses in all 4 extremities. Back: No costovertebral angle tenderness to palpation. Neurologic Exam: Cranial nerves 2-12 were intact on exam. Strength is 5/5 in all 4 extremities. No sensory deficits noted. No dysdiadochokinesis. Good finger to nose and Heel to [place] bilaterally. The patient has slightly slurred speech. He reports that he has been drinking beer today. Skin Exam: No rash noted. Data Data Last Documented VS Vital Signs Date Time Temp Pulse Resp B/P Pulse Ox O2 Delivery O2 Flow Rate FiO2 11/02/16 19:02 65 18 98 Nasal Cannula 2 11/02/16 19:02 99/[address] Brain W/O Iv Contrast(Rout) (11/02/16 ) Electrocardiogram (11/02/16 18:37) Ammonia (11/02/16 18:37) Complete Blood Count With Diff (11/02/16 18:37) Comprehensive Metabolic Panel (11/02/16 18:37) Creatine Kinase (Cpk) (11/02/16 18:37) Prothrombin Time / Inr (Pt) (11/02/16 18:37) Troponin I (11/02/16 18:37) Thyroid Stimulating Hormone (11/02/16 18:37) Urinalysis - C+S If Indicated (11/02/16 18:37) Chest, Single Ap (11/02/16 18:37) Blood Glucose (11/02/16 18:37) Ecg Monitoring (11/02/16 18:37) Iv Access Insert/Monitor (11/02/16 18:37) Oximetry (11/02/16 18:37) Sodium Chloride 0.9% Flush (Ns Flush) (11/02/16 18:45) Sodium Chlor 0.9% 1000 Ml Inj (Ns 1000 M (11/02/16 18:37) Drug Screen, Random Urine (11/02/16 18:37) Alcohol (Ethanol) (11/02/16 18:37) Cefazolin 2 Gm Premix (Ancef 2 Gm Premix (11/02/16 18:45) Tetanus/Diphtheria Tox Adult (Tetanus/Di (11/02/16 18:45) Urine Culture (11/02/16 18:52) Potassium Chlor 20 Meq Premix (Kcl 20 Me (11/02/16 21:00) Potassium Chloride (Kcl) (11/02/16 21:00) Sodium Chlorid 0.9% 500 Ml Inj (Ns 500 M (11/02/16 21:15) Sodium Chlor 0.9% 1000 Ml Inj (Ns 1000 M (11/02/16 21:15) Thiamine Inj (Thiamine Inj) (11/02/16 21:15) Levofloxacin 750 Mg Premix Inj (Levaquin (11/02/16 21:15) Admit Order (Ed Use Only) (11/02/16 21:35) Labs Laboratory Tests Test 11/02/16 11/02/16 18:50 18:52 White Blood Count 9.0 TH/MM3 Red Blood Count 4.00 MIL/MM3 Hemoglobin 12.4 GM/DL Hematocrit 35.3 % Mean Corpuscular Volume 88.2 FL Mean Corpuscular Hemoglobin 31.1 PG Mean Corpuscular Hemoglobin 35.2 % Concent Red Cell Distribution Width 15.2 % Platelet Count 284 TH/MM3 Mean Platelet Volume 7.7 FL Neutrophils (%) (Auto) 77.1 % Lymphocytes (%) (Auto) 12.5 % Monocytes (%) (Auto) 9.6 % Eosinophils (%) (Auto) 0.4 % Basophils (%) (Auto) 0.4 % Neutrophils # (Auto) 6.9 TH/MM3 Lymphocytes # (Auto) 1.1 TH/MM3 Monocytes # (Auto) 0.9 TH/MM3 Eosinophils # (Auto) 0.0 TH/MM3 Basophils # (Auto) 0.0 TH/MM3 CBC Comment DIFF FINAL Differential Comment Prothrombin Time 10.9 SEC Prothromb Time International 1.0 RATIO Ratio Sodium Level 128 MEQ/L Potassium Level 2.8 MEQ/L Chloride Level 91 MEQ/L Carbon Dioxide Level 19.9 MEQ/L Anion Gap 17 MEQ/L Blood Urea Nitrogen 14 MG/DL Creatinine 1.35 MG/DL Estimat Glomerular Filtration 54 ML/MIN Rate Random Glucose 89 MG/DL Calcium Level 7.5 MG/DL Total Bilirubin 0.7 MG/DL Aspartate Amino Transf 19 U/L (AST/SGOT) Alanine Aminotransferase 23 U/L (ALT/SGPT) Alkaline Phosphatase 60 U/L Ammonia 24 MCMOL/L Total Creatine Kinase 47 U/L Troponin I LESS THAN 0.02 NG/ML Total Protein 6.0 GM/DL Albumin 2.7 GM/DL Thyroid Stimulating Hormone 1.070 uIU/ML 3rd Gen Ethyl Alcohol Level 294 MG/DL Urine Color LIGHT-YELLOW Urine Turbidity HAZY Urine pH 5.5 Urine Specific [place] 1.006 Urine Protein NEG mg/dL Urine Glucose (UA) NEG mg/dL Urine Ketones NEG mg/dL Urine Occult Blood NEG Urine Nitrite NEG Urine Bilirubin NEG Urine Urobilinogen LESS THAN 2.0 MG/DL Urine Leukocyte Esterase LARGE Urine RBC 2 /hpf Urine WBC 9 /hpf Urine Bacteria OCC /hpf Urine Mucus FEW /lpf Urine Yeast (Budding) MANY Microscopic Urinalysis Comment CATH-CULTURE IND Urine Opiates Screen NEG Urine Barbiturates Screen NEG Urine Amphetamines Screen NEG Urine Benzodiazepines Screen NEG Urine Cocaine Screen NEG Urine Cannabinoids Screen NEG MDM Medical Record Reviewed: Yes Supervised Visit with MARLIN: No Interpretation(s) Last Impressions Chest X-Ray 11/02/16 1837 Signed Impressions: Service Date/Time: Wednesday, November 02, 2016 18:59 - CONCLUSION: Patchy infiltrates left medial lower lung. Joss Brand MD Head CT 11/02/16 0000 Signed Impressions: Service Date/Time: Wednesday, November 02, 2016 18:40 - CONCLUSION: 1. No acute findings in the brain. 2. Chronic maxillary and ethmoid sinus disease. Joss Brand MD Differential Diagnosis Intracranial hemorrhage, versus alcohol intoxication, versus other substance intoxication, versus withdrawal syndrome, versus concussion Narrative Course During the course of the patients emergency department visit, the patients history, examination, and differential diagnosis were reviewed with the patient. The patient had IV access obtained and blood work sent for analysis. The patient was placed on a playground monitor with oximetry and blood pressure monitoring. The patient was initially seen by Dr. Cobos. The patient's case was checked out to me at the conclusion of her shift. Please see her complete history and physical. The patient was initially provided normal saline IV fluids, Ancef 2 g IV, update of his tetanus was provided. The patients laboratory studies were reviewed and remarkable for white count of 9.0, hemoglobin 12.4, platelets 284 with 77.1 neutrophils, monocytes 9.6, CMP is remarkable for a sodium of 124, potassium 2.8 which was supplemented IV and orally, CO2 19.9, creatinine 1.35, GFR 54, calcium 7.5, ammonia level XXIV, troponin I is less than 0.02, CPK 47, TSH 1.07, PT 10.9, alcohol level CCXCIV, urine drug screen is negative, urinalysis shows large leukocyte esterase 2 RBCs 9 wbc's, occasional bacteria Radiology studies were reviewed and remarkable for a chest x-ray shows patchy infiltrates of the left medial lower lung, CT scan of the brain shows no acute findings. The patient was given Levaquin 750 mg IV. The patient was given thiamine 100 mg IV. He was given another normal saline 500 mL bolus and started on maintenance fluids at normal saline 100 mL per hour. The patients results were discussed with the patient, including the plan of care. I explained that further testing and/ or monitoring is indicated based on the patients history, examination, and/ or laboratory findings. Therefore, I recommended admission for additional evaluation. The patient expressed understanding and was agreeable with this plan. The patient was admitted to the hospital in stable condition and sent to a bed under the [facility]. Physician Communication Physician Communication The patient's case was discussed with Arian Oakley who did agree to admit the patient for further evaluation and treatment at this time. Diagnosis Primary Impression: Altered mental status Qualified Code: R40.0 - Somnolence Additional Impressions: Urinary tract infection Qualified Code: T83.511A - Urinary tract infection associated with indwelling urethral catheter, initial encounter Lung infiltrate Admitting Information Admitting Physician Requests: Keli Celaya MD Nov 02, 2016 19:20
--- NOTE | 2016-11-02 19:23 | RADRPT ---
EXAM DATE/TIME: 11/02/2016 18:59 [facility] COMPARISON: CHEST SINGLE AP, June 11, 2016, 5:40. CT ABDOMEN & PELVIS W CONTRAST, October 25, 2016, 5:03. CHEST S DRAED AP, October 24, 2016, 7:36. INDICATIONS : Syncope. MEDICAL HISTORY : None. SURGICAL HISTORY : Inguinal hernia repair. ENCOUNTER: Initial ACUITY: 1 day PAIN SCORE: Non-responsive. LOCATION: Bilateral chest FINDINGS: Mild patchy infiltrates are present in the medial left lower lung. No focal areas of consolidation. The right lung is clear. The heart is normal in size. No evidence of pneumothorax. Both hemidiaph ragms are well delineated. CONCLUSION: Patchy infiltrates left medial lower lung. Joss Brand MD on November 02, 2016 at 19:20 Board Certified Radiologist. This report was verified electronically.
[2016-11-02 19:29] LABS: ANION GAP 17 MEQ/L (5-15)
[2016-11-02 19:39] LABS: ALKALINE PHOSPHATASE 60 U/L (45-117); ALT (GPT) 23 U/L (12-78); AST (GOT) 19 U/L (15-37); BICARBONATE 19.9 MEQ/L (21.0-32.0); BLOOD UREA NITROGEN 14 MG/DL (7-18); CHLORIDE 91 MEQ/L (98-107); CREATINE KINASE 47 U/L (39-308); GLOMERULAR FILTRATION RATE 54 ML/MIN (>89); SODIUM (NA) 128 MEQ/L (136-145); TOTAL BILIRUBIN ADULT 0.7 MG/DL (0.2-1.0)
[2016-11-02 19:40] LABS: POTASSIUM 2.8 MEQ/L (3.5-5.1)
--- NOTE | 2016-11-02 19:52 | PD ---
Physical Exam Date Seen by Provider: Nov 02, 2016 Time Seen by Provider: 19:51 Narrative For full history and physical examination please see previous provider's note. I was asked to repair laceration to patient's left eyebrow. Data Data Last Documented VS Vital Signs Date Time Temp Pulse Resp B/P Pulse Ox O2 Delivery O2 Flow Rate FiO2 11/02/16 19:02 65 18 98 Nasal Cannula 2 11/02/16 19:02 99/[address] Brain W/O Iv Contrast(Rout) (11/02/16 ) Electrocardiogram (11/02/16 18:37) Ammonia (11/02/16 18:37) Complete Blood Count With Diff (11/02/16 18:37) Comprehensive Metabolic Panel (11/02/16 18:37) Creatine Kinase (Cpk) (11/02/16 18:37) Prothrombin Time / Inr (Pt) (11/02/16 18:37) Troponin I (11/02/16 18:37) Thyroid Stimulating Hormone (11/02/16 18:37) Urinalysis - C+S If Indicated (11/02/16 18:37) Chest, Single Ap (11/02/16 18:37) Blood Glucose (11/02/16 18:37) Ecg Monitoring (11/02/16 18:37) Iv Access Insert/Monitor (11/02/16 18:37) Oximetry (11/02/16 18:37) Sodium Chloride 0.9% Flush (Ns Flush) (11/02/16 18:45) Sodium Chlor 0.9% 1000 Ml Inj (Ns 1000 M (11/02/16 18:37) Drug Screen, Random Urine (11/02/16 18:37) Alcohol (Ethanol) (11/02/16 18:37) Cefazolin 2 Gm Premix (Ancef 2 Gm Premix (11/02/16 18:45) Tetanus/Diphtheria Tox Adult (Tetanus/Di (11/02/16 18:45) Urine Culture (11/02/16 18:52) Labs Laboratory Tests Test 11/02/16 11/02/16 18:50 18:52 White Blood Count 9.0 TH/MM3 Red Blood Count 4.00 MIL/MM3 Hemoglobin 12.4 GM/DL Hematocrit 35.3 % Mean Corpuscular Volume 88.2 FL Mean Corpuscular Hemoglobin 31.1 PG Mean Corpuscular Hemoglobin 35.2 % Concent Red Cell Distribution Width 15.2 % Platelet Count 284 TH/MM3 Mean Platelet Volume 7.7 FL Neutrophils (%) (Auto) 77.1 % Lymphocytes (%) (Auto) 12.5 % Monocytes (%) (Auto) 9.6 % Eosinophils (%) (Auto) 0.4 % Basophils (%) (Auto) 0.4 % Neutrophils # (Auto) 6.9 TH/MM3 Lymphocytes # (Auto) 1.1 TH/MM3 Monocytes # (Auto) 0.9 TH/MM3 Eosinophils # (Auto) 0.0 TH/MM3 Basophils # (Auto) 0.0 TH/MM3 CBC Comment DIFF FINAL Differential Comment Prothrombin Time 10.9 SEC Prothromb Time International 1.0 RATIO Ratio Sodium Level 128 MEQ/L Potassium Level 2.8 MEQ/L Chloride Level 91 MEQ/L Carbon Dioxide Level 19.9 MEQ/L Anion Gap 17 MEQ/L Blood Urea Nitrogen 14 MG/DL Creatinine 1.35 MG/DL Estimat Glomerular Filtration 54 ML/MIN Rate Random Glucose 89 MG/DL Calcium Level 7.5 MG/DL Total Bilirubin 0.7 MG/DL Aspartate Amino Transf 19 U/L (AST/SGOT) Alanine Aminotransferase 23 U/L (ALT/SGPT) Alkaline Phosphatase 60 U/L Ammonia 24 MCMOL/L Total Creatine Kinase 47 U/L Troponin I LESS THAN 0.02 NG/ML Total Protein 6.0 GM/DL Albumin 2.7 GM/DL Thyroid Stimulating Hormone 1.070 uIU/ML 3rd Gen Urine Color LIGHT-YELLOW Urine Turbidity HAZY Urine pH 5.5 Urine Specific [place] 1.006 Urine Protein NEG mg/dL Urine Glucose (UA) NEG mg/dL Urine Ketones NEG mg/dL Urine Occult Blood NEG Urine Nitrite NEG Urine Bilirubin NEG Urine Urobilinogen LESS THAN 2.0 MG/DL Urine Leukocyte Esterase LARGE Urine RBC 2 /hpf Urine WBC 9 /hpf Urine Bacteria OCC /hpf Urine Mucus FEW /lpf Urine Yeast (Budding) MANY Microscopic Urinalysis Comment CATH-CULTURE IND Urine Opiates Screen NEG Urine Barbiturates Screen NEG Urine Amphetamines Screen NEG Urine Benzodiazepines Screen NEG Urine Cocaine Screen NEG Urine Cannabinoids Screen NEG MDM Supervised Visit with MARLIN: Yes Procedures Procedure Narrative LACERATION LOCATION: Left eyebrow LENGTH: 4 cm NUMBER OF STITCHES/ROXANNE: 6 stitches REPAIR: The area of the laceration was prepped with Betadine and sterilely draped. The laceration was infiltrated with 1% lidocaine with epi. The wound was copiously irrigated and explored without evidence of foreign body, tendon injury or neurovascular injury. The wound was closed using 4-0 Prolene. This was a 1 layer repair. A sterile dressing was applied. The patient was advised to keep the dressing clean and dry. Patient tolerated the procedure well. Diagnosis Primary Impression: Altered mental status Qualified Code: R40.0 - Somnolence Gracy Manriquez [facility] Nov 02, 2016 19:52
[2016-11-02] MEDS ORDERED: POTASSIUM CHLORIDE 20 MEQ CONTROLLED RELEASE TAB PO ONE (21:00)
[2016-11-02] MEDS ORDERED: POTASSIUM CHLOR 20 MEQ PREMIX 100 ML IV ONE (21:00)
[2016-11-02] MEDS ORDERED: LEVOFLOXACIN 750 MG PREMIX INJ 150 ML IV ONE (21:15)
[2016-11-02] MEDS ORDERED: THIAMINE INJ 100 MG in SODIUM CHLORIDE 0.9% INJ 100 ML IV ONE (21:15)
[2016-11-02] MEDS ORDERED: SODIUM CHLORID 0.9% 500 ML INJ 500 ML IV ONE (21:15)
[2016-11-02] MEDS ORDERED: LORazepam 2 MG/ML VIAL IV PUSH ONE (22:00)
[2016-11-02 22:27] VITALS: O2SAT 97
[2016-11-02] MEDS ORDERED: LORazepam 2 MG TAB PO PRN (22:30)
[2016-11-02] MEDS ORDERED: NALOXONE HCL 0.4 MG/ML AMP IV PRN (22:30)
[2016-11-02] MEDS ORDERED: cloNIDine HCL 0.1 MG TAB PO PRN (22:30)
[2016-11-02] MEDS ORDERED: SODIUM CHLORIDE 0.9% FLUSH 10 ML FLUSH IV FLUSH PRN (22:30)
[2016-11-02] MEDS ORDERED: FLUMAZENIL 0.5 MG/5 ML VIAL IV PUSH PRN (22:30)
[2016-11-02] MEDS ORDERED: ACETAMINOPHEN 325 MG TAB PO PRN ×2 (22:30)
[2016-11-02] MEDS ORDERED: SENNOSIDES 8.6 MG TAB PO PRN (22:30)
[2016-11-02] MEDS ORDERED: ONDANSETRON HCL 4 MG/2 ML VIAL IVP PRN (22:30)
[2016-11-02] MEDS ORDERED: LORazepam 2 MG/ML VIAL IV PUSH PRN ×2 (22:30)
[2016-11-02] MEDS ORDERED: NS + KCL 20 MEQ INJ 1,000 ML IV SCH (22:45)
[2016-11-02 22:59] VITALS: BP 127/82; PULSE 64; RESP 19; O2SAT 99
[2016-11-03] VITALS (9 sets, daily range): BP systolic 93–113; BP diastolic 58–70; PULSE 67–85; RESP 16–20; TEMP 98–98.5; O2SAT 94–98
[2016-11-03] MEDS: HEPARIN SODIUM - SQ 10,000 UNITS/ML VIAL SQ SCH ×3 (02:05→21:09)
[2016-11-03 02:32] LABS: BICARBONATE 25.6 MEQ/L (21.0-32.0); MAGNESIUM 2.1 MG/DL (1.5-2.5); POTASSIUM 5.1 MEQ/L (3.5-5.1)
[2016-11-03] MEDS: SODIUM CHLOR 0.9% 1000 ML INJ 1,000 ML IV SCH ×2 (03:46→14:18)
--- NOTE | 2016-11-03 05:26 | MH ---
cc: HANY BOURGEOIS DATE OF ADMISSION: 11/02/2016 TIME OF EVALUATION 23:00. CHIEF COMPLAINT Fall. HISTORY OF PRESENT ILLNESS This is a 61-year-old male who was brought to the hospital with altered mental status. The patient does not remember what happened; he is unsure if he passed out or fell or what happened. He has a large laceration over his right eyebrow. His speech was initially a little bit slurred and he appeared to be intoxicated. His blood alcohol level confirmed alcohol intoxication. He has had sutures. He was found to be hypokalemic, to have what appears to be a urinary tract infection and a possible left-sided pneumonia and the decision was made to have him admitted for further care. When I interviewed the patient his speech was not slurred. He is very anxious. He is tremulous and stating that he has a lot of anxiety. He had a court hearing today and he may have to go to detention; he is not sure yet what will happen. He is denying any cough. He is denying any fever or chills, nausea or vomiting. He does have some suprapubic discomfort (but his Gasca catheter is filled and is currently being drained). Otherwise he has no other specific complaints. MEDICATIONS ON ADMISSION Please see the chart. ALLERGIES None. PAST MEDICAL HISTORY 1. Anxiety. 2. Asthma. 3. Alcohol abuse. 4. BPH. PAST SURGICAL HISTORY 1. Hernia repair. 2. TURP. FAMILY HISTORY A brother has alcohol abuse. SOCIAL HISTORY The patient admits to a six-pack of alcohol today. Denies daily drinking; occasionally binge drinks. Denies tobacco or drug use. REVIEW OF SYSTEMS The patient has been battling his BPH for sometime. He had a Gasca catheter which was removed and just replaced recently. He states he is having trouble with his hernia repair. He has mesh and may have some problems with this. His weight has been stable. He denies any other specific changes in overall health or review of systems. PHYSICAL EXAMINATION VITAL SIGNS: He is afebrile, last heart rate was 64, respirations 19, blood pressure 127/82, pulse oximetry 99% on 2 liters. GENERAL: This is a 61-year-old male lying in bed who appears tremulous. He intermittently is very tremulous. He is not short of breath. He does not appear to be in pain. HEENT: Some swelling and a sutured laceration over the left eyebrow, abrasion over the left chin. No jaudice. Mucous membranes are moist. NECK: Supple. CARDIOVASCULAR SYSTEM: Regular rate and rhythm. RESPIRATORY SYSTEM: A few rhonchi on the left. GASTROINTESTINAL SYSTEM: Bowel sounds are present. There is no point tenderness, guarding or rebound. SYSTEM: Suprapubic fullness. Gasca catheter is in place which is currently full. I did repeat exam of his system. The Gasca catheter has been emptied and he is nontender or distended in the suprapubic region at this time. MUSCULOSKELETAL SYSTEM: No edema. Vero's is negative. Distal pulses are palpable. NEUROLOGICAL EXAMINATION: The patient is awake, alert and generally oriented. Speech is clear. Tongue is midline. EOMs are intact. Strength is symmetrical in the upper and lower extremities. He does have occasional tremors which were much worse prior to the Ativan. Gait and station is not tested. INVESTIGATIONS White count is 9, hemoglobin 12.4, platelet count 284. INR is 1. Sodium 138, potassium 2.8, BUN 14, creatinine 1.35, calcium 7.5. Troponin is negative. TSH is normal. BUN 2.7, protein 6. Ammonia level is 24. LFTs are normal. Blood alcohol level was 294. Drug screen is negative. IMAGING STUDIES Chest x-ray - Patchy infiltrates in the left medial lung. CT of the Head - No acute findings in the brain. Chronic maxillary and ethmoid sinus disease. IMPRESSION 1. Status post fall with laceration of the left eyebrow status post sutures. 2. Alcohol intoxication. 3. Anxiety. 4. Left lung infiltrate. 5. Urinary tract infection. 6. Hypokalemia. 7. Chronic kidney disease (GRF is estimated at 54). 8. Hyponatremia. 9. Protein calorie malnutrition. 10. Asthma. 11. Benign prostatic hypertrophy, currently with a Gasca catheter in. History of TURP. DISCUSSION The patient is placed on observation status to Dr. Bourgeois's service. The plan will be to replace his electrolytes, give him antibiotics, place him on a CIWA scale. DVT and GI prophylaxis will be provided. Monitor his labs and we will make further recommendations as his case progresses. Anticipated length of stay is two days. Anticipated discharge is home. Dictated by: Pablo Oakley PA-C Hany Bourgeois MD JP/KEVIN /11:20 PM /5:01 AM pt seen and examined as above face to face time spent with pt labs reviewed agree with plan of care dw pt councelled about etoh cessation MTDD
[2016-11-03] MEDS: LORazepam 1 MG TAB PO PRN ×3 (08:10→18:30)
[2016-11-03] MEDS: FOLIC ACID 1 MG TAB PO SCH (08:11)
[2016-11-03] MEDS: MULTIVITAMINS/MINERALS THERAPEUTIC TAB PO SCH (08:11)
[2016-11-03] MEDS: PANTOPRAZOLE SOD 40 MG DELAYED RELEASE TAB PO SCH (08:11)
[2016-11-03] MEDS: THIAMINE HCL 100 MG TAB PO SCH (08:11)
[2016-11-03] MEDS: LEVOFLOXACIN 500 MG TAB PO SCH (08:11)
[2016-11-03] MEDS: SODIUM CHLORIDE 0.9% FLUSH 10 ML FLUSH IV FLUSH SCH ×2 (08:12→21:09)
[2016-11-03 08:15] LABS: AUTOMATED NEUTROPHIL # 7.7 TH/MM3 (1.8-7.7); BASOPHIL % 0.4 % (0.0-2.0); EOSINOPHIL # 0.1 TH/MM3 (0-0.4); EOSINOPHIL % 0.9 % (0.0-4.0); HEMATOCRIT 37.4 % (39.0-51.0); HEMO FLAGS DIFF FINAL; LYMPHOCYTE # 1.2 TH/MM3 (1.0-4.8); MEAN CELL VOLUME 88.6 FL (80.0-100.0); MEAN CORPUSCULAR HEMOGLOBIN 30.3 PG (27.0-34.0); MEAN CORPUSCULAR HGB CONC 34.2 % (32.0-36.0); MONO % 16.1 % (0.0-8.0); NEUT % 71.6 % (16.0-70.0); PLATELET COUNT 320 TH/MM3 (150-450); RED BLOOD COUNT 4.23 MIL/MM3 (4.50-5.90); WHITE BLOOD COUNT 10.8 TH/MM3 (4.0-11.0)
[2016-11-03 08:49] LABS: ALKALINE PHOSPHATASE 66 U/L (45-117); ALT (GPT) 23 U/L (12-78); ANION GAP 10 MEQ/L (5-15); AST (GOT) 18 U/L (15-37); BICARBONATE 22.6 MEQ/L (21.0-32.0); BLOOD UREA NITROGEN 11 MG/DL (7-18); CHLORIDE 107 MEQ/L (98-107); GLOMERULAR FILTRATION RATE 62 ML/MIN (>89); POTASSIUM 3.7 MEQ/L (3.5-5.1); SODIUM (NA) 140 MEQ/L (136-145); TOTAL BILIRUBIN ADULT 0.8 MG/DL (0.2-1.0)
--- NOTE | 2016-11-03 09:28 | EKG ---
Date Performed: 11/02/2016 Time Performed: 18:49:52 PTAGE: 61 years EKG: Sinus rhythm NONSPECIFIC T-WAVE ABNORMALITY PROLONGED QT INTERVAL ABNORMAL ECG PREVIOUS TRACING : 08/29/2016 23.34 DOCTOR: Rosendo Colon Interpretating Date/Time 11/03/2016 09:27:36
[2016-11-03] MEDS ORDERED: ALBUTEROL SULFATE 90 MCG/ACT HFA 8 GM INHALER INH PRN (12:00)
[2016-11-03] MEDS: QUEtiapine FUMARATE 25 MG TAB PO PRN (12:05)
[2016-11-03] MEDS: predniSONE 10 MG TAB PO SCH ×2 (12:05→21:09)
[2016-11-03] MEDS: TAMSULOSIN HCL 0.4 MG CAP PO SCH (12:05)
[2016-11-04 01:23] VITALS: BP 121/68; PULSE 67; RESP 18; TEMP 98.4; O2SAT 98
[2016-11-04] MEDS: SODIUM CHLOR 0.9% 1000 ML INJ 1,000 ML IV SCH (02:00)
[2016-11-04 05:04] VITALS: BP 121/77; PULSE 74; RESP 18; TEMP 97.8; O2SAT 97
[2016-11-04 07:38] LABS: HEMATOCRIT 35.9 % (39.0-51.0); MEAN CELL VOLUME 89.4 FL (80.0-100.0); MEAN CORPUSCULAR HEMOGLOBIN 30.2 PG (27.0-34.0); MEAN CORPUSCULAR HGB CONC 33.8 % (32.0-36.0); PLATELET COUNT 313 TH/MM3 (150-450); RED BLOOD COUNT 4.01 MIL/MM3 (4.50-5.90); RED CELL DISTRIBUTION WIDTH 15.1 % (11.6-17.2); REVIEW FLAG FINAL; WHITE BLOOD COUNT 10.4 TH/MM3 (4.0-11.0)
--- NOTE | 2016-11-04 07:50 | HHI.PR ---
Subjective Subjective Remarks less anxious no cp no sob no fever c/o burning epigastric afebrile vázquez draining Review of Systems Constitutional Constitutional Remarks 12 point review of systems completed, negative except as noted above Vitals/Results Intake & Output 11/03/16 11/03/16 11/04/16 15:00 23:00 07:00 Intake Total 450 ml Output Total 700 ml 300 ml Balance -250 ml -300 ml Intake Oral 100 ml IV Total 350 ml Output Urine Total 700 ml 300 ml # Voids 1 Vital Signs Vital Signs Date Time Temp Pulse Resp B/P Pulse Ox O2 Delivery O2 Flow Rate FiO2 11/04/16 05:04 97.8 74 18 121/77 97 11/04/16 01:23 98.4 67 18 121/68 98 11/03/16 20:23 98.4 82 18 110/61 97 11/03/16 18:51 95 Nasal Cannula 2.00 11/03/16 15:37 98.0 81 18 93/64 95 11/03/16 11:56 98.4 85 20 104/63 96 CBC/BMP: 11/04/16 0607 11/03/16 0740 Lab Results Laboratory Tests Test 11/04/16 06:07 White Blood Count 10.4 TH/MM3 Red Blood Count 4.01 MIL/MM3 Hemoglobin 12.1 GM/DL Hematocrit 35.9 % Mean Corpuscular Volume 89.4 FL Mean Corpuscular Hemoglobin 30.2 PG Mean Corpuscular Hemoglobin 33.8 % Concent Red Cell Distribution Width 15.1 % Platelet Count 313 TH/MM3 Mean Platelet Volume 8.4 FL Physical Exam General General Appearance: Well Developed, Well Nourished, No Acute Distress, Comfortable Eyes Eye Exam: Pupils Equal, Pupils Reactive Eye Remarks laceration left eye, mild swelling. Ears & Nose Ears & Nose Exam: Nasal Mucosa [place] Throat Throat Exam: Oral Mucosa [place] & Moist Neck Neck Exam: Neck Supple, Trachea Midline Pulmonary Resp Exam: Clear Bilaterally Cardiology CV Exam: Regular, Good Perfusion Gastrointestinal/Abdomen GI Exam: Soft, Non-Tender, Bowel Sounds Present, Non-Distended Genitourinary Exam: Clear Urine Remarks VÁZQUEZ Musculoskeletal MS Exam: Joints Intact Integumentary Skin Exam: Warm, Dry Extremeties Extremities Exam: No Edema, Pedal Pulses Palpable Neurologic Neuro Exam: Alert, Awake, Oriented, Speech Clear, Moving All Extremities, No Focal Deficits Psychiatric Psych Exam: Appropriate Responses VTE Prophylaxis VTE Prophylaxis Meds: Heparin PUD Prophylasis PUD Prophylaxis: Protonix Assessment/Plan Problem List: (1) Status post fall with laceration of the left eyebrow status post sutures. (2) Altered mental status (3) Lung infiltrate (4) Urinary tract infection (5) Anxiety (6) Alcohol withdrawal (7) BPH (benign prostatic hyperplasia) (8) Urinary retention (9) Alcohol intoxication (10) MOHSEN (acute kidney injury) (11) Hypokalemia Assessment/Plan less anxious dc IVF continue Thiamine, MVI, folic acid CIWA protocol BMP pending replace electrolytes as needed catheter changed 2 days ago needs to f/u urology as OP urine growing yeast start Diflucan 100 mg po daily Continue Levaquin for PNA no fever, WBC ok c/o heartburn continue PPI add Tums PRN PPI for GI prophylaxis Heparin for DVT prophylaxis waiting for BMP overall improved, less anxious ETOH counseling done poss dc today will have RN ambulate needs to f/u urology, pcp diet heart healthy activity as tolerated D/W RN D/W Dr. Bourgeois D/W pt This patient was seen by myself and Dr. Bourgeois, this note is written on his behalf Problem Qualifiers (1) Altered mental status: Qualified Code: R40.0 - Somnolence (2) Urinary tract infection: Qualified Code: T83.511A - Urinary tract infection associated with indwelling urethral catheter, initial encounter (3) BPH (benign prostatic hyperplasia): (4) Alcohol intoxication: Qualified Code: F10.929 - Alcohol intoxication, with unspecified complication Lili Epperson Nov 04, 2016 07:50
[2016-11-04 08:00] VITALS: BP 124/85; PULSE 64; RESP 18; TEMP 98; O2SAT 98
[2016-11-04] MEDS ORDERED: CALCIUM CARBONATE 500 MG CHEWABLE TAB CHEW PRN (08:00)
[2016-11-04] MEDS ORDERED: DIFL100T PO (08:13)
[2016-11-04] MEDS ORDERED: LEVA500T20 PO (08:13)
[2016-11-04] MEDS: FOLIC ACID 1 MG TAB PO SCH (08:15)
[2016-11-04] MEDS: PANTOPRAZOLE SOD 40 MG DELAYED RELEASE TAB PO SCH (08:15)
[2016-11-04] MEDS: MULTIVITAMINS/MINERALS THERAPEUTIC TAB PO SCH (08:15)
[2016-11-04] MEDS: predniSONE 10 MG TAB PO SCH (08:15)
[2016-11-04] MEDS: TAMSULOSIN HCL 0.4 MG CAP PO SCH (08:15)
--- NOTE | 2016-11-04 08:15 | HHI.DCPOC ---
Discharge Care Plan Diagnosis: (1) Status post fall with laceration of the left eyebrow status post sutures. (2) Lung infiltrate (3) Altered mental status (4) Hypokalemia (5) Alcohol intoxication (6) MOHSEN (acute kidney injury) Your Health Problems Are: Anxiety Difficulty with ADL Skin Breakdown Goals to Promote Your Health * To prevent worsening of your condition and complications * To maintain your health at the optimal level Directions to Meet Your Goals Take your medications as prescribed Follow your dietary instruction Follow activity as directed Keep your appointments as scheduled Take your immunizations and boosters as scheduled If your symptoms worsen call your PCP, if no PCP go to Urgent Care Center or Emergency Room Smoking is Dangerous to Your Health. Avoid second hand smoke Call the 24-hour hour crisis hotline for domestic abuse at Lili Epperson [facility] Nov 04, 2016 08:15
[2016-11-04] MEDS: LEVOFLOXACIN 500 MG TAB PO SCH (08:16)
[2016-11-04] MEDS: THIAMINE HCL 100 MG TAB PO SCH (08:16)
[2016-11-04] MEDS: SODIUM CHLORIDE 0.9% FLUSH 10 ML FLUSH IV FLUSH SCH (08:16)
[2016-11-04 08:22] LABS: BICARBONATE 24.6 MEQ/L (21.0-32.0); POTASSIUM 3.9 MEQ/L (3.5-5.1)
[2016-11-04] MEDS ORDERED: FLUCONAZOLE 100 MG TAB PO SCH (09:00)
[2016-11-04] MEDS: QUEtiapine FUMARATE 25 MG TAB PO PRN (09:19)
[2016-11-04] MEDS: HEPARIN SODIUM - SQ 10,000 UNITS/ML VIAL SQ SCH (10:14)
== END 2016-11-04 14:57 | disposition home or self-care (01) ==
LOC: NEPE 18:33 → NEDA 21:38 → NEPFCDU 11-03 02:49
PROVIDERS: ADMIT Specialist; ATTEND Specialist
PROC: 0HQ1XZZ Repair Face Skin, External Approach (ICD-10-PCS; principal; 2016-11-02)
DX: R41.82 Altered mental status, unspecified (principal); S01.112A Laceration without foreign body of left eyelid and periocular area, initial encounter; T83.511A Infection and inflammatory reaction due to indwelling urethral catheter, initial encounter; N39.0 Urinary tract infection, site not specified; F41.9 Anxiety disorder, unspecified; R91.8 Other nonspecific abnormal finding of lung field; R94.31 Abnormal electrocardiogram [ECG] [EKG]; F10.129 Alcohol abuse with intoxication, unspecified; J45.909 Unspecified asthma, uncomplicated; N18.9 Chronic kidney disease, unspecified; E87.6 Hypokalemia; E46 Unspecified protein-calorie malnutrition; N17.9 Acute kidney failure, unspecified; R33.9 Retention of urine, unspecified; E87.1 Hypo-osmolality and hyponatremia; N40.0 Benign prostatic hyperplasia without lower urinary tract symptoms; Y84.6 Urinary catheterization as the cause of abnormal reaction of the patient, or of later complication, without mention of misadventure at the time of the procedure; W01.0XXA Fall on same level from slipping, tripping and stumbling without subsequent striking against object, initial encounter
CPT/HCPCS: 12013; 70450; 71010; 80048; 80053; 80307; 81001; 82140; 82550; 83735; 84443; 84484; 85025; 85027; 85610; 87086; 90471; 90714; 93005; 96361; 96365; 96366; 96372; 96375; 99285; G0378; J0690; J1644; J1956; J2060; J2405; J3411; J3480; J7030; J7040; J7512

== ENCOUNTER 2016-11-08 02:04 | Emergency (ER) | payer OTHER ==
[~2016-11-08] VITALS: Ht 190.5 cm; Wt 85.0 kg
[~2016-11-08 02:04] MED LIST changes: +DIFL100T PO; +LEVA500T20 PO; -MACR100C2 PO
[2016-11-08 02:24] VITALS: BP 121/74; PULSE 88; RESP 20; TEMP 98.1; O2SAT 92
[2016-11-08 02:30] LABS: AUTOMATED NEUTROPHIL # 6.9 TH/MM3 (1.8-7.7); BASOPHIL # 0.1 TH/MM3 (0-0.2); EOSINOPHIL # 0.5 TH/MM3 (0-0.4); EOSINOPHIL % 4.3 % (0.0-4.0); HEMATOCRIT 44.5 % (39.0-51.0); LYMPH % 26.4 % (9.0-44.0); MEAN CELL VOLUME 90.4 FL (80.0-100.0); MEAN CORPUSCULAR HEMOGLOBIN 29.6 PG (27.0-34.0); MEAN CORPUSCULAR HGB CONC 32.7 % (32.0-36.0); MONO % 7.2 % (0.0-8.0); NEUT % 61.1 % (16.0-70.0); PLATELET COUNT 389 TH/MM3 (150-450); RED BLOOD COUNT 4.92 MIL/MM3 (4.50-5.90); RED CELL DISTRIBUTION WIDTH 15.6 % (11.6-17.2); WHITE BLOOD COUNT 11.3 TH/MM3 (4.0-11.0)
--- NOTE | 2016-11-08 02:35 | RADRPT ---
EXAM DATE/TIME: 11/08/2016 02:25 [place] COMPARISON: CHEST SINGLE AP, November 02, 2016, 18:59. INDICATIONS : Pt having chest pain- says feels like a heart attack MEDICAL HISTORY : None. SURGICAL HISTORY : Inguinal hernia repair. ENCOUNTER: Initial ACUITY: 1 day PAIN SCORE: 8/10 LOCATION: Bilateral chest FINDINGS: CONCLUSION: No acute disease. Cedric Jose MD on November 08, 2016 at 2:33 Board Certified Radiologist. This report was verified electronically.
[2016-11-08 02:37] LABS: HEMO FLAGS AUTO DIFF
[2016-11-08 02:42] VITALS: BP 128/68; PULSE 66; RESP 16; O2SAT 95
[2016-11-08 02:51] LABS: ANION GAP 13 MEQ/L (5-15); BLOOD UREA NITROGEN 14 MG/DL (7-18); CHLORIDE 105 MEQ/L (98-107); CREATINE KINASE 63 U/L (39-308); GLOMERULAR FILTRATION RATE 44 ML/MIN (>89); POTASSIUM 5.1 MEQ/L (3.5-5.1); SODIUM (NA) 142 MEQ/L (136-145)
--- NOTE | 2016-11-08 03:28 | PD ---
HPI Chief Complaint: Anxiety Time Seen by Provider: 03:25 Travel History International Travel<30 days: No Contact w/Intl Traveler<30days: No Traveled to known affect area: No History of Present Illness HPI Patient is a 61-year-old male presents emergency department with complaint of anxiety. Patient states "my anxiety is killing me". Patient states that he is prescribed Xanax for his anxiety which typically controls his symptoms. He ran out of this. Despite having refills, he did not get it refilled. Since, patient states "my anxiety is killing me". Patient cannot elaborate any further. States that occasionally he will have a sense of the world is closing in on exam and a chest tightness and associated with the anxiety symptoms. PFSH Past Medical History Hx Anticoagulant Therapy: No Arthritis: No Asthma: Yes Autoimmune Disease: No Blood Disorders: No Anxiety: Yes Depression: No Heart Rhythm Problems: No Cancer: No Cardiovascular Problems: No High Cholesterol: No Chemotherapy: No Chest Pain: No Congestive Heart Failure: No COPD: No Cerebrovascular Accident: No Diabetes: No Diminished Hearing: No Endocrine: No Gastrointestinal Disorders: Yes (POSSIBLE HERNIA) GERD: No Glaucoma: No Genitourinary: Yes (ENLARGED PROSTATE CAUSING DELAYED BLADDER EMPTYING/UTI) Headaches: No Hepatitis: No Hiatal Hernia: Yes Heparin Induced Thrombocytopen: No Hypertension: No Immune Disorder: No Implanted Vascular Access Dvce: Yes Kidney Stones: No Medical other: Yes (INGUINAL HERNIA, VASCULITIS) Musculoskeletal: No Neurologic: No Psychiatric: Yes Reproductive: No Respiratory: Yes Immunizations Current: Yes Migraines: No Myocardial Infarction: No Radiation Therapy: No Renal Failure: No Seizures: No Sickle Cell Disease: No Sleep Apnea: No Thyroid Disease: No Past Surgical History Abdominal Surgery: Yes (HERNIA REPAIR) AICD: No Arteriovenous Shunt: No Body Medical Devices: DENTAL IMPLANT Cardiac Surgery: No Cholecystectomy: No Ear Surgery: No Endocrine Surgery: No Eye Surgery: No Genitourinary Surgery: Yes (TURP secondary to BPH) Gynecologic Surgery: No Insulin Pump: No Joint Replacement: No Neurologic Surgery: No Oral Surgery: Yes (TOOTH PULLED UNDER ANESTHESIA) Pacemaker: No Thoracic Surgery: No Other Surgery: Yes Social History Alcohol Use: Yes ("alot") Tobacco Use: No (denies) Substance Use: No (denies) Allergies-Medications (Allergen,Severity, Reaction): Coded Allergies: No Known Allergies (Verified , 11/08/16) Reported Meds & Prescriptions Reported Meds & Active Scripts Active Reported Xanax (Alprazolam) 0.5 Mg Tab 0.5 Mg PO DAILY PRN Prednisone 20 Mg Tab 10 Mg PO BID Review of Systems ROS Limitations: Poor Historian Except as stated in HPI: all other systems reviewed are Neg Physical Exam Exam Limitations: Poor Historian Narrative GENERAL: Disheveled middle-aged male in no acute distress, sleeping and resting comfortably prior to my evaluation SKIN: Focused skin assessment warm/dry. HEAD: Normocephalic. EYES: No scleral icterus. No injection or drainage. ENT: No nasal bleeding or discharge. Mucous membranes pink and moist. NECK: Supple CARDIOVASCULAR: Regular rate and rhythm. No murmur appreciated. RESPIRATORY: No accessory muscle use. Clear to auscultation. Breath sounds equal bilaterally. GASTROINTESTINAL: Abdomen soft, non-tender, nondistended. MUSCULOSKELETAL: No obvious deformities. No edema. NEUROLOGICAL: Awake and alert. Motor grossly within normal limits. Normal speech. PSYCHIATRIC: Appropriate mood and affect; insight and judgment normal. Data Data Last Documented VS Vital Signs Date Time Temp Pulse Resp B/P Pulse Ox O2 Delivery O2 Flow Rate FiO2 11/08/16 02:42 66 16 128/68 95 Nasal Cannula 2 11/08/16 02:24 98.1 Orders Electrocardiogram (11/08/16 02:18) Complete Blood Count With Diff (11/08/16 02:18) Basic Metabolic Panel (Bmp) (11/08/16 02:18) Ckmb (Isoenzyme) Profile (11/08/16 02:18) Troponin I (11/08/16 02:18) Chest, Single Ap (11/08/16 02:18) Iv Access Insert/Monitor (11/08/16 02:18) Ecg Monitoring (11/08/16 02:18) Oxygen Administration (11/08/16 02:18) Oximetry (11/08/16 02:18) Alprazolam (Xanax) (11/08/16 03:30) Labs Laboratory Tests Test 11/08/16 02:21 White Blood Count 11.3 TH/MM3 Red Blood Count 4.92 MIL/MM3 Hemoglobin 14.6 GM/DL Hematocrit 44.5 % Mean Corpuscular Volume 90.4 FL Mean Corpuscular Hemoglobin 29.6 PG Mean Corpuscular Hemoglobin 32.7 % Concent Red Cell Distribution Width 15.6 % Platelet Count 389 TH/MM3 Mean Platelet Volume 7.2 FL Neutrophils (%) (Auto) 61.1 % Lymphocytes (%) (Auto) 26.4 % Monocytes (%) (Auto) 7.2 % Eosinophils (%) (Auto) 4.3 % Basophils (%) (Auto) 1.0 % Neutrophils # (Auto) 6.9 TH/MM3 Lymphocytes # (Auto) 3.0 TH/MM3 Monocytes # (Auto) 0.8 TH/MM3 Eosinophils # (Auto) 0.5 TH/MM3 Basophils # (Auto) 0.1 TH/MM3 CBC Comment AUTO DIFF Differential Comment AUTO DIFF CONFIRMED Platelet Estimate NORMAL Platelet Morphology Comment NORMAL Sodium Level 142 MEQ/L Potassium Level 5.1 MEQ/L Chloride Level 105 MEQ/L Carbon Dioxide Level 24.0 MEQ/L Anion Gap 13 MEQ/L Blood Urea Nitrogen 14 MG/DL Creatinine 1.60 MG/DL Estimat Glomerular Filtration 44 ML/MIN Rate Random Glucose 66 MG/DL Calcium Level 8.1 MG/DL Total Creatine Kinase 63 U/L Troponin I LESS THAN 0.02 NG/ML [facility] Medical Decision Making Medical Screen Exam Complete: Yes Emergency Medical Condition: Yes Medical Record Reviewed: Yes Differential Diagnosis 61-year-old male with history of chronic anxiety here with complaint of same. Differential includes anxiety, medication nonadherence, malingering, ACS Narrative Course Patient placed on monitor, IV established and blood obtained. Twelve-lead EKG shows sinus rhythm without notable ST or T-wave abnormalities and normal intervals. CBC, BMP, CK-MB, and troponin unremarkable. Patient given a dose of Xanax and discharged home and encouraged to refill the prescription for Xanax that he has Diagnosis Primary Impression: Anxiety Additional Impression: Malingering [facility] for appointment Additional Instructions: Fill the Xanax prescription that you have. Med/Other Pt SpecificInfo: No Change to Meds Disposition: 01 DISCHARGE HOME Condition: Stable Tamara Roberts MD Nov 08, 2016 03:28
[2016-11-08] MEDS ORDERED: ALPRAZolam 0.5 MG TAB PO ONE (03:30)
[2016-11-08 03:41] VITALS: BP 131/77
[2016-11-08 03:49] LABS: PLATELET ESTIMATE SMEAR NORMAL (NORMAL); PLATELET MORPHOLOGY NORMAL (NORMAL); SCAN/DIFF AUTO DIFF CONFIRMED
[2016-11-08] MEDS ORDERED: VIST25CA PO (09:45)
--- NOTE | 2016-11-08 16:40 | EKG ---
Date Performed: 11/08/2016 Time Performed: 02:05:31 PTAGE: 61 years EKG: Sinus rhythm NORMAL ECG PREVIOUS TRACING : 11/02/2016 18.49 Since previous tracing, no significant change noted DOCTOR: Chuck León Interpretating Date/Time 11/08/2016 16:40:34
[2016-11-09] MEDS ORDERED: VENTAER INH (14:17)
[2016-11-09] MEDS ORDERED: PRED20 PO (14:17)
== END 2016-11-08 03:41 | disposition home or self-care (01) ==
LOC: NEDAMB 02:04
DX: F41.9 Anxiety disorder, unspecified (principal); R07.89 Other chest pain; J45.909 Unspecified asthma, uncomplicated; N40.0 Benign prostatic hyperplasia without lower urinary tract symptoms; Z76.5 Malingerer [conscious simulation]
CPT/HCPCS: 71010; 80048; 82550; 84484; 85025; 93005; 99285

== ENCOUNTER 2016-11-08 09:03 | Emergency (ER) | payer OTHER ==
[~2016-11-08] VITALS: Ht 190.5 cm; Wt 78.0 kg
[2016-11-08 09:08] VITALS: BP 108/68; PULSE 86; RESP 17; TEMP 99; O2SAT 91
[2016-11-08] MEDS ORDERED: hydrOXYzine PAMOATE 25 MG CAP PO ONE (09:45)
[2016-11-08] MEDS ORDERED: VIST25CA PO (09:45)
--- NOTE | 2016-11-08 09:45 | PD ---
HPI Chief Complaint: Dizziness Time Seen by Provider: 09:27 Travel History International Travel<30 days: No Contact w/Intl Traveler<30days: No Traveled to known affect area: No History of Present Illness HPI 61-year-old male complains of feeling dizzy and having anxiety. Patient has history of anxiety and has been off his Xanax for the past 2 weeks. Patient also has history of EtOH abuse. Last alcohol consumption was yesterday. Patient denies any history of alcohol withdrawal or DVT in the past. Patient was seen in emergency room recently including yesterday. X-ray and blood tests done yesterday were normal. Patient was discharged home. Patient came back again today requesting Xanax. Patient denies any new problem. Patient states that he is feeling dizzy this morning. Patient denies any illicit drug abuse. Patient denies any nausea vomiting diarrhea. Patient has been eating well and drinking well. PFSH Past Medical History Hx Anticoagulant Therapy: No Arthritis: No Asthma: Yes Autoimmune Disease: No Blood Disorders: No Anxiety: Yes Depression: No Heart Rhythm Problems: No Cancer: No Cardiovascular Problems: No High Cholesterol: No Chemotherapy: No Chest Pain: No Congestive Heart Failure: No COPD: No Cerebrovascular Accident: No Diabetes: No Diminished Hearing: No Endocrine: No Gastrointestinal Disorders: Yes (POSSIBLE HERNIA) GERD: No Glaucoma: No Genitourinary: Yes (ENLARGED PROSTATE CAUSING DELAYED BLADDER EMPTYING/UTI) Headaches: No Hepatitis: No Hiatal Hernia: Yes Heparin Induced Thrombocytopen: No Hypertension: No Immune Disorder: No Implanted Vascular Access Dvce: Yes Kidney Stones: No Medical other: Yes (INGUINAL HERNIA, VASCULITIS) Musculoskeletal: No Neurologic: No Psychiatric: Yes Reproductive: No Respiratory: Yes Immunizations Current: Yes Migraines: No Myocardial Infarction: No Radiation Therapy: No Renal Failure: No Seizures: No Sickle Cell Disease: No Sleep Apnea: No Thyroid Disease: No ?: Not Past Surgical History Abdominal Surgery: Yes (HERNIA REPAIR) AICD: No Arteriovenous Shunt: No Body Medical Devices: DENTAL IMPLANT Cardiac Surgery: No Cholecystectomy: No Ear Surgery: No Endocrine Surgery: No Eye Surgery: No Genitourinary Surgery: Yes (TURP secondary to BPH) Gynecologic Surgery: No Insulin Pump: No Joint Replacement: No Neurologic Surgery: No Oral Surgery: Yes (TOOTH PULLED UNDER ANESTHESIA) Pacemaker: No Thoracic Surgery: No Other Surgery: Yes Social History Alcohol Use: Yes ("2 to 3 times a week") Tobacco Use: No Substance Use: No Allergies-Medications (Allergen,Severity, Reaction): Coded Allergies: No Known Allergies (Verified , 11/08/16) Reported Meds & Prescriptions Reported Meds & Active Scripts Active Reported Xanax (Alprazolam) 0.5 Mg Tab 0.5 Mg PO DAILY PRN Prednisone 20 Mg Tab 10 Mg PO BID Review of Systems General / Constitutional: No: Fever Eyes: No: Visual changes HENT: Positive: Lightheadedness, No: Headaches Cardiovascular: No: Chest Pain or Discomfort Respiratory: No: Shortness of Breath Gastrointestinal: No: Abdominal Pain Genitourinary: No: Dysuria Musculoskeletal: No: Pain Skin: No Rash Neurologic: No: Weakness Psychiatric: No: Depression Endocrine: No: Polydipsia Hematologic/Lymphatic: No: Easy Bruising Physical Exam Narrative GENERAL: Well-nourished, well-developed patient. SKIN: Focused skin assessment warm/dry. HEAD: Normocephalic. EYES: No scleral icterus. No injection or drainage. NECK: Supple, trachea midline. No JVD or lymphadenopathy. CARDIOVASCULAR: Regular rate and rhythm without murmurs, gallops, or rubs. RESPIRATORY: Breath sounds equal bilaterally. No accessory muscle use. GASTROINTESTINAL: Abdomen soft, non-tender, nondistended. MUSCULOSKELETAL: No cyanosis, or edema. BACK: Nontender without obvious deformity. No CVA tenderness. Neurologic exam: Patient is awake and alert oriented 3. No obvious focal neurological deficit. Data Data Last Documented VS Vital Signs Date Time Temp Pulse Resp B/P Pulse Ox O2 Delivery O2 Flow Rate FiO2 11/08/16 09:08 99.0 86 17 108/68 91 MDM Medical Decision Making Medical Screen Exam Complete: Yes Emergency Medical Condition: Yes Differential Diagnosis Differential diagnosis including anxiety, substance abuse, electrolyte imbalance , dehydration. Narrative Course 61-year-old male with dizziness. History of anxiety. Patient requesting Xanax. Patient was seen in emergency yesterday and blood tests and x-rays are normal. Vistaril 25 mg by mouth given. Diagnosis Primary Impression: Anxiety Patient Instructions: General Instructions Additional Instructions: Advised patient to take Vistaril as directed. Follow-up with local physician. Return if worse. Med/Other Pt SpecificInfo: Prescription(s) given Scripts Hydroxyzine Pamoate (Vistaril)25 Mg Cap25 Mg PO TID PRN (ANXIETY) #21 CAP Ref 0 Prov:Tucker Barillas MD 11/08/16 Disposition: 01 DISCHARGE HOME Condition: Stable Tucker Barillas MD Nov 08, 2016 09:45
[2016-11-09] MEDS ORDERED: VENTAER INH (14:17)
[2016-11-09] MEDS ORDERED: PRED20 PO (14:17)
== END 2016-11-08 10:04 | disposition home or self-care (01) ==
LOC: NEPE 09:03
DX: F41.9 Anxiety disorder, unspecified (principal); R42 Dizziness and giddiness; J45.909 Unspecified asthma, uncomplicated; N40.0 Benign prostatic hyperplasia without lower urinary tract symptoms
CPT/HCPCS: 99283; Q0177

== ENCOUNTER 2016-11-08 23:55 | Emergency (ER) | payer OTHER ==
[~2016-11-08] VITALS: Ht 188 cm; Wt 81.0 kg
[~2016-11-08 23:55] MED LIST changes: +VIST25CA PO
[2016-11-09 00:02] VITALS: BP 114/83; PULSE 91; RESP 22; TEMP 98.3; O2SAT 98
[2016-11-09] MEDS ORDERED: SODIUM CHLOR 0.9% 1000 ML INJ 1,000 ML IV ONE ×2 (00:30)
[2016-11-09] MEDS ORDERED: OLANZapine IM 10 MG VIAL IM ONE ×2 (00:30→01:45)
--- NOTE | 2016-11-09 00:36 | PD ---
HPI Chief Complaint: Psychiatric Symptoms Time Seen by Provider: 00:17 Travel History International Travel<30 days: No Contact w/Intl Traveler<30days: No Traveled to known affect area: No History of Present Illness HPI 61-year-old male brought in by PD under DutyCalculator Act. According to the DutyCalculator act the patient was playing on apartment doors and appeared to be extremely intoxicated. He is placed under this act for his safety. Upon arrival to the emergency department the patient is screaming, yelling that he is feeling anxious. He admits to drinking alcohol today. He denies illicit drug use. No physical complaints. PFSH Past Medical History Hx Anticoagulant Therapy: No Arthritis: No Asthma: Yes Autoimmune Disease: No Blood Disorders: No Anxiety: Yes Depression: No Heart Rhythm Problems: No Cancer: No Cardiovascular Problems: No High Cholesterol: No Chemotherapy: No Chest Pain: No Congestive Heart Failure: No COPD: No Cerebrovascular Accident: No Diabetes: No Diminished Hearing: No Endocrine: No Gastrointestinal Disorders: Yes (POSSIBLE HERNIA) GERD: No Glaucoma: No Genitourinary: Yes (ENLARGED PROSTATE CAUSING DELAYED BLADDER EMPTYING/UTI) Headaches: No Hepatitis: No Hiatal Hernia: Yes Heparin Induced Thrombocytopen: No Hypertension: No Immune Disorder: No Implanted Vascular Access Dvce: Yes Kidney Stones: No Medical other: Yes (INGUINAL HERNIA, VASCULITIS) Musculoskeletal: No Neurologic: No Psychiatric: Yes Reproductive: No Respiratory: Yes Immunizations Current: Yes Migraines: No Myocardial Infarction: No Radiation Therapy: No Renal Failure: No Seizures: No Sickle Cell Disease: No Sleep Apnea: No Thyroid Disease: No Influenza Vaccination: No Past Surgical History Abdominal Surgery: Yes (HERNIA REPAIR) AICD: No Arteriovenous Shunt: No Body Medical Devices: DENTAL IMPLANT Cardiac Surgery: No Cholecystectomy: No Ear Surgery: No Endocrine Surgery: No Eye Surgery: No Genitourinary Surgery: Yes (TURP secondary to BPH) Gynecologic Surgery: No Insulin Pump: No Joint Replacement: No Neurologic Surgery: No Oral Surgery: Yes (TOOTH PULLED UNDER ANESTHESIA) Pacemaker: No Thoracic Surgery: No Other Surgery: Yes Social History Alcohol Use: Yes Tobacco Use: No Substance Use: No Allergies-Medications (Allergen,Severity, Reaction): Coded Allergies: No Known Allergies (Verified , 11/08/16) Reported Meds & Prescriptions Reported Meds & Active Scripts Active Vistaril (Hydroxyzine Pamoate) 25 Mg Cap 25 Mg PO TID PRN Reported Xanax (Alprazolam) 0.5 Mg Tab 0.5 Mg PO DAILY PRN Prednisone 20 Mg Tab 10 Mg PO BID Review of Systems Except as stated in HPI: all other systems reviewed are Neg Physical Exam Narrative GENERAL: Well-developed, well-nourished, disheveled, yelling at staff, appears intoxicated. SKIN: Focused skin assessment warm/dry. Left forehead laceration with sutures in place, healing well, clean, dry, intact, no signs of infection. HEAD: Atraumatic. Normocephalic. EYES: Pupils equal and round. No scleral icterus. No injection or drainage. ENT: Mucous membranes pink and moist. NECK: Trachea midline. No JVD. CARDIOVASCULAR: Regular rate and rhythm. No murmur appreciated. RESPIRATORY: No accessory muscle use. Clear to auscultation. Breath sounds equal bilaterally. GASTROINTESTINAL: Abdomen soft, non-tender, nondistended. MUSCULOSKELETAL: No obvious deformities. No clubbing. No cyanosis. No edema. NEUROLOGICAL: Awake and alert. No obvious cranial nerve deficits. Motor grossly within normal limits. Normal speech. Moves all extremities. PSYCHIATRIC: Appears intoxicated, yelling at staff Data Data Last Documented VS Vital Signs Date Time Temp Pulse Resp B/P Pulse Ox O2 Delivery O2 Flow Rate FiO2 11/09/16 00:02 98.3 91 22 114/83 98 Orders Complete Blood Count With Diff (11/09/16 00:18) Comprehensive Metabolic Panel (11/09/16 00:18) Psych Screen (11/09/16 00:18) Drug Screen, Random Urine (11/09/16 00:18) Alcohol (Ethanol) (11/09/16 00:18) Salicylates (Aspirin) (11/09/16 00:18) Tylenol (Acetaminophen) (11/09/16 00:18) Sodium Chlor 0.9% 1000 Ml Inj (Ns 1000 M (11/09/16 00:30) Sodium Chlor 0.9% 1000 Ml Inj (Ns 1000 M (11/09/16 00:30) Ct Brain W/O Iv Contrast(Rout) (11/09/16 ) Olanzapine Inj (Zyprexa Inj) (11/09/16 00:30) Olanzapine Inj (Zyprexa Inj) (11/09/16 01:45) Labs Laboratory Tests Test 11/09/16 11/09/16 00:25 00:28 White Blood Count 14.7 TH/MM3 Red Blood Count 5.37 MIL/MM3 Hemoglobin 16.1 GM/DL Hematocrit 47.8 % Mean Corpuscular Volume 89.0 FL Mean Corpuscular Hemoglobin 30.0 PG Mean Corpuscular Hemoglobin 33.7 % Concent Red Cell Distribution Width 15.9 % Platelet Count 417 TH/MM3 Mean Platelet Volume 7.9 FL Neutrophils (%) (Auto) 86.7 % Lymphocytes (%) (Auto) 7.9 % Monocytes (%) (Auto) 4.5 % Eosinophils (%) (Auto) 0.1 % Basophils (%) (Auto) 0.8 % Neutrophils # (Auto) 12.8 TH/MM3 Lymphocytes # (Auto) 1.2 TH/MM3 Monocytes # (Auto) 0.7 TH/MM3 Eosinophils # (Auto) 0.0 TH/MM3 Basophils # (Auto) 0.1 TH/MM3 CBC Comment DIFF FINAL Differential Comment Sodium Level 140 MEQ/L Potassium Level 4.3 MEQ/L Chloride Level 100 MEQ/L Carbon Dioxide Level 23.1 MEQ/L Anion Gap 17 MEQ/L Blood Urea Nitrogen 23 MG/DL Creatinine 1.70 MG/DL Estimat Glomerular Filtration 41 ML/MIN Rate Random Glucose 72 MG/DL Calcium Level 8.4 MG/DL Total Bilirubin 0.4 MG/DL Aspartate Amino Transf 28 U/L (AST/SGOT) Alanine Aminotransferase 35 U/L (ALT/SGPT) Alkaline Phosphatase 122 U/L Total Protein 7.9 GM/DL Albumin 3.2 GM/DL Salicylates Level LESS THAN 1.7 MG/DL Acetaminophen Level LESS THAN 2.0 MCG/ML Ethyl Alcohol Level 340 MG/DL Urine Opiates Screen NEG Urine Barbiturates Screen NEG Urine Amphetamines Screen NEG Urine Benzodiazepines Screen NEG Urine Cocaine Screen NEG Urine Cannabinoids Screen NEG MDM Medical Decision Making Medical Screen Exam Complete: Yes Emergency Medical Condition: Yes Medical Record Reviewed: Yes Differential Diagnosis Alcohol intoxication, drug intoxication, acute psychosis, metabolic abnormality , intracranial abnormality Narrative Course Patient is intoxicated and is yelling at staff. He was also trying to get out of the stretcher. He is both a danger to himself and to staff. Because of this he was given chemical sedation. Vital signs are within normal limits. CBC shows WBC 14.7, hemoglobin 16.1, hematocrit 47.8, platelets 417, neutrophils 86%. CMP is remarkable for BUN 23, creatinine 1.7, GFR 41 which is slightly worse than his baseline, otherwise unremarkable. Tylenol and salicylate levels are negative. Urine drug screen is negative for all drugs tested. Alcohol level is 340. CT head: Brain is normal in appearance. Chronic sinus mucosal thickening. Patient has remained calm since receiving IM Zyprexa. He tells me that he feels very anxious and is feeling suicidal. Although he is intoxicated, he has been medically cleared for psychiatric evaluation and disposition by them. Diagnosis Primary Impression: Alcohol intoxication Qualified Code: F10.920 - Alcoholic intoxication without complication Additional Impression: Suicidal ideation Cristian Worley MD Nov 09, 2016 00:36
[2016-11-09 00:50] LABS: AUTOMATED NEUTROPHIL # 12.8 TH/MM3 (1.8-7.7); BASOPHIL # 0.1 TH/MM3 (0-0.2); BASOPHIL % 0.8 % (0.0-2.0); EOSINOPHIL % 0.1 % (0.0-4.0); HEMATOCRIT 47.8 % (39.0-51.0); HEMO FLAGS DIFF FINAL; LYMPH % 7.9 % (9.0-44.0); LYMPHOCYTE # 1.2 TH/MM3 (1.0-4.8); MEAN CORPUSCULAR HGB CONC 33.7 % (32.0-36.0); MONO % 4.5 % (0.0-8.0); NEUT % 86.7 % (16.0-70.0); PLATELET COUNT 417 TH/MM3 (150-450); RED BLOOD COUNT 5.37 MIL/MM3 (4.50-5.90); RED CELL DISTRIBUTION WIDTH 15.9 % (11.6-17.2); WHITE BLOOD COUNT 14.7 TH/MM3 (4.0-11.0)
[2016-11-09 00:53] LABS: AMPHETAMINE, URINE NEG (NEG); BARBITURATES, URINE NEG (NEG); COCAINE, URINE NEG (NEG)
--- NOTE | 2016-11-09 01:05 | RADRPT ---
EXAM DATE/TIME: 11/09/2016 00:49 [facility] COMPARISON: CT BRAIN W/O CONTRAST, November 02, 2016, 18:40. INDICATIONS : Altered mental status. RADIATION DOSE: 34.43 CTDIvol (mGy) MEDICAL HISTORY : Hernia, hiatal. Asthma. SURGICAL HISTORY : Hernia repair. TURP. ENCOUNTER: Initial ACUITY: 1 day PAIN SCALE: 0/10 LOCATION: cranial TECHNIQUE: Multiple contiguous axial images were obtained of the head. Using automated exposure control and adj ustment of the mA and/or kV according to patient size, radiation dose was kept as low as reasonably a chievable to obtain optimal diagnostic quality images. DICOM format image data is available electro nically for review and comparison. FINDINGS: CEREBRUM: The ventricles are normal for age. No evidence of midline shift, mass lesion, hemorrhage or acute in farction. No extra-axial fluid collections are seen. POSTERIOR FOSSA: The cerebellum and brainstem are intact. The 4th ventricle is midline. The cerebellopontine angle i s unremarkable. EXTRACRANIAL: The visualized portion of the orbits is intact. SKULL: The calvaria is intact. No evidence of skull fracture. There is circumferential mucosal thickening a nd periosteal thickening in the maxillary sinuses, sphenoid sinuses bilaterally, unchanged. CONCLUSION: Brain is normal in appearance. Chronic sinus mucosal thickening. Cedric Jose MD on November 09, 2016 at 1:03 Board Certified Radiologist. This report was verified electronically.
[2016-11-09 01:17] LABS: ALT (GPT) 35 U/L (12-78); ANION GAP 17 MEQ/L (5-15); AST (GOT) 28 U/L (15-37); BICARBONATE 23.1 MEQ/L (21.0-32.0); BLOOD UREA NITROGEN 23 MG/DL (7-18); CHLORIDE 100 MEQ/L (98-107); GLOMERULAR FILTRATION RATE 41 ML/MIN (>89); POTASSIUM 4.3 MEQ/L (3.5-5.1); SODIUM (NA) 140 MEQ/L (136-145)
[2016-11-09 01:19] LABS: ALKALINE PHOSPHATASE 122 U/L (45-117); TOTAL BILIRUBIN ADULT 0.4 MG/DL (0.2-1.0)
[2016-11-09 01:28] LABS: ACETAMINOPHEN LESS THAN 2.0 MCG/ML (10.0-30.0)
[2016-11-09] MEDS ORDERED: LORazepam 2 MG/ML VIAL IV PUSH ONE ×2 (03:00→14:15)
[2016-11-09 11:51] VITALS: BP 121/83; PULSE 110; RESP 28; O2SAT 91
--- NOTE | 2016-11-09 11:51 | PD ---
Physical Exam Narrative This is a 61 yo M who was brought in for alcohol intoxication and medically clear for psych evaluation by previous team after he sobered up and states that he wants to hurt himself. At 11:40am, pt complained of chest tightness along with sob. States he has asthma and feels like his asthma. Pt has very mild end expiratory wheezing on left upper lung. Speaking in complete sentences. Will obtain EKG, add troponin, give duonebs x 3 and prednisone 50mg PO. Will obtain CXR. Troponin negative. Pt given duonebs x3 and prednisone 50mg PO. Pt reevaluated at bedside and states his sob and chest tightness has resolved. However, he is feeling anxious. Will give 1mg of ativan. Lungs are clear to auscultation bilaterally. CXR negative. Pt is medically clear for psych evaluation as ordered by previous provider. Data Data Last Documented VS Vital Signs Date Time Temp Pulse Resp B/P Pulse Ox O2 Delivery O2 Flow Rate FiO2 11/09/16 12:27 95 Nasal Cannula 2.00 11/09/16 11:51 110 28 121/83 11/09/16 00:02 98.3 Orders Complete Blood Count With Diff (11/09/16 00:18) Comprehensive Metabolic Panel (11/09/16 00:18) Psych Screen (11/09/16 00:18) Drug Screen, Random Urine (11/09/16 00:18) Alcohol (Ethanol) (11/09/16 00:18) Salicylates (Aspirin) (11/09/16 00:18) Tylenol (Acetaminophen) (11/09/16 00:18) Sodium Chlor 0.9% 1000 Ml Inj (Ns 1000 M (11/09/16 00:30) Sodium Chlor 0.9% 1000 Ml Inj (Ns 1000 M (11/09/16 00:30) Ct Brain W/O Iv Contrast(Rout) (11/09/16 ) Olanzapine Inj (Zyprexa Inj) (11/09/16 00:30) Olanzapine Inj (Zyprexa Inj) (11/09/16 01:45) Lorazepam Inj (Ativan Inj) (11/09/16 03:00) Troponin I (11/09/16 11:46) Ecg Monitoring (11/09/16 11:46) Oximetry (11/09/16 11:46) Oxygen Administration (11/09/16 11:46) Albuterol-Ipratropium Neb (Duoneb Neb) (11/09/16 12:00) Chest, Single Ap (11/09/16 ) Prednisone (Deltasone) (11/09/16 12:00) Electrocardiogram (11/09/16 ) Lorazepam Inj (Ativan Inj) (11/09/16 14:15) Labs Laboratory Tests Test 11/09/16 11/09/16 11/09/16 00:25 00:28 12:54 White Blood Count 14.7 TH/MM3 Red Blood Count 5.37 MIL/MM3 Hemoglobin 16.1 GM/DL Hematocrit 47.8 % Mean Corpuscular Volume 89.0 FL Mean Corpuscular Hemoglobin 30.0 PG Mean Corpuscular Hemoglobin 33.7 % Concent Red Cell Distribution Width 15.9 % Platelet Count 417 TH/MM3 Mean Platelet Volume 7.9 FL Neutrophils (%) (Auto) 86.7 % Lymphocytes (%) (Auto) 7.9 % Monocytes (%) (Auto) 4.5 % Eosinophils (%) (Auto) 0.1 % Basophils (%) (Auto) 0.8 % Neutrophils # (Auto) 12.8 TH/MM3 Lymphocytes # (Auto) 1.2 TH/MM3 Monocytes # (Auto) 0.7 TH/MM3 Eosinophils # (Auto) 0.0 TH/MM3 Basophils # (Auto) 0.1 TH/MM3 CBC Comment DIFF FINAL Differential Comment Sodium Level 140 MEQ/L Potassium Level 4.3 MEQ/L Chloride Level 100 MEQ/L Carbon Dioxide Level 23.1 MEQ/L Anion Gap 17 MEQ/L Blood Urea Nitrogen 23 MG/DL Creatinine 1.70 MG/DL Estimat Glomerular Filtration 41 ML/MIN Rate Random Glucose 72 MG/DL Calcium Level 8.4 MG/DL Total Bilirubin 0.4 MG/DL Aspartate Amino Transf 28 U/L (AST/SGOT) Alanine Aminotransferase 35 U/L (ALT/SGPT) Alkaline Phosphatase 122 U/L Total Protein 7.9 GM/DL Albumin 3.2 GM/DL Salicylates Level LESS THAN 1.7 MG/DL Acetaminophen Level LESS THAN 2.0 MCG/ML Ethyl Alcohol Level 340 MG/DL Urine Opiates Screen NEG Urine Barbiturates Screen NEG Urine Amphetamines Screen NEG Urine Benzodiazepines Screen NEG Urine Cocaine Screen NEG Urine Cannabinoids Screen NEG Troponin I LESS THAN 0.02 NG/ML [facility] Supervised Visit with MARLIN: No Interpretation(s) EKG: Sinus tachycardia at 106bpm. Normal axis. No ST segment elevation or depression. Diagnosis Primary Impression: Alcohol intoxication Qualified Code: F10.920 - Alcoholic intoxication without complication Additional Impression: Asthma exacerbation Patient Instructions: General Instructions Departure Forms: Tests/Procedures Additional Instruction: Please follow up with your PMD in 3-7 days. Return to the ED if symptoms worsen. Med/Other Pt SpecificInfo: Prescription(s) given Scripts Albuterol 18 GM Inh (Ventolin Hfa 18 GM Inh)90 Mcg/Act Aer2 Puff INH Q4H PRN ( SHORTNESS OF BREATH) #1 INHALER Ref 0 Prov:Marzena Yu DO 11/09/16 Prednisone 20 Mg Tab20 Mg PO BID 5 Days Ref 0 Prov:Marzena Yu DO 11/09/16 Disposition: 01 DISCHARGE HOME Condition: Stable Marzena Yu DO Nov 09, 2016 11:51
[2016-11-09 11:53] VITALS: O2SAT 91
[2016-11-09] MEDS ORDERED: predniSONE 50 MG TAB PO ONE (12:00)
[2016-11-09] MEDS: RESP: ALBUTEROL 2.5 MG/IPRATROPIUM 0.5 MG NEB (SCH) INH ×2 (12:26→12:27)
[2016-11-09 12:27] VITALS: O2SAT 95
--- NOTE | 2016-11-09 12:40 | RADRPT ---
EXAM DATE/TIME: 11/09/2016 11:49 [facility] COMPARISON: CHEST SINGLE AP, November 08, 2016, 2:25. INDICATIONS : Shortness of breath. MEDICAL HISTORY : Hiatal hernia. Asthma SURGICAL HISTORY : Inguinal hernia repair. TURP ENCOUNTER: Initial ACUITY: 1 day PAIN SCORE: 5/10 LOCATION: Bilateral chest Middle FINDINGS: A single view of the chest demonstrates the lungs to be symmetrically aerated without evidence of mas s, infiltrate or effusion. The cardiomediastinal contours are unremarkable. Osseous structures are intact. CONCLUSION: No acute disease. No significant change has occurred. Suraj Garcia MD on November 09, 2016 at 12:38 Board Certified Radiologist. This report was verified electronically.
[2016-11-09] MEDS ORDERED: PRED20 PO (14:17)
[2016-11-09] MEDS ORDERED: VENTAER INH (14:17)
--- NOTE | 2016-11-09 15:07 | PD ---
History of Present Illness Chief Complaint: Alcohol/Drug Intoxication Time Seen by Provider: 14:45 Travel History International Travel<30 Days: No Contact w/Intl Traveler<30days: No Known affected area: No Legal Status Legal Status: aFrrah Thibodeaux Act Signed By: History of Present Illness: 61 year-old male with self-admitted history of multiyear alcohol and substance abuse. Patient admitted last night intoxicated and reportedly made suicidal threats. At this time the patient is not suicidal or homicidal, has no ideation , plan or intent. He would like to go home although he admits he needs alcohol detox and rehabilitation. He is also aware of [facility] that states it's difficult to get into that program. The patient does not meet criteria for involuntary psychiatric hospitalization and he does not meet criteria for Thibodeaux act. He is verbally luis fernando for safety. He has a home to go to an money to support himself. He is not psychotic and his cognition is intact. PFSH Past Medical History Hx Anticoagulant Therapy: No Arthritis: No Asthma: Yes Autoimmune Disease: No Blood Disorders: No Anxiety: Yes Depression: No Heart Rhythm Problems: No Cancer: No Cardiovascular Problems: No High Cholesterol: No Chemotherapy: No Chest Pain: No Congestive Heart Failure: No COPD: No Cerebrovascular Accident: No Diabetes: No Diminished Hearing: No Endocrine: No Gastrointestinal Disorders: Yes (POSSIBLE HERNIA) GERD: No Glaucoma: No Genitourinary: Yes (ENLARGED PROSTATE CAUSING DELAYED BLADDER EMPTYING/UTI) Headaches: No Hepatitis: No Hiatal Hernia: Yes Heparin Induced Thrombocytopen: No Hypertension: No Immune Disorder: No Implanted Vascular Access Dvce: Yes Kidney Stones: No Medical other: Yes (INGUINAL HERNIA, VASCULITIS) Musculoskeletal: No Neurologic: No Psychiatric: Yes Reproductive: No Respiratory: Yes Immunizations Current: Yes Migraines: No Myocardial Infarction: No Radiation Therapy: No Renal Failure: No Seizures: No Sickle Cell Disease: No Sleep Apnea: No Thyroid Disease: No Influenza Vaccination: No Past Surgical History Abdominal Surgery: Yes (HERNIA REPAIR) AICD: No Arteriovenous Shunt: No Body Medical Devices: DENTAL IMPLANT Cardiac Surgery: No Cholecystectomy: No Ear Surgery: No Endocrine Surgery: No Eye Surgery: No Genitourinary Surgery: Yes (TURP secondary to BPH) Gynecologic Surgery: No Insulin Pump: No Joint Replacement: No Neurologic Surgery: No Oral Surgery: Yes (TOOTH PULLED UNDER ANESTHESIA) Pacemaker: No Thoracic Surgery: No Other Surgery: Yes Psychiatric History Psychiatric History Hx Psychiatric Treatment: PATIENT STATED THAT HE HAS A HISTORY OF ANXIETY. History of Inpatient Treatment: No Guns or firearms in home: No Social History Hx Alcohol Use: Yes Hx Tobacco Use: No Hx Substance Use: No Substance Use Type: Alcohol Hx of Substance Use Treatment: No Allergies-Medications (Allergen,Severity, Reaction): Coded Allergies: No Known Allergies (Verified , 11/08/16) Reported Meds & Prescriptions Reported Meds & Active Scripts Active Ventolin Hfa 18 GM Inh (Albuterol Sulfate) 90 Mcg/Act Aer 2 Puff INH Q4H PRN Prednisone 20 Mg Tab 20 Mg PO BID 5 Days Vistaril (Hydroxyzine Pamoate) 25 Mg Cap 25 Mg PO TID PRN Reported Xanax (Alprazolam) 0.5 Mg Tab 0.5 Mg PO DAILY PRN Prednisone 20 Mg Tab 10 Mg PO BID Review of Systems Except as stated in HPI: all other systems reviewed are Neg Exam Alert: Yes [place]: Person, Place, Date, Situation Mood: Calm Affect: Appropriate, Euthymic Speech: Clear, Logical Eye Contact: Normal Memory Intact: Immediate, Recent, Remote Insight/Judgement Adequate MDM Medical Decision Making Medical Record Reviewed: Yes Assessment/Plan Patient's chart reviewed and the nurse was interviewed regarding his behavior. Patient currently denies suicidal or homicidal ideation, plan or intent. He admits his main problem is alcoholism. He is being referred to [facility] but states he would rather go home at this time because he knows there is a wait to get into [facility]. This physician does not feel the patient meets Thibodeaux act criteria or psychiatric involuntary hospitalization criteria. Orders Complete Blood Count With Diff (11/09/16:18) Comprehensive Metabolic Panel (11/09/16:18) Psych Screen (11/09/16:18) Drug Screen, Random Urine (11/09/16:18) Alcohol (Ethanol) (11/09/16:18) Salicylates (Aspirin) (11/09/16:18) Tylenol (Acetaminophen) (8/8/17 00:18) Sodium Chlor 0.9% 1000 Ml Inj (Ns 1000 M (11/09/16 00:30) Sodium Chlor 0.9% 1000 Ml Inj (Ns 1000 M (11/09/16 00:30) Ct Brain W/O Iv Contrast(Rout) (11/09/16 ) Olanzapine Inj (Zyprexa Inj) (11/09/16 00:30) Olanzapine Inj (Zyprexa Inj) (11/09/16 01:45) Lorazepam Inj (Ativan Inj) (11/09/16 03:00) Troponin I (11/09/16 11:46) Ecg Monitoring (11/09/16 11:46) Oximetry (11/09/16 11:46) Oxygen Administration (11/09/16 11:46) Albuterol-Ipratropium Neb (Duoneb Neb) (11/09/16 12:00) Chest, Single Ap (11/09/16 ) Prednisone (Deltasone) (11/09/16 12:00) Electrocardiogram (11/09/16 ) Lorazepam Inj (Ativan Inj) (11/09/16 14:15) Diet Regular Basic (11/09/16 Dinner) Results Vital Signs Date Time Temp Pulse Resp B/P Pulse Ox O2 Delivery O2 Flow Rate FiO2 11/09/16 12:27 95 Nasal Cannula 2.00 11/09/16 11:53 92 Nasal Cannula 2 11/09/16 11:53 91 Room Air 11/09/16 11:51 110 28 121/83 91 Nasal Cannula 2 11/09/16 00:02 98.3 91 22 114/83 98 Laboratory Tests Test 11/09/16 11/09/16 11/09/16 00:25 00:28 12:54 White Blood Count 14.7 Red Blood Count 5.37 Hemoglobin 16.1 Hematocrit 47.8 Mean Corpuscular Volume 89.0 Mean Corpuscular Hemoglobin 30.0 Mean Corpuscular Hemoglobin 33.7 Concent Red Cell Distribution Width 15.9 Platelet Count 417 Mean Platelet Volume 7.9 Neutrophils (%) (Auto) 86.7 Lymphocytes (%) (Auto) 7.9 Monocytes (%) (Auto) 4.5 Eosinophils (%) (Auto) 0.1 Basophils (%) (Auto) 0.8 Neutrophils # (Auto) 12.8 Lymphocytes # (Auto) 1.2 Monocytes # (Auto) 0.7 Eosinophils # (Auto) 0.0 Basophils # (Auto) 0.1 CBC Comment DIFF FINAL Differential Comment Sodium Level 140 Potassium Level 4.3 Chloride Level 100 Carbon Dioxide Level 23.1 Anion Gap 17 Blood Urea Nitrogen 23 Creatinine 1.70 Estimat Glomerular Filtration 41 Rate Random Glucose 72 Calcium Level 8.4 Total Bilirubin 0.4 Aspartate Amino Transf 28 (AST/SGOT) Alanine Aminotransferase 35 (ALT/SGPT) Alkaline Phosphatase 122 Total Protein 7.9 Albumin 3.2 Salicylates Level LESS THAN 1.7 Acetaminophen Level LESS THAN 2.0 Ethyl Alcohol Level 340 Urine Opiates Screen NEG Urine Barbiturates Screen NEG Urine Amphetamines Screen NEG Urine Benzodiazepines Screen NEG Urine Cocaine Screen NEG Urine Cannabinoids Screen NEG Troponin I LESS THAN 0.02 Diagnosis Primary Impression: Adjustment disorder with mixed disturbance of emotions and conduct Additional Impression: Alcohol abuse Departure Forms: Tests/Procedures Patient Instructions: General Instructions Additional Instructions: Please follow up with your PMD in 3-7 days. Return to the ED if symptoms worsen. Prescriptions Albuterol 18 GM Inh (Ventolin Hfa 18 GM Inh)90 Mcg/Act Aer2 Puff INH Q4H PRN ( SHORTNESS OF BREATH) #1 INHALER Ref 0 Prov:Marzena Yu DO 11/09/16 Prednisone 20 Mg Tab20 Mg PO BID 5 Days Ref 0 Prov:AimeeMarzena 11/09/16 Disposition: 01 DISCHARGE HOME Condition: Stable Problem Qualifiers Barry Lemus MD Nov 09, 2016 15:07
--- NOTE | 2016-11-10 08:34 | EKG ---
Date Performed: 11/09/2016 Time Performed: 13:34:30 PTAGE: 61 years EKG: SINUS TACHYCARDIA NONSPECIFIC T-WAVE ABNORMALITY ABNORMAL RHYTHM ECG PREVIOUS TRACING : 11/08/2016 02.05 DOCTOR: Jamel Berg Interpretating Date/Time 11/10/2016 08:29:16
== END 2016-11-09 16:18 | disposition home or self-care (01) ==
LOC: NEPC 23:55
DX: F43.25 Adjustment disorder with mixed disturbance of emotions and conduct (principal); F10.10 Alcohol abuse, uncomplicated; F41.9 Anxiety disorder, unspecified; N40.0 Benign prostatic hyperplasia without lower urinary tract symptoms; J45.901 Unspecified asthma with (acute) exacerbation; R00.0 Tachycardia, unspecified; R45.851 Suicidal ideations; R94.31 Abnormal electrocardiogram [ECG] [EKG]; Z79.899 Other long term (current) drug therapy
CPT/HCPCS: 70450; 71010; 80053; 80307; 84484; 85025; 93005; 94640; 94664; 96361; 96372; 96374; 96376; 99285; J2060; J7030; J7512

== ENCOUNTER 2017-05-15 10:52 | Emergency (ER) | payer OTHER ==
[~2017-05-15] VITALS: Ht 190.5 cm; Wt 86.0 kg
[~2017-05-15 10:52] MED LIST changes: -DIFL100T PO; -LEVA500T20 PO; -SERO25TA PO; -TAMS0.4C4 PO
[2017-05-15 10:59] VITALS: BP 107/73; PULSE 101; RESP 18; TEMP 99; O2SAT 94
[2017-05-15] MEDS ORDERED: TAMS0.4C4 PO (11:09)
[2017-05-15] MEDS ORDERED: OMEP20TA93 PO (11:09)
[2017-05-15] MEDS ORDERED: XARE20TA PO (11:09)
[2017-05-15] MEDS ORDERED: ALPR1TAB3 PO (11:09)
[2017-05-15] MEDS ORDERED: LORazepam 2 MG/ML VIAL IV PUSH ONE (11:15)
[2017-05-15] MEDS ORDERED: SODIUM CHLOR 0.9% 1000 ML INJ 1,000 ML IV ONE (11:15)
--- NOTE | 2017-05-15 11:23 | PD ---
HPI Chief Complaint: Anxiety Time Seen by Provider: 11:05 Travel History International Travel<30 days: No Contact w/Intl Traveler<30days: No Traveled to known affect area: No History of Present Illness HPI The patient is a 61 year-old male who presents to the emergency department via EMS for anxiety. Patient states he does have a history of anxiety, is been out of his Xanax for the last 5 days. The patient has been drinking over the last 5 days, approximately 4 tall boys of natural ice per day , last beer was at 9 AM. The patient complains of anxiety, however, cannot pinpoint what is making him anxious. The patient denies any suicidal or homicidal ideation. He does complain of bruising to the medial aspect of the left eye, states he possibly fell last night. 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 He denies any visual changes of the left eye. He denies any difficulty with extraocular movements. He denies any significant headache, neck pain, shortness of breath, chest pain, nausea, vomiting, or abdominal pain. He denies any focal deficits. PFSH Past Medical History Hx Anticoagulant Therapy: No Arthritis: No Asthma: Yes Autoimmune Disease: No Blood Disorders: No Anxiety: Yes Depression: No Heart Rhythm Problems: No Cancer: No Cardiovascular Problems: No High Cholesterol: No Chemotherapy: No Chest Pain: No Congestive Heart Failure: No COPD: No Cerebrovascular Accident: No Diabetes: No Diminished Hearing: No Endocrine: No Gastrointestinal Disorders: Yes (POSSIBLE HERNIA) GERD: No Glaucoma: No Genitourinary: Yes (ENLARGED PROSTATE CAUSING DELAYED BLADDER EMPTYING/UTI) Headaches: No Hepatitis: No Hiatal Hernia: Yes Heparin Induced Thrombocytopen: No Hypertension: No Immune Disorder: No Implanted Vascular Access Dvce: Yes Kidney Stones: No Medical other: Yes (INGUINAL HERNIA, VASCULITIS) Musculoskeletal: No Neurologic: No Psychiatric: Yes Reproductive: No Respiratory: Yes Immunizations Current: Yes Migraines: No Myocardial Infarction: No Radiation Therapy: No Renal Failure: No Seizures: No Sickle Cell Disease: No Sleep Apnea: No Thyroid Disease: No Influenza Vaccination: No ?: Not Past Surgical History Abdominal Surgery: Yes (HERNIA REPAIR) AICD: No Arteriovenous Shunt: No Body Medical Devices: DENTAL IMPLANT Cardiac Surgery: No Cholecystectomy: No Ear Surgery: No Endocrine Surgery: No Eye Surgery: No Genitourinary Surgery: Yes (TURP secondary to BPH) Gynecologic Surgery: No Insulin Pump: No Joint Replacement: No Neurologic Surgery: No Oral Surgery: Yes (TOOTH PULLED UNDER ANESTHESIA) Pacemaker: No Thoracic Surgery: No Other Surgery: Yes Social History Alcohol Use: Yes Tobacco Use: No Substance Use: No Allergies-Medications (Allergen,Severity, Reaction): Coded Allergies: No Known Allergies (Verified , 11/08/16) Reported Meds & Prescriptions Reported Meds & Active Scripts Active Chlordiazepoxide HCl 25 Mg Capsule 1 Tab PO DIRECTED Ventolin Hfa 18 GM Inh (Albuterol Sulfate) 90 Mcg/Act Aer 2 Puff INH Q4H PRN Prednisone 20 Mg Tab 20 Mg PO BID 5 Days Reported Xarelto (Rivaroxaban) 20 Mg Tab 20 Mg PO DAILY Omeprazole 20 Mg Tab 20 Mg PO DAILY Alprazolam 1 Mg Tab 1 Mg PO BID PRN Tamsulosin (Tamsulosin HCl) 0.4 Mg Cap 0.4 Mg PO HS Review of Systems Except as stated in HPI: all other systems reviewed are Neg General / Constitutional: No: Fever Eyes: No: Other HENT: Positive: Other (as noted in the history of present illness), No: Headaches Cardiovascular: No: Chest Pain or Discomfort Respiratory: No: Shortness of Breath Gastrointestinal: No: Nausea, Vomiting Musculoskeletal: No: Weakness Psychiatric: Positive: Anxiety, Substance Abuse (alcohol abuse), No: Suicidal Ideations, Homicidal Ideation Physical Exam Narrative GENERAL: Awake, alert, nontoxic-appearing 7-year-old male appears his stated age and is in no acute respiratory distress. SKIN: Focused skin assessment warm/dry. HEAD: Patient has ecchymosis of the medial aspect the left orbit. EYES: Pupils equal and round. 3 mm bilateral and reactive. EOMs are intact. ENT: No nasal bleeding or discharge. Mucous membranes pink and moist. Breath smells of alcohol. NECK: Trachea midline. No JVD. CARDIOVASCULAR: Regular rate and rhythm. No murmur appreciated. Heart rate in the 90s. RESPIRATORY: No accessory muscle use. Clear to auscultation. Breath sounds equal bilaterally. GASTROINTESTINAL: Abdomen soft, non-tender, nondistended. Hepatic and splenic margins not palpable. MUSCULOSKELETAL: No obvious deformities. No clubbing. No cyanosis. No edema. NEUROLOGICAL: Awake and alert. No obvious cranial nerve deficits. Motor grossly within normal limits. Normal speech. Nonfocal. Oriented 3. PSYCHIATRIC: Appropriate mood and affect; insight and judgment normal. Data Data Last Documented VS Vital Signs Date Time Temp Pulse Resp B/P (MAP) Pulse Ox O2 Delivery O2 Flow Rate FiO2 05/15/17 14:22 93 18 125/76 (92) 88 20 124/69 (87) 101 20 113/76 (88) 05/15/17 10:59 99.0 94 Orders Orders Complete Blood Count With Diff (05/15/17 11:10) Comprehensive Metabolic Panel (05/15/17 11:10) Ct Brain W/O Iv Contrast(Rout) (05/15/17 ) Alcohol (Ethanol) (05/15/17 11:10) Sodium Chlor 0.9% 1000 Ml Inj (Ns 1000 M (05/15/17 11:15) Lorazepam Inj (Ativan Inj) (05/15/17 11:15) Potassium Chloride (Kcl) (05/15/17 12:00) Chlordiazepoxide (Librium) (05/15/17 12:15) Ed Discharge Order (05/15/17 12:33) Orthostatic Vital Signs (05/15/17 14:15) Labs Laboratory Tests Test 05/15/17 11:17 White Blood Count 15.6 TH/MM3 Red Blood Count 5.31 MIL/MM3 Hemoglobin 16.0 GM/DL Hematocrit 47.4 % Mean Corpuscular Volume 89.4 FL Mean Corpuscular Hemoglobin 30.2 PG Mean Corpuscular Hemoglobin Concent 33.7 % Red Cell Distribution Width 17.1 % Platelet Count 291 TH/MM3 Mean Platelet Volume 8.0 FL Neutrophils (%) (Auto) 77.5 % Lymphocytes (%) (Auto) 11.0 % Monocytes (%) (Auto) 10.0 % Eosinophils (%) (Auto) 1.3 % Basophils (%) (Auto) 0.2 % Neutrophils # (Auto) 12.1 TH/MM3 Lymphocytes # (Auto) 1.7 TH/MM3 Monocytes # (Auto) 1.5 TH/MM3 Eosinophils # (Auto) 0.2 TH/MM3 Basophils # (Auto) 0.0 TH/MM3 CBC Comment DIFF FINAL Differential Comment Blood Urea Nitrogen 16 MG/DL Creatinine 1.84 MG/DL Random Glucose 74 MG/DL Total Protein 8.3 GM/DL Albumin 3.4 GM/DL Calcium Level 8.4 MG/DL Alkaline Phosphatase 110 U/L Aspartate Amino Transf (AST/SGOT) 42 U/L Alanine Aminotransferase (ALT/SGPT) 83 U/L Total Bilirubin 0.7 MG/DL Sodium Level 136 MEQ/L Potassium Level 3.1 MEQ/L Chloride Level 96 MEQ/L Carbon Dioxide Level 27.4 MEQ/L Anion Gap 13 MEQ/L Estimat Glomerular Filtration Rate 38 ML/MIN Ethyl Alcohol Level 62 MG/DL MDM Medical Decision Making Medical Screen Exam Complete: Yes Emergency Medical Condition: Yes Medical Record Reviewed: Yes Interpretation(s) Laboratory Tests Test 05/15/17 11:17 White Blood Count 15.6 TH/MM3 Red Blood Count 5.31 MIL/MM3 Hemoglobin 16.0 GM/DL Hematocrit 47.4 % Mean Corpuscular Volume 89.4 FL Mean Corpuscular Hemoglobin 30.2 PG Mean Corpuscular Hemoglobin Concent 33.7 % Red Cell Distribution Width 17.1 % Platelet Count 291 TH/MM3 Mean Platelet Volume 8.0 FL Neutrophils (%) (Auto) 77.5 % Lymphocytes (%) (Auto) 11.0 % Monocytes (%) (Auto) 10.0 % Eosinophils (%) (Auto) 1.3 % Basophils (%) (Auto) 0.2 % Neutrophils # (Auto) 12.1 TH/MM3 Lymphocytes # (Auto) 1.7 TH/MM3 Monocytes # (Auto) 1.5 TH/MM3 Eosinophils # (Auto) 0.2 TH/MM3 Basophils # (Auto) 0.0 TH/MM3 CBC Comment DIFF FINAL Differential Comment Blood Urea Nitrogen 16 MG/DL Creatinine 1.84 MG/DL Random Glucose 74 MG/DL Total Protein 8.3 GM/DL Albumin 3.4 GM/DL Calcium Level 8.4 MG/DL Alkaline Phosphatase 110 U/L Aspartate Amino Transf (AST/SGOT) 42 U/L Alanine Aminotransferase (ALT/SGPT) 83 U/L Total Bilirubin 0.7 MG/DL Sodium Level 136 MEQ/L Potassium Level 3.1 MEQ/L Chloride Level 96 MEQ/L Carbon Dioxide Level 27.4 MEQ/L Anion Gap 13 MEQ/L Estimat Glomerular Filtration Rate 38 ML/MIN Ethyl Alcohol Level 62 MG/DL Last Impressions Head CT 05/15/17 0000 Signed Impressions: Service Date/Time: Monday, May 15, 2017 11:39 - CONCLUSION: Soft tissue edema overlying the left frontal bone with no evidence of underlying fracture. The intracranial exam is normal. Stable sinus disease.. Cady Clifford MD Differential Diagnosis Differential diagnosis includes alcohol intoxication, alcohol withdrawal, benzodiazepine withdrawal, anxiety, to cranial hemorrhage, facial fracture, hyponatremia, dehydration, alcohol abuse. Narrative Course IV was established, labs are drawn and sent, and the patient was placed on cardiac telemetry monitoring and continuous pulse oximetry monitoring. CT of the brain was obtained. The patient was administered IV fluids and Ativan 0.5 mg intravenously. The patient's potassium is low at 3.1, therefore, was replaced orally. IAlcohol was elevated just greater than 60. CT brain is negative for acute intracranial hemorrhage. LFTs are slightly elevated. The patient will be placed on Librium, is advised to stop drinking alcohol to follow -up with his primary physician. Diagnosis Primary Impression: Alcohol abuse with alcohol-induced mood disorder Patient Instructions: General Instructions Additional Instructions: Librium as directed. Follow-up with your primary physician. Stop drinking alcohol. Med/Other Pt SpecificInfo: Prescription(s) given Scripts Chlordiazepoxide HCl (Chlordiazepoxide HCl) 25 Mg Capsule 1 TAB PO DIRECTED, #20 Prov: Russ Carrillo MD 05/15/17 Disposition: 01 DISCHARGE HOME Condition: Stable Russ Carrillo MD May 15, 2017 11:23
[2017-05-15 11:27] LABS: AUTOMATED NEUTROPHIL # 12.1 TH/MM3 (1.8-7.7); BASOPHIL % 0.2 % (0.0-2.0); EOSINOPHIL # 0.2 TH/MM3 (0-0.4); EOSINOPHIL % 1.3 % (0.0-4.0); HEMATOCRIT 47.4 % (39.0-51.0); LYMPHOCYTE # 1.7 TH/MM3 (1.0-4.8); MEAN CELL VOLUME 89.4 FL (80.0-100.0); MEAN CORPUSCULAR HEMOGLOBIN 30.2 PG (27.0-34.0); MEAN CORPUSCULAR HGB CONC 33.7 % (32.0-36.0); MONOCYTE # 1.5 TH/MM3 (0-0.9); NEUT % 77.5 % (16.0-70.0); PLATELET COUNT 291 TH/MM3 (150-450); RED BLOOD COUNT 5.31 MIL/MM3 (4.50-5.90); RED CELL DISTRIBUTION WIDTH 17.1 % (11.6-17.2); WHITE BLOOD COUNT 15.6 TH/MM3 (4.0-11.0)
[2017-05-15 11:45] LABS: ALBUMIN 3.4 GM/DL (3.4-5.0); ALT (GPT) 83 U/L (12-78); AST (GOT) 42 U/L (15-37); BICARBONATE 27.4 MEQ/L (21.0-32.0); BLOOD UREA NITROGEN 16 MG/DL (7-18); CALCIUM 8.4 MG/DL (8.5-10.1); CHLORIDE 96 MEQ/L (98-107); CREATININE 1.84 MG/DL (0.60-1.30); GLOMERULAR FILTRATION RATE 38 ML/MIN (>89); GLUCOSE,RANDOM 74 MG/DL (74-106); SODIUM (NA) 136 MEQ/L (136-145)
[2017-05-15 11:47] LABS: ALKALINE PHOSPHATASE 110 U/L (45-117); TOTAL BILIRUBIN ADULT 0.7 MG/DL (0.2-1.0); TOTAL PROTEIN 8.3 GM/DL (6.4-8.2)
[2017-05-15] MEDS ORDERED: POTASSIUM CHLORIDE 20 MEQ CONTROLLED RELEASE TAB PO ONE (12:00)
--- NOTE | 2017-05-15 12:02 | RADRPT ---
EXAM DATE/TIME: 05/15/2017 11:39 [facility] COMPARISON: CT BRAIN W/O CONTRAST, November 09, 2016, 0:49. INDICATIONS : Altered mental status. RADIATION DOSE: 56.35 CTDIvol (mGy) MEDICAL HISTORY : None SURGICAL HISTORY : None. ENCOUNTER: Initial ACUITY: 1 day PAIN SCALE: 0/10 LOCATION: cranial TECHNIQUE: Multiple contiguous axial images were obtained of the head. Using automated exposure control and adj ustment of the mA and/or kV according to patient size, radiation dose was kept as low as reasonably a chievable to obtain optimal diagnostic quality images. DICOM format image data is available electro nically for review and comparison. FINDINGS: CEREBRUM: The ventricles are normal for age. No evidence of midline shift, mass lesion, hemorrhage or acute in farction. No extra-axial fluid collections are seen. POSTERIOR FOSSA: The cerebellum and brainstem are intact. The 4th ventricle is midline. The cerebellopontine angle i s unremarkable. EXTRACRANIAL: The visualized portion of the orbits is intact. There is soft tissue edema overlying the left frontal bone. There is stable appearance of diffuse mild sinus mucosal thickening within the ethmoid air talon ls and maxillary sinuses. SKULL: The calvaria is intact. No evidence of skull fracture. CONCLUSION: Soft tissue edema overlying the left frontal bone with no evidence of underlying fracture. The intrac ranial exam is normal. Stable sinus disease.. Cady Clifford MD on May 15, 2017 at 11:59 Board Certified Radiologist. This report was verified electronically.
[2017-05-15] MEDS ORDERED: CHLO25CA9 PO (12:32)
[2017-05-15 14:22] VITALS: BP_SYST 113; BP_SYST 124; BP_SYST 125; BP_DIAS 69; BP_DIAS 76; RESP 18; RESP 20
== END 2017-05-15 14:51 | disposition home or self-care (01) ==
LOC: NEPC 10:52
DX: F10.14 Alcohol abuse with alcohol-induced mood disorder (principal); R79.89 Other specified abnormal findings of blood chemistry; S05.12XA Contusion of eyeball and orbital tissues, left eye, initial encounter; F41.9 Anxiety disorder, unspecified; J45.909 Unspecified asthma, uncomplicated; X58.XXXA Exposure to other specified factors, initial encounter; Z86.718 Personal history of other venous thrombosis and embolism; Z79.899 Other long term (current) drug therapy
CPT/HCPCS: 70450; 80053; 80307; 85025; 96374; 99284; J2060; J7030

== ENCOUNTER 2017-05-30 18:32 | Emergency (ER) | payer OTHER ==
[~2017-05-30] VITALS: Ht 190.5 cm; Wt 83.0 kg
[~2017-05-30 18:32] MED LIST changes: -ALPR.5 PO; +ALPR1TAB3 PO; +CHLO25CA9 PO; +OMEP20TA93 PO; +TAMS0.4C4 PO; -VIST25CA PO; +XARE20TA PO
[2017-05-30 18:43] VITALS: BP 126/82; PULSE 66; RESP 16; TEMP 99.1; O2SAT 97
--- NOTE | 2017-05-30 18:59 | PD ---
HPI Chief Complaint: Laceration/Skin Injury Time Seen by Provider: 18:51 Travel History International Travel<30 days: No Contact w/Intl Traveler<30days: No Traveled to known affect area: No History of Present Illness HPI 61-year-old male with PMH of chronic alcoholism presents to the ED by EMS after sustaining a laceration to left great toe. Patient states that he is currently staying in a hotel. He states that he was leaning on the bathroom sink and fell off the wall, shattering into large pieces. Patient states that he stepped on one of the shards of porcelain and this caused the laceration of his foot. He has been able to the foot. He denies numbness or limitations to range of motion. He is unsure of his last tetanus immunization. PFSH Past Medical History Hx Anticoagulant Therapy: No Arthritis: No Asthma: Yes Autoimmune Disease: No Blood Disorders: No Anxiety: Yes Depression: No Heart Rhythm Problems: No Cancer: No Cardiovascular Problems: No High Cholesterol: No Chemotherapy: No Chest Pain: No Congestive Heart Failure: No COPD: No Cerebrovascular Accident: No Diabetes: No Diminished Hearing: No Endocrine: No Gastrointestinal Disorders: Yes (POSSIBLE HERNIA) GERD: No Glaucoma: No Genitourinary: Yes (ENLARGED PROSTATE CAUSING DELAYED BLADDER EMPTYING/UTI) Headaches: No Hepatitis: No Hiatal Hernia: Yes Heparin Induced Thrombocytopen: No Hypertension: No Immune Disorder: No Implanted Vascular Access Dvce: Yes Kidney Stones: No Musculoskeletal: No Neurologic: No Psychiatric: Yes Reproductive: No Respiratory: Yes Immunizations Current: Yes Migraines: No Myocardial Infarction: No Radiation Therapy: No Renal Failure: No Seizures: No Sickle Cell Disease: No Sleep Apnea: No Thyroid Disease: No Past Surgical History Abdominal Surgery: Yes (HERNIA REPAIR) AICD: No Arteriovenous Shunt: No Body Medical Devices: DENTAL IMPLANT Cardiac Surgery: No Cholecystectomy: No Ear Surgery: No Endocrine Surgery: No Eye Surgery: No Genitourinary Surgery: Yes (TURP secondary to BPH) Gynecologic Surgery: No Insulin Pump: No Joint Replacement: No Neurologic Surgery: No Oral Surgery: Yes (TOOTH PULLED UNDER ANESTHESIA) Pacemaker: No Thoracic Surgery: No Other Surgery: Yes Social History Alcohol Use: Yes Tobacco Use: No Substance Use: No Allergies-Medications (Allergen,Severity, Reaction): Coded Allergies: No Known Allergies (Verified Allergy, Unknown, 05/30/17) Reported Meds & Prescriptions Reported Meds & Active Scripts Active Cipro (Ciprofloxacin HCl) 500 Mg Tab 500 Mg PO BID 5 Days Keflex (Cephalexin) 500 Mg Cap 500 Mg PO Q6H 5 Days Chlordiazepoxide HCl 25 Mg Capsule 1 Tab PO DIRECTED Ventolin Hfa 18 GM Inh (Albuterol Sulfate) 90 Mcg/Act Aer 2 Puff INH Q4H PRN Prednisone 20 Mg Tab 20 Mg PO BID 5 Days Reported Xarelto (Rivaroxaban) 20 Mg Tab 20 Mg PO DAILY Omeprazole 20 Mg Tab 20 Mg PO DAILY Alprazolam 1 Mg Tab 1 Mg PO BID PRN Tamsulosin (Tamsulosin HCl) 0.4 Mg Cap 0.4 Mg PO HS Review of Systems Except as stated in HPI: all other systems reviewed are Neg Physical Exam Narrative GENERAL: Well-nourished, well-developed gentleman is white male in no acute distress. SKIN: Focused skin assessment warm/dry. 5 similar V-shaped laceration on the dorsal aspect of the foot just proximal to the MP joint of the great toe. HEAD: Normocephalic. EYES: No scleral icterus. No injection or drainage. NECK: Supple, trachea midline. No JVD or lymphadenopathy. CARDIOVASCULAR: Regular rate and rhythm without murmurs, gallops, or rubs. RESPIRATORY: Breath sounds equal bilaterally. No accessory muscle use. GASTROINTESTINAL: Abdomen soft, non-tender, nondistended. MUSCULOSKELETAL: No cyanosis, or edema. FOCUSED RIGHT LOWER EXTREMITIES EXAM: 2+ DP pulse. Patient is able to wiggle her toes and flex and extend the ankle. Sensation intact to light touch distally. Cap refill less than 2 seconds. BACK: Nontender without obvious deformity. No CVA tenderness. Data Data Last Documented VS Vital Signs Date Time Temp Pulse Resp B/P (MAP) Pulse Ox O2 Delivery O2 Flow Rate FiO2 05/30/17 21:41 05/30/17 21:05 98.1 87 18 100 Orders Orders ^ Insert Iv (05/30/17 18:56) Complete Blood Count With Diff (05/30/17 18:56) Basic Metabolic Panel (Bmp) (05/30/17 18:56) Tetanus/Diphtheria Tox Adult (Tetanus/Di (05/30/17 19:00) Lidocaine 1% Inj (Xylocaine 1% Inj) (05/30/17 19:00) Foot, Limited (2vws) (05/30/17 18:59) Lidocaine 1% Inj (50 Ml) (Xylocaine 1% I (05/30/17 19:30) Lorazepam Inj (Ativan Inj) (05/30/17 20:15) Ed Discharge Order (05/30/17 20:43) Post Op Boot (Shoe) (05/30/17 ) Crutches (05/30/17 21:43) Labs Laboratory Tests Test 05/30/17 19:09 White Blood Count 8.3 TH/MM3 Red Blood Count 4.07 MIL/MM3 Hemoglobin 12.4 GM/DL Hematocrit 36.9 % Mean Corpuscular Volume 90.7 FL Mean Corpuscular Hemoglobin 30.4 PG Mean Corpuscular Hemoglobin Concent 33.5 % Red Cell Distribution Width 16.8 % Platelet Count 369 TH/MM3 Mean Platelet Volume 9.3 FL Neutrophils (%) (Auto) 71.8 % Lymphocytes (%) (Auto) 16.1 % Monocytes (%) (Auto) 9.4 % Eosinophils (%) (Auto) 1.5 % Basophils (%) (Auto) 1.2 % Neutrophils # (Auto) 6.0 TH/MM3 Lymphocytes # (Auto) 1.3 TH/MM3 Monocytes # (Auto) 0.8 TH/MM3 Eosinophils # (Auto) 0.1 TH/MM3 Basophils # (Auto) 0.1 TH/MM3 CBC Comment DIFF FINAL Differential Comment Blood Urea Nitrogen 23 MG/DL Creatinine 1.63 MG/DL Random Glucose 69 MG/DL Calcium Level 8.3 MG/DL Sodium Level 142 MEQ/L Potassium Level 3.2 MEQ/L Chloride Level 109 MEQ/L Carbon Dioxide Level 24.5 MEQ/L Anion Gap 9 MEQ/L Estimat Glomerular Filtration Rate 43 ML/MIN [facility] Medical Decision Making Medical Screen Exam Complete: Yes Emergency Medical Condition: Yes Differential Diagnosis laceration versus tendon laceration versus retained FB versus need for tetanus immunization versus other Narrative Course 61-year-old male with PMH of chronic alcoholism, neuropathy presents to the ED for evaluation of laceration of the plantar surface of the right foot. Sustained after the patient stepped on a piece of broken porcelain from a bathroom sink. Vitals reviewed. On exam he has a V-shaped laceration proximal 5 cm long on the dorsal aspect of the right foot with no deficits of our OM, sensation or vascularity. He does complain of tremors and anxiety which I suspect is alcohol withdrawal. He is administered 1 mg Ativan. Laceration repair was performed. Please see my procedure note for details. Patient was admitted with a postoperative shoe, crutches. He is provided with prophylactic antibiotic prescriptions. He is instructed to limit weightbearing on the foot, monitor for signs of infection, follow with the primary care, suture removal in 7-10 days. He indicated understanding of the instructions. He is stable and discharged home. Procedures Procedure Narrative LACERATION LOCATION: Plantar surface, just inferior to the MP joint of the great toe LENGTH: 5 cm V-shaped NUMBER OF STITCHES/ROXANNE: 7 REPAIR: The area of the laceration was prepped with Betadine and sterilely draped. The laceration was infiltrated with 1% lidocaine. The wound was copiously irrigated and explored without evidence of foreign body, tendon injury or neurovascular injury. The wound was closed using 4-0 nylon. This was a single layer repair. A sterile dressing was applied. The patient was advised to keep the dressing clean and dry. Patient tolerated the procedure well. Diagnosis Primary Impression: Laceration of foot Qualified Codes: S91.312A - Laceration without foreign body, left foot, initial encounter Additional Impression: Immunization, tetanus toxoid Referrals: Primary Care Physician Patient Instructions: Care For Your Stitches (ED), General Instructions Additional Instructions: Rest, ice, elevate the extremity. Limit weightbearing. Monitor for signs of infection. Suture removal in 7-10 days. Follow up with your primary care provider. Return to the ED for any urgent or emergent medical condition. Med/Other Pt SpecificInfo: Prescription(s) given Scripts Ciprofloxacin (Cipro) 500 Mg Tab 500 MG PO BID for Infection for 5 Days, #10 TAB 0 Refills Prov: Karen Brooks MD 05/30/17 Cephalexin (Keflex) 500 Mg Cap 500 MG PO Q6H for Infection for 5 Days, #20 CAP 0 Refills Prov: Karen Brooks MD 05/30/17 Disposition: 01 DISCHARGE HOME Condition: Stable Janette Buchanan May 30, 2017 18:59
[2017-05-30] MEDS ORDERED: LIDOCAINE HCL 1% 30 ML VIAL INFIL ONE (19:00)
[2017-05-30] MEDS ORDERED: TETANUS/DIPHTHERIA TOXOID ADULT 0.5 ML VIAL IM ONE (19:00)
[2017-05-30] MEDS ORDERED: LIDOCAINE HCL 1% 50 ML VIAL INFIL ONE (19:30)
[2017-05-30 19:53] LABS: BASOPHIL # 0.1 TH/MM3 (0-0.2); BASOPHIL % 1.2 % (0.0-2.0); EOSINOPHIL # 0.1 TH/MM3 (0-0.4); EOSINOPHIL % 1.5 % (0.0-4.0); HEMATOCRIT 36.9 % (39.0-51.0); HEMOGLOBIN 12.4 GM/DL (13.0-17.0); LYMPH % 16.1 % (9.0-44.0); LYMPHOCYTE # 1.3 TH/MM3 (1.0-4.8); MEAN CELL VOLUME 90.7 FL (80.0-100.0); MEAN CORPUSCULAR HEMOGLOBIN 30.4 PG (27.0-34.0); MEAN CORPUSCULAR HGB CONC 33.5 % (32.0-36.0); MEAN PLATELET VOLUME 9.3 FL (7.0-11.0); MONO % 9.4 % (0.0-8.0); MONOCYTE # 0.8 TH/MM3 (0-0.9); NEUT % 71.8 % (16.0-70.0); PLATELET COUNT 369 TH/MM3 (150-450); RED BLOOD COUNT 4.07 MIL/MM3 (4.50-5.90); RED CELL DISTRIBUTION WIDTH 16.8 % (11.6-17.2); WHITE BLOOD COUNT 8.3 TH/MM3 (4.0-11.0)
--- NOTE | 2017-05-30 19:56 | RADRPT ---
EXAM DATE/TIME: 05/30/2017 19:10 [facility] COMPARISON: No previous studies available for comparison. INDICATIONS : Left foot laceration on bottom of foot. MEDICAL HISTORY : None. SURGICAL HISTORY : None. ENCOUNTER: Initial ACUITY: 1 day PAIN SCORE: 5/10 LOCATION: Left plantar surface 1st metatarsal area FINDINGS: Two view examination of the left foot demonstrates no soft tissue swelling, dislocation, or fracture. The calcaneus is intact. Bony mineralization is normal. CONCLUSION: 1. No acute fracture. No radiopaque foreign body identified. Marko Bautista MD on May 30, 2017 at 19:54 Board Certified Radiologist. This report was verified electronically.
[2017-05-30 20:00] LABS: BICARBONATE 24.5 MEQ/L (21.0-32.0); CALCIUM 8.3 MG/DL (8.5-10.1); CREATININE 1.63 MG/DL (0.60-1.30)
[2017-05-30] MEDS ORDERED: LORazepam 2 MG/ML VIAL IV PUSH ONE (20:15)
[2017-05-30] MEDS ORDERED: CIPR-9 PO (20:42)
[2017-05-30] MEDS ORDERED: CEPH-460 PO (20:42)
[2017-05-30 21:05] VITALS: BP 108/59; PULSE 87; RESP 18; TEMP 98.1; O2SAT 100
== END 2017-05-30 21:46 | disposition home or self-care (01) ==
LOC: NEPC 18:32
DX: S91.312A Laceration without foreign body, left foot, initial encounter (principal); W26.8XXA Contact with other sharp object(s), not elsewhere classified, initial encounter; Y93.89 Activity, other specified; Y92.59 Other trade areas as the place of occurrence of the external cause; Z23 Encounter for immunization
CPT/HCPCS: 12002; 73620; 80048; 85025; 90471; 90714; 96374; 99284; E0113; J2060; L3260

== ENCOUNTER 2017-06-30 23:12 | Inpatient (IN) | payer OTHER ==
[~2017-06-30] VITALS: Ht 190.5 cm; Wt 94.8 kg
[~2017-06-30 23:12] MED LIST changes: +CEPH-460 PO; +CIPR-9 PO
[2017-06-30 23:19] VITALS: BP 123/80; PULSE 111; RESP 18; TEMP 98.1; O2SAT 95
--- NOTE | 2017-06-30 23:36 | PD ---
HPI Chief Complaint: Psychiatric Symptoms Time Seen by Provider: 23:34 Travel History International Travel<30 days: No Contact w/Intl Traveler<30days: No Traveled to known affect area: No History of Present Illness HPI 61-year-old male was brought to the emergency room by EMS after being found intoxicated in a hotel room. Patient has been drinking alcohol continuously for past 1 week. He takes Xanax but ran out of his Xanax since he overuse them. He has started to drink alcohol to prevent withdrawals. There was emesis noticed around him in the hotel room. Currently patient is moaning and groaning and restless. He does seem intoxicated and is tachycardic. [facility] Past Medical History Narrative Medical List of his past medical, surgical, social and family history reviewed from the nursing note. Hx Anticoagulant Therapy: No Arthritis: No Asthma: Yes Autoimmune Disease: No Blood Disorders: No Anxiety: Yes Depression: No Heart Rhythm Problems: No Cancer: No Cardiovascular Problems: No High Cholesterol: No Chemotherapy: No Chest Pain: No Congestive Heart Failure: No COPD: No Cerebrovascular Accident: No Diabetes: No Diminished Hearing: No Endocrine: No Gastrointestinal Disorders: Yes (POSSIBLE HERNIA) GERD: No Glaucoma: No Genitourinary: Yes (ENLARGED PROSTATE CAUSING DELAYED BLADDER EMPTYING/UTI) Headaches: No Hepatitis: No Hiatal Hernia: Yes Heparin Induced Thrombocytopen: No Hypertension: No Immune Disorder: No Implanted Vascular Access Dvce: Yes Kidney Stones: No Medical other: Yes (INGUINAL HERNIA, VASCULITIS) Musculoskeletal: No Neurologic: No Psychiatric: Yes Reproductive: No Respiratory: Yes Immunizations Current: Yes Migraines: No Myocardial Infarction: No Radiation Therapy: No Renal Failure: No Seizures: No Sickle Cell Disease: No Sleep Apnea: No Thyroid Disease: No Past Surgical History Abdominal Surgery: Yes (HERNIA REPAIR) AICD: No Arteriovenous Shunt: No Body Medical Devices: DENTAL IMPLANT Cardiac Surgery: No Cholecystectomy: No Ear Surgery: No Endocrine Surgery: No Eye Surgery: No Genitourinary Surgery: Yes (TURP secondary to BPH) Gynecologic Surgery: No Insulin Pump: No Joint Replacement: No Neurologic Surgery: No Oral Surgery: Yes (TOOTH PULLED UNDER ANESTHESIA) Pacemaker: No Thoracic Surgery: No Other Surgery: Yes Social History Alcohol Use: Yes Tobacco Use: No Substance Use: No Allergies-Medications (Allergen,Severity, Reaction): Coded Allergies: No Known Allergies (Verified Allergy, Unknown, 06/30/17) Comments No known drug allergies. Reported Meds & Prescriptions Reported Meds & Active Scripts Active Ventolin Hfa 18 GM Inh (Albuterol Sulfate) 90 Mcg/Act Aer 2 Puff INH Q4H PRN Prednisone 20 Mg Tab 20 Mg PO BID 5 Days Reported Xarelto (Rivaroxaban) 20 Mg Tab 20 Mg PO DAILY Alprazolam 1 Mg Tab 1 Mg PO BID PRN Tamsulosin (Tamsulosin HCl) 0.4 Mg Cap 0.4 Mg PO HS Narrative Medication List of his home medications reviewed from the nursing note. Review of Systems ROS Limitations: Intoxication Except as stated in HPI: all other systems reviewed are Neg Physical Exam Narrative GENERAL: Intoxicated, anxious, slurred speech SKIN: Focused skin assessment warm/dry. HEAD: Atraumatic. Normocephalic. EYES: Pupils equal and round. No scleral icterus. No injection or drainage. ENT: No nasal bleeding or discharge. Mucous membranes pink and moist. NECK: Trachea midline. No JVD. CARDIOVASCULAR: Regular rate and rhythm. No murmur appreciated. RESPIRATORY: No accessory muscle use. Clear to auscultation. Breath sounds equal bilaterally. GASTROINTESTINAL: Abdomen soft, non-tender, nondistended. Hepatic and splenic margins not palpable. MUSCULOSKELETAL: No obvious deformities. No clubbing. No cyanosis. No edema. NEUROLOGICAL: Intoxicated and anxious. No obvious cranial nerve deficits. Motor grossly within normal limits. Slurred speech. PSYCHIATRIC: Appropriate mood and affect; insight and judgment normal. Data Data Last Documented VS Vital Signs Date Time Temp Pulse Resp B/P (MAP) Pulse Ox O2 Delivery O2 Flow Rate FiO2 07/01/17 00:57 108 18 129/65 (86) 96 Room Air 06/30/17 23:19 98.1 Orders Orders Complete Blood Count With Diff (06/30/17 23:38) Comprehensive Metabolic Panel (06/30/17 23:38) Electrocardiogram (06/30/17 23:38) Psych Screen (06/30/17 23:38) Drug Screen, Random Urine (06/30/17 23:38) Alcohol (Ethanol) (06/30/17 23:38) Sodium Chlor 0.9% 1000 Ml Inj (Ns 1000 M (06/30/17 23:45) Alprazolam (Xanax) (06/30/17 23:45) Osmolality,Serum (07/01/17 00:37) Sodium Chlor 0.9% 1000 Ml Inj (Ns 1000 M (07/01/17 00:45) Lactic Acid (07/01/17 00:47) Chest, Single Ap (07/01/17 ) Sodium Chlor 0.9% 1000 Ml Inj (Ns 1000 M (07/01/17 01:00) Admit Order (Ed Use Only) (07/01/17 00:56) Labs Laboratory Tests Test 06/30/17 23:55 07/01/17 00:53 White Blood Count 16.9 TH/MM3 Red Blood Count 5.49 MIL/MM3 Hemoglobin 16.8 GM/DL Hematocrit 50.8 % Mean Corpuscular Volume 92.5 FL Mean Corpuscular Hemoglobin 30.7 PG Mean Corpuscular Hemoglobin Concent 33.2 % Red Cell Distribution Width 16.4 % Platelet Count 347 TH/MM3 Mean Platelet Volume 8.6 FL Neutrophils (%) (Auto) 88.5 % Lymphocytes (%) (Auto) 3.6 % Monocytes (%) (Auto) 7.3 % Eosinophils (%) (Auto) 0.0 % Basophils (%) (Auto) 0.6 % Neutrophils # (Auto) 15.0 TH/MM3 Lymphocytes # (Auto) 0.6 TH/MM3 Monocytes # (Auto) 1.2 TH/MM3 Eosinophils # (Auto) 0.0 TH/MM3 Basophils # (Auto) 0.1 TH/MM3 CBC Comment DIFF FINAL Differential Comment Blood Urea Nitrogen 52 MG/DL Creatinine 3.30 MG/DL Random Glucose 113 MG/DL Total Protein 8.4 GM/DL Albumin 3.7 GM/DL Calcium Level 8.2 MG/DL Alkaline Phosphatase 90 U/L Aspartate Amino Transf (AST/SGOT) 71 U/L Alanine Aminotransferase (ALT/SGPT) 59 U/L Total Bilirubin 0.5 MG/DL Sodium Level 140 MEQ/L Potassium Level 5.3 MEQ/L Chloride Level 97 MEQ/L Carbon Dioxide Level 15.3 MEQ/L Anion Gap 28 MEQ/L Estimat Glomerular Filtration Rate 19 ML/MIN Troponin I LESS THAN 0.02 NG/ML Ethyl Alcohol Level 232 MG/DL Serum Osmolality 369 MOSM/KG Lactic Acid Level 8.7 mmol/L MDM Medical Decision Making Medical Screen Exam Complete: Yes Emergency Medical Condition: Yes Medical Record Reviewed: Yes Interpretation(s) Twelve-lead EKG was reviewed by me. Sinus rhythm, motion artifacts, normal axis , tachycardia. Heart rate of 110 bpm. Differential Diagnosis Benzodiazepine abuse, alcohol abuse Narrative Course 12 AM patient has been given Xanax. Awaiting for blood test results. He is getting IV fluid bolus. 12:49 AM blood test results of back. Patient has leukocytosis. Chemistry is grossly abnormal. Patient has acute renal failure, metabolic acidosis with increased anion gap an alcohol level of 260. I have ordered for a second IV fluid bolus. I've ordered for lactic acid and serum osmolality. Patient denies drinking any ethylene glycol or methanol. In my opinion given these labs and patient's risk of DTs and/or seizures he should be admitted to the ICU. Awaiting for the ribbon weaver. Critical Care Narrative Aggregate critical care time was 30 minutes. Time to perform other separately billable procedures was not included in the critical care time. My time did not include minutes spent treating any other patients simultaneously or on activities that did not directly contribute to the patient's treatment. The services I provided to this patient were to treat and/or prevent clinically significant deterioration that could result in: Acute renal failure, fluid resuscitation, I provided critical care services requiring my management, as noted below: Chart data review, documentation time, medication orders and management, vital sign assessments/reviewing monitor data, ordering and reviewing lab tests, ordering and interpreting/reviewing x-rays and diagnostic studies, care of the patient and discussion of the patient with the admitting physicians. Procedures EKG Prior to Arrival: No Physician Communication Physician Communication Dr. Cedillo Diagnosis Primary Impression: Acute alcohol intoxication Qualified Codes: F10.929 - Alcohol use, unspecified with intoxication, unspecified Additional Impressions: Leukocytosis Qualified Codes: D72.828 - Other elevated white blood cell count Increased anion gap metabolic acidosis Acute renal failure Qualified Codes: N17.9 - Acute kidney failure, unspecified impending DT Admitting Information Admitting Physician Requests: Andre Tejada MD Jun 30, 2017 23:36
[2017-06-30] MEDS ORDERED: SODIUM CHLOR 0.9% 1000 ML INJ 1,000 ML IV ONE (23:45)
[2017-06-30] MEDS ORDERED: ALPRAZolam 0.5 MG TAB PO ONE (23:45)
[2017-07-01] VITALS (12 sets, daily range): BP systolic 124–140; BP diastolic 65–79; PULSE 74–121; RESP 18–28; TEMP 98.3–99.2; O2SAT 92–97
[2017-07-01 00:08] LABS: BASOPHIL # 0.1 TH/MM3 (0-0.2); BASOPHIL % 0.6 % (0.0-2.0); HEMATOCRIT 50.8 % (39.0-51.0); HEMOGLOBIN 16.8 GM/DL (13.0-17.0); LYMPH % 3.6 % (9.0-44.0); LYMPHOCYTE # 0.6 TH/MM3 (1.0-4.8); MEAN CELL VOLUME 92.5 FL (80.0-100.0); MEAN CORPUSCULAR HEMOGLOBIN 30.7 PG (27.0-34.0); MEAN CORPUSCULAR HGB CONC 33.2 % (32.0-36.0); MEAN PLATELET VOLUME 8.6 FL (7.0-11.0); MONO % 7.3 % (0.0-8.0); MONOCYTE # 1.2 TH/MM3 (0-0.9); NEUT % 88.5 % (16.0-70.0); PLATELET COUNT 347 TH/MM3 (150-450); RED BLOOD COUNT 5.49 MIL/MM3 (4.50-5.90); RED CELL DISTRIBUTION WIDTH 16.4 % (11.6-17.2); WHITE BLOOD COUNT 16.9 TH/MM3 (4.0-11.0)
[2017-07-01 00:21] LABS: ALKALINE PHOSPHATASE 90 U/L (45-117); TOTAL BILIRUBIN ADULT 0.5 MG/DL (0.2-1.0); TOTAL PROTEIN 8.4 GM/DL (6.4-8.2)
[2017-07-01 00:30] LABS: ALBUMIN 3.7 GM/DL (3.4-5.0); ALT (GPT) 59 U/L (12-78); AST (GOT) 71 U/L (15-37); BICARBONATE 15.3 MEQ/L (21.0-32.0); BLOOD UREA NITROGEN 52 MG/DL (7-18); CALCIUM 8.2 MG/DL (8.5-10.1); CHLORIDE 97 MEQ/L (98-107); GLOMERULAR FILTRATION RATE 19 ML/MIN (>89); GLUCOSE,RANDOM 113 MG/DL (74-106); SODIUM (NA) 140 MEQ/L (136-145)
[2017-07-01] MEDS ORDERED: SODIUM CHLOR 0.9% 1000 ML INJ 1,000 ML IV ONE ×2 (00:45→01:00)
[2017-07-01] MEDS ORDERED: MORPHINE SULFATE 4 MG/ML INJ IV PUSH PRN (01:15)
[2017-07-01] MEDS ORDERED: LACTULOSE SYRUP 20 GM/30 ML CUP PO PRN (01:15)
[2017-07-01] MEDS ORDERED: ONDANSETRON HCL 4 MG/2 ML VIAL IV PUSH PRN (01:15)
[2017-07-01] MEDS ORDERED: ALPRAZolam 1 MG TAB PO PRN (01:15)
[2017-07-01] MEDS ORDERED: SENNOSIDES 8.6 MG TAB PO PRN (01:15)
[2017-07-01] MEDS ORDERED: CHLORHEXIDINE GLUCONATE 2 % 1 PACK (2 CLOTHS) TOP PRN (01:15)
[2017-07-01] MEDS ORDERED: BISACODYL 10 MG SUPP RECTAL PRN (01:15)
[2017-07-01] MEDS ORDERED: SODIUM CHLORIDE 0.9% FLUSH 10 ML FLUSH IV FLUSH PRN (01:15)
[2017-07-01] MEDS ORDERED: TEMAZEPAM 15 MG CAP PO PRN (01:15)
[2017-07-01] MEDS ORDERED: ACETAMINOPHEN 325 MG TAB PO PRN (01:15)
[2017-07-01] MEDS ORDERED: MAGNESIUM HYDROXIDE SUSP 30 ML CUP PO PRN (01:15)
[2017-07-01] MEDS ORDERED: MISCELLANEOUS NURSING INFORMATION XX SCH (01:15)
[2017-07-01] MEDS ORDERED: ALBUTEROL SULFATE 90 MCG/ACT HFA 8 GM INHALER INH PRN (01:15)
--- NOTE | 2017-07-01 01:16 | RADRPT ---
EXAM DATE/TIME: 07/01/2017 00:58 [place] COMPARISON: CHEST SINGLE AP, November 09, 2016, 11:49. INDICATIONS : Cough. Heart pain. MEDICAL HISTORY : Hiatal hernia. Asthma. SURGICAL HISTORY : Inguinal hernia repair. TURP ENCOUNTER: Initial ACUITY: 1 day PAIN SCORE: 8/10 LOCATION: Bilateral chest FINDINGS: A single view of the chest demonstrates the lungs to be symmetrically aerated without evidence of mas s, infiltrate or effusion. The cardiomediastinal contours are unremarkable. Osseous structures are intact. CONCLUSION: No evidence of acute cardiopulmonary disease. Arian Vicente MD on July 01, 2017 at 1:14 Board Certified Radiologist. This report was verified electronically.
[2017-07-01] MEDS ORDERED: MORPHINE SULFATE 2 MG/ML SYRINGE IV PUSH PRN (01:30)
[2017-07-01] MEDS ORDERED: FLUMAZENIL 0.5 MG/5 ML VIAL IV PUSH PRN (01:45)
[2017-07-01] MEDS ORDERED: LORazepam 2 MG/ML VIAL IV PUSH PRN ×2 (01:45)
[2017-07-01] MEDS: LORazepam 2 MG/ML VIAL IV PUSH PRN ×9 (02:03→14:55)
--- NOTE | 2017-07-01 02:42 | HHI.HP ---
HPI Service Critical Care Medicine Primary Care Physician Arpit Peterson MD Admission Diagnosis acute alcohol intoxication, alcohol withdrawal risk, metabolic acido Diagnosis: Travel History International Travel<30 Days: No Contact w/Intl Traveler <30 Da: No Traveled to Known Affected Are: No History of Present Illness 61-year-old male was brought to the emergency room by EMS after being found intoxicated in a hotel room. Patient has been drinking alcohol continuously for past 1 week. He takes Xanax but ran out of his Xanax since he overuse them. He has started to drink alcohol to prevent withdrawals from benzodiazepines. There was emesis noticed around him in the hotel room. Currently patient is moaning and groaning and restless. He is intoxicated and is tachycardic. Review of Systems ROS Unable to obtain due to intoxication Past Family Social History Allergies: Coded Allergies: No Known Allergies (Verified Allergy, Unknown, 06/30/17) Past Medical History Anxiety Asthma BPH Alcohol dependence Past Surgical History TURP Hernia repair Reported Medications Reported Meds & Active Scripts Active Ventolin Hfa 18 GM Inh (Albuterol Sulfate) 90 Mcg/Act Aer 2 Puff INH Q4H PRN Prednisone 20 Mg Tab 20 Mg PO BID 5 Days Reported Xarelto (Rivaroxaban) 20 Mg Tab 20 Mg PO DAILY Alprazolam 1 Mg Tab 1 Mg PO BID PRN Tamsulosin (Tamsulosin HCl) 0.4 Mg Cap 0.4 Mg PO HS Active Ordered Medications Current Medications Medications (Trade) Dose Ordered Sig/Mesha Route PRN Reason Start Time Stop Time Status Last Admin Dose Admin Albuterol Sulfate (Proair Hfa Inh) 2 puff Q4H PRN INH SHORTNESS OF BREATH 07/01/17 01:15 Alprazolam (Xanax) 1 mg BID PRN PO ANXIETY 07/01/17 01:15 Prednisone (Deltasone) 20 mg BID PO 07/01/17 09:00 Rivaroxaban (Xarelto) 20 mg DAILY PO 07/01/17 09:00 Tamsulosin HCl (Flomax) 0.4 mg HS PO 07/01/17 21:00 Chlordiazepoxide (Librium) 50 mg Taper Q6H PO 07/01/17 01:15 07/09/17 01:14 Sodium Chloride (NS Flush) 2 ml UNSCH PRN IV FLUSH FLUSH AFTER USING IV ACCESS 07/01/17 01:15 Sodium Chloride (NS Flush) 2 ml BID IV FLUSH 07/01/17 09:00 Acetaminophen (Tylenol) 650 mg Q6H PRN PO PAIN 1-5 AND/OR FEVER >101F 07/01/17 01:15 Famotidine (Pepcid) 20 mg Q12HR PO 07/01/17 09:00 Ondansetron HCl (Zofran Inj) 4 mg Q6H PRN IV PUSH NAUSEA OR VOMITING 07/01/17 01:15 Temazepam (Restoril) 15 mg HS PRN PO INSOMNIA 07/01/17 01:15 Albuterol/ Ipratropium (Duoneb Neb) 1 ampule Q2HR NEB PRN INH WHEEZING 07/01/17 01:15 Miscellaneous Information 1 Q361D XX 07/01/17 01:15 Chlorhexidine Gluconate (Chlorhexidine 2% Cloth) 3 pack Taper DAILY@04 TOP 07/01/17 04:00 06/27/18 03:59 Chlorhexidine Gluconate (Chlorhexidine 2% Cloth) 3 pack UNSCH PRN TOP HYGIENIC CARE 07/01/17 01:15 Senna/Docusate Sodium (Misa-Colace) 1 tab BID PO 07/01/17 09:00 Magnesium Hydroxide (Milk Of Magnesia Liq) 30 ml Q12H PRN PO Mild constipation 07/01/17 01:15 Sennosides (Senokot) 17.2 mg Q12H PRN PO Moderate constipation 07/01/17 01:15 Bisacodyl (Dulcolax Supp) 10 mg DAILY PRN RECTAL SEVERE CONSITIPATION/ IF NPO 07/01/17 01:15 Lactulose (Lactulose Liq) 30 ml DAILY PRN PO SEVERE CONSITIPATION/ IF PO 07/01/17 01:15 Morphine Sulfate (Morphine Inj) 2 mg Q2H PRN IV PUSH PAIN SCALE 6 TO 10 07/01/17 01:30 07/01/17 01:37 Multivitamins 10 ml/Thiamine HCl 100 mg/Folic Acid 1 mg/Sodium Chloride 511.2 ml @ 125 mls/hr Q24H IV 07/01/17 03:00 Flumazenil (Romazicon Inj) 0.2 mg Q1M PRN IV PUSH SEE LABEL COMMENTS 07/01/17 01:45 Lorazepam (Ativan) 1 mg Q4H PRN PO CIWA 8 - 10 07/01/17 01:45 Lorazepam (Ativan Inj) 1 mg Q4H PRN IV PUSH CIWA 8 - 10 07/01/17 01:45 Lorazepam (Ativan) 2 mg Q2H PRN PO CIWA 11-14 07/01/17 01:45 Lorazepam (Ativan Inj) 2 mg Q2H PRN IV PUSH CIWA 11-14 07/01/17 01:45 Lorazepam (Ativan Inj) 2 mg Q1H PRN IV PUSH CIWA 15-20 07/01/17 01:45 Lorazepam (Ativan Inj) 2 mg Q15M PRN IV PUSH CIWA > 20 07/01/17 01:45 07/01/17 02:24 Sodium Chloride 1,000 ml @ 200 mls/hr Q5H IV 07/01/17 02:30 Family History No family history significant of early coronary artery disease or malignancy Social History Binge drinker, denies tobacco or illicit drug abuse Physical Exam Vital Signs Vital Signs Date Time Temp Pulse Resp B/P (MAP) Pulse Ox O2 Delivery O2 Flow Rate FiO2 07/01/17 01:54 07/01/17 00:57 108 18 129/65 (86) 96 Room Air 06/30/17 23:19 98.1 111 18 123/80 (94) 95 Room Air Physical Exam GENERAL: Intoxicated, anxious, slurred speech, disheveled SKIN: Focused skin assessment warm/dry. HEAD: Atraumatic. Normocephalic. EYES: Pupils equal and round. No scleral icterus. No injection or drainage. ENT: No nasal bleeding or discharge. Mucous membranes pink and moist. NECK: Trachea midline. No JVD. CARDIOVASCULAR: Regular rate and rhythm. No murmur appreciated. RESPIRATORY: No accessory muscle use. Clear to auscultation. Breath sounds equal bilaterally. GASTROINTESTINAL: Abdomen soft, non-tender, nondistended. Hepatic and splenic margins not palpable. MUSCULOSKELETAL: No obvious deformities. No clubbing. No cyanosis. No edema. NEUROLOGICAL: Intoxicated and anxious. No obvious cranial nerve deficits. Motor grossly within normal limits. Slurred speech. Laboratory Laboratory Tests Test 06/30/17 23:55 07/01/17 00:53 White Blood Count 16.9 Red Blood Count 5.49 Hemoglobin 16.8 Hematocrit 50.8 Mean Corpuscular Volume 92.5 Mean Corpuscular Hemoglobin 30.7 Mean Corpuscular Hemoglobin Concent 33.2 Red Cell Distribution Width 16.4 Platelet Count 347 Mean Platelet Volume 8.6 Neutrophils (%) (Auto) 88.5 Lymphocytes (%) (Auto) 3.6 Monocytes (%) (Auto) 7.3 Eosinophils (%) (Auto) 0.0 Basophils (%) (Auto) 0.6 Neutrophils # (Auto) 15.0 Lymphocytes # (Auto) 0.6 Monocytes # (Auto) 1.2 Eosinophils # (Auto) 0.0 Basophils # (Auto) 0.1 CBC Comment DIFF FINAL Differential Comment Blood Urea Nitrogen 52 Creatinine 3.30 Random Glucose 113 Total Protein 8.4 Albumin 3.7 Calcium Level 8.2 Alkaline Phosphatase 90 Aspartate Amino Transf (AST/SGOT) 71 Alanine Aminotransferase (ALT/SGPT) 59 Total Bilirubin 0.5 Sodium Level 140 Potassium Level 5.3 Chloride Level 97 Carbon Dioxide Level 15.3 Anion Gap 28 Estimat Glomerular Filtration Rate 19 Troponin I LESS THAN 0.02 Ethyl Alcohol Level 232 Serum Osmolality 369 Lactic Acid Level 8.7 Result Diagram: 06/30/17 2355 06/30/17 2355 Imaging Last 24 hours Impressions Chest X-Ray 07/01/17 0000 Signed Impressions: Service Date/Time: Saturday, July 01, 2017 00:58 - CONCLUSION: No evidence of acute cardiopulmonary disease. MD Neva Osorio VTE Risk Assessment Caprini VTE Risk Assessment: Mod/High Risk (score >= 2) Caprini Risk Assessment Model Point Value = 1 Point Value = 2 Point Value = 3 Point Value = 5 Age 41-60 Minor surgery BMI > 25 kg/m2 Swollen legs Varicose veins or History of unexplained or recurrent spontaneous Oral contraceptives or hormone replacement Sepsis (< 1 month) Serious lung disease, including pneumonia (< 1 month) Abnormal pulmonary function Acute myocardial infarction Congestive heart failure (< 1 month) History of inflammatory bowel disease Medical patient at bed rest Age 61-74 Arthroscopic surgery Major open surgery (> 45 min) Laparoscopic surgery (> 45 min) Malignancy Confined to bed (> 72 hours) Immobilizing plaster cast Central venous access Age >= 75 History of VTE Family history of VTE Factor V Leiden Prothrombin [id number] Lupus anticoagulant Anticardiolipin antibodies Elevated serum homocysteine Heparin-induced thrombocytopenia Other congenital or acquired thrombophilia Stroke (< 1 month) Elective arthroplasty Hip, pelvis, or leg fracture Acute spinal cord injury (< 1 month) Prophylaxis Regimen Total Risk Factor Score Risk Level Prophylaxis Regimen 0-1 Low Early ambulation 2 Moderate Order ONE of the following: *Sequential Compression Device (SCD) *Heparin 5000 units SQ BID 3-4 Higher Order ONE of the following medications: *Heparin 5000 units SQ TID *Enoxaparin/Lovenox 40 mg SQ daily (WT < 150 kg, CrCl > 30 mL/min) *Enoxaparin/Lovenox 30 mg SQ daily (WT < 150 kg, CrCl > 10-29 mL/min) *Enoxaparin/Lovenox 30 mg SQ BID (WT < 150 kg, CrCl > 30 mL/min) AND/OR *Sequential Compression Device (SCD) 5 or more Highest Order ONE of the following medications: *Heparin 5000 units SQ TID (Preferred with Epidurals) *Enoxaparin/Lovenox 40 mg SQ daily (WT < 150 kg, CrCl > 30 mL/min) *Enoxaparin/Lovenox 30 mg SQ daily (WT < 150 kg, CrCl > 10-29 mL/min) *Enoxaparin/Lovenox 30 mg SQ BID (WT < 150 kg, CrCl > 30 mL/min) AND *Sequential Compression Device (SCD) Assessment and Plan Assessment and Plan Altered mental status Alcohol intoxication Alcohol withdrawal -CIWA protocol -Librium taper -Thiamine, folate, multivitamins IV -Considering Precedex if needed Bronchial asthma -DuoNeb's as needed Anxiety -Ativan as needed -Librium taper BPH -Status post TURP -[place] Acute kidney injury -Severe dehydration -Aggressive IV fluid resuscitation -Strict I's and O -Monitor electrolytes and creatinine Lactic acidosis -Due to above -Monitor trend -Aggressive IV fluid hydration DVT GI prophylaxis -Riaz's and SCDs -Subcu heparin -Pepcid Critical Care: The total critical care time was 35 minutes. Time to perform other separately billable procedures was not included in the critical care time. Endy Cedillo MD Jul 01, 2017 2:42 am
[2017-07-01] MEDS: SODIUM CHLOR 0.9% 1000 ML INJ 1,000 ML IV SCH ×4 (03:09→17:57)
[2017-07-01] MEDS: MULTIVITAMIN INJ 10 ML, THIAMINE INJ 100 MG, FOLIC ACID INJ 1 MG in SODIUM CHLOR 0.45% ... IV SCH (03:09)
[2017-07-01] MEDS: chlordiazePOXIDE 25 MG CAP PO SCH ×4 (03:10→19:22)
[2017-07-01] MEDS: CHLORHEXIDINE GLUCONATE 2 % 1 PACK (2 CLOTHS) TOP SCH (04:00)
[2017-07-01 05:56] LABS: AUTOMATED NEUTROPHIL # 11.8 TH/MM3 (1.8-7.7); BASOPHIL # 0.1 TH/MM3 (0-0.2); BASOPHIL % 0.4 % (0.0-2.0); HEMATOCRIT 40.7 % (39.0-51.0); HEMOGLOBIN 13.2 GM/DL (13.0-17.0); LYMPH % 4.7 % (9.0-44.0); LYMPHOCYTE # 0.6 TH/MM3 (1.0-4.8); MEAN CELL VOLUME 92.9 FL (80.0-100.0); MEAN CORPUSCULAR HEMOGLOBIN 30.1 PG (27.0-34.0); MEAN CORPUSCULAR HGB CONC 32.4 % (32.0-36.0); MEAN PLATELET VOLUME 8.5 FL (7.0-11.0); MONO % 8.5 % (0.0-8.0); MONOCYTE # 1.2 TH/MM3 (0-0.9); NEUT % 86.4 % (16.0-70.0); PLATELET COUNT 272 TH/MM3 (150-450); RED BLOOD COUNT 4.38 MIL/MM3 (4.50-5.90); RED CELL DISTRIBUTION WIDTH 16.2 % (11.6-17.2); WHITE BLOOD COUNT 13.7 TH/MM3 (4.0-11.0)
[2017-07-01 06:13] LABS: ALBUMIN 2.8 GM/DL (3.4-5.0); BICARBONATE 18.2 MEQ/L (21.0-32.0); CALCIUM 6.8 MG/DL (8.5-10.1); CREATININE 2.26 MG/DL (0.60-1.30); MAGNESIUM 2.2 MG/DL (1.5-2.5); PHOSPHORUS 2.4 MG/DL (2.5-4.9); TOTAL BILIRUBIN ADULT 0.5 MG/DL (0.2-1.0); TOTAL PROTEIN 6.4 GM/DL (6.4-8.2); TROPONIN I 0.02 NG/ML (0.02-0.05)
[2017-07-01 06:25] LABS: CALCIUM-PROTEIN CORRECTED 7.2 MG/DL (8.5-10.1)
[2017-07-01] MEDS: predniSONE 20 MG TAB PO SCH ×2 (08:01→19:22)
[2017-07-01] MEDS: RIVAROXABAN 20 MG TAB PO SCH (08:01)
[2017-07-01] MEDS: SODIUM CHLORIDE 0.9% FLUSH 10 ML FLUSH IV FLUSH SCH ×2 (08:02→19:23)
[2017-07-01] MEDS: DOCUSATE SODIUM 50 MG/SENNA 8.6 MG TAB PO SCH ×2 (08:03→19:23)
[2017-07-01] MEDS ORDERED: FAMOTIDINE 20 MG TAB PO SCH (09:00)
[2017-07-01] MEDS: RESP: ALBUTEROL 2.5 MG/IPRATROPIUM 0.5 MG NEB (PRN) INH (09:32)
--- NOTE | 2017-07-01 11:38 | EKG ---
Date Performed: 07/01/2017 Time Performed: 00:19:33 PTAGE: 61 years EKG: SUPRAVENTRICULAR TACHYCARDIA NONSPECIFIC ST & T-WAVE ABNORMALITY ABNORMAL RHYTHM ECG PREVIOUS TRACING 06/09/2016 Since the previous tracing, no significant change noted DOCTOR: Earl Gamez Interpretating Date/Time 07/01/2017 11:32:57
--- NOTE | 2017-07-01 11:39 | EKG ---
Date Performed: 07/01/2017 Time Performed: 07:33:04 PTAGE: 61 years EKG: SINUS TACHYCARDIA NONSPECIFIC ST & T-WAVE ABNORMALITY ABNORMAL RHYTHM ECG PREVIOUS TRACING : 11/09/2016 13.34 Since the previous tracing, no significant change noted DOCTOR: Earl Gamez Interpretating Date/Time 07/01/2017 11:33:04
[2017-07-01] MEDS ORDERED: CALCIUM GLUCONATE INJ 2 GM in DEXTROSE 5% IN WATER 100ML INJ 100 ML IV ONE ×2 (16:45)
[2017-07-01] MEDS: TAMSULOSIN HCL 0.4 MG CAP PO SCH (19:22)
[2017-07-01] MEDS: FAMOTIDINE 20 MG TAB PO SCH (19:22)
[2017-07-02] VITALS (13 sets, daily range): BP systolic 118–134; BP diastolic 69–78; PULSE 62–91; RESP 21–26; TEMP 98.1–98.7; O2SAT 93–98
[2017-07-02] MEDS: chlordiazePOXIDE 25 MG CAP PO SCH ×4 (01:02→19:49)
[2017-07-02] MEDS: MULTIVITAMIN INJ 10 ML, THIAMINE INJ 100 MG, FOLIC ACID INJ 1 MG in SODIUM CHLOR 0.45% ... IV SCH (02:31)
[2017-07-02] MEDS: LORazepam 2 MG/ML VIAL IV PUSH PRN ×4 (03:17→21:47)
[2017-07-02] MEDS: CHLORHEXIDINE GLUCONATE 2 % 1 PACK (2 CLOTHS) TOP SCH (04:00)
[2017-07-02 05:53] LABS: AUTOMATED NEUTROPHIL # 7.7 TH/MM3 (1.8-7.7); BASOPHIL % 0.3 % (0.0-2.0); HEMATOCRIT 33.9 % (39.0-51.0); HEMOGLOBIN 11.4 GM/DL (13.0-17.0); LYMPH % 4.3 % (9.0-44.0); LYMPHOCYTE # 0.4 TH/MM3 (1.0-4.8); MEAN CELL VOLUME 90.9 FL (80.0-100.0); MEAN CORPUSCULAR HEMOGLOBIN 30.5 PG (27.0-34.0); MEAN CORPUSCULAR HGB CONC 33.5 % (32.0-36.0); MEAN PLATELET VOLUME 8.2 FL (7.0-11.0); MONO % 7.9 % (0.0-8.0); MONOCYTE # 0.7 TH/MM3 (0-0.9); NEUT % 87.5 % (16.0-70.0); PLATELET COUNT 213 TH/MM3 (150-450); RED BLOOD COUNT 3.73 MIL/MM3 (4.50-5.90); RED CELL DISTRIBUTION WIDTH 16.3 % (11.6-17.2); WHITE BLOOD COUNT 8.9 TH/MM3 (4.0-11.0)
[2017-07-02] MEDS: SODIUM CHLOR 0.9% 1000 ML INJ 1,000 ML IV SCH ×4 (06:02→16:47)
[2017-07-02 06:26] LABS: ALBUMIN 2.6 GM/DL (3.4-5.0); BICARBONATE 24.7 MEQ/L (21.0-32.0); CALCIUM 7.3 MG/DL (8.5-10.1); CREATININE 1.36 MG/DL (0.60-1.30); MAGNESIUM 2.1 MG/DL (1.5-2.5); PHOSPHORUS 0.8 MG/DL (2.5-4.9); TOTAL BILIRUBIN ADULT 1.2 MG/DL (0.2-1.0); TOTAL PROTEIN 5.8 GM/DL (6.4-8.2)
[2017-07-02] MEDS: predniSONE 20 MG TAB PO SCH ×2 (08:04→19:49)
[2017-07-02] MEDS: RIVAROXABAN 20 MG TAB PO SCH (08:04)
[2017-07-02] MEDS: LORazepam 2 MG TAB PO PRN ×2 (08:04→18:11)
[2017-07-02] MEDS: DOCUSATE SODIUM 50 MG/SENNA 8.6 MG TAB PO SCH ×2 (08:04→19:50)
[2017-07-02] MEDS: FAMOTIDINE 20 MG TAB PO SCH ×2 (08:04→19:49)
[2017-07-02] MEDS ORDERED: POTASSIUM CHLORIDE 20 MEQ CONTROLLED RELEASE TAB PO ONE ×2 (09:30→12:30)
[2017-07-02] MEDS ORDERED: POTASSIUM PHOSPHATE INJ 30 MMOL in SODIUM CHLOR 0.9% 250 ML INJ 250 ML IV ONE (10:00)
[2017-07-02] MEDS: LORazepam 1 MG TAB PO PRN (11:20)
--- NOTE | 2017-07-02 13:20 | HHI.PR ---
Subjective Remarks An/Syq 13 Nav/C2 Operator Notes: 61-year-old male was brought to the emergency room by EMS after being found intoxicated in a hotel room. Patient has been drinking alcohol continuously for past 1 week. He takes Xanax but ran out of his Xanax since he overuse them. He has started to drink alcohol to prevent withdrawals from benzodiazepines. There was emesis noticed around him in the hotel room. Currently patient is moaning and groaning and restless. He is intoxicated and is tachycardic. Hospitalist Notes: 07/02: As we know he has Anxiety disorder, Asthma, BPH and alcohol dependency. Stable in his bedroom no nausea, vomit and diarrhea he had a large BM will need to continue lactulose. continue Electrolyte derangement replaced and following. Objective Vital Signs Date Time Temp Pulse Resp B/P (MAP) Pulse Ox O2 Delivery O2 Flow Rate FiO2 07/02/17 10:00 66 07/02/17 08:28 98 Nasal Cannula 2.00 07/02/17 08:00 73 07/02/17 08:00 98.2 73 23 130/69 (89) 97 07/02/17 06:00 79 07/02/17 04:00 98.3 91 23 121/71 (88) 97 07/02/17 04:00 91 07/02/17 02:00 69 07/02/17 00:00 98.1 78 21 129/73 (91) 95 07/02/17 00:00 78 07/01/17 22:00 81 07/01/17 20:00 98.7 79 27 133/77 (95) 97 07/01/17 20:00 79 07/01/17 18:00 74 07/01/17 16:00 86 07/01/17 16:00 98.4 86 24 124/67 (86) 95 07/01/17 14:00 89 I/O 07/01/17 07/01/17 07/01/17 07/02/17 07/02/17 07/02/17 07:00 15:00 23:00 07:00 15:00 23:00 Intake Total 3340 ml 511.2 ml 120 ml 1300 ml Output Total 1700 ml 1750 ml 1100 ml Balance 1640 ml 511.2 ml -1630 ml 200 ml Intake Oral 300 ml IV Total 3340 ml 511.2 ml 120 ml 1000 ml Output Urine Total 1700 ml 1750 ml 1100 ml # Bowel Movements 0 0 0 Result Diagram: 07/02/17 0537 07/02/17 0537 Imaging Last Impressions Chest X-Ray 07/01/17 0000 Signed Impressions: Service Date/Time: Saturday, July 01, 2017 00:58 - CONCLUSION: No evidence of acute cardiopulmonary disease. Arian Vicente MD Procedures None Other Results Laboratory Tests Test 06/30/17 23:55 07/01/17 00:53 07/01/17 02:05 07/01/17 02:30 Ethyl Alcohol Level 232 MG/DL Serum Osmolality 369 MOSM/KG Nasal Screen MRSA (PCR) MRSA DETECTED Urine Opiates Screen NEG Urine Barbiturates Screen NEG Urine Amphetamines Screen NEG Urine Benzodiazepines Screen NEG Urine Cocaine Screen NEG Urine Cannabinoids Screen NEG Test 07/01/17 05:30 07/01/17 12:00 07/02/17 05:37 Total Creatine Kinase 86 U/L Troponin I 0.03 NG/ML White Blood Count 8.9 TH/MM3 Red Blood Count 3.73 MIL/MM3 Hemoglobin 11.4 GM/DL Hematocrit 33.9 % Mean Corpuscular Volume 90.9 FL Mean Corpuscular Hemoglobin 30.5 PG Mean Corpuscular Hemoglobin Concent 33.5 % Red Cell Distribution Width 16.3 % Platelet Count 213 TH/MM3 Mean Platelet Volume 8.2 FL Neutrophils (%) (Auto) 87.5 % Lymphocytes (%) (Auto) 4.3 % Monocytes (%) (Auto) 7.9 % Eosinophils (%) (Auto) 0.0 % Basophils (%) (Auto) 0.3 % Neutrophils # (Auto) 7.7 TH/MM3 Lymphocytes # (Auto) 0.4 TH/MM3 Monocytes # (Auto) 0.7 TH/MM3 Eosinophils # (Auto) 0.0 TH/MM3 Basophils # (Auto) 0.0 TH/MM3 CBC Comment DIFF FINAL Differential Comment Blood Urea Nitrogen 20 MG/DL Creatinine 1.36 MG/DL Random Glucose 196 MG/DL Total Protein 5.8 GM/DL Albumin 2.6 GM/DL Calcium Level 7.3 MG/DL Phosphorus Level 0.8 MG/DL Magnesium Level 2.1 MG/DL Alkaline Phosphatase 53 U/L Aspartate Amino Transf (AST/SGOT) 30 U/L Alanine Aminotransferase (ALT/SGPT) 32 U/L Total Bilirubin 1.2 MG/DL Sodium Level 144 MEQ/L Potassium Level 3.4 MEQ/L Chloride Level 111 MEQ/L Carbon Dioxide Level 24.7 MEQ/L Anion Gap 8 MEQ/L Estimat Glomerular Filtration Rate 53 ML/MIN Lactic Acid Level 1.4 mmol/L Protein Corrected Calcium 8.0 MG/DL Objective Remarks GENERAL: disheveled, no acute distress. SKIN: Focused skin assessment warm/dry. HEAD: Atraumatic. Normocephalic. EYES: Pupils equal and round. No scleral icterus. No injection or drainage. ENT: No nasal bleeding or discharge. Mucous membranes pink and moist. NECK: Trachea midline. No JVD. CARDIOVASCULAR: Regular rate and rhythm. No murmur appreciated. RESPIRATORY: No accessory muscle use. Clear to auscultation. Breath sounds equal bilaterally. GASTROINTESTINAL: Abdomen soft, non-tender, nondistended. Hepatic and splenic margins not palpable. MUSCULOSKELETAL: No obvious deformities. No clubbing. No cyanosis. No edema. NEUROLOGICAL: Intoxicated and anxious. No obvious cranial nerve deficits. Motor grossly within normal limits. Slurred speech. Medications and IVs Current Medications Medications (Trade) Dose Ordered Sig/Mesha Route Start Time Stop Time Status Last Admin (Proair Hfa Inh) 2 puff Q4H PRN INH 07/01/17 01:15 (Xanax) 1 mg BID PRN PO 07/01/17 01:15 (Deltasone) 20 mg BID PO 07/01/17 09:00 07/02/17 08:04 (Xarelto) 20 mg DAILY PO 07/01/17 09:00 07/02/17 08:04 (Flomax) 0.4 mg HS PO 07/01/17 21:00 07/01/17 19:22 (Librium) 50 mg Taper Q6H PO 07/01/17 01:15 07/09/17 01:14 07/02/17 08:04 (NS Flush) 2 ml UNSCH PRN IV FLUSH 07/01/17 01:15 (NS Flush) 2 ml BID IV FLUSH 07/01/17 09:00 07/01/17 19:23 (Tylenol) 650 mg Q6H PRN PO 07/01/17 01:15 (Zofran Inj) 4 mg Q6H PRN IV PUSH 3/30/18 01:15 (Restoril) 15 mg HS PRN PO 07/01/17 01:15 (Duoneb Neb) 1 ampule Q2HR NEB PRN INH 07/01/17 01:15 07/01/17 09:32 Miscellaneous Information 1 Q361D XX 07/01/17 01:15 (Chlorhexidine 2% Cloth) 3 pack Taper DAILY@04 TOP 07/01/17 04:00 06/27/18 03:59 07/01/17 04:00 (Chlorhexidine 2% Cloth) 3 pack UNSCH PRN TOP 07/01/17 01:15 (Misa-Colace) 1 tab BID PO 07/01/17 09:00 07/02/17 08:04 (Milk Of Magnesia Liq) 30 ml Q12H PRN PO 07/01/17 01:15 (Senokot) 17.2 mg Q12H PRN PO 07/01/17 01:15 (Dulcolax Supp) 10 mg DAILY PRN RECTAL 07/01/17 01:15 (Lactulose Liq) 30 ml DAILY PRN PO 07/01/17 01:15 (Morphine Inj) 2 mg Q2H PRN IV PUSH 07/01/17 01:30 07/01/17 01:37 Multivitamins 10 ml/Thiamine HCl 100 mg/Folic Acid 1 mg/Sodium Chloride 511.2 ml @ 125 mls/hr Q24H IV 07/01/17 03:00 07/02/17 02:31 (Romazicon Inj) 0.2 mg Q1M PRN IV PUSH 07/01/17 01:45 (Ativan) 1 mg Q4H PRN PO 07/01/17 01:45 07/02/17 11:20 (Ativan Inj) 1 mg Q4H PRN IV PUSH 07/01/17 01:45 (Ativan) 2 mg Q2H PRN PO 07/01/17 01:45 07/02/17 08:04 (Ativan Inj) 2 mg Q2H PRN IV PUSH 07/01/17 01:45 07/01/17 05:16 (Ativan Inj) 2 mg Q1H PRN IV PUSH 07/01/17 01:45 07/02/17 04:43 (Ativan Inj) 2 mg Q15M PRN IV PUSH 07/01/17 01:45 07/01/17 14:55 Sodium Chloride 1,000 ml @ 200 mls/hr Q5H IV 07/01/17 02:30 07/02/17 11:22 (Pepcid) 10 mg Q12HR PO 07/01/17 21:00 07/02/17 08:04 Potassium Phosphate 30 mmol/ Sodium Chloride 260 ml @ 43.333 mls/ hr ONCE ONCE IV 07/02/17 10:00 07/02/17 15:59 07/02/17 11:21 A/P Assessment and Plan 1. Acute metabolic encephalopathy Improved. 2. Alcohol intoxication on admission 3. Alcohol withdrawal to continue CIWA protocol and lactulose, Librium tapering , Thiamine, Folate and Multivitamins IV. 4. Electrolyte derangement replaced and following, Phosphorus 0.8 given 30 mmol of Potassium phosphate Potassium 3.4 given 60 meq of Potassium chloride. 5. Bronchial Asthma to continue Bronchodilator Mucolytics and incentive spirometry. 6. Anxiety disorder to continue Ativan and Librium as needed. 7. BPH status post TURP will remove Gasca Cath, his TURP was performed in 2014 DVT GI prophylaxis -Riaz's and SCDs -Subcu heparin -Pepcid Discharge Planning Expected in one to two days. Phong Escalona MD Jul 02, 2017 13:20
--- NOTE | 2017-07-02 14:21 | EKG ---
Date Performed: 07/01/2017 Time Performed: 13:27:48 PTAGE: 61 years EKG: SINUS TACHYCARDIA ABNORMAL RHYTHM ECG Compared to PREVIOUS TRACING , nonspecific T-wave changes have resolved. PREVIOUS TRACIN07/01/2017 07.33 DOCTOR: Earl Gamez Interpretating Date/Time 07/02/2017 14:20:53
--- NOTE | 2017-07-02 14:39 | EKG ---
Date Performed: 07/01/2017 Time Performed: 21:49:37 PTAGE: 61 years EKG: Sinus rhythm WITH SINUS ARRHYTHMIA NORMAL ECG PREVIOUS TRACING : 07/01/2017 13.27 Since the previous tracing, no significant change noted DOCTOR: Earl Gamez Interpretating Date/Time 07/02/2017 14:37:32
[2017-07-02] MEDS: SODIUM CHLORIDE 0.9% FLUSH 10 ML FLUSH IV FLUSH SCH ×2 (15:17→19:50)
[2017-07-02] MEDS ORDERED: POTASSIUM PHOSPHATE INJ 15 MMOL in SODIUM CHLORIDE 0.9% INJ 150 ML IV ONE (15:30)
[2017-07-02] MEDS ORDERED: MULTIVITAMIN INJ 10 ML, FOLIC ACID INJ 1 MG in SODIUM CHLORID 0.9% 500 ML INJ 500 ML IV SCH (17:00)
[2017-07-02] MEDS ORDERED: THIAMINE INJ 100 MG in SODIUM CHLORIDE 0.9% INJ 100 ML IV SCH (17:00)
[2017-07-02] MEDS: LACTULOSE SYRUP 20 GM/30 ML CUP PO SCH (18:11)
[2017-07-02] MEDS: TAMSULOSIN HCL 0.4 MG CAP PO SCH (19:49)
[2017-07-03] VITALS (11 sets, daily range): BP systolic 107–135; BP diastolic 67–80; PULSE 56–94; RESP 18–33; TEMP 97.7–98.5; O2SAT 93–98
[2017-07-03] MEDS: LORazepam 2 MG/ML VIAL IV PUSH PRN (00:33)
[2017-07-03] MEDS: RESP: ALBUTEROL 2.5 MG/IPRATROPIUM 0.5 MG NEB (PRN) INH (00:57)
[2017-07-03] MEDS: chlordiazePOXIDE 25 MG CAP PO SCH ×4 (01:11→18:54)
[2017-07-03 06:25] LABS: BICARBONATE 21.9 MEQ/L (21.0-32.0); CALCIUM 7.5 MG/DL (8.5-10.1); CREATININE 1.16 MG/DL (0.60-1.30); MAGNESIUM 1.8 MG/DL (1.5-2.5)
[2017-07-03 06:34] LABS: PHOSPHORUS 1.9 MG/DL (2.5-4.9)
--- NOTE | 2017-07-03 09:05 | HHI.PR ---
Subjective Remarks Counseling Services Manager Notes: 61-year-old male was brought to the emergency room by EMS after being found intoxicated in a hotel room. Patient has been drinking alcohol continuously for past 1 week. He takes Xanax but ran out of his Xanax since he overuse them. He has started to drink alcohol to prevent withdrawals from benzodiazepines. There was emesis noticed around him in the hotel room. Currently patient is moaning and groaning and restless. He is intoxicated and is tachycardic. Hospitalist Notes: 07/02: As we know he has Anxiety disorder, Asthma, BPH and alcohol dependency. Stable in his bedroom he had a large BM will need to continue lactulose. continue Electrolyte derangement replaced and following. 07/03: Seen in Intensive Care Unit, transfer to Med/Surg, electrolyte derangement replaced. improving condition no nausea, vomit or diarrhea, No signs of withdrawal. Objective Vital Signs Date Time Temp Pulse Resp B/P (MAP) Pulse Ox O2 Delivery O2 Flow Rate FiO2 07/03/17 06:00 63 07/03/17 04:00 64 07/03/17 04:00 98.3 64 18 127/80 (96) 98 07/03/17 02:00 72 07/03/17 00:59 96 Nasal Cannula 2.00 07/03/17 00:00 65 07/03/17 00:00 98.0 65 22 112/67 (82) 93 07/02/17 22:00 64 07/02/17 20:00 66 07/02/17 20:00 98.7 66 26 126/75 (92) 95 07/02/17 18:00 69 07/02/17 16:00 72 07/02/17 16:00 98.3 72 24 134/78 (96) 93 07/02/17 14:00 64 07/02/17 12:00 62 07/02/17 12:00 98.1 62 22 118/70 (86) 96 07/02/17 10:00 66 I/O 07/02/17 07/02/17 07/02/17 07/03/17 07/03/17 07/03/17 07:00 15:00 23:00 07:00 15:00 23:00 Intake Total 1811.2 ml 2660 ml 550 ml Output Total 1100 ml 3050 ml 500 ml Balance 711.2 ml -390 ml 50 ml Intake Oral 300 ml 2400 ml 400 ml IV Total 1511.2 ml 260 ml 150 ml Output Urine Total 1100 ml 3050 ml 500 ml # Voids 2 # Bowel Movements 0 2 1 Result Diagram: 07/02/17 0537 07/03/17 0432 Imaging Last Impressions Chest X-Ray 07/01/17 0000 Signed Impressions: Service Date/Time: Saturday, July 01, 2017 00:58 - CONCLUSION: No evidence of acute cardiopulmonary disease. Arian Vicente MD Procedures None Other Results Laboratory Tests Test 06/30/17 23:55 07/01/17 00:53 07/01/17 02:05 07/01/17 02:30 Ethyl Alcohol Level 232 MG/DL Serum Osmolality 369 MOSM/KG Nasal Screen MRSA (PCR) MRSA DETECTED Urine Opiates Screen NEG Urine Barbiturates Screen NEG Urine Amphetamines Screen NEG Urine Benzodiazepines Screen NEG Urine Cocaine Screen NEG Urine Cannabinoids Screen NEG Test 07/01/17 05:30 07/01/17 12:00 07/02/17 05:37 07/03/17 04:32 Total Creatine Kinase 86 U/L Troponin I 0.03 NG/ML White Blood Count 8.9 TH/MM3 Red Blood Count 3.73 MIL/MM3 Hemoglobin 11.4 GM/DL Hematocrit 33.9 % Mean Corpuscular Volume 90.9 FL Mean Corpuscular Hemoglobin 30.5 PG Mean Corpuscular Hemoglobin Concent 33.5 % Red Cell Distribution Width 16.3 % Platelet Count 213 TH/MM3 Mean Platelet Volume 8.2 FL Neutrophils (%) (Auto) 87.5 % Lymphocytes (%) (Auto) 4.3 % Monocytes (%) (Auto) 7.9 % Eosinophils (%) (Auto) 0.0 % Basophils (%) (Auto) 0.3 % Neutrophils # (Auto) 7.7 TH/MM3 Lymphocytes # (Auto) 0.4 TH/MM3 Monocytes # (Auto) 0.7 TH/MM3 Eosinophils # (Auto) 0.0 TH/MM3 Basophils # (Auto) 0.0 TH/MM3 CBC Comment DIFF FINAL Differential Comment Lactic Acid Level 1.4 mmol/L Protein Corrected Calcium 8.0 MG/DL Blood Urea Nitrogen 20 MG/DL 12 MG/DL Creatinine 1.36 MG/DL 1.16 MG/DL Random Glucose 196 MG/DL 117 MG/DL Total Protein 5.8 GM/DL Albumin 2.6 GM/DL Calcium Level 7.3 MG/DL 7.5 MG/DL Phosphorus Level 0.8 MG/DL 1.9 MG/DL Magnesium Level 2.1 MG/DL 1.8 MG/DL Alkaline Phosphatase 53 U/L Aspartate Amino Transf (AST/SGOT) 30 U/L Alanine Aminotransferase (ALT/SGPT) 32 U/L Total Bilirubin 1.2 MG/DL Sodium Level 144 MEQ/L 143 MEQ/L Potassium Level 3.4 MEQ/L 4.1 MEQ/L Chloride Level 111 MEQ/L 112 MEQ/L Carbon Dioxide Level 24.7 MEQ/L 21.9 MEQ/L Anion Gap 9 MEQ/L Estimat Glomerular Filtration Rate 64 ML/MIN Objective Remarks GENERAL: No acute distress. SKIN: Focused skin assessment warm/dry. HEAD: Atraumatic. Normocephalic. EYES: Pupils equal and round. No scleral icterus. No injection or drainage. ENT: No nasal bleeding or discharge. Mucous membranes pink and moist. NECK: Trachea midline. No JVD. CARDIOVASCULAR: Regular rate and rhythm. No murmur appreciated. RESPIRATORY: No accessory muscle use. Clear to auscultation. Breath sounds equal bilaterally. GASTROINTESTINAL: Abdomen soft, non-tender, nondistended. Hepatic and splenic margins not palpable. MUSCULOSKELETAL: No obvious deformities. No clubbing. No cyanosis. No edema. NEUROLOGICAL: Intoxicated and anxious. No obvious cranial nerve deficits. Motor grossly within normal limits. Slurred speech. Medications and IVs Current Medications Medications (Trade) Dose Ordered Sig/Mesha Route Start Time Stop Time Status Last Admin (Proair Hfa Inh) 2 puff Q4H PRN INH 07/01/17 01:15 (Xanax) 1 mg BID PRN PO 07/01/17 01:15 (Deltasone) 20 mg BID PO 07/01/17 09:00 07/02/17 19:49 (Xarelto) 20 mg DAILY PO 07/01/17 09:00 07/02/17 08:04 (Flomax) 0.4 mg HS PO 07/01/17 21:00 07/02/17 19:49 (Librium) 25 mg Taper Q6H PO 07/01/17 01:15 07/09/17 01:14 07/03/17 01:11 (NS Flush) 2 ml UNSCH PRN IV FLUSH 07/01/17 01:15 (NS Flush) 2 ml BID IV FLUSH 07/01/17 09:00 07/02/17 19:50 (Tylenol) 650 mg Q6H PRN PO 07/01/17 01:15 (Zofran Inj) 4 mg Q6H PRN IV PUSH 07/01/17 01:15 (Restoril) 15 mg HS PRN PO 07/01/17 01:15 (Duoneb Neb) 1 ampule Q2HR NEB PRN INH 07/01/17 01:15 07/03/17 00:57 Miscellaneous Information 1 Q361D XX 07/01/17 01:15 (Chlorhexidine 2% Cloth) 3 pack Taper DAILY@04 TOP 07/01/17 04:00 06/27/18 03:59 07/01/17 04:00 (Chlorhexidine 2% Cloth) 3 pack UNSCH PRN TOP 07/01/17 01:15 (Misa-Colace) 1 tab BID PO 07/01/17 09:00 07/02/17 08:04 (Milk Of Magnrachelle Liq) 30 ml Q12H PRN PO 07/01/17 01:15 (Senokot) 17.2 mg Q12H PRN PO 07/01/17 01:15 (Dulcolax Supp) 10 mg DAILY PRN RECTAL 07/01/17 01:15 (Morphine Inj) 2 mg Q2H PRN IV PUSH 07/01/17 01:30 07/01/17 01:37 Multivitamins 10 ml/Thiamine HCl 100 mg/Folic Acid 1 mg/Sodium Chloride 511.2 ml @ 125 mls/hr Q24H IV 07/01/17 03:00 07/02/17 02:31 (Romazicon Inj) 0.2 mg Q1M PRN IV PUSH 07/01/17 01:45 (Ativan) 1 mg Q4H PRN PO 07/01/17 01:45 07/02/17 11:20 (Ativan Inj) 1 mg Q4H PRN IV PUSH 07/01/17 01:45 (Ativan) 2 mg Q2H PRN PO 07/01/17 01:45 07/02/17 18:11 (Ativan Inj) 2 mg Q2H PRN IV PUSH 07/01/17 01:45 07/01/17 05:16 (Ativan Inj) 2 mg Q1H PRN IV PUSH 07/01/17 01:45 07/03/17 00:33 (Ativan Inj) 2 mg Q15M PRN IV PUSH 07/01/17 01:45 07/01/17 14:55 Sodium Chloride 1,000 ml @ 150 mls/hr Q6H40M IV 07/01/17 02:30 07/02/17 00:00 (Pepcid) 10 mg Q12HR PO 07/01/17 21:00 07/02/17 19:49 (Vitamin B1) 100 mg DAILY PO 07/06/17 09:00 (Lactulose Liq) 30 ml TID PO 07/02/17 18:00 07/02/17 18:11 A/P Assessment and Plan 1. Acute metabolic encephalopathy Improved. 2. Alcohol intoxication on admission 3. Alcohol withdrawal to continue CIWA protocol and lactulose, Librium tapering , Thiamine, Folate and Multivitamins IV. no signs of withdrawal. 4. Electrolyte derangement replaced and following, Phosphorus 1.9 and magnesium 1.8 replaced. 5. Bronchial Asthma to continue Bronchodilator Mucolytics and incentive spirometry. 6. Anxiety disorder to continue Ativan and Librium as needed. 7. BPH status post TURP will remove Gasca Cath, his TURP was performed in 2014 As per PT will need to go home on HHC and rolling walker at discharge. DVT GI prophylaxis -Riaz's and SCDs -Subcu heparin -Pepcid Discharge Planning Expected by tomorrow. Phong Escalona MD Jul 03, 2017 09:05
[2017-07-03] MEDS: LORazepam 1 MG TAB PO PRN (10:22)
[2017-07-03] MEDS: RIVAROXABAN 20 MG TAB PO SCH (10:22)
[2017-07-03] MEDS: DOCUSATE SODIUM 50 MG/SENNA 8.6 MG TAB PO SCH ×2 (10:23→21:00)
[2017-07-03] MEDS: SODIUM CHLORIDE 0.9% FLUSH 10 ML FLUSH IV FLUSH SCH ×2 (10:23→21:10)
[2017-07-03] MEDS: LACTULOSE SYRUP 20 GM/30 ML CUP PO SCH ×3 (10:23→18:00)
[2017-07-03] MEDS: predniSONE 20 MG TAB PO SCH ×2 (10:23→21:10)
[2017-07-03] MEDS: MAGNESIUM SULFATE 1 GM PREMIX 100 ML IV SCH ×2 (10:24→13:14)
[2017-07-03] MEDS ORDERED: POTASSIUM PHOSPHATE INJ 15 MMOL in SODIUM CHLORIDE 0.9% INJ 150 ML IV ONE (11:00)
[2017-07-03] MEDS: FAMOTIDINE 20 MG TAB PO SCH ×2 (13:15→21:10)
[2017-07-03] MEDS: SODIUM CHLOR 0.9% 1000 ML INJ 1,000 ML IV SCH (14:27)
[2017-07-03] MEDS ORDERED: LORazepam 2 MG/ML VIAL IV PUSH PRN (15:00)
[2017-07-03] MEDS: TAMSULOSIN HCL 0.4 MG CAP PO SCH (21:10)
[2017-07-04] VITALS: BP 132/77; PULSE 64; PULSE 67; RESP 18; TEMP 97.4; O2SAT 98
[2017-07-04] MEDS: SODIUM CHLOR 0.9% 1000 ML INJ 1,000 ML IV SCH (00:34)
[2017-07-04] MEDS: chlordiazePOXIDE 25 MG CAP PO SCH ×3 (00:34→13:46)
[2017-07-04 04:00] VITALS: BP 146/91; PULSE 63; PULSE 64; RESP 20; TEMP 98.6; O2SAT 94
[2017-07-04 05:32] VITALS: O2SAT 95
[2017-07-04] MEDS: RESP: ALBUTEROL 2.5 MG/IPRATROPIUM 0.5 MG NEB (PRN) INH (05:32)
[2017-07-04] MEDS: CHLORHEXIDINE GLUCONATE 2 % 1 PACK (2 CLOTHS) TOP SCH (05:41)
[2017-07-04 08:00] VITALS: BP 122/78; PULSE 75; RESP 20; TEMP 98.4; O2SAT 95
[2017-07-04] MEDS ORDERED: MUPIROCIN 2% OINT 1 APPLIC/GM SYR EACH NARE SCH (09:00)
[2017-07-04] MEDS: DOCUSATE SODIUM 50 MG/SENNA 8.6 MG TAB PO SCH (09:00)
[2017-07-04] MEDS ORDERED: SULFAMETHOXAZOLE-TRIMETHOPRIM DS 800-160 MG TAB PO SCH (09:00)
[2017-07-04] MEDS: LACTULOSE SYRUP 20 GM/30 ML CUP PO SCH ×2 (09:00→13:00)
[2017-07-04] MEDS ORDERED: MULTIVITAMIN TAB PO SCH (09:00)
--- NOTE | 2017-07-04 09:07 | HHI.DCPOC ---
Discharge Care Plan Diagnosis: (1) ETOH abuse Your Health Problems Are: Difficulty with ADL Exercise Tolerance Goals to Promote Your Health * To prevent worsening of your condition and complications * To maintain your health at the optimal level Directions to Meet Your Goals Take your medications as prescribed Follow your dietary instruction Follow activity as directed Keep your appointments as scheduled Take your immunizations and boosters as scheduled If your symptoms worsen call your PCP, if no PCP go to Urgent Care Center or Emergency Room Smoking is Dangerous to Your Health. Avoid second hand smoke Call the 24-hour hour crisis hotline for domestic abuse at Yogesh Allison MD Jul 04, 2017 09:07
[2017-07-04] MEDS ORDERED: WALKER WHEELS/F1 MIS (09:08)
--- NOTE | 2017-07-04 09:08 | HHI.FF ---
Face to Face Verification Diagnosis: (1) Alcohol abuse Physical Therapy Order: Evaluate and Treat, Improve ambulation, Strength and gait training I have seen patient Gildardo Robb on 07/04/17. My clinical findings support the need for the requested home health care services because: Deconditioned w/ increased weakness I certify that my clinical findings support that this patient is homebound because: Unsafe to leave home unassisted Yogesh Allison MD Jul 04, 2017 09:08
[2017-07-04] MEDS: predniSONE 20 MG TAB PO SCH (10:12)
[2017-07-04] MEDS: FAMOTIDINE 20 MG TAB PO SCH (10:12)
[2017-07-04] MEDS: RIVAROXABAN 20 MG TAB PO SCH (10:12)
[2017-07-04] MEDS: SODIUM CHLORIDE 0.9% FLUSH 10 ML FLUSH IV FLUSH SCH (10:13)
--- NOTE | 2017-07-04 11:33 | HHI.PR ---
Subjective Remarks Follow-up alcohol abuse. Patient is doing better states he will quit and follow -up outpatient for detoxification. Denies UTI symptoms. History of asthma on chronic prednisone and DVT of the left lower extremity status post Xarelto for 6 months discussed with nursing Objective Vitals Vital Signs Date Time Temp Pulse Resp B/P (MAP) Pulse Ox O2 Delivery O2 Flow Rate FiO2 07/04/17 08:00 98.4 75 20 122/78 (93) 95 07/04/17 05:32 95 21 07/04/17 04:00 Room Air 07/04/17 04:00 63 07/04/17 04:00 98.6 64 20 146/91 (109) 94 07/04/17 00:00 67 07/04/17 00:00 Room Air 07/04/17 00:00 97.4 64 18 132/77 (95) 98 07/03/17 20:00 78 07/03/17 20:00 97.7 68 18 126/76 (93) 98 07/03/17 20:00 Room Air 07/03/17 16:00 98.5 07/03/17 16:00 94 07/03/17 16:00 98.3 94 33 135/76 (95) 97 07/03/17 14:00 70 07/03/17 12:00 65 07/03/17 12:00 98.2 07/03/17 12:00 98.2 65 22 119/71 (87) 96 I/O 07/03/17 07/03/17 07/03/17 07/04/17 07/04/17 07/04/17 06:59 14:59 22:59 06:59 14:59 22:59 Intake Total 550 ml 100 ml 1115 ml 420 ml Output Total 500 ml 1250 ml 900 ml Balance 50 ml 100 ml -135 ml -480 ml Intake Oral 400 ml 960 ml 420 ml IV Total 150 ml 100 ml 155 ml Output Urine Total 500 ml 1250 ml 900 ml # Voids 2 5 1 # Bowel Movements 1 0 1 Result Diagram: 07/02/17 0537 07/03/17 0432 Imaging Last Impressions Chest X-Ray 07/01/17 0000 Signed Impressions: Service Date/Time: Saturday, July 01, 2017 00:58 - CONCLUSION: No evidence of acute cardiopulmonary disease. Arian Vicente MD Objective Remarks GENERAL: No acute distress. SKIN: Focused skin assessment warm/dry. CARDIOVASCULAR: Regular rate and rhythm. No murmur appreciated. RESPIRATORY: No accessory muscle use. Clear to auscultation. Breath sounds equal bilaterally. GASTROINTESTINAL: Abdomen soft, non-tender, nondistended. MUSCULOSKELETAL: No obvious deformities. No clubbing. No cyanosis. No edema. Neuro exam: Awake and alert oriented nonfocal Procedures None A/P Problem List: (1) UTI (urinary tract infection) ICD Code: N39.0 - Urinary tract infection, site not specified Status: Acute Assessment and Plan 1. Acute metabolic toxic encephalopathy resolved 2. Alcohol intoxication on admission. Resolved 3. Alcohol withdrawal. Improved continue CIWA protocol and lactulose, Librium tapering, Thiamine, Folate and Multivitamins IV. No signs of withdrawal. 4. Electrolyte derangement replaced and following, Phosphorus 1.9 and magnesium 1.8 replaced. Continue aggressive replacement repeat BMP and phosphorus in 4 days 5. Bronchial Asthma to continue Bronchodilator Mucolytics and incentive spirometry. Patient advised to discuss with PCP to wean and DC prednisone 6. Anxiety disorder. Stable 7. BPH status post TURP will remove Gasca Cath, his TURP was performed in 2014 8. MRSA UTI. No UTI symptoms. Bactrim for 1 week outpatient follow-up with 9. DVT and GI prophylaxis history of left lower extremity DVT status post Xarelto for 6 months Stable for discharge Yogesh Allison MD Jul 04, 2017 11:33
[2017-07-04] MEDS ORDERED: SULF1TAB23 PO (11:38)
[2017-07-04] MEDS ORDERED: CHLO25CA9 PO (11:38)
[2017-07-04] MEDS ORDERED: FAMO20TA2 PO (11:38)
[2017-07-04] MEDS ORDERED: THIA100 PO (11:38)
[2017-07-04] MEDS ORDERED: BACTOIN EACH NARE (11:38)
[2017-07-04 12:00] VITALS: BP 111/74; PULSE 98; RESP 20; TEMP 98.9; O2SAT 95
[2017-07-04 12:23] LABS: MAGNESIUM 1.8 MG/DL (1.5-2.5); PHOSPHORUS 1.6 MG/DL (2.5-4.9)
[2017-07-04 13:51] LABS: BICARBONATE 24.6 MEQ/L (21.0-32.0); CALCIUM 8.5 MG/DL (8.5-10.1); CREATININE 1.39 MG/DL (0.60-1.30)
--- NOTE | 2017-07-04 15:29 | HHI.DS ---
Discharge Summary Admission Date Jul 01, 2017 at 00:57 Discharge Date: Jul 04, 2017 Admitting Diagnosis acute alcohol intoxication, alcohol withdrawal risk, metabolic acido (1) UTI (urinary tract infection) ICD Code: N39.0 - Urinary tract infection, site not specified Diagnosis: Principal Status: Acute Procedures None Brief History - From Admission 61-year-old male was brought to the emergency room by EMS after being found intoxicated in a hotel room. Patient has been drinking alcohol continuously for past 1 week. He takes Xanax but ran out of his Xanax since he overuse them. He has started to drink alcohol to prevent withdrawals from benzodiazepines. There was emesis noticed around him in the hotel room. Currently patient is moaning and groaning and restless. He is intoxicated and is tachycardic. CBC/BMP: 07/02/17 0537 07/04/17 1140 Significant Findings Laboratory Tests Test 07/02/17 05:37 07/02/17 14:37 07/03/17 04:32 07/04/17 11:40 Red Blood Count 3.73 MIL/MM3 (4.50-5.90) Hemoglobin 11.4 GM/DL (13.0-17.0) Hematocrit 33.9 % (39.0-51.0) Neutrophils (%) (Auto) 87.5 % (16.0-70.0) Lymphocytes (%) (Auto) 4.3 % (9.0-44.0) Lymphocytes # (Auto) 0.4 TH/MM3 (1.0-4.8) Blood Urea Nitrogen 20 MG/DL (7-18) Creatinine 1.36 MG/DL (0.60-1.30) 1.39 MG/DL (0.60-1.30) Random Glucose 196 MG/DL (74-106) 117 MG/DL (74-106) Total Protein 5.8 GM/DL (6.4-8.2) Albumin 2.6 GM/DL (3.4-5.0) Calcium Level 7.3 MG/DL (8.5-10.1) 7.5 MG/DL (8.5-10.1) Phosphorus Level 0.8 MG/DL (2.5-4.9) 1.3 MG/DL (2.5-4.9) 1.9 MG/DL (2.5-4.9) 1.6 MG/DL (2.5-4.9) Total Bilirubin 1.2 MG/DL (0.2-1.0) Potassium Level 3.4 MEQ/L (3.5-5.1) Chloride Level 111 MEQ/L (98-107) 112 MEQ/L (98-107) 110 MEQ/L (98-107) Estimat Glomerular Filtration Rate 53 ML/MIN (>89) 64 ML/MIN (>89) 52 ML/MIN (>89) Protein Corrected Calcium 8.0 MG/DL (8.5-10.1) Imaging Last Impressions Chest X-Ray 07/01/17 0000 Signed Impressions: Service Date/Time: Saturday, July 01, 2017 00:58 - CONCLUSION: No evidence of acute cardiopulmonary disease. Arian Vicente MD PE at Discharge GENERAL: No acute distress. SKIN: Focused skin assessment warm/dry. CARDIOVASCULAR: Regular rate and rhythm. No murmur appreciated. RESPIRATORY: No accessory muscle use. Clear to auscultation. Breath sounds equal bilaterally. GASTROINTESTINAL: Abdomen soft, non-tender, nondistended. MUSCULOSKELETAL: No obvious deformities. No clubbing. No cyanosis. No edema. Neuro exam: Awake and alert oriented nonfocal Hospital Course 1. Acute metabolic toxic encephalopathy resolved 2. Alcohol intoxication on admission. Resolved 3. Alcohol withdrawal. Improved continue CIWA protocol and lactulose, Librium tapering, Thiamine, Folate and Multivitamins IV. No signs of withdrawal. 4. Electrolyte derangement replaced and following, Phosphorus 1.9 and magnesium 1.8 replaced. Continue aggressive replacement repeat BMP and phosphorus in 4 days 5. Bronchial Asthma to continue Bronchodilator Mucolytics and incentive spirometry. Patient advised to discuss with PCP to wean and DC prednisone 6. Anxiety disorder. Stable 7. BPH status post TURP will remove [place] Cath, his TURP was performed in 2014 8. MRSA UTI. No UTI symptoms. Bactrim for 1 week outpatient follow-up with 9. DVT and GI prophylaxis history of left lower extremity DVT status post Xarelto for 6 months Stable for discharge Pt Condition on Discharge: Stable Discharge Disposition: Disch w/ Home Health Serv Discharge Time: > 30 minutes Discharge Instructions DIET: Follow Instructions for: Heart Healthy Diet Activities you can perform: Regular-No Restrictions Activities to Avoid: Driving Follow up Referrals: PCP Follow-up - 1 Week Urology - 1 Week New Orders: BASIC METABOLIC PROF - 07/07/17 PHOSPHORUS (PO4) - 07/07/17 New Medications: Walker with Front Wheels (Walker with Front Wheels) 1 Mis Mis EA .XX DIRECTED, #1 0 Refills Chlordiazepoxide HCl (Chlordiazepoxide HCl) 25 Mg Capsule 25 MG PO Q8H for Alcohol Detox, #12 MG Take THREE Times daily for 2 Days, then TWICE daily for 3 days, then ONCE a day for 2 Days. Famotidine (Famotidine) 20 Mg Tab 10 MG PO Q12HR for Manage Heartburn, #60 TAB Mupirocin Nasal Oint (Bactroban Nasal Oint) 2% Oint 1 APPLIC EACH NARE BID for Infection, #1 TUBE For 7 days. Single-use tubes. Sulfamethoxazole-Trimethoprim (Sulfamethoxazole-Trimethoprim) 800-160 Mg Tab 1 TAB PO Q12HR for Infection, #14 TAB Thiamine HCl (Gnp Vitamin B-1) 100 Mg Tab 100 MG PO DAILY for Alcohol Detox, #30 TAB Continued Medications: Albuterol 18 GM Inh (Ventolin Hfa 18 GM Inh) 90 Mcg/Act Aer 2 PUFF INH Q4H PRN for SHORTNESS OF BREATH, #1 INHALER 0 Refills Prednisone (Prednisone) 20 Mg Tab 20 MG PO BID for 5 Days, TAB 0 Refills Tamsulosin (Tamsulosin) 0.4 Mg Cap 0.4 MG PO HS for Manage Prostate Problems, #30 CAP 0 Refills Yogesh Allison MD Jul 04, 2017 15:29
[2017-07-04] MEDS ORDERED: POTASSIUM PHOSPHATE MONOBASIC 500 MG TAB PO ONE (15:30)
[2017-07-04] MEDS ORDERED: K-PHTAB PO (15:30)
[2017-07-04] MEDS ORDERED: POTASSIUM PHOSPHATE MONOBASIC 500 MG TAB PO SCH (21:00)
[2017-07-05] MEDS ORDERED: CHLO25CA9 PO ×2 (13:05→13:06)
[2017-07-06] MEDS ORDERED: THIAMINE HCL 100 MG TAB PO SCH (09:00)
== END 2017-07-04 17:45 | disposition home or self-care (01) | DRG 896 ==
LOC: NEPD 23:12 → NEDA 07-01 00:57 → HIME 07-01 01:40 → N04B 07-03 18:01
PROVIDERS: ADMIT Internal Medicine; ATTEND Internal Medicine
DX: F10.239 Alcohol dependence with withdrawal, unspecified (principal); G92 Toxic encephalopathy; N17.9 Acute kidney failure, unspecified; E86.0 Dehydration; E87.2 Acidosis; N39.0 Urinary tract infection, site not specified; B95.62 Methicillin resistant Staphylococcus aureus infection as the cause of diseases classified elsewhere; F10.229 Alcohol dependence with intoxication, unspecified; Y90.7 Blood alcohol level of 200-239 mg/100 ml; J45.909 Unspecified asthma, uncomplicated; Z79.52 Long term (current) use of systemic steroids; F41.9 Anxiety disorder, unspecified; N40.0 Benign prostatic hyperplasia without lower urinary tract symptoms; E83.39 Other disorders of phosphorus metabolism; E83.42 Hypomagnesemia; Z86.718 Personal history of other venous thrombosis and embolism
CPT/HCPCS: 71045; 76937; 80048; 80053; 80307; 82550; 82948; 83605; 83735; 83930; 84100; 84484; 85025; 86403; 87086; 87147; 87186; 87641; 93005; 94640; 94664; 96360; J0610; J2060; J2270; J3411; J3475; J7030; J7050; J7512

== ENCOUNTER 2017-09-07 12:18 | Inpatient (IN) | payer OTHER ==
[~2017-09-07] VITALS: Ht 188 cm; Wt 105.0 kg
[2017-09-07] VITALS (7 sets, daily range): BP systolic 129–148; BP diastolic 65–90; PULSE 78–109; RESP 16–20; TEMP 97.6–98.6; O2SAT 89–97
[~2017-09-07 12:18] MED LIST changes: +BACTOIN EACH NARE; -CEPH-460 PO; -CIPR-9 PO; +FAMO20TA2 PO; +K-PHTAB PO; -OMEP20TA93 PO; +SULF1TAB23 PO; +THIA100 PO; +WALKER WHEELS/F1 MIS
[2017-09-07] MEDS ORDERED: SODIUM CHLOR 0.9% 1000 ML INJ 1,000 ML IV ONE ×2 (12:30→13:45)
[2017-09-07] MEDS ORDERED: DEXTROSE 50% IN WATER 50 ML SYRINGE ONE (12:44)
[2017-09-07] MEDS ORDERED: DEXTROSE 50% IN WATER 50 ML VIAL(D50) IV PUSH ONE (12:45)
[2017-09-07 13:11] LABS: BASOPHIL # 0.1 TH/MM3 (0-0.2); BASOPHIL % 0.8 % (0.0-2.0); EOSINOPHIL # 0.1 TH/MM3 (0-0.4); EOSINOPHIL % 1.6 % (0.0-4.0); HEMATOCRIT 42.6 % (39.0-51.0); LYMPH % 20.7 % (9.0-44.0); LYMPHOCYTE # 1.9 TH/MM3 (1.0-4.8); MEAN CELL VOLUME 93.2 FL (80.0-100.0); MEAN CORPUSCULAR HEMOGLOBIN 30.5 PG (27.0-34.0); MEAN CORPUSCULAR HGB CONC 32.7 % (32.0-36.0); MEAN PLATELET VOLUME 8.3 FL (7.0-11.0); MONO % 10.2 % (0.0-8.0); MONOCYTE # 0.9 TH/MM3 (0-0.9); NEUT % 66.7 % (16.0-70.0); PLATELET COUNT 233 TH/MM3 (150-450); RED BLOOD COUNT 4.57 MIL/MM3 (4.50-5.90); RED CELL DISTRIBUTION WIDTH 16.7 % (11.6-17.2)
[2017-09-07 13:22] LABS: PROTHROMBIN TIME - PATIENT 10.5 SEC (9.8-11.6)
[2017-09-07 13:32] LABS: ALBUMIN 3.1 GM/DL (3.4-5.0); ALT (GPT) 76 U/L (12-78); AST (GOT) 95 U/L (15-37); BICARBONATE 20.3 MEQ/L (21.0-32.0); BLOOD UREA NITROGEN 25 MG/DL (7-18); CALCIUM 7.8 MG/DL (8.5-10.1); CHLORIDE 102 MEQ/L (98-107); CREATININE 1.55 MG/DL (0.60-1.30); GLOMERULAR FILTRATION RATE 46 ML/MIN (>89); GLUCOSE,RANDOM 56 MG/DL (74-106); MAGNESIUM 2.1 MG/DL (1.5-2.5); SODIUM (NA) 143 MEQ/L (136-145)
--- NOTE | 2017-09-07 13:39 | PD ---
HPI Chief Complaint: OD/ Ingestion Time Seen by Provider: 12:22 Travel History International Travel<30 days: No (UNABLE TO OBTAIN) Contact w/Intl Traveler<30days: No (UNABLE TO OBTAIN) Traveled to known affect area: No (UNABLE TO OBTAIN) History of Present Illness HPI 61-year-old male that presents to the ED for evaluation of possible of the Thibodeaux act. Per Thibodeaux act 10 per report given by police as well as [facility] patient apparently allegedly took an unknown amount of pills. Possibly he took Mirtazapine. Ambulance and police brought the bottle with no pills on it. This bowel upon he was prescribed in April and is not the patient's blood actually the mother's who is the one who called the ambulance. Per report apparently patient contacted his mother and told her that he was going to take pills and in his life. He also drank alcohol. He has a history of anxiety as well as alcohol abuse and has been here for similar in the past. Per police report he did fell trying to get up on during initial examination per police and ambulance he was very alert and intoxicated and then he became more somnolent. Patient himself currently cannot give me much history but he is arousable with pain stimuli. He does appear to be protecting his airway. He smells heavily of alcohol. Patient was Thibodeaux acted by police secondary to the suicidal attempt. Per report and Thibodeaux act apparently mother was in [place] at the time and came to see his son apparently take the pills but unclear if he actually did. Most of the history is obtained from medical records and ambulance as well as police report. PFSH Past Medical History Medical History: Unable to Obtain Hx Anticoagulant Therapy: No Arthritis: No Asthma: Yes Autoimmune Disease: No Blood Disorders: No Anxiety: Yes Depression: No Heart Rhythm Problems: No Cancer: No Cardiovascular Problems: No High Cholesterol: No Chemotherapy: No Chest Pain: No Congestive Heart Failure: No COPD: No Cerebrovascular Accident: No Diabetes: No Diminished Hearing: No Endocrine: No Gastrointestinal Disorders: Yes (POSSIBLE HERNIA) GERD: No Glaucoma: No Genitourinary: Yes (ENLARGED PROSTATE CAUSING DELAYED BLADDER EMPTYING/UTI) Headaches: No Hepatitis: No Hiatal Hernia: Yes Heparin Induced Thrombocytopen: No Hypertension: No Immune Disorder: No Implanted Vascular Access Dvce: Yes Kidney Stones: No Medical other: Yes (INGUINAL HERNIA, VASCULITIS) Musculoskeletal: No Neurologic: No Psychiatric: Yes Reproductive: No Respiratory: Yes Immunizations Current: Yes Migraines: No Myocardial Infarction: No Radiation Therapy: No Renal Failure: No Seizures: No Sickle Cell Disease: No Sleep Apnea: No Thyroid Disease: No Past Surgical History Surgical History: Unable to Obtain Abdominal Surgery: Yes (HERNIA REPAIR) AICD: No Arteriovenous Shunt: No Body Medical Devices: DENTAL IMPLANT Cardiac Surgery: No Cholecystectomy: No Ear Surgery: No Endocrine Surgery: No Eye Surgery: No Genitourinary Surgery: Yes (TURP secondary to BPH) Gynecologic Surgery: No Insulin Pump: No Joint Replacement: No Neurologic Surgery: No Oral Surgery: Yes (TOOTH PULLED UNDER ANESTHESIA) Pacemaker: No Thoracic Surgery: No Other Surgery: Yes Social History Alcohol Use: Yes Tobacco Use: No Substance Use: No Allergies-Medications (Allergen,Severity, Reaction): Coded Allergies: No Known Allergies (Verified Allergy, Unknown, 06/30/17) Reported Meds & Prescriptions Reported Meds & Active Scripts Active Chlordiazepoxide HCl 25 Mg Capsule 25 Mg PO Q8H Take THREE Times daily for 2 Days, then TWICE daily for 2 days, then ONCE a day for 2 Days. K-Phos (Potassium Phosphate Monobasic) 500 Mg Tab 1,000 Mg PO Q12HR Gnp Vitamin B-1 (Thiamine HCl) 100 Mg Tab 100 Mg PO DAILY Famotidine 20 Mg Tab 10 Mg PO Q12HR Bactroban Nasal Oint (Mupirocin Nasal Oint) 2% Oint 1 Applic EACH NARE BID For 7 days. Single-use tubes. Sulfamethoxazole-Trimethoprim 800-160 Mg Tab 1 Tab PO Q12HR Walker with Front Wheels (Device) 1 Mis Mis Ea .XX DIRECTED Ventolin Hfa 18 GM Inh (Albuterol Sulfate) 90 Mcg/Act Aer 2 Puff INH Q4H PRN Prednisone 20 Mg Tab 20 Mg PO BID 5 Days Reported Xarelto (Rivaroxaban) 20 Mg Tab 20 Mg PO DAILY Alprazolam 1 Mg Tab 1 Mg PO BID PRN Tamsulosin (Tamsulosin HCl) 0.4 Mg Cap 0.4 Mg PO HS Review of Systems ROS Limitations: Intoxication, Poor Historian Except as stated in HPI: all other systems reviewed are Neg Physical Exam Exam Limitations: Intoxication, Poor Historian Narrative GENERAL: SKIN: Warm and dry. HEAD: Atraumatic. Normocephalic. EYES: Pupils equal and round. No scleral icterus. No injection or drainage. ENT: No nasal bleeding or discharge. Mucous membranes pink and moist. Tongue is midline. No uvula deviation. NECK: Trachea midline. No JVD. CARDIOVASCULAR: Regular rate and rhythm. No murmurs, S3, S4. RESPIRATORY: No accessory muscle use. Clear to auscultation. Breath sounds equal bilaterally. GASTROINTESTINAL: Abdomen soft, non-tender, nondistended. Hepatic and splenic margins not palpable. MUSCULOSKELETAL: Extremities without clubbing, cyanosis, or edema. No obvious deformities. Full range of motion of the upper and lower extremities bilaterally. 2+ pulses bilaterally. NEUROLOGICAL: Awake and alert. No obvious cranial nerve deficits. Motor grossly within normal limits. Five out of 5 muscle strength in the arms and legs. Normal speech. PSYCHIATRIC: Intoxicated mood and affect; insight and judgment cannot asses during initial evaluation. Data Data Last Documented VS Vital Signs Date Time Temp Pulse Resp B/P (MAP) Pulse Ox O2 Delivery O2 Flow Rate FiO2 09/07/17 12:52 16 97 Nasal Cannula 3.00 09/07/17 12:28 97.6 84 133/81 (98) Orders Orders Complete Blood Count With Diff (09/07/17 12:23) Comprehensive Metabolic Panel (09/07/17 12:23) Magnesium (Mg) (09/07/17 12:23) Thyroid Stimulating Hormone (09/07/17 12:23) Iv Access Insert/Monitor (09/07/17 12:23) Ecg Monitoring (09/07/17 12:23) Oximetry (09/07/17 12:23) Drug Screen, Random Urine (09/07/17 12:23) Alcohol (Ethanol) (09/07/17 12:23) Salicylates (Aspirin) (09/07/17 12:23) Tylenol (Acetaminophen) (09/07/17 12:23) Sodium Chlor 0.9% 1000 Ml Inj (Ns 1000 M (09/07/17 12:30) Lactic Acid Sepsis Protocol (09/07/17 12:23) Coag Profile (09/07/17 12:28) Electrocardiogram (09/07/17 ) Call Poison Control (09/07/17 12:28) Ct Brain W/O Iv Contrast(Rout) (09/07/17 ) Psych Screen (09/07/17 12:30) Dextrose 50% In Lopez (Vial) Inj (D50w (Vi (09/07/17 12:45) Dextrose 50% In Lopez (Syr) Inj (D50w (Syr (09/07/17 12:44) Sodium Chlor 0.9% 1000 Ml Inj (Ns 1000 M (09/07/17 13:45) ^ Sitter (09/07/17 14:11) Alcohol Withdrawal Asmt-Ciwa ONCE (09/07/17 14:13) Ondansetron Odt (Zofran Odt) (09/07/17 14:15) Acetaminophen (Tylenol) (09/07/17 14:15) Flumazenil Inj (Romazicon Inj) (09/07/17 14:15) Lorazepam (Ativan) (09/07/17 14:15) Lorazepam Inj (Ativan Inj) (09/07/17 14:15) Lorazepam (Ativan) (09/07/17 14:15) Lorazepam Inj (Ativan Inj) (09/07/17 14:15) Lorazepam Inj (Ativan Inj) (09/07/17 14:15) Lorazepam Inj (Ativan Inj) (09/07/17 14:15) Electrocardiogram (09/07/17 ) Electrocardiogram (09/07/17 ) Admit Order (Ed Use Only) (09/07/17 15:04) Labs Laboratory Tests Test 09/07/17 12:40 09/07/17 12:48 White Blood Count 9.0 TH/MM3 Red Blood Count 4.57 MIL/MM3 Hemoglobin 14.0 GM/DL Hematocrit 42.6 % Mean Corpuscular Volume 93.2 FL Mean Corpuscular Hemoglobin 30.5 PG Mean Corpuscular Hemoglobin Concent 32.7 % Red Cell Distribution Width 16.7 % Platelet Count 233 TH/MM3 Mean Platelet Volume 8.3 FL Neutrophils (%) (Auto) 66.7 % Lymphocytes (%) (Auto) 20.7 % Monocytes (%) (Auto) 10.2 % Eosinophils (%) (Auto) 1.6 % Basophils (%) (Auto) 0.8 % Neutrophils # (Auto) 6.0 TH/MM3 Lymphocytes # (Auto) 1.9 TH/MM3 Monocytes # (Auto) 0.9 TH/MM3 Eosinophils # (Auto) 0.1 TH/MM3 Basophils # (Auto) 0.1 TH/MM3 CBC Comment DIFF FINAL Differential Comment Prothrombin Time 10.5 SEC Prothromb Time International Ratio 1.0 RATIO Activated Partial Thromboplast Time 21.7 SEC Blood Urea Nitrogen 25 MG/DL Creatinine 1.55 MG/DL Random Glucose 56 MG/DL Total Protein 7.0 GM/DL Albumin 3.1 GM/DL Calcium Level 7.8 MG/DL Magnesium Level 2.1 MG/DL Alkaline Phosphatase 96 U/L Aspartate Amino Transf (AST/SGOT) 95 U/L Alanine Aminotransferase (ALT/SGPT) 76 U/L Total Bilirubin 0.6 MG/DL Sodium Level 143 MEQ/L Potassium Level 3.6 MEQ/L Chloride Level 102 MEQ/L Carbon Dioxide Level 20.3 MEQ/L Anion Gap 21 MEQ/L Estimat Glomerular Filtration Rate 46 ML/MIN Lactic Acid Level 5.6 mmol/L Thyroid Stimulating Hormone 3rd Gen 1.020 uIU/ML Salicylates Level LESS THAN 1.7 MG/DL Acetaminophen Level LESS THAN 2.0 MCG/ML Ethyl Alcohol Level 373 MG/DL Urine Opiates Screen NEG Urine Barbiturates Screen NEG Urine Amphetamines Screen NEG Urine Benzodiazepines Screen NEG Urine Cocaine Screen NEG Urine Cannabinoids Screen NEG MDM Medical Decision Making Medical Screen Exam Complete: Yes Emergency Medical Condition: Yes Medical Record Reviewed: Yes Interpretation(s) CBC & BMP Diagram 09/07/17 12:40 Total Protein 7.0, Albumin 3.1 L, Calcium Level 7.8 L, Magnesium Level 2.1, Alkaline Phosphatase 96, Aspartate Amino Transf (AST/SGOT) 95 H, Alanine Aminotransferase (ALT/SGPT) 76, Total Bilirubin 0.[address] 09/07/17 0000 Signed Impressions: CONCLUSION: No acute intracranial findings. EKG shows sinus rhythm with no sign of acute ischemia or arrhythmia read by me and attending. Coags within normal limits. Lactic acid on the 5s alcohol elevated Differential Diagnosis Depression versus suicidal ideation versus anxiety versus adjustment disorder versus mood disorder versus bipolar disorder versus schizophrenia versus paranoid disorder versus psychosis versus substance abuse versus alcohol abuse versus alcohol induced psychosis versus homicidality addition versus cutting versus personality disorder versus overdose versus alcohol intoxication Narrative Course 61-year-old male that presents to the ED for evaluation of Thibodeaux act and overdose. Patient was properly examined and was found to have signs and symptoms consistent appears to be alcohol and possible overdose. Labs and imaging were ordered. Poison control was contacted by ED nurse. The recommend monitoring as well as EKG repeat in 2 hours and patient can be medically clear if findings are unremarkable. Patient was given IV fluids. Patient has been coming more arousable and able to answer some questions but does go back to fall asleep right away. Labs and imaging showed elevated alcohol, lactic acid. patient still altered. My attending Dr Atwood agrees that patient needs to be admitted. Residents paged. Residents agreed to admission to the group. Diagnosis Primary Impression: Overdose of antidepressant Qualified Codes: T43.202A - Poisoning by unspecified antidepressants, intentional self-harm, initial encounter Additional Impressions: Alcohol intoxication Qualified Codes: F10.920 - Alcohol use, unspecified with intoxication, uncomplicated Lactic acidosis Admitting Information Admitting Physician Requests: Observation Willie Molina Sep 07, 2017 13:39
[2017-09-07 13:42] LABS: LACTIC ACID SEPSIS PROTOCOL 5.6 mmol/L (0.4-2.0)
[2017-09-07 13:43] LABS: ALKALINE PHOSPHATASE 96 U/L (45-117); TOTAL BILIRUBIN ADULT 0.6 MG/DL (0.2-1.0)
[2017-09-07 13:44] LABS: ACETAMINOPHEN LESS THAN 2.0 MCG/ML (10.0-30.0)
--- NOTE | 2017-09-07 13:59 | PD ---
Data Data Last Documented VS Vital Signs Date Time Temp Pulse Resp B/P (MAP) Pulse Ox O2 Delivery O2 Flow Rate FiO2 09/07/17 12:52 16 97 Nasal Cannula 3.00 09/07/17 12:28 97.6 84 133/81 (98) Orders Orders Complete Blood Count With Diff (09/07/17 12:23) Comprehensive Metabolic Panel (09/07/17 12:23) Magnesium (Mg) (09/07/17 12:23) Thyroid Stimulating Hormone (09/07/17 12:23) Iv Access Insert/Monitor (09/07/17 12:23) Ecg Monitoring (09/07/17 12:23) Oximetry (09/07/17 12:23) Drug Screen, Random Urine (09/07/17 12:23) Alcohol (Ethanol) (09/07/17 12:23) Salicylates (Aspirin) (09/07/17 12:23) Tylenol (Acetaminophen) (09/07/17 12:23) Sodium Chlor 0.9% 1000 Ml Inj (Ns 1000 M (09/07/17 12:30) Lactic Acid Sepsis Protocol (09/07/17 12:23) Coag Profile (09/07/17 12:28) Electrocardiogram (09/07/17 ) Call Poison Control (09/07/17 12:28) Ct Brain W/O Iv Contrast(Rout) (09/07/17 ) Psych Screen (09/07/17 12:30) Dextrose 50% In Lopez (Vial) Inj (D50w (Vi (09/07/17 12:45) Dextrose 50% In Lopez (Syr) Inj (D50w (Syr (09/07/17 12:44) Sodium Chlor 0.9% 1000 Ml Inj (Ns 1000 M (09/07/17 13:45) Labs Laboratory Tests Test 09/07/17 12:40 09/07/17 12:48 White Blood Count 9.0 TH/MM3 Red Blood Count 4.57 MIL/MM3 Hemoglobin 14.0 GM/DL Hematocrit 42.6 % Mean Corpuscular Volume 93.2 FL Mean Corpuscular Hemoglobin 30.5 PG Mean Corpuscular Hemoglobin Concent 32.7 % Red Cell Distribution Width 16.7 % Platelet Count 233 TH/MM3 Mean Platelet Volume 8.3 FL Neutrophils (%) (Auto) 66.7 % Lymphocytes (%) (Auto) 20.7 % Monocytes (%) (Auto) 10.2 % Eosinophils (%) (Auto) 1.6 % Basophils (%) (Auto) 0.8 % Neutrophils # (Auto) 6.0 TH/MM3 Lymphocytes # (Auto) 1.9 TH/MM3 Monocytes # (Auto) 0.9 TH/MM3 Eosinophils # (Auto) 0.1 TH/MM3 Basophils # (Auto) 0.1 TH/MM3 CBC Comment DIFF FINAL Differential Comment Prothrombin Time 10.5 SEC Prothromb Time International Ratio 1.0 RATIO Activated Partial Thromboplast Time 21.7 SEC Blood Urea Nitrogen 25 MG/DL Creatinine 1.55 MG/DL Random Glucose 56 MG/DL Total Protein 7.0 GM/DL Albumin 3.1 GM/DL Calcium Level 7.8 MG/DL Magnesium Level 2.1 MG/DL Alkaline Phosphatase 96 U/L Aspartate Amino Transf (AST/SGOT) 95 U/L Alanine Aminotransferase (ALT/SGPT) 76 U/L Total Bilirubin 0.6 MG/DL Sodium Level 143 MEQ/L Potassium Level 3.6 MEQ/L Chloride Level 102 MEQ/L Carbon Dioxide Level 20.3 MEQ/L Anion Gap 21 MEQ/L Estimat Glomerular Filtration Rate 46 ML/MIN Lactic Acid Level 5.6 mmol/L Thyroid Stimulating Hormone 3rd Gen 1.020 uIU/ML Salicylates Level LESS THAN 1.7 MG/DL Acetaminophen Level LESS THAN 2.0 MCG/ML Ethyl Alcohol Level 373 MG/DL Urine Opiates Screen NEG Urine Barbiturates Screen NEG Urine Amphetamines Screen NEG Urine Benzodiazepines Screen NEG Urine Cocaine Screen NEG Urine Cannabinoids Screen NEG MDM Supervised Visit with MARLIN: Yes Narrative Course I, Dr. Atwood, have reviewed the advance practice practitioner's documentation and am in agreement, met with the patient face to face, made the diagnosis, and the medical decision making was done by me. *My assessment and Findings: Patient is extremely intoxicated and possibly overdosed on Remeron. He cannot provide much history now. He also has some lactic acidosis. He has been giving a lot of IV fluid. He will require inpatient admission at this point. Brain CT is pending but we will check it. Bassam Atwood MD Sep 07, 2017 13:59
--- NOTE | 2017-09-07 14:11 | RADRPT ---
EXAM DATE: 09/07/2017 1:47 PM EDT AGE/SEX: 61 years / Male INDICATIONS: Altered mental status. Possible overdose. CLINICAL DATA: This is the patient's initial encounter. Patient reports that signs and symptoms have been present for 1 day and indicates a pain score of 0/10. MEDICAL/SURGICAL HISTORY: Asthma. None. RADIATION DOSE: 39.63 CTDI (mGy) COMPARISON: [facility] [place] BRAIN W/O CONTRAST, 05/15/2017. . TECHNIQUE: CT of the head without contrast. Using automated exposure control and adjustment of the mA and/or kV according to patient size, radiation dose was kept as low as reasonably achievable to ob tain optimal diagnostic quality images. FINDINGS: Cerebrum: The ventricles are normal for age. No evidence of midline shift, mass lesion, hemorrhage or acute infarction. No extraaxial fluid collections are seen. Posterior Fossa: The cerebellum and brainstem are intact. The 4th ventricle is midline. The cerebe llopontine angle is unremarkable. Extracranial: The visualized portion of the orbits is intact. Moderate mucosal thickening present in ethmoid sphenoid and maxillary sinuses Skull: The calvaria is intact. No evidence of skull fracture. CONCLUSION: No acute intracranial findings. Electronically signed by: Arian Ramirez MD 09/07/2017 2:09 PM EDT
[2017-09-07] MEDS ORDERED: FLUMAZENIL 0.5 MG/5 ML VIAL IV PUSH PRN (14:15)
[2017-09-07] MEDS ORDERED: LORazepam 2 MG TAB PO PRN (14:15)
[2017-09-07] MEDS ORDERED: LORazepam 2 MG/ML VIAL IV PUSH PRN ×4 (14:15)
[2017-09-07] MEDS ORDERED: ONDANSETRON ODT 4 MG TAB PO PRN (14:15)
[2017-09-07] MEDS ORDERED: ACETAMINOPHEN 325 MG TAB PO PRN (14:15)
--- NOTE | 2017-09-07 15:31 | HHI.HP ---
[facility] Service Family Medicine Primary Care Physician Arpit Peterson MD Admission Diagnosis mirtazapine overdose, alcohol intoxication, BA Diagnoses: International Travel<30 Days: No (UNABLE TO OBTAIN) Contact w/Intl Traveler<30days: No (UNABLE TO OBTAIN) Known Affected Area: No (UNABLE TO OBTAIN) History of Present Illness 61 y/o M presenting w/drug overdose. Takes Xanax for anxiety. States he didn't get his Xanax refilled and drank last night to self-medicate for the anxiety. Has been admitted for acute alcohol intoxication/encephalopathy and anxiety in the past. Last admission was . Mom usually drives him to the doctor's office to pickup driver prescriptions, but she was out of town this time. She has arrived back today. Mom told patient that he called her last night from her house while drunk and said he would kill himself. Mom also told him that he took some of her sleeping pills. No hx of suicidal attempts, plans, or hospitalizations. No SI or HI, no hallucinations ( auditory or visual). No falls or injuries (self-inflicted or otherwise). Is asking for next dose of Ativan. Last dose was 2 hours ago. Came in via [facility] and was [place] A[place] by the police. Ambulance and police brought the bottle w/no pills on it, it was suspected he took Mirtazapine. Initially was seen to be alert but intoxicated but became more somnolent in the ED and was not able to give much of a hx. Most of hx was obtained from ambulance and police report. Lives w/Mom. PCP is Dr. Peterson. Review of Systems Constitutional: DENIES: Fever Respiratory: COMPLAINS OF: Cough (white sputum, chronic), Shortness of breath ( using inhaler more often, thinks allergies are worse right now) Cardiovascular: DENIES: Chest pain Gastrointestinal: DENIES: Abdominal pain, Diarrhea Genitourinary: COMPLAINS OF: Urinary frequency (Decreased frequency during the day. Endorses incomplete emptying. ) Integumentary: DENIES: Rash Neurologic: DENIES: Paresthesias, Seizures, Tremor Psychiatric: DENIES: Confusion Past Family Social History Past Medical History Anxiety Asthma BPH Alcohol dependence 8 months ago, had hx of left lower extremity DVT status post Xarelto for 6 months Hx of MRSA UTI Vasculitis, states it affects his feet - sees rheumatology, takes prednisone Past Surgical History TURP Hernia repair Allergies: Coded Allergies: No Known Allergies (Verified Allergy, Unknown, 06/30/17) Family History Mom: parkinson's dementia Dad: passed from kidney failure Social History Lives w/Mom currently 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 Seemed slightly intoxicated, slurring speech and fatigue. SKIN: Cool and dry. Seborrheic keratosis on the back. HEAD: Atraumatic. Normocephalic. EYES: Pupils equal round and reactive. Extraocular motions intact. No scleral icterus. No injection or drainage. ENT: Nose without bleeding, purulent drainage or septal hematoma. Throat without erythema, tonsillar hypertrophy or exudate. Uvula midline. Airway patent. NECK: Trachea midline. Supple, non tender. CARDIOVASCULAR: Regular rate and rhythm without murmurs, gallops, or rubs. RESPIRATORY: No crackles or restricted airflow, mild expiratory wheezing bilaterally. GASTROINTESTINAL: Abdomen soft, non-tender, nondistended. No hepato-splenomegaly , or palpable masses. No guarding. MUSCULOSKELETAL: Extremities without clubbing, cyanosis, or edema. No joint tenderness, effusion, or edema noted. No calf tenderness. NEUROLOGICAL: Awake and alert. Oriented x3. Cranial nerves II through XII intact. Motor and sensory grossly within normal limits. Five out of 5 muscle strength in all muscle groups. Laboratory Laboratory Tests Test 09/07/17 12:40 09/07/17 12:48 White Blood Count 9.0 Red Blood Count 4.57 Hemoglobin 14.0 Hematocrit 42.6 Mean Corpuscular Volume 93.2 Mean Corpuscular Hemoglobin 30.5 Mean Corpuscular Hemoglobin Concent 32.7 Red Cell Distribution Width 16.7 Platelet Count 233 Mean Platelet Volume 8.3 Neutrophils (%) (Auto) 66.7 Lymphocytes (%) (Auto) 20.7 Monocytes (%) (Auto) 10.2 Eosinophils (%) (Auto) 1.6 Basophils (%) (Auto) 0.8 Neutrophils # (Auto) 6.0 Lymphocytes # (Auto) 1.9 Monocytes # (Auto) 0.9 Eosinophils # (Auto) 0.1 Basophils # (Auto) 0.1 CBC Comment DIFF FINAL Differential Comment Prothrombin Time 10.5 Prothromb Time International Ratio 1.0 Activated Partial Thromboplast Time 21.7 Blood Urea Nitrogen 25 Creatinine 1.55 Random Glucose 56 Total Protein 7.0 Albumin 3.1 Calcium Level 7.8 Magnesium Level 2.1 Alkaline Phosphatase 96 Aspartate Amino Transf (AST/SGOT) 95 Alanine Aminotransferase (ALT/SGPT) 76 Total Bilirubin 0.6 Sodium Level 143 Potassium Level 3.6 Chloride Level 102 Carbon Dioxide Level 20.3 Anion Gap 21 Estimat Glomerular Filtration Rate 46 Lactic Acid Level 5.6 Thyroid Stimulating Hormone 3rd Gen 1.020 Salicylates Level LESS THAN 1.7 Acetaminophen Level LESS THAN 2.0 Ethyl Alcohol Level 373 Urine Opiates Screen NEG Urine Barbiturates Screen NEG Urine Amphetamines Screen NEG Urine Benzodiazepines Screen NEG Urine Cocaine Screen NEG Urine Cannabinoids Screen NEG Result Diagram: 09/07/17 1240 09/07/17 1240 Imaging Last Impressions Head CT 09/07/17 0000 Signed Impressions: CONCLUSION: No acute intracranial findings. Caprini VTE Risk Assessment Caprini VTE Risk Assessment: Mod/High Risk (score >= 2) Assessment and Plan Assessment and Plan Patient is a 61 y/o M admitted for suicidal drug overdose. Found to have high anion gap acidosis, MOHSEN, and hypoglycemia. Corrected calcium of 8.5. Received NS bolus x2 in the ED and Dextrose x2 (total 75 ml). Poison control was called and advised EKG Q2H and monitoring. Vitals stable at this time. Code Status FULL Discussed Condition With Dr. Spears and Dr. Justice Problem List: (1) Suicidal overdose ICD Codes: T50.902A - Poisoning by unspecified drugs, medicaments and biological substances, intentional self-harm, initial encounter Status: Acute Plan: Poison control contacted by ED. Recommended surveillance and frequent EKGs. Psych consulted EKG Q2H con't pulse ox cardiac tele bedside glucose checks VBG NS @ maintenance raite of 145 mls/hr PT and CM consulted 1:1 sitter AM CMP (2) Metabolic acidosis, increased anion gap ICD Codes: E87.2 - Acidosis Plan: W/possible metabolic alkalosis Likely secondary to alcohol +/- drug use See above plan AM BMP to monitor for anion gap closure (3) MOHSEN (acute kidney injury) ICD Codes: N17.9 - Acute kidney failure, unspecified Status: Acute Plan: NS bolus x2 in the ED Baseline appears to be 16/1.16. Hx of MOHSEN in past hospitalizations, which is likely contributing to low GFR Diff: Overdose v urinary retention 2/2 untreated BPH Avoid nephrotoxic agents 145 mls/hr of NS Tamsulosin 0.4 mg PO HS Bladder scan and straight cath prn. Consider Gasca if urinary retention continues x2 BMP tomorrow AM (4) Alcohol intoxication ICD Codes: F10.129 - Alcohol abuse with intoxication, unspecified Status: Acute Plan: Rally pack CIWA Zofran 4mg PO Q8H PRN Clonidine Q6H PRN for BP > 180/100 (5) Asthma ICD Codes: J45.909 - Asthma Status: Chronic Plan: Resume prednisone dose per pt hx of 15 mg daily Resume Ventolin inhaler (converted to proair 2 puff q4H PRN for SOB) CXR PA/LAT Albuterol PRN Q2H for SOB (6) FEN Plan: Fluids: maintenance IV Electrolytes: monitor and replete as needed Nutrition: Reg diet DVT prophy: SCDs and Lovenox GI prophy: Pepcid BID Isolation precautions due to MRSA hx Physician Certification 2 Midnight Certification Type: Admission for Inpatient Services Order for Inpatient Services The services are ordered in accordance with Medicare regulations or non- Medicare payer requirements, as applicable. In the case of services not specified as inpatient-only, they are appropriately provided as inpatient services in accordance with the 2-midnight benchmark. Estimated LOS (days): 2 2 days is the estimated time the patient will need to remain in the hospital, assuming treatment plan goals are met and no additional complications. Post-Hospital Plan: Not yet determined Problem Qualifiers (1) Alcohol intoxication: Qualified Codes: F10.920 - Alcohol use, unspecified with intoxication, uncomplicated (2) Asthma: Qualified Codes: J45.909 - Unspecified asthma, uncomplicated Lili Abreu MD R1 Sep 07, 2017 15:31
[2017-09-07] MEDS ORDERED: ALBUTEROL SULFATE 90 MCG/ACT HFA 8 GM INHALER INH PRN (16:00)
[2017-09-07] MEDS: SODIUM CHLOR 0.9% 1000 ML INJ 1,000 ML IV SCH ×2 (16:14→23:08)
[2017-09-07] MEDS ORDERED: SODIUM CHLORIDE 0.9% FLUSH 10 ML FLUSH IV FLUSH PRN (16:15)
[2017-09-07] MEDS ORDERED: cloNIDine HCL 0.1 MG TAB PO PRN (16:15)
--- NOTE | 2017-09-07 17:10 | RADRPT ---
EXAM DATE: 09/07/2017 4:50 PM EDT AGE/SEX: 61 years / Male INDICATIONS: Respiratory disease. CLINICAL DATA: This is the patient's initial encounter. Patient reports that signs and symptoms have been present for 1 day and indicates a pain score of 0/10. MEDICAL/SURGICAL HISTORY: None. None. COMPARISON: [facility] [place], [place]ST SINGLE AP, 07/01/2017. . FINDINGS: There is mild prominence of the interstitial markings may represent pulmonary edema not present previ ously. Focal consolidation is not seen. CONCLUSION: Probable mild pulmonary edema. Electronically signed by: Lenka Wellington MD 09/07/2017 5:09 PM EDT
--- NOTE | 2017-09-07 17:14 | HHI.FPPN ---
Subjective Remarks Patient seen and examined at 4:45 PM today, discussed with the medicine team. This is a 61-year-old male who has had previous admissions for alcohol intoxication who presented today via ambulance for being intoxicated at home, falling. His mother with whom he lives was out of town and reports that the patient called her last night and threatened suicide. He seems to have taken some mirtazapine on top of alcohol but this is unclear. When he presented to the emergency department, he was fairly alert but became a little bit more somnolent as time went on. When I meet with him today, he is alert and oriented 3. 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 He is concerned about his inability to completely empty his bladder at times and reports that he has not been taking his tamsulosin at home. He gets his Xanax which he takes twice daily from his primary care physician. Please see history and physical examination for this hospitalization for additional historical details including past, family, social history and review of systems. When I see him, he is comfortable, understands where he is, feels better now that he has been given his scheduled Xanax. Objective Vitals Vital Signs Date Time Temp Pulse Resp B/P (MAP) Pulse Ox O2 Delivery O2 Flow Rate FiO2 09/07/17 17:00 09/07/17 15:57 84 19 148/65 (92) 97 Nasal Cannula 3.00 09/07/17 14:30 78 20 140/90 (107) 96 Nasal Cannula 3.00 09/07/17 13:30 102 18 134/87 (103) 96 Nasal Cannula 3.00 09/07/17 12:52 16 97 Nasal Cannula 3.00 09/07/17 12:47 97 Nasal Cannula 3.00 09/07/17 12:28 97.6 84 19 133/81 (98) 96 I/O 09/06/17 09/06/17 09/06/17 09/07/17 09/07/17 09/07/17 07:00 15:00 23:00 07:00 15:00 23:00 Intake Total 2000 ml Output Total 1000 ml Balance 1000 ml Intake IV Total 2000 ml Output Urine Total 1000 ml # Voids 1 Result Diagram: 09/07/17 1240 09/07/17 1240 Other Results Laboratory Tests Test 09/07/17 12:40 09/07/17 12:48 09/07/17 14:49 White Blood Count 9.0 TH/MM3 Red Blood Count 4.57 MIL/MM3 Hemoglobin 14.0 GM/DL Hematocrit 42.6 % Mean Corpuscular Volume 93.2 FL Mean Corpuscular Hemoglobin 30.5 PG Mean Corpuscular Hemoglobin Concent 32.7 % Red Cell Distribution Width 16.7 % Platelet Count 233 TH/MM3 Mean Platelet Volume 8.3 FL Neutrophils (%) (Auto) 66.7 % Lymphocytes (%) (Auto) 20.7 % Monocytes (%) (Auto) 10.2 % Eosinophils (%) (Auto) 1.6 % Basophils (%) (Auto) 0.8 % Neutrophils # (Auto) 6.0 TH/MM3 Lymphocytes # (Auto) 1.9 TH/MM3 Monocytes # (Auto) 0.9 TH/MM3 Eosinophils # (Auto) 0.1 TH/MM3 Basophils # (Auto) 0.1 TH/MM3 CBC Comment DIFF FINAL Differential Comment Prothrombin Time 10.5 SEC Prothromb Time International Ratio 1.0 RATIO Activated Partial Thromboplast Time 21.7 SEC Blood Urea Nitrogen 25 MG/DL Creatinine 1.55 MG/DL Random Glucose 56 MG/DL Total Protein 7.0 GM/DL Albumin 3.1 GM/DL Calcium Level 7.8 MG/DL Magnesium Level 2.1 MG/DL Alkaline Phosphatase 96 U/L Aspartate Amino Transf (AST/SGOT) 95 U/L Alanine Aminotransferase (ALT/SGPT) 76 U/L Total Bilirubin 0.6 MG/DL Sodium Level 143 MEQ/L Potassium Level 3.6 MEQ/L Chloride Level 102 MEQ/L Carbon Dioxide Level 20.3 MEQ/L Anion Gap 21 MEQ/L Estimat Glomerular Filtration Rate 46 ML/MIN Lactic Acid Level 5.6 mmol/L 4.9 mmol/L Thyroid Stimulating Hormone 3rd Gen 1.020 uIU/ML Salicylates Level LESS THAN 1.7 MG/DL Acetaminophen Level LESS THAN 2.0 MCG/ML Ethyl Alcohol Level 373 MG/DL Urine Opiates Screen NEG Urine Barbiturates Screen NEG Urine Amphetamines Screen NEG Urine Benzodiazepines Screen NEG Urine Cocaine Screen NEG Urine Cannabinoids Screen NEG Imaging Last Impressions Head CT 09/07/17 0000 Signed Impressions: CONCLUSION: No acute intracranial findings. Objective Remarks O. CONSTITUTIONAL/GEN: normally nourished, in NAD. His speech is not slurred at this time. EYES: conjunctiva normal, PERRLA, EOMI. no scleral icterus. ENT: Mucous membranes are dry NECK: Supple LUNGS: Inspiratory wheezes left greater than right as well as expiratory wheezing. CARDIOVASCULAR: RR without murmur or gallop. No significant edema. GI/ABD: soft without masses, without organomegaly. Nontender to palpation NEURO: No focal deficits. SKIN: Significant bruising of the distal forearms dorsally. Also some bruising of the distal lower extremities. HEME/LYMPH: no petechiae or significant adenopathy MUSC: back is normal in appearance. Extremities are normal in appearance with the exception of the ecchymoses.. PSYCH/MENTAL STATUS: Alert and oriented x 3. A/P Assessment and Plan Patient is a 61 y/o M admitted for suicidal drug overdose. Found to have high anion gap acidosis, MOHSEN, and hypoglycemia. Corrected calcium of 8.5. Received NS bolus x2 in the ED and Dextrose x2 (total 75 ml). Poison control was called and advised EKG Q2H and monitoring. Vitals stable at this time. Attending Attestation Patient seen and examined. Case reviewed and discussed with the resident team. Agree with plan of care as discussed with me and documented in the resident note. Problem List: (1) Suicidal overdose ICD Codes: T50.902A - Poisoning by unspecified drugs, medicaments and biological substances, intentional self-harm, initial encounter Status: Acute Plan: EKG Q2H con't pulse ox cardiac tele bedside glucose checks ABG serum ketones isopropyl alcohol (2) Metabolic acidosis, increased anion gap ICD Codes: E87.2 - Acidosis Plan: See above plan AM BMP to monitor for anion gap closure (3) Drug-induced encephalopathy ICD Codes: G92 - Toxic encephalopathy Plan: See above plan Neurochecks Q4H while awake (4) MOHSEN (acute kidney injury) ICD Codes: N17.9 - Acute kidney failure, unspecified Status: Acute Plan: NS bolus x2 in the ED Avoid nephrotoxic agents BMP tomorrow AM (5) Alcohol intoxication ICD Codes: F10.129 - Alcohol abuse with intoxication, unspecified Status: Acute Plan: Rally pack (6) FEN Problem Qualifiers (1) Alcohol intoxication: Qualified Codes: F10.920 - Alcohol use, unspecified with intoxication, uncomplicated Gemma Spears MD 6, 2018 17:14
[2017-09-07] MEDS ORDERED: ENOXAPARIN SODIUM 40 MG/0.4 ML SYRINGE SQ SCH (18:00)
[2017-09-07] MEDS: FOLIC ACID 1 MG TAB PO SCH (18:06)
[2017-09-07] MEDS: THIAMINE HCL 100 MG TAB PO SCH (18:06)
[2017-09-07] MEDS: MULTIVITAMINS/MINERALS THERAPEUTIC TAB PO SCH (18:06)
[2017-09-07] MEDS: ALPRAZolam 1 MG TAB PO PRN (19:42)
[2017-09-07] MEDS: RESP: ALBUTEROL 2.5 MG/3 ML NEB (PRN) NEB (19:45)
[2017-09-07] MEDS: FAMOTIDINE 20 MG TAB PO SCH (20:38)
[2017-09-07] MEDS: SODIUM CHLORIDE 0.9% FLUSH 10 ML FLUSH IV FLUSH SCH (20:38)
[2017-09-07] MEDS ORDERED: TAMSULOSIN HCL 0.4 MG CAP PO SCH (21:00)
[2017-09-08] VITALS (8 sets, daily range): BP systolic 130–160; BP diastolic 76–88; PULSE 89–119; RESP 16–20; TEMP 97.9–99.7; O2SAT 90–95
[2017-09-08] MEDS: RESP: ALBUTEROL 2.5 MG/3 ML NEB (PRN) NEB ×2 (00:17→05:33)
[2017-09-08] MEDS ORDERED: ZOLPIDEM TARTRATE 5 MG TAB PO ONE (00:30)
[2017-09-08] MEDS: LORazepam 1 MG TAB PO PRN ×2 (02:44→15:33)
[2017-09-08] MEDS: SODIUM CHLOR 0.9% 1000 ML INJ 1,000 ML IV SCH ×2 (05:28→12:56)
[2017-09-08 05:55] LABS: ALBUMIN 2.7 GM/DL (3.4-5.0); ALT (GPT) 56 U/L (12-78); BICARBONATE 26.4 MEQ/L (21.0-32.0); BLOOD UREA NITROGEN 21 MG/DL (7-18); CHLORIDE 98 MEQ/L (98-107); CREATININE 1.49 MG/DL (0.60-1.30); GLOMERULAR FILTRATION RATE 48 ML/MIN (>89); GLUCOSE,RANDOM 100 MG/DL (74-106); SODIUM (NA) 136 MEQ/L (136-145)
[2017-09-08 05:57] LABS: ALKALINE PHOSPHATASE 77 U/L (45-117); AST (GOT) 58 U/L (15-37); TOTAL BILIRUBIN ADULT 0.8 MG/DL (0.2-1.0); TOTAL PROTEIN 6.2 GM/DL (6.4-8.2)
[2017-09-08] MEDS ORDERED: predniSONE 10 MG TAB PO SCH (09:00)
--- NOTE | 2017-09-08 09:22 | PD.PSY.CON ---
Provisional Diagnosis Admission Date Sep 07, 2017 at 16:20 [place] I. Alcohol-induced mood disorder, alcohol use disorder, history of anxiety [place] II. Deferred [place] III. Asthma, neuropathy History of Present Illness Service Psychiatry Consult Requested By Medicine Reason for Consult Suicidal attempt Primary Care Physician Arpit Peterson MD HPI The patient is a 61 years old man, domiciled with his mother in [place], single, unemployed, no kids, with self-reported psychiatric history of anxiety, alcohol use disorder, no previous psychiatric hospitalizations, no previous suicidal attempts, he says that he is on Xanax 1 mg 3 times daily and Ambien 5 mg at bedtime prescribed by PCP, multiple ER visits due to alcohol-induced problems, medical history of neuropathy and asthma , for anxiety. States he didn't get his Xanax refilled and drank last night to self-medicate for the anxiety. Has been admitted for acute alcohol intoxication/ encephalopathy and anxiety in the past. Last admission was 07/01/17. Mom usually drives him to the doctor's office to slat [place] prescriptions, but she was out of town this time. She has arrived back today. Mom told patient that he called her last night from her house while drunk and said he would kill himself. Mom also told him that he took some of her sleeping pills. No hx of suicidal attempts, plans, or hospitalizations. No SI or HI, no hallucinations (auditory or visual) . No falls or injuries (self-inflicted or otherwise). Is asking for next dose of Ativan. Last dose was 2 hours ago. Patient was consulted to psychiatry to address suicidal intent. Initial BAL was 373. On psychiatric evaluation the patient reports that he was just drunk last night. He says that sometimes when he is drunk he loses his mind and he do "crazy things". Patient reports that he is wanted to go to sleep "by taking my medication as prescribed, but I was drunk". The patient denies symptoms of depression. He denies anxiety. He denies suicidal and homicidal ideation, he denies visual and auditory hallucination at this moment. He is oriented 3. Patient reports that he has been in several detox and rehab's in the past, and he is not interested in the kind of treatment. Patient seems to have a very poor insight, precontemplation state, he states that he cannot stop drinking whenever he wants to. Review of Systems Constitutional: DENIES: Diaphoretic episodes, Fatigue, Fever, Weight gain, Weight loss, Chills, Dizziness, Change in appetite, Night Sweats Endocrine: DENIES: Heat/cold intolerance, Polydipsia, Polyuria, Polyphagia Eyes: DENIES: Blurred vision, Diplopia, Eye inflammation, Eye pain, Vision loss , Photosensitivity, Double Vision Ears, nose, mouth, throat: DENIES: Tinnitus, Hearing loss, Vertigo, Nasal discharge, Oral lesions, Throat pain, Hoarseness, Ear Pain, Running Nose, Epistaxis, Sinus Pain, Toothache, Odynophagia Respiratory: DENIES: Apneas, Cough, Snoring, Wheezing, Hemoptysis, Sputum production, Shortness of breath Cardiovascular: DENIES: Chest pain, Palpitations, Syncope, Dyspnea on Exertion , PND, Lower Extremity Edema, Orthopnea, Claudication Gastrointestinal: DENIES: Abdominal pain, Black stools, Bloody stools, Constipation, Diarrhea, Nausea, Vomiting, Difficulty Swallowing, Anorexia Genitourinary: DENIES: Sexual dysfunction, Urinary frequency, Urinary incontinence, Urgency, Hematuria, Dysuria, Nocturia, Penile Discharge, Testicular Pain, Testicular Swelling Musculoskeletal: DENIES: Joint pain, Muscle aches, Stiffness, Joint Swelling, Back pain, Neck pain Integumentary: DENIES: Abnormal pigmentation, Nail changes, Pruritus, Rash Hematologic/lymphatic: DENIES: Bruising, Lymphadenopathy Immunologic/allergic: DENIES: Eczema, Urticaria Neurologic: DENIES: Abnormal gait, Headache, Localized weakness, Paresthesias, Seizures, Speech Problems, Tremor, Poor Balance Psychiatric: COMPLAINS OF: Mood changes, DENIES: Anxiety, Confusion, Depression , Hallucinations, Agitation, Suicidal Ideation, Homicidal Ideation, Delusions Past Family Social History Coded Allergies: No Known Allergies (Verified Allergy, Unknown, 06/30/17) Active Scripts Tamsulosin (Tamsulosin) 0.4 Mg Cap, 0.4 MG PO HS for Manage Prostate Problems, # 30 CAP 2 Refills Prov:Lili Abreu MD R1 09/08/17 Prednisone (Prednisone) 10 Mg Tab, 15 MG PO DAILY, #30 TAB Prov:Lili Abreu MD R1 09/08/17 Alprazolam (Alprazolam) 1 Mg Tab, 1 MG PO BID Y for ANXIETY, #10 TAB 0 Refills Prov:Lili Abreu MD R1 09/08/17 Thiamine HCl (Gnp Vitamin B-1) 100 Mg Tab, 100 MG PO DAILY for Alcohol Detox, # 30 TAB Prov:Yogesh Allison MD 07/04/17 Famotidine (Famotidine) 20 Mg Tab, 10 MG PO Q12HR for Manage Heartburn, #60 TAB Prov:Yogesh Allison MD 07/04/17 Albuterol 18 GM Inh (Ventolin Hfa 18 GM Inh) 90 Mcg/Act Aer, 2 PUFF INH Q4H Y for SHORTNESS OF BREATH, #1 INHALER 0 Refills Prov:Marzena Yu DO 11/09/16 Prednisone (Prednisone) 20 Mg Tab, 20 MG PO BID for 5 Days, TAB 0 Refills Prov:Marzena Yu DO 11/09/16 Discontinued Reported Medications Rivaroxaban (Xarelto) 20 Mg Tab, 20 MG PO DAILY for Blood Clot Prevention, TAB 0 Refills 05/15/17 Discontinued Scripts Chlordiazepoxide HCl (Chlordiazepoxide HCl) 25 Mg Capsule, 25 MG PO Q8H for Alcohol Detox, #12 CAP Take THREE Times daily for 2 Days, then TWICE daily for 2 days, then ONCE a day for 2 Days. Prov:Yogesh Allison MD 07/05/17 Potassium Phosphate Monobasic (K-Phos) 500 Mg Tab, 1000 MG PO Q12HR for Electrolyte Replacement, #4 TAB Prov:Yogesh Allison MD 07/04/17 Mupirocin Nasal Oint (Bactroban Nasal Oint) 2% Oint, 1 APPLIC EACH NARE BID for Infection, #1 TUBE For 7 days. Single-use tubes. Prov:Yogesh Allison MD 07/04/17 Sulfamethoxazole-Trimethoprim (Sulfamethoxazole-Trimethoprim) 800-160 Mg Tab, 1 TAB PO Q12HR for Infection, #14 TAB Prov:Yogesh Allison MD 07/04/17 Walker with Front Wheels (Walker with Front Wheels) 1 Mis Mis, EA .XX DIRECTED, #1 0 Refills Prov:Yogesh Allison MD 07/04/17 Current Medications Medications (Trade) Dose Ordered Sig/Mesha Route Start Time Stop Time Status Last Admin (Zofran Odt) 4 mg Q8H PRN PO 09/07/17 14:15 (Tylenol) 650 mg Q4H PRN PO 09/07/17 14:15 (Romazicon Inj) 0.2 mg Q1M PRN IV PUSH 09/07/17 14:15 (Ativan) 1 mg Q4H PRN PO 09/07/17 14:15 09/08/17 02:44 (Ativan Inj) 1 mg Q4H PRN IV PUSH 09/07/17 14:15 (Ativan) 2 mg Q2H PRN PO 09/07/17 14:15 (Ativan Inj) 2 mg Q2H PRN IV PUSH 09/07/17 14:15 09/07/17 14:20 (Ativan Inj) 2 mg Q1H PRN IV PUSH 09/07/17 14:15 (Ativan Inj) 2 mg Q15M PRN IV PUSH 09/07/17 14:15 (Proair Hfa Inh) 2 puff Q4H PRN INH 09/07/17 16:00 (Xanax) 1 mg BID PRN PO 09/07/17 16:00 09/07/17 19:42 (Flomax) 0.4 mg HS PO 09/07/17 21:00 09/07/17 20:38 (NS Flush) 2 ml UNSCH PRN IV FLUSH 09/07/17 16:15 (NS Flush) 2 ml BID IV FLUSH 09/07/17 21:00 09/07/17 20:38 Sodium Chloride 1,000 ml @ 145 mls/hr Q6H54M IV 09/07/17 16:14 (Folate) 1 mg DAILY PO 09/07/17 18:00 09/12/17 17:59 09/07/17 18:06 (Vitamin B1) 100 mg DAILY PO 09/07/17 18:00 09/07/17 18:06 (Theragran M Tab) 1 tab DAILY PO 09/07/17 18:00 09/12/17 17:59 09/07/17 18:06 (Pepcid) 20 mg BID PO 09/07/17 21:00 09/07/17 20:38 (Catapres) 0.1 mg Q6H PRN PO 09/07/17 16:15 (Lovenox Inj) 40 mg Q24H SQ 09/07/17 18:00 09/07/17 18:06 (Albuterol Neb) 2.5 mg Q2HR NEB PRN NEB 09/07/17 16:30 09/08/17 05:33 (Deltasone) 15 mg DAILY PO 09/08/17 09:00 Family Psych History No family psychiatric history Social History The patient was born and raised in [place], is living in [place], single, no kids, unemployed Patient's Strengths (min. 2) Verbal communication Physical Exam Bilateral tremors, but no EPS Vital Signs Vital Signs Date Time Temp Pulse Resp B/P (MAP) Pulse Ox O2 Delivery O2 Flow Rate FiO2 09/08/17 08:27 97.9 105 20 130/76 (94) 94 09/07/17 15:57 Nasal Cannula 3.00 Lab Results Test 09/07/17 12:40 09/07/17 12:48 09/07/17 14:49 09/08/17 05:11 White Blood Count 9.0 TH/MM3 Red Blood Count 4.57 MIL/MM3 Hemoglobin 14.0 GM/DL Hematocrit 42.6 % Mean Corpuscular Volume 93.2 FL Mean Corpuscular Hemoglobin 30.5 PG Mean Corpuscular Hemoglobin Concent 32.7 % Red Cell Distribution Width 16.7 % Platelet Count 233 TH/MM3 Mean Platelet Volume 8.3 FL Neutrophils (%) (Auto) 66.7 % Lymphocytes (%) (Auto) 20.7 % Monocytes (%) (Auto) 10.2 % Eosinophils (%) (Auto) 1.6 % Basophils (%) (Auto) 0.8 % Neutrophils # (Auto) 6.0 TH/MM3 Lymphocytes # (Auto) 1.9 TH/MM3 Monocytes # (Auto) 0.9 TH/MM3 Eosinophils # (Auto) 0.1 TH/MM3 Basophils # (Auto) 0.1 TH/MM3 CBC Comment DIFF FINAL Differential Comment Prothrombin Time 10.5 SEC Prothromb Time International Ratio 1.0 RATIO Activated Partial Thromboplast Time 21.7 SEC Blood Urea Nitrogen 25 MG/DL 21 MG/DL Creatinine 1.55 MG/DL 1.49 MG/DL Random Glucose 56 MG/DL 100 MG/DL Total Protein 7.0 GM/DL 6.2 GM/DL Albumin 3.1 GM/DL 2.7 GM/DL Calcium Level 7.8 MG/DL 8.0 MG/DL Magnesium Level 2.1 MG/DL Alkaline Phosphatase 96 U/L 77 U/L Aspartate Amino Transf (AST/SGOT) 95 U/L 58 U/L Alanine Aminotransferase (ALT/SGPT) 76 U/L 56 U/L Total Bilirubin 0.6 MG/DL 0.8 MG/DL Sodium Level 143 MEQ/L 136 MEQ/L Potassium Level 3.6 MEQ/L 3.4 MEQ/L Chloride Level 102 MEQ/L 98 MEQ/L Carbon Dioxide Level 20.3 MEQ/L 26.4 MEQ/L Anion Gap 21 MEQ/L 12 MEQ/L Estimat Glomerular Filtration Rate 46 ML/MIN 48 ML/MIN Lactic Acid Level 5.6 mmol/L 4.9 mmol/L 1.6 mmol/L Thyroid Stimulating Hormone 3rd Gen 1.020 uIU/ML Salicylates Level LESS THAN 1.7 MG/DL Acetaminophen Level LESS THAN 2.0 MCG/ML Ethyl Alcohol Level 373 MG/DL Urine Opiates Screen NEG Urine Barbiturates Screen NEG Urine Amphetamines Screen NEG Urine Benzodiazepines Screen NEG Urine Cocaine Screen NEG Urine Cannabinoids Screen NEG Mental Status Examination Appearance: Appropriate Consciousness: Alert Orientation: x4 Motor Activity: Normal gait Speech: Unremarkable Language: Adequate Fund of Knowledge: Adequate Attention and Concentration: Adequate Memory: Unremarkable Mood: Appropriate Affect: Appropriate Thought Process & Associations: Intact Thought Content: Appropriate Hallucination Type: None Delusion Type: None Suicidal Ideation: No Suicidal Plan: No Suicidal Intention: No Homicidal Ideation: No Homicidal Plan: No Homicidal Intention: No Insight: Adequate Judgment: Adequate Assessment & Plan Problem List: (1) Alcohol abuse with alcohol-induced mood disorder ICD Codes: F10.14 - Alcohol abuse with alcohol-induced mood disorder Status: Acute Assessment & Plan: The patient denies symptomatology of depression, anxiety, marilyn and psychosis. He denies suicidal and homicidal ideation. He is logical , coherent and relevant. He does not meet criteria for involuntary psychiatric admission at this moment. Recent overdose was secondary to maladaptive use of prescribed medication and alcohol. I have not recommended to continue Xanax or Ambien given patient history of alcohol addiction. will start CIWA protocol. Patient is to be discharge. Thibodeaux act will be lifted. Assessment & Plan Estimated LOS: Zechariah Gomez MD Sep 08, 2017 09:22
[2017-09-08] MEDS: ALPRAZolam 1 MG TAB PO PRN (10:23)
[2017-09-08] MEDS: THIAMINE HCL 100 MG TAB PO SCH (10:24)
[2017-09-08] MEDS: MULTIVITAMINS/MINERALS THERAPEUTIC TAB PO SCH (10:24)
[2017-09-08] MEDS: FOLIC ACID 1 MG TAB PO SCH (10:24)
[2017-09-08] MEDS: FAMOTIDINE 20 MG TAB PO SCH (10:24)
[2017-09-08] MEDS: SODIUM CHLORIDE 0.9% FLUSH 10 ML FLUSH IV FLUSH SCH (10:25)
--- NOTE | 2017-09-08 15:35 | EKG ---
Date Performed: 09/07/2017 Time Performed: 11:43:16 PTAGE: 61 years EKG: Sinus rhythm Since previous tracing, no significant change noted NORMAL ECG PREVIOUS TRACING : 07/01/2017 21.49 DOCTOR: Latonya Cao Interpretating Date/Time 09/08/2017 15:33:22
--- NOTE | 2017-09-08 15:58 | HHI.FPPN ---
Subjective Remarks No acute events overnight. EKG Q2H wnl. No pain this AM. Required Gasca yesterday. Was removed this AM to see if patient could void on his own. Denies burning w/urination. (Lili Abreu MD R1) Objective Vitals Vital Signs Date Time Temp Pulse Resp B/P (MAP) Pulse Ox O2 Delivery O2 Flow Rate FiO2 09/08/17 13:16 98.5 89 18 160/88 (112) 95 09/08/17 12:05 113 09/08/17 08:27 97.9 105 20 130/76 (94) 94 09/08/17 08:12 110 09/08/17 04:23 98.9 119 17 130/83 (99) 91 09/08/17 04:00 108 09/08/17 00:03 99.7 103 16 135/77 (96) 90 09/08/17 00:00 109 09/07/17 19:42 98.4 109 16 129/82 (98) 89 09/07/17 17:25 98.6 78 18 143/81 (101) 92 09/07/17 17:00 I/O 09/07/17 09/07/17 09/07/17 09/08/17 09/08/17 09/08/17 07:00 15:00 23:00 07:00 15:00 23:00 Intake Total 2000 ml Output Total 1000 ml 1350 ml 400 ml 300 ml Balance 1000 ml -1350 ml -400 ml -300 ml Intake IV Total 2000 ml Output Urine Total 1000 ml 1350 ml 400 ml 300 ml # Voids 1 1 (Lili Abreu MD R1) Result Diagram: 09/07/17 1240 09/08/17 0511 Objective Remarks O. CONSTITUTIONAL/GEN: normally nourished, in NAD who is in no distress, resting comfortably in bed, but asking the nurse for Ativan. EYES: conjunctiva normal, PERRLA, EOMI. no scleral icterus. ENT: Mucous membranes moist. NECK: Supple LUNGS: Slight expiratory wheezing bilaterally. CARDIOVASCULAR: RR without murmur or gallop. No significant edema. GI/ABD: soft without masses, without organomegaly. Nontender to palpation NEURO: No focal deficits. SKIN: Significant bruising of the distal forearms dorsally. Also some bruising of the distal lower extremities. This is unchanged from yesterday's exam. HEME/LYMPH: no petechiae or significant adenopathy MUSC: back is normal in appearance. Extremities are normal in appearance with the exception of the ecchymoses.. PSYCH/MENTAL STATUS: Alert and oriented x 3. (Lili Abreu MD R1) A/P Assessment and Plan Patient is a 61 y/o M admitted for suicidal drug overdose. Found to have high anion gap acidosis, MOHSEN, and hypoglycemia. Corrected calcium of 8.5. Received NS bolus x2 in the ED and Dextrose x2 (total 75 ml). Poison control was called and advised EKG Q2H and monitoring. EKGs were stable overnight and no acute events occurred. Patient was seen by psychiatry and Thibodeaux act was lifted. Yesterday, patient was found to have urinary retention and a Gasca was placed after straight cath 2 yielded more than 900 cc. Today patient was able to urinate spontaneously 300 cc and 5 hours. Patient was discharged with 3 days of Ativan, instructions to follow-up with PCP, and recommendations to avoid alcohol. Discharge Planning Discharge today (Lili Abreu MD R1) Attending Attestation Patient seen and examined. Case reviewed and discussed with the resident team. Agree with plan of care as discussed with me and documented in the resident note. (Gemma Spears MD) Problem List: (1) Suicidal overdose ICD Codes: T50.902A - Poisoning by unspecified drugs, medicaments and biological substances, intentional self-harm, initial encounter Status: Acute Plan: Poison control contacted by ED. Recommended surveillance and frequent EKGs. No concern based on the EKGs overnight. No events on cardiac telemetry. Psychiatry lifted the Thibodeaux act today. (2) Metabolic acidosis, increased anion gap ICD Codes: E87.2 - Acidosis Plan: W/possible metabolic alkalosis Likely secondary to alcohol +/- drug use A.m. BMP shows resolution. (3) MOHSEN (acute kidney injury) ICD Codes: N17.9 - Acute kidney failure, unspecified Status: Resolved Plan: NS bolus x2 in the ED Baseline appears to be 16.16. Hx of MOHSEN in past hospitalizations, which is likely contributing to low GFR Diff: Overdose v urinary retention 2/2 untreated BPH Avoid nephrotoxic agents 145 mls/hr of NS Tamsulosin 0.4 mg PO HS Bladder scan and straight cath prn. Consider Gasca if urinary retention continues x2 BMP tomorrow AM (4) Alcohol intoxication ICD Codes: F10.129 - Alcohol abuse with intoxication, unspecified Status: Acute Plan: Overnight: Rally pack CIWA Zofran 4mg PO Q8H PRN Clonidine Q6H PRN for BP > 180/100 On discharge, recommend patient avoid alcohol and follow-up with PCP. (5) Asthma ICD Codes: J45.909 - Asthma Status: Chronic Plan: Resume prednisone dose per pt hx of 15 mg daily Resume Ventolin inhaler (converted to proair 2 puff q4H PRN for SOB) (Lili Abreu MD R1) Problem Qualifiers (1) Alcohol intoxication: Qualified Codes: F10.920 - Alcohol use, unspecified with intoxication, uncomplicated (2) Asthma: Qualified Codes: J45.909 - Unspecified asthma, uncomplicated Lili Abreu MD R1 Sep 08, 2017 15:58 Gemma Spears MD Sep 08, 2017 17:11
[2017-09-08] MEDS ORDERED: PRED10 PO (16:03)
[2017-09-08] MEDS ORDERED: ALPR1TAB3 PO ×2 (16:03→16:38)
--- NOTE | 2017-09-08 16:04 | HHI.DCPOC ---
Discharge Care Plan Diagnosis: (1) BPH (benign prostatic hyperplasia) (2) Anxiety (3) Suicidal overdose (4) Alcohol intoxication Goals to Promote Your Health * To prevent worsening of your condition and complications * To maintain your health at the optimal level Directions to Meet Your Goals Take your medications as prescribed Follow your dietary instruction Follow activity as directed Keep your appointments as scheduled Take your immunizations and boosters as scheduled If your symptoms worsen call your PCP, if no PCP go to Urgent Care Center or Emergency Room Smoking is Dangerous to Your Health. Avoid second hand smoke Call the 24-hour hour crisis hotline for domestic abuse at Lili Abreu MD R1 Sep 08, 2017 16:04
[2017-09-08] MEDS ORDERED: TAMS0.4C4 PO (16:05)
--- NOTE | 2017-09-08 18:15 | EKG ---
Date Performed: 09/07/2017 Time Performed: 13:57:03 PTAGE: 61 years EKG: Sinus rhythm When compared to previous tracing, the patient has developed Early R wave transition, with a loss of early R wave transition in Lead V3. I suspect this is due to reversal of the precordial leads. Clini vladislav correlation is recommended NORMAL ECG PREVIOUS TRACING : 09/07/2017 11.43 DOCTOR: Latonya Cao Interpretating Date/Time 09/08/2017 18:13:23
--- NOTE | 2017-09-08 18:17 | EKG ---
Date Performed: 09/07/2017 Time Performed: 19:46:05 PTAGE: 61 years EKG: SINUS TACHYCARDIA When compared to previous tracing, patient has developed sinus Tachycardi a. ABNORMAL RHYTHM ECG PREVIOUS TRACING : 09/07/2017 17.34 DOCTOR: Latonya Cao Interpretating Date/Time 09/08/2017 18:16:07
--- NOTE | 2017-09-08 18:17 | EKG ---
Date Performed: 09/07/2017 Time Performed: 17:34:30 PTAGE: 61 years EKG: Sinus rhythm SEPTAL MYOCARDIAL INFARCTION When compared to previous tracing, the R wave transition is now Normal. Confirming previously limb lead reversal. Otherwise without significant serial change. ABNORMAL ECG PREVIOUS TRACING : 09/07/2017 13.57 DOCTOR: Latonya Cao Interpretating Date/Time 09/08/2017 18:15:08
--- NOTE | 2017-09-08 18:19 | EKG ---
Date Performed: 09/07/2017 Time Performed: 22:24:29 PTAGE: 61 years EKG: ECTOPIC ATRIAL TACHYCARDIA WITH SHORT AR INTERVAL MODERATE INTRAVENTRICULAR CONDUCTION MAGDA Y Baseline artifact precludes the precise diagnosis of an ectopic Atrial rhythm, and this could just be sinus tachycardia. When compared to previous tracing, with exception to the artifact Tracing is la rgely unchanged. ABNORMAL RHYTHM ECG PREVIOUS TRACING : 09/07/2017 19.46 DOCTOR: Kameron Murillo Interpretating Date/Time 09/08/2017 18:19:05
--- NOTE | 2017-09-08 18:23 | EKG ---
Date Performed: 09/08/2017 Time Performed: 00:01:41 PTAGE: 61 years EKG: Probable sinus tachycardia with premature atrial contractions. There is too much baseline a rtifact to be certain about the Rhythm, and a repeat tracing is advised. MODERATE INTRAVENTRICULAR CO NDUCTION DELAY When compared to previous tracing, there has been no significant Serial change. ABNORM AL RHYTHM ECG PREVIOUS TRACING : 09/07/2017 22.24 DOCTOR: Kameron Murillo Interpretating Date/Time 09/08/2017 18:21:44
--- NOTE | 2017-09-08 21:08 | HHI.PR ---
Addendum to Inpatient Note Addendum Reason: Additional Documentation Additional Information I received a page at 8:58pm regarding patient having a script at pharmacy with no MALIK number on it and Annabel at Pharmacy requesting a call. I called the [facility] given to me in the page [phone] and the pharmacy is currently closed and will reopen at 8am. She may call back if needed. Tiff Gamez MD R2 Sep 08, 2017 21:08
== END 2017-09-08 16:37 | disposition home or self-care (01) | DRG 917 ==
LOC: NEPE 12:18 → NEDA 15:06 → OBSVTOIN 16:20 → NEPGCP 17:20
PROVIDERS: ADMIT Family Medicine; ATTEND Family Medicine
PROC: 0T9B70Z Drainage of Bladder with Drainage Device, Via Natural or Artificial Opening (ICD-10-PCS; principal; 2017-09-07)
DX: T43.022A Poisoning by tetracyclic antidepressants, intentional self-harm, initial encounter (principal); G92 Toxic encephalopathy; N17.9 Acute kidney failure, unspecified; E87.2 Acidosis; F10.24 Alcohol dependence with alcohol-induced mood disorder; F10.229 Alcohol dependence with intoxication, unspecified; Y90.8 Blood alcohol level of 240 mg/100 ml or more; J45.909 Unspecified asthma, uncomplicated; F41.9 Anxiety disorder, unspecified; I77.6 Arteritis, unspecified; E16.2 Hypoglycemia, unspecified; N40.1 Benign prostatic hyperplasia with lower urinary tract symptoms; R33.8 Other retention of urine; T14.8XXA Other injury of unspecified body region, initial encounter; Z86.718 Personal history of other venous thrombosis and embolism; Z86.14 Personal history of Methicillin resistant Staphylococcus aureus infection
CPT/HCPCS: 70450; 71046; 80053; 80307; 82948; 83605; 83735; 84443; 85025; 85610; 85730; 93005; 94640; 94664; G8987-GP; G8988-GP; J1650; J2060; J7030; J7512; J7613

== ENCOUNTER 2017-09-15 02:26 | Emergency (ER) | payer OTHER ==
[~2017-09-15] VITALS: Ht 190.5 cm; Wt 86.3 kg
[~2017-09-15 02:26] MED LIST changes: -BACTOIN EACH NARE; -CHLO25CA9 PO; -K-PHTAB PO; +PRED10 PO; -PRED20 PO; -SULF1TAB23 PO; -WALKER WHEELS/F1 MIS; -XARE20TA PO
[2017-09-15 02:29] VITALS: BP 119/78; PULSE 89; RESP 16; TEMP 98; O2SAT 94
[2017-09-15] MEDS ORDERED: HALOPERIDOL LACTATE 5 MG/ML AMP IV ONE (02:45)
[2017-09-15] MEDS ORDERED: SODIUM CHLOR 0.9% 1000 ML INJ 1,000 ML IV ONE (02:45)
--- NOTE | 2017-09-15 03:05 | PD ---
HPI Chief Complaint: Anxiety Time Seen by Provider: 02:34 Travel History International Travel<30 days: No Contact w/Intl Traveler<30days: No Traveled to known affect area: No History of Present Illness HPI 61-year-old white male presents emergency department by EMS requesting Xanax. Patient states that he feels anxious and would like to milligrams of Xanax. He alleges that he has a prescription at home but has not had gotten it filled. Patient admits to drinking a large quantity of alcohol. He denies any suicidal homicidal ideation. He merely states he would like Xanax. Symptoms are moderate. No alleviating factors. Patient's exacerbated by his alcohol intake PFSH Past Medical History Hx Anticoagulant Therapy: No Arthritis: No Asthma: Yes Autoimmune Disease: No Blood Disorders: No Anxiety: Yes Depression: No Heart Rhythm Problems: No Cancer: No Cardiovascular Problems: No High Cholesterol: No Chemotherapy: No Chest Pain: No Congestive Heart Failure: No COPD: No Cerebrovascular Accident: No Diabetes: No Diminished Hearing: No Endocrine: No Gastrointestinal Disorders: Yes (POSSIBLE HERNIA) GERD: No Glaucoma: No Genitourinary: Yes (ENLARGED PROSTATE CAUSING DELAYED BLADDER EMPTYING/UTI) Headaches: No Hepatitis: No Hiatal Hernia: Yes Heparin Induced Thrombocytopen: No Hypertension: No Immune Disorder: No Implanted Vascular Access Dvce: Yes Kidney Stones: No Medical other: Yes (INGUINAL HERNIA, VASCULITIS) Musculoskeletal: No Neurologic: No Psychiatric: Yes Reproductive: No Respiratory: Yes Immunizations Current: Yes Migraines: No Myocardial Infarction: No Radiation Therapy: No Renal Failure: No Seizures: No Sickle Cell Disease: No Sleep Apnea: No Thyroid Disease: No Past Surgical History Abdominal Surgery: Yes (HERNIA REPAIR) AICD: No Arteriovenous Shunt: No Body Medical Devices: DENTAL IMPLANT Cardiac Surgery: No Cholecystectomy: No Ear Surgery: No Endocrine Surgery: No Eye Surgery: No Genitourinary Surgery: Yes (TURP secondary to BPH) Gynecologic Surgery: No Insulin Pump: No Joint Replacement: No Neurologic Surgery: No Oral Surgery: Yes (TOOTH PULLED UNDER ANESTHESIA) Pacemaker: No Thoracic Surgery: No Other Surgery: Yes Social History Alcohol Use: Yes Tobacco Use: No Substance Use: No Allergies-Medications (Allergen,Severity, Reaction): Coded Allergies: No Known Allergies (Verified Allergy, Unknown, 06/30/17) Reported Meds & Prescriptions Reported Meds & Active Scripts Active Alprazolam 1 Mg Tab 1 Mg PO BID PRN Tamsulosin (Tamsulosin HCl) 0.4 Mg Cap 0.4 Mg PO HS Prednisone 10 Mg Tab 15 Mg PO DAILY Gnp Vitamin B-1 (Thiamine HCl) 100 Mg Tab 100 Mg PO DAILY Famotidine 20 Mg Tab 10 Mg PO Q12HR Ventolin Hfa 18 GM Inh (Albuterol Sulfate) 90 Mcg/Act Aer 2 Puff INH Q4H PRN Review of Systems ROS Limitations: Intoxication Physical Exam Narrative GENERAL: Well-nourished, well-developed patient. Smells of EtOH and appears intoxicated. SKIN: Warm and dry. HEAD: Normocephalic and atraumatic. EYES: No scleral icterus. No injection or drainage. ENT: No nasal drainage noted. Mucous membranes pink. Airway patent. NECK: Supple, trachea midline. Moves head freely without obvious discomfort. CARDIOVASCULAR: Regular rate and rhythm without murmurs, gallops, or rubs. RESPIRATORY: Breath sounds equal bilaterally. No accessory muscle use. GASTROINTESTINAL: Abdomen soft, non-tender, nondistended. EXTREMITIES: No cyanosis or edema. BACK: Nontender without obvious deformity. No CVA tenderness. NEURO: Patient is alert and oriented to self. Patient is ataxic due to alcohol. His speech is slurred. Data Data Last Documented VS Vital Signs Date Time Temp Pulse Resp B/P (MAP) Pulse Ox O2 Delivery O2 Flow Rate FiO2 09/15/17 02:29 98.0 89 16 119/78 (92) 94 Orders Orders Complete Blood Count With Diff (09/15/17 02:37) Comprehensive Metabolic Panel (09/15/17 02:37) Iv Access Insert/Monitor (09/15/17 02:37) Haloperidol Inj (Haldol Inj) (09/15/17 02:45) Alcohol (Ethanol) (09/15/17 02:37) Sodium Chlor 0.9% 1000 Ml Inj (Ns 1000 M (09/15/17 02:45) Labs Laboratory Tests Test 09/15/17 02:48 White Blood Count 12.1 TH/MM3 Red Blood Count 4.98 MIL/MM3 Hemoglobin 15.1 GM/DL Hematocrit 45.3 % Mean Corpuscular Volume 91.1 FL Mean Corpuscular Hemoglobin 30.3 PG Mean Corpuscular Hemoglobin Concent 33.3 % Red Cell Distribution Width 16.5 % Platelet Count 314 TH/MM3 Mean Platelet Volume 8.0 FL Neutrophils (%) (Auto) 81.0 % Lymphocytes (%) (Auto) 6.1 % Monocytes (%) (Auto) 10.2 % Eosinophils (%) (Auto) 0.9 % Basophils (%) (Auto) 1.8 % Neutrophils # (Auto) 9.8 TH/MM3 Lymphocytes # (Auto) 0.7 TH/MM3 Monocytes # (Auto) 1.2 TH/MM3 Eosinophils # (Auto) 0.1 TH/MM3 Basophils # (Auto) 0.2 TH/MM3 CBC Comment DIFF FINAL Differential Comment Blood Urea Nitrogen 17 MG/DL Creatinine 1.67 MG/DL Random Glucose 70 MG/DL Total Protein 7.9 GM/DL Albumin 3.5 GM/DL Calcium Level 8.4 MG/DL Alkaline Phosphatase 93 U/L Aspartate Amino Transf (AST/SGOT) 60 U/L Alanine Aminotransferase (ALT/SGPT) 74 U/L Total Bilirubin 0.5 MG/DL Sodium Level 136 MEQ/L Potassium Level 4.0 MEQ/L Chloride Level 96 MEQ/L Carbon Dioxide Level 23.9 MEQ/L Anion Gap 16 MEQ/L Estimat Glomerular Filtration Rate 42 ML/MIN Ethyl Alcohol Level 286 MG/DL MDM Medical Decision Making Medical Screen Exam Complete: Yes Emergency Medical Condition: Yes Medical Record Reviewed: Yes Interpretation(s) Laboratory Tests Test 09/15/17 02:48 White Blood Count 12.1 TH/MM3 Red Blood Count 4.98 MIL/MM3 Hemoglobin 15.1 GM/DL Hematocrit 45.3 % Mean Corpuscular Volume 91.1 FL Mean Corpuscular Hemoglobin 30.3 PG Mean Corpuscular Hemoglobin Concent 33.3 % Red Cell Distribution Width 16.5 % Platelet Count 314 TH/MM3 Mean Platelet Volume 8.0 FL Neutrophils (%) (Auto) 81.0 % Lymphocytes (%) (Auto) 6.1 % Monocytes (%) (Auto) 10.2 % Eosinophils (%) (Auto) 0.9 % Basophils (%) (Auto) 1.8 % Neutrophils # (Auto) 9.8 TH/MM3 Lymphocytes # (Auto) 0.7 TH/MM3 Monocytes # (Auto) 1.2 TH/MM3 Eosinophils # (Auto) 0.1 TH/MM3 Basophils # (Auto) 0.2 TH/MM3 CBC Comment DIFF FINAL Differential Comment Blood Urea Nitrogen 17 MG/DL Creatinine 1.67 MG/DL Random Glucose 70 MG/DL Total Protein 7.9 GM/DL Albumin 3.5 GM/DL Calcium Level 8.4 MG/DL Alkaline Phosphatase 93 U/L Aspartate Amino Transf (AST/SGOT) 60 U/L Alanine Aminotransferase (ALT/SGPT) 74 U/L Total Bilirubin 0.5 MG/DL Sodium Level 136 MEQ/L Potassium Level 4.0 MEQ/L Chloride Level 96 MEQ/L Carbon Dioxide Level 23.9 MEQ/L Anion Gap 16 MEQ/L Estimat Glomerular Filtration Rate 42 ML/MIN Ethyl Alcohol Level 286 MG/DL Differential Diagnosis Differential diagnoses: Alcohol intoxication, substance abuse, electrolyte abnormality, malingering Narrative Course The patient is demanding Xanax. He is too intoxicated at this time to get any additional benzos or any other sedating meds. The patient is attempting to leave. Patient is too intoxicated to leave. Patient was placed under a Marchman act due to his alcohol intoxication and inability to care for himself. The patient is given 1 L bolus normal saline IV, we will check his laboratory tests including CBC, chemistry and EtOH. Patient is given Haldol 5 mg IV. When the patient is sober he can be discharged safely and his Marchman act will be lifted. This is alcohol intoxication, substance abuse Diagnosis Primary Impression: Alcohol intoxication Additional Impression: Substance abuse Patient Instructions: General Instructions Additional Instructions: Rest. Increase fluids. Avoid alcohol. Avoid illegal substances. Follow-up with [facility] for detox. Do not operate a car or any heavy machinery under the influence of alcohol or drugs. Follow-up with a medical doctor this week. Return to the ER for emergencies Med/Other Pt SpecificInfo: No Meds Exist/No RX given Disposition: 01 DISCHARGE HOME Condition: Stable Marko Alva Sep 15, 2017 03:05
[2017-09-15 03:08] LABS: AUTOMATED NEUTROPHIL # 9.8 TH/MM3 (1.8-7.7); BASOPHIL # 0.2 TH/MM3 (0-0.2); BASOPHIL % 1.8 % (0.0-2.0); EOSINOPHIL # 0.1 TH/MM3 (0-0.4); EOSINOPHIL % 0.9 % (0.0-4.0); HEMATOCRIT 45.3 % (39.0-51.0); HEMOGLOBIN 15.1 GM/DL (13.0-17.0); LYMPH % 6.1 % (9.0-44.0); LYMPHOCYTE # 0.7 TH/MM3 (1.0-4.8); MEAN CELL VOLUME 91.1 FL (80.0-100.0); MEAN CORPUSCULAR HEMOGLOBIN 30.3 PG (27.0-34.0); MEAN CORPUSCULAR HGB CONC 33.3 % (32.0-36.0); MONO % 10.2 % (0.0-8.0); MONOCYTE # 1.2 TH/MM3 (0-0.9); PLATELET COUNT 314 TH/MM3 (150-450); RED BLOOD COUNT 4.98 MIL/MM3 (4.50-5.90); RED CELL DISTRIBUTION WIDTH 16.5 % (11.6-17.2); WHITE BLOOD COUNT 12.1 TH/MM3 (4.0-11.0)
[2017-09-15 03:14] LABS: ALBUMIN 3.5 GM/DL (3.4-5.0); ALT (GPT) 74 U/L (12-78); AST (GOT) 60 U/L (15-37); BICARBONATE 23.9 MEQ/L (21.0-32.0); BLOOD UREA NITROGEN 17 MG/DL (7-18); CALCIUM 8.4 MG/DL (8.5-10.1); CHLORIDE 96 MEQ/L (98-107); CREATININE 1.67 MG/DL (0.60-1.30); GLOMERULAR FILTRATION RATE 42 ML/MIN (>89); GLUCOSE,RANDOM 70 MG/DL (74-106); SODIUM (NA) 136 MEQ/L (136-145)
[2017-09-15 03:19] LABS: ALKALINE PHOSPHATASE 93 U/L (45-117); TOTAL BILIRUBIN ADULT 0.5 MG/DL (0.2-1.0); TOTAL PROTEIN 7.9 GM/DL (6.4-8.2)
[2017-09-15 08:10] VITALS: BP 119/78; PULSE 95; RESP 16; O2SAT 96
== END 2017-09-15 08:27 | disposition home or self-care (01) ==
LOC: NEPD 02:26
DX: F10.929 Alcohol use, unspecified with intoxication, unspecified (principal); F19.10 Other psychoactive substance abuse, uncomplicated; Y90.8 Blood alcohol level of 240 mg/100 ml or more; J45.909 Unspecified asthma, uncomplicated; N40.1 Benign prostatic hyperplasia with lower urinary tract symptoms; R33.8 Other retention of urine; F41.9 Anxiety disorder, unspecified; Z79.899 Other long term (current) drug therapy
CPT/HCPCS: 80053; 80307; 85025; 96374; 99284; J1630; J7030

== ENCOUNTER 2017-09-15 10:25 | Emergency (ER) | payer OTHER ==
[~2017-09-15] VITALS: Ht 190.5 cm; Wt 87.0 kg
[2017-09-15 10:36] VITALS: BP 112/73; PULSE 77; RESP 17; TEMP 98.1; O2SAT 97
--- NOTE | 2017-09-15 10:41 | PD ---
HPI Chief Complaint: Med refill request Time Seen by Provider: 10:31 Travel History International Travel<30 days: No Contact w/Intl Traveler<30days: No History of Present Illness HPI This is a 61-year-old male who reports that he has been out of his Xanax for 1 week and he is in withdrawals. He says he is very shaky, anxious, and feels like he is having some trouble breathing, constant, severe, starting yesterday. He was discharged from the emergency department earlier this morning and went to his primary care doctor who called 911 for him and had him transferred back to the emergency department because he said there was nothing he could do for him. PFSH Past Medical History Hx Anticoagulant Therapy: No Arthritis: No Asthma: Yes Autoimmune Disease: No Blood Disorders: No Anxiety: Yes Depression: No Heart Rhythm Problems: No Cancer: No Cardiovascular Problems: No High Cholesterol: No Chemotherapy: No Chest Pain: No Congestive Heart Failure: No COPD: No Cerebrovascular Accident: No Diabetes: No Diminished Hearing: No Endocrine: No Gastrointestinal Disorders: Yes (POSSIBLE HERNIA) GERD: No Glaucoma: No Genitourinary: Yes (ENLARGED PROSTATE CAUSING DELAYED BLADDER EMPTYING/UTI) Headaches: No Hepatitis: No Hiatal Hernia: Yes Heparin Induced Thrombocytopen: No Hypertension: No Immune Disorder: No Implanted Vascular Access Dvce: Yes Kidney Stones: No Musculoskeletal: No Neurologic: No Psychiatric: Yes Reproductive: No Respiratory: Yes Immunizations Current: Yes Migraines: No Myocardial Infarction: No Radiation Therapy: No Renal Failure: No Seizures: No Sickle Cell Disease: No Sleep Apnea: No Thyroid Disease: No Past Surgical History Abdominal Surgery: Yes (HERNIA REPAIR) AICD: No Arteriovenous Shunt: No Body Medical Devices: DENTAL IMPLANT Cardiac Surgery: No Cholecystectomy: No Ear Surgery: No Endocrine Surgery: No Eye Surgery: No Genitourinary Surgery: Yes (TURP secondary to BPH) Gynecologic Surgery: No Insulin Pump: No Joint Replacement: No Neurologic Surgery: No Oral Surgery: Yes (TOOTH PULLED UNDER ANESTHESIA) Pacemaker: No Thoracic Surgery: No Other Surgery: Yes Social History Alcohol Use: Yes Tobacco Use: No Substance Use: No Allergies-Medications (Allergen,Severity, Reaction): Coded Allergies: No Known Allergies (Verified Allergy, Unknown, 06/30/17) Reported Meds & Prescriptions Reported Meds & Active Scripts Active Alprazolam 1 Mg Tab 1 Mg PO BID PRN Tamsulosin (Tamsulosin HCl) 0.4 Mg Cap 0.4 Mg PO HS Prednisone 10 Mg Tab 15 Mg PO DAILY Gnp Vitamin B-1 (Thiamine HCl) 100 Mg Tab 100 Mg PO DAILY Famotidine 20 Mg Tab 10 Mg PO Q12HR Ventolin Hfa 18 GM Inh (Albuterol Sulfate) 90 Mcg/Act Aer 2 Puff INH Q4H PRN Review of Systems Except as stated in HPI: all other systems reviewed are Neg Physical Exam Narrative GENERAL: Groaning, making poor eye contact SKIN: Focused skin assessment warm and dry. HEAD: Atraumatic. Normocephalic. EYES: Pupils equal and round. No injection or drainage. ENT: Moist mucous membranes NECK: Trachea midline. CARDIOVASCULAR: Regular rate and rhythm. No murmur appreciated. RESPIRATORY: Clear to auscultation. Breath sounds equal bilaterally. GASTROINTESTINAL: Abdomen soft, non-tender, nondistended. MUSCULOSKELETAL: No obvious deformities. NEUROLOGICAL: Awake and alert. No obvious cranial nerve deficits. Moving all extremities. PSYCHIATRIC: Flat affect MDM Medical Decision Making Medical Screen Exam Complete: Yes Emergency Medical Condition: Yes Interpretation(s) Vital signs are reassuring with no hypertension or tachycardia. Differential Diagnosis Benzodiazepine withdrawal, drug-seeking behavior, malingering Narrative Course This is a 61-year-old male who has a long history of substance abuse, dependence and recently in our system had an intentional overdose. He was just seen last night in the emergency department requesting a Xanax refill and was found to be intoxicated with an alcohol level of 286 at 2 AM this morning. Patient has normal vital signs and no physical exam findings consistent with acute benzodiazepine withdrawal. He would be inappropriate to treat this patient with benzodiazepines as he is at high risk of abuse and overdose. Patient was discharged home and I think this reflects drug-seeking behavior. Diagnosis Primary Impression: Drug-seeking behavior Additional Instructions: Follow up with Ruf[facility] Yan in regards to psychiatric or substance related issues at: [address] [place] [id number] Med/Other Pt SpecificInfo: No Change to Meds Disposition: 01 DISCHARGE HOME Condition: Stable Azalia Solis MD Sep 15, 2017 10:41
== END 2017-09-15 11:04 | disposition home or self-care (01) ==
LOC: NEPD 10:25
DX: R06.00 Dyspnea, unspecified (principal); Z76.5 Malingerer [conscious simulation]; F41.9 Anxiety disorder, unspecified; J45.909 Unspecified asthma, uncomplicated; N40.1 Benign prostatic hyperplasia with lower urinary tract symptoms; R33.8 Other retention of urine
CPT/HCPCS: 99281

== ENCOUNTER 2017-09-15 11:45 | Emergency (ER) | payer OTHER ==
[~2017-09-15] VITALS: Ht 188 cm; Wt 86.0 kg
[2017-09-15 11:49] VITALS: BP 100/56; PULSE 100; RESP 20; O2SAT 96
[2017-09-15] MEDS ORDERED: SODIUM CHLORIDE 0.9% FLUSH 10 ML FLUSH IVF PRN (12:15)
[2017-09-15] MEDS ORDERED: SODIUM CHLOR 0.9% 1000 ML INJ 1,000 ML IV ONE ×2 (12:15→14:00)
--- NOTE | 2017-09-15 12:31 | PD ---
HPI Chief Complaint: Psychiatric Symptoms Time Seen by Provider: 12:06 Travel History International Travel<30 days: No Contact w/Intl Traveler<30days: No Traveled to known affect area: No History of Present Illness HPI Patient is a 61-year-old male presenting to emerge department under Thibodeaux act for psychiatric evaluation. Patient was observed walking in the road, it appeared that he was trying to get hit by cars. Patient presents and denies any suicidal ideations. He states that he feels weak and was trying to cross the road but he could not walk straight. Patient reports he is out of his Xanax and has a lot of anxiety. Patient is now reporting that he has chest pain , feels weak. He also reports feeling short of breath. This is patient's third presentation to the emergency department since early this morning. He does not quantify or describe his chest pain. Symptom onset appears sudden, symptoms are moderate in nature. There are no alleviating factors. PFSH Past Medical History Asthma: Yes Anxiety: Yes Genitourinary: Yes (ENLARGED PROSTATE ) Hiatal Hernia: Yes Psychiatric: Yes Immunizations Current: Yes ?: Not Past Surgical History Abdominal Surgery: Yes (HERNIA REPAIR) AICD: No Arteriovenous Shunt: No Body Medical Devices: DENTAL IMPLANT Cardiac Surgery: No Cholecystectomy: No Ear Surgery: No Endocrine Surgery: No Eye Surgery: No Genitourinary Surgery: Yes (TURP secondary to BPH) Gynecologic Surgery: No Insulin Pump: No Joint Replacement: No Neurologic Surgery: No Oral Surgery: Yes (TOOTH PULLED UNDER ANESTHESIA) Pacemaker: No Thoracic Surgery: No Other Surgery: Yes Social History Alcohol Use: Yes Tobacco Use: No Substance Use: Yes (Xanax) Allergies-Medications (Allergen,Severity, Reaction): Coded Allergies: No Known Allergies (Verified Allergy, Unknown, 09/15/17) Reported Meds & Prescriptions Reported Meds & Active Scripts Active Alprazolam 1 Mg Tab 1 Mg PO BID PRN Prednisone 10 Mg Tab 15 Mg PO DAILY Ventolin Hfa 18 GM Inh (Albuterol Sulfate) 90 Mcg/Act Aer 2 Puff INH Q4H PRN Review of Systems Except as stated in HPI: all other systems reviewed are Neg HENT: Positive: Lightheadedness Cardiovascular: Positive: Chest Pain or Discomfort Respiratory: Positive: Shortness of Breath Gastrointestinal: No: Nausea, Abdominal Pain Musculoskeletal: No: Myalgias Neurologic: Positive: Weakness Psychiatric: Positive: Anxiety, Substance Abuse Physical Exam Narrative GENERAL: Well-developed, well-nourished, alert male. Presenting in no acute distress. SKIN: Warm and dry. HEAD: Atraumatic. Normocephalic. EYES: Pupils equal and round. No scleral icterus. No injection or drainage. ENT: No nasal bleeding or discharge. Mucous membranes pink and moist. NECK: Trachea midline. No JVD. CARDIOVASCULAR: Regular rate and rhythm. RESPIRATORY: No accessory muscle use. Clear to auscultation. Breath sounds equal bilaterally. No wheezes, rhonchi, rales noted. GASTROINTESTINAL: Abdomen soft, non-tender, nondistended. Hepatic and splenic margins not palpable. MUSCULOSKELETAL: Extremities without clubbing, cyanosis, or edema. No obvious deformities. NEUROLOGICAL: Awake and alert. No obvious cranial nerve deficits. Motor grossly within normal limits. Five out of 5 muscle strength in the arms and legs. Normal speech. PSYCHIATRIC: Appropriate mood and affect; insight and judgment normal. Data Data Last Documented VS Vital Signs Date Time Temp Pulse Resp B/P (MAP) Pulse Ox O2 Delivery O2 Flow Rate FiO2 09/15/17 18:06 98.9 98 20 145/82 (103) 95 Room Air Orders Orders Electrocardiogram (09/15/17 12:06) Ckmb (Isoenzyme) Profile (09/15/17 12:06) Complete Blood Count With Diff (09/15/17 12:06) Comprehensive Metabolic Panel (09/15/17 12:06) Magnesium (Mg) (09/15/17 12:06) Prothrombin Time / Inr (Pt) (09/15/17 12:06) Act Partial Throm Time (Ptt) (09/15/17 12:06) Troponin I (09/15/17 12:06) Chest, Single Ap (09/15/17 12:06) Ecg Monitoring (09/15/17 12:06) Bilateral Bp Monitoring (09/15/17 12:06) Iv Access Insert/Monitor (09/15/17 12:06) Oximetry (09/15/17 12:06) Oxygen Administration (09/15/17 12:06) Sodium Chloride 0.9% Flush (Ns Flush) (09/15/17 12:15) Sodium Chlor 0.9% 1000 Ml Inj (Ns 1000 M (09/15/17 12:15) Blood Glucose (09/15/17 12:06) Sodium Chlor 0.9% 1000 Ml Inj (Ns 1000 M (09/15/17 14:00) Ed Discharge Order (09/15/17 18:18) Labs Laboratory Tests Test 09/15/17 12:30 White Blood Count 12.2 TH/MM3 Red Blood Count 4.76 MIL/MM3 Hemoglobin 14.2 GM/DL Hematocrit 43.4 % Mean Corpuscular Volume 91.3 FL Mean Corpuscular Hemoglobin 29.9 PG Mean Corpuscular Hemoglobin Concent 32.8 % Red Cell Distribution Width 17.1 % Platelet Count 326 TH/MM3 Mean Platelet Volume 8.3 FL Neutrophils (%) (Auto) 78.1 % Lymphocytes (%) (Auto) 6.8 % Monocytes (%) (Auto) 14.3 % Eosinophils (%) (Auto) 0.4 % Basophils (%) (Auto) 0.4 % Neutrophils # (Auto) 9.5 TH/MM3 Lymphocytes # (Auto) 0.8 TH/MM3 Monocytes # (Auto) 1.7 TH/MM3 Eosinophils # (Auto) 0.0 TH/MM3 Basophils # (Auto) 0.0 TH/MM3 CBC Comment DIFF FINAL Differential Comment Prothrombin Time 10.0 SEC Prothromb Time International Ratio 1.0 RATIO Activated Partial Thromboplast Time 23.7 SEC Blood Urea Nitrogen 17 MG/DL Creatinine 1.98 MG/DL Random Glucose 117 MG/DL Total Protein 7.2 GM/DL Albumin 3.2 GM/DL Calcium Level 8.2 MG/DL Magnesium Level 2.1 MG/DL Alkaline Phosphatase 86 U/L Aspartate Amino Transf (AST/SGOT) 50 U/L Alanine Aminotransferase (ALT/SGPT) 65 U/L Total Bilirubin 0.6 MG/DL Sodium Level 136 MEQ/L Potassium Level 3.8 MEQ/L Chloride Level 96 MEQ/L Carbon Dioxide Level 20.4 MEQ/L Anion Gap 20 MEQ/L Estimat Glomerular Filtration Rate 35 ML/MIN Total Creatine Kinase 91 U/L Troponin I LESS THAN 0.02 NG/ML MDM Medical Decision Making Medical Screen Exam Complete: Yes Emergency Medical Condition: Yes Interpretation(s) Last Impressions Chest X-Ray 09/15/17 1206 Signed Impressions: CONCLUSION: Minimal linear atelectasis within the left base. Otherwise, unremarkable exam. Laboratory Tests Test 09/15/17 12:30 White Blood Count 12.2 TH/MM3 Red Blood Count 4.76 MIL/MM3 Hemoglobin 14.2 GM/DL Hematocrit 43.4 % Mean Corpuscular Volume 91.3 FL Mean Corpuscular Hemoglobin 29.9 PG Mean Corpuscular Hemoglobin Concent 32.8 % Red Cell Distribution Width 17.1 % Platelet Count 326 TH/MM3 Mean Platelet Volume 8.3 FL Neutrophils (%) (Auto) 78.1 % Lymphocytes (%) (Auto) 6.8 % Monocytes (%) (Auto) 14.3 % Eosinophils (%) (Auto) 0.4 % Basophils (%) (Auto) 0.4 % Neutrophils # (Auto) 9.5 TH/MM3 Lymphocytes # (Auto) 0.8 TH/MM3 Monocytes # (Auto) 1.7 TH/MM3 Eosinophils # (Auto) 0.0 TH/MM3 Basophils # (Auto) 0.0 TH/MM3 CBC Comment DIFF FINAL Differential Comment Prothrombin Time 10.0 SEC Prothromb Time International Ratio 1.0 RATIO Activated Partial Thromboplast Time 23.7 SEC Blood Urea Nitrogen 17 MG/DL Creatinine 1.98 MG/DL Random Glucose 117 MG/DL Total Protein 7.2 GM/DL Albumin 3.2 GM/DL Calcium Level 8.2 MG/DL Magnesium Level 2.1 MG/DL Alkaline Phosphatase 86 U/L Aspartate Amino Transf (AST/SGOT) 50 U/L Alanine Aminotransferase (ALT/SGPT) 65 U/L Total Bilirubin 0.6 MG/DL Sodium Level 136 MEQ/L Potassium Level 3.8 MEQ/L Chloride Level 96 MEQ/L Carbon Dioxide Level 20.4 MEQ/L Anion Gap 20 MEQ/L Estimat Glomerular Filtration Rate 35 ML/MIN Total Creatine Kinase 91 U/L Troponin I LESS THAN 0.02 NG/ML Vital Signs Date Time Temp Pulse Resp B/P (MAP) Pulse Ox O2 Delivery O2 Flow Rate FiO2 09/15/17 11:49 100 20 100/56 (91) 96 Differential Diagnosis ACS versus metabolic abnormality versus pneumonia versus malingering versus other Narrative Course Patient is a 61-year-old male that presented to the emergency department under Thibodeaux act for psychiatric evaluation after being observed walking in traffic. Patient denies any suicidal ideations on arrival patient's blood glucose was 66 , he reported feeling weak and then he reported chest pain. For this reason patient was moved to a medical bed. Labs and imaging ordered and pending, IV access established, patient placed on telemetry monitoring continuous pulse oximetry. Patient was given orange juice to drink on arrival, he consumed approximately 8 ounces. CBC with no acute findings Chemistry with a creatinine of 1.98, slightly elevated when compared to prior. Patient has received a liter of IV fluids, second liter is ordered. Cardiac enzymes are negative 1 set Chest x-ray shows minimal linear atelectasis within the left base, otherwise unremarkable. Vital signs improved after administration of IV fluids. Discussed findings with my attending physician. Patient is medically clear for psychiatric evaluation at this time. Patient was seen and evaluated by psychiatry, Thibodeaux act was lifted. Patient will be discharged home with a diagnosis of anxiety disorder. Patient is to follow-up with [facility] or with his primary doctor. Diagnosis Primary Impression: Anxiety Referrals: Arpit Peterson MD [facility] Patient Instructions: Anxiety (ED), General Instructions Additional Instructions: Follow-up with your primary doctor Follow-up with [facility] Avoid excessive intake of alcohol Eat regular meals Return to emergency department for any new or worsening symptoms Med/Other Pt SpecificInfo: No Change to Meds Disposition: 01 DISCHARGE HOME Condition: Stable Gracy Manriquez Sep 15, 2017 12:31
--- NOTE | 2017-09-15 12:59 | RADRPT ---
EXAM DATE: 09/15/2017 12:41 PM EDT AGE/SEX: 61 years / Male INDICATIONS: Shortness of breath and chest pain. CLINICAL DATA: This is the patient's initial encounter. Patient reports that signs and symptoms have been present for 3 days and indicates a pain score of 10/10. MEDICAL/SURGICAL HISTORY: Asthma. None. COMPARISON: [facility] – [place], CHEST SINGLE AP, 07/01/2017. . FINDINGS: A single AP view of the chest demonstrates the lungs to be symmetrically aerated without evidence of mass, infiltrate or effusion. Minimal linear atelectasis within the left base. The cardiomediastinal contours are unremarkable. Osseous structures are intact. CONCLUSION: Minimal linear atelectasis within the left base. Otherwise, unremarkable exam. Electronically signed by: Joss Orellana MD 09/15/2017 12:58 PM EDT
[2017-09-15 13:05] LABS: AUTOMATED NEUTROPHIL # 9.5 TH/MM3 (1.8-7.7); BASOPHIL % 0.4 % (0.0-2.0); EOSINOPHIL % 0.4 % (0.0-4.0); HEMATOCRIT 43.4 % (39.0-51.0); HEMOGLOBIN 14.2 GM/DL (13.0-17.0); LYMPH % 6.8 % (9.0-44.0); LYMPHOCYTE # 0.8 TH/MM3 (1.0-4.8); MEAN CELL VOLUME 91.3 FL (80.0-100.0); MEAN CORPUSCULAR HEMOGLOBIN 29.9 PG (27.0-34.0); MEAN CORPUSCULAR HGB CONC 32.8 % (32.0-36.0); MEAN PLATELET VOLUME 8.3 FL (7.0-11.0); MONO % 14.3 % (0.0-8.0); MONOCYTE # 1.7 TH/MM3 (0-0.9); NEUT % 78.1 % (16.0-70.0); PLATELET COUNT 326 TH/MM3 (150-450); RED BLOOD COUNT 4.76 MIL/MM3 (4.50-5.90); RED CELL DISTRIBUTION WIDTH 17.1 % (11.6-17.2); WHITE BLOOD COUNT 12.2 TH/MM3 (4.0-11.0)
[2017-09-15 13:21] LABS: ALBUMIN 3.2 GM/DL (3.4-5.0); AST (GOT) 50 U/L (15-37); BICARBONATE 20.4 MEQ/L (21.0-32.0); BLOOD UREA NITROGEN 17 MG/DL (7-18); CALCIUM 8.2 MG/DL (8.5-10.1); CHLORIDE 96 MEQ/L (98-107); CREATININE 1.98 MG/DL (0.60-1.30); GLOMERULAR FILTRATION RATE 35 ML/MIN (>89); GLUCOSE,RANDOM 117 MG/DL (74-106); MAGNESIUM 2.1 MG/DL (1.5-2.5); SODIUM (NA) 136 MEQ/L (136-145)
[2017-09-15 13:27] LABS: ALKALINE PHOSPHATASE 86 U/L (45-117); ALT (GPT) 65 U/L (12-78); TOTAL BILIRUBIN ADULT 0.6 MG/DL (0.2-1.0); TOTAL PROTEIN 7.2 GM/DL (6.4-8.2); TROPONIN I LESS THAN 0.02 NG/ML (0.02-0.05)
[2017-09-15 14:25] VITALS: BP 125/81; PULSE 89; RESP 19; O2SAT 95
--- NOTE | 2017-09-15 15:36 | EKG ---
Date Performed: 09/15/2017 Time Performed: 13:08:04 PTAGE: 61 years EKG: Sinus rhythm NORMAL ECG PREVIOUS TRACING : 09/08/2017 00.01 No significant change from previous tracing noted. DOCTOR: Jae Cartagena Interpretating Date/Time 09/15/2017 15:35:02
[2017-09-15 18:06] VITALS: BP 145/82; PULSE 98; RESP 20; TEMP 98.9; O2SAT 95
--- NOTE | 2017-09-15 18:25 | PD ---
History of Present Illness Chief Complaint: Psychiatric Symptoms Time Seen by Provider: 18:00 Travel History International Travel<30 Days: No Contact w/Intl Traveler<30days: No Known affected area: No Legal Status Legal Status: [place] Act [place] Act Signed By: Yolanda Riley History of Present Illness: History of Present Illness HPI Patient is a 61-year-old male with multiyear history of alcohol abuse, benzodiazepine dependence presenting to ED department under Th[place] act initiated by law enforcement for psychiatric evaluation. The Th[place]ode[place] act report alleges that he was observed walking in the road and it appeared that he was trying to get hit by cars. Patient denies any suicidal ideations. This is patient's third presentation to the emergency department since early this morning. His first visit he presented intoxicated with blood alcohol level of 286 and he was requesting to have 2 mg of Xanax and he was alleging he had a prescription at home. During his second visit he reported that he has been out of his Xanax for 1 week and he is in withdrawals. He says he is very shaky, anxious, and feels like he is having some trouble breathing, constant, severe, starting yesterday. He was discharged from the emergency department earlier this morning and went to his primary care doctor who called 911 for him and had him transferred back to the emergency department because he said there was nothing he could do for him. This visit the patient denies that he was trying to walk in front of cars. He states that he stepped out to cross the street and did not see any oncoming cars. He denies that he was suicidal or homicidal. In terms of the Xanax he states that Dr. Peterson had been prescribing the Xanax for him but weaned him off of it. The patient does not present any psychosis, no marilyn, no hypomania and denies any suicidal or homicidal ideation, intent or plan. He is requesting to be discharged at this time. PFSH Past Medical History Asthma: Yes Anxiety: Yes Diminished Hearing: No Gastrointestinal Disorders: Yes (POSSIBLE HERNIA) Genitourinary: Yes (ENLARGED PROSTATE ) Hepatitis: No Hiatal Hernia: Yes Implanted Vascular Access Dvce: Yes Medical other: Yes (INGUINAL HERNIA, VASCULITIS) Psychiatric: Yes Respiratory: Yes Immunizations Current: Yes Influenza Vaccination: No ?: Not Past Surgical History Abdominal Surgery: Yes (HERNIA REPAIR) AICD: No Arteriovenous Shunt: No Body Medical Devices: DENTAL IMPLANT Cardiac Surgery: No Cholecystectomy: No Ear Surgery: No Endocrine Surgery: No Eye Surgery: No Genitourinary Surgery: Yes (TURP secondary to BPH) Gynecologic Surgery: No Insulin Pump: No Joint Replacement: No Neurologic Surgery: No Oral Surgery: Yes (TOOTH PULLED UNDER ANESTHESIA) Pacemaker: No Thoracic Surgery: No Other Surgery: Yes Psychiatric History Psychiatric History Hx Psychiatric Treatment: PATIENT STATED THAT HE HAS A HISTORY OF ANXIETY. No previous inpatient psychiatric hospitalization. No previous suicide attempt. States has been taken Xanax for about 20 years and his most recent provider was his PCP Dr. Peterson. History of Inpatient Treatment: No Guns or firearms in home: No Social History Single, born in [place]. 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 He lives with his mother. Hx Alcohol Use: Yes Hx Tobacco Use: No Hx Substance Use: Yes (Xanax) Substance Use Type: Alcohol Hx of Substance Use Treatment: No Family Psychiatric History Negative Allergies-Medications (Allergen,Severity, Reaction): Coded Allergies: No Known Allergies (Verified Allergy, Unknown, 09/15/17) Reported Meds & Prescriptions Reported Meds & Active Scripts Active Alprazolam 1 Mg Tab 1 Mg PO BID PRN Prednisone 10 Mg Tab 15 Mg PO DAILY Ventolin Hfa 18 GM Inh (Albuterol Sulfate) 90 Mcg/Act Aer 2 Puff INH Q4H PRN Review of Systems Psychiatric: COMPLAINS OF: Anxiety Except as stated in HPI: all other systems reviewed are Neg Mental Status Examination Appearance: Disheveled (Wearing blue paper scrubs.) Consciousness: Alert Orientation: x4 Motor Activity: Normal gait Speech: Unremarkable Language: Adequate Fund of Knowledge: Adequate Attention and Concentration: Adequate Memory: Unremarkable Mood: Appropriate, Anxious Affect: Appropriate Thought Process & Associations: Intact, Logical, Goal directed Thought Content: Appropriate Hallucination Type: None Delusion Type: None Suicidal Ideation: No Suicidal Plan: No Suicidal Intention: No Homicidal Ideation: No Homicidal Plan: No Homicidal Intention: No Insight: Poor Judgment: Adequate MDM Medical Decision Making Medical Record Reviewed: Yes Assessment/Plan Patient is a 61-year-old male with multiyear history of alcohol abuse, benzodiazepine dependence presenting to ED department under [place] act initiated by law enforcement for psychiatric evaluation. The [place] act report alleges that he was observed walking in the road and it appeared that he was trying to get hit by cars. Patient denies any suicidal ideations. Patient at this time is requesting to be discharged and I find no criteria to keep him under the Thibodeaux act. There is no evidence of unstable mental illness. The patient does have a history of alcohol abuse but at this time is not ready to address this issue. The Thibodeaux act will be lifted. Psychiatric clear for discharge from the ED. Orders Orders Electrocardiogram (09/15/17 12:06) Ckmb (Isoenzyme) Profile (09/15/17 12:06) Complete Blood Count With Diff (09/15/17 12:06) Comprehensive Metabolic Panel (09/15/17 12:06) Magnesium (Mg) (09/15/17 12:06) Prothrombin Time / Inr (Pt) (09/15/17 12:06) Act Partial Throm Time (Ptt) (09/15/17 12:06) Troponin I (09/15/17 12:06) Chest, Single Ap (09/15/17 12:06) Ecg Monitoring (09/15/17 12:06) Bilateral Bp Monitoring (09/15/17 12:06) Iv Access Insert/Monitor (09/15/17 12:06) Oximetry (09/15/17 12:06) Oxygen Administration (09/15/17 12:06) Sodium Chloride 0.9% Flush (Ns Flush) (09/15/17 12:15) Sodium Chlor 0.9% 1000 Ml Inj (Ns 1000 M (09/15/17 12:15) Blood Glucose (09/15/17 12:06) Sodium Chlor 0.9% 1000 Ml Inj (Ns 1000 M (09/15/17 14:00) Ed Discharge Order (09/15/17 18:18) Results Vital Signs Date Time Temp Pulse Resp B/P (MAP) Pulse Ox O2 Delivery O2 Flow Rate FiO2 09/15/17 18:17 09/15/17 18:06 98.9 98 20 145/82 (103) 95 Room Air 09/15/17 16:19 6/14/18 14:25 89 19 125/81 (96) 95 Room Air 09/15/17 11:49 100 20 100/56 (71) 96 Laboratory Tests Test 09/15/17 12:30 White Blood Count 12.2 Red Blood Count 4.76 Hemoglobin 14.2 Hematocrit 43.4 Mean Corpuscular Volume 91.3 Mean Corpuscular Hemoglobin 29.9 Mean Corpuscular Hemoglobin Concent 32.8 Red Cell Distribution Width 17.1 Platelet Count 326 Mean Platelet Volume 8.3 Neutrophils (%) (Auto) 78.1 Lymphocytes (%) (Auto) 6.8 Monocytes (%) (Auto) 14.3 Eosinophils (%) (Auto) 0.4 Basophils (%) (Auto) 0.4 Neutrophils # (Auto) 9.5 Lymphocytes # (Auto) 0.8 Monocytes # (Auto) 1.7 Eosinophils # (Auto) 0.0 Basophils # (Auto) 0.0 CBC Comment DIFF FINAL Differential Comment Prothrombin Time 10.0 Prothromb Time International Ratio 1.0 Activated Partial Thromboplast Time 23.7 Blood Urea Nitrogen 17 Creatinine 1.98 Random Glucose 117 Total Protein 7.2 Albumin 3.2 Calcium Level 8.2 Magnesium Level 2.1 Alkaline Phosphatase 86 Aspartate Amino Transf (AST/SGOT) 50 Alanine Aminotransferase (ALT/SGPT) 65 Total Bilirubin 0.6 Sodium Level 136 Potassium Level 3.8 Chloride Level 96 Carbon Dioxide Level 20.4 Anion Gap 20 Estimat Glomerular Filtration Rate 35 Total Creatine Kinase 91 Troponin I LESS THAN 0.02 Diagnosis Primary Impression: Anxiety Additional Impression: Alcohol abuse Psychiatrically Cleared: Yes Referrals: [facility] Forms: Tests/Procedures Patient Instructions: General Instructions, Anxiety (ED) Additional Instructions: Follow-up with your primary doctor Follow-up with Jose Yan Avoid excessive intake of alcohol Eat regular meals Return to emergency department for any new or worsening symptoms Med/ Other Pt Specific Info: No Meds Exist/No RX given Disposition: 01 DISCHARGE HOME Condition: Stable Problem Qualifiers Deanna Swanson Sep 15, 2017 18:24
== END 2017-09-15 18:46 | disposition home or self-care (01) ==
LOC: NEPD 11:45 → NEPJ 18:46
DX: F41.9 Anxiety disorder, unspecified (principal); F10.10 Alcohol abuse, uncomplicated; R53.1 Weakness; R07.9 Chest pain, unspecified; R06.02 Shortness of breath; J45.909 Unspecified asthma, uncomplicated; N40.0 Benign prostatic hyperplasia without lower urinary tract symptoms
CPT/HCPCS: 71045; 80053; 82550; 83735; 84484; 85025; 85610; 85730; 93005; 96360; 96361; 99285; J7030